=== PATIENT | male | born 1965 | race Caucasian/White ===

== ENCOUNTER → 2018-01-21 16:34 | Outpatient (CLI) | payer OTHER, BC, SELFPAY ==
[2018-01-21 17:39] LABS: Absolute Lymphocyte Count 2.26 X10^3/ul (0.83-4.51); Absolute Neutrophil Count 4.2 X10^3/uL (2.0-7.7); Basophil# 0.04 X10^3/uL; Basophil% 0.6 % (0-1); Eosinophil# 0.11 X10^3/uL; Eosinophils% 1.6 % (0-5); Hematocrit 40.7 % (40-54); Hemoglobin 13.6 g/dl (13.0-16.5); Lymphocyte # 2.26 X10^3/ul (4.0); Lymphocyte % 32.1 % (19-41); Mean Corp Hgb Conc 33.4 g/gl (32-36); Mean Corpuscular Hgb 30.5 pg (27.0-32.0); Mean Corpuscular Volume 91.3 fL (80-94); Mean Platelet Vol. 10.7 fl (6.2-12.0); Monocyte# 0.42 X10^3/uL; Neutrophil % 59.6 % (47-70); Platelet Count 241 K/mm3 (150-450); RBC Distribution Width CV 12.7 % (11.6-14.6); RBC Distribution Width SD 42.3 fl (35.1-43.9); Red Blood Count 4.46 M/mm3 (4.6-6.2)
[2018-01-21 17:40] LABS: POSITIVE COUNT NO; POSITIVE DIFFERENTIAL NO; POSITIVE MORPHOLOGY NO
[2018-01-21 18:00] LABS: BUN 9 mg/dL (7-18); BUN/Creat Ratio 9.9 RATIO (10-20); Creatinine, Serum 0.91 mg/dL (0.70-1.30); EST Glomerular Filtration Rate 92 mL/min (>60); Est Glom Filt Rate - Afr Amer 111 mL/min (>60); Glucose 115 mg/dL (74-106)
[2018-01-21 18:01] LABS: ALB/GLOB Ratio 1.1 RATIO (0.9-2.4); AST(SGOT) 14 U/L (15-37); Alanine Aminotransfer ALT/SGPT 23 U/L (16-61); Alkaline Phosphatase 61 U/L (45-117); Anion Gap 10 (5-15); Calcium,Total 9.4 mg/dL (8.5-10.1); Chloride 100 mmol/L (98-107); Globulin 3.5 g/dL (2.2-4.2); Magnesium 2.1 mg/dL (1.6-2.6); Potassium 3.7 mmol/L (3.5-5.1); Protein, Total 7.5 g/dL (6.4-8.2); Sodium Level 138 mmol/L (136-145); Thyroid Stim Hormone (TSH) 1.06 uIU/mL (0.358-3.74)
== END ==
PROVIDERS: Family Provider Family Medicine; PCP Family Medicine; Visit Provider Family Medicine
DX: K21.9 Gastro-esophageal reflux disease without esophagitis (principal)
CPT/HCPCS: 36415; 80053; 83735; 84443; 85025

== ENCOUNTER → 2018-02-14 07:49 | Outpatient (CLI) | payer OTHER, BC, SELFPAY ==
--- NOTE | 2018-02-14 07:52 | US_ITS ---
STUDY: ABDOMINAL ULTRASOUND - RIGHT UPPER QUADRANT REASON FOR VISIT: Male, 52 years old. Epigastric pain TECHNIQUE: Ultrasound evaluation of the right upper quadrant was performed with real-time and static mccann-scale imaging. TECHNICAL QUALITY: Adequate. COMPARISON: None. FINDINGS: Liver: The liver measures 12.8 cm. There is normal echogenicity of the liver. The bile ducts are within normal limits. There is hepatic color flow. The direction of portal flow is hepatopetal. There is no demonstrated mass lesion, there is a 4 mm hepatic calcification. Gallbladder: Normal distended gallbladder. The gallbladder wall measures 1.5 mm. There is a negative sonographic Scott's sign. There is no pericholecystic fluid. There are no gallstones. Common Bile Duct (C.B.D.): The common bile duct measures 2.1 mm. Pancreas: Normal size of the head, body and tail of the pancreas. There is normal echogenicity of the pancreas. There is no demonstrated pancreatic mass or cyst. Right Kidney: Normal size of the right kidney. The right kidney measures 11.5 x 6.3 x 5.0 cm. Normal renal cortex. The right cortex measures 1.6 cm. There is no demonstrated renal mass or cyst. There is no right hydronephrosis. US/Abdomen Limited IMPRESSION: No suspicious sonographic findings Electronically Signed: Dillon Arroyo MD at 9:39 EDT , Service support ,
== END ==
PROVIDERS: Family Provider Family Medicine; PCP Family Medicine; Visit Provider Internal Medicine Gastroenterology
DX: K21.9 Gastro-esophageal reflux disease without esophagitis (principal); R10.13 Epigastric pain
CPT/HCPCS: 76705

== ENCOUNTER 2020-11-16 14:24 | Outpatient (RCR) | payer OTHER, SELFPAY ==
[2017-07-18 17:19] VITALS: BMI 21.3
[2020-11-16] MEDS: COVID-19 VACC, MRNA(PFIZER)/PF 30 MCG/0.3 ML SYRINGE IM (07:25)
[2020-12-07] MEDS: COVID-19 VACC, MRNA(PFIZER)/PF 30 MCG/0.3 ML SYRINGE IM (07:08)
== END 2021-02-08 23:59 ==
LOC: IMMUN 14:24
PROVIDERS: PCP Family Medicine; Referring Provider Family Medicine; Visit Provider Family Medicine
DX: Z23 Encounter for immunization (principal)
CPT/HCPCS: 0001A; 0002A; 91300

== ENCOUNTER 2021-10-06 13:11 | Emergency (ER) | payer OTHER, SELFPAY ==
[2021-10-06 13:12] VITALS: BP 177/112; PULSE 104; RESP 16; TEMP 36.6; O2SAT 100; BMI 22.6
--- NOTE | 2021-10-06 13:40 | CT_ITS ---
STUDY: CT ABDOMEN AND PELVIS WITH CONTRAST REASON FOR EXAM: Male, 56 years old. 10 day history of right-sided abdominal pain with radiation into the right groin. History of ethanol abuse. RADIATION DOSAGE (If Supplied By Facility): CTDIvol = ( 10.51 ) mGy, DLP = ( 537.74 ) mGycm TECHNIQUE: Transaxial images were obtained from the dome of the diaphragm to the symphysis pubis without oral contrast. IV 100mL Isovue-370 was administered. Sagittal and coronal images were reconstructed. Individualized dose optimization techniques were used for this CT. COMPARISON: None. FINDINGS: The visualized lung bases are unremarkable. The visualized portions of the heart are within normal limits. Normal liver. Normal gallbladder and extrahepatic biliary system. There are multiple benign calcified granulomata of the spleen. Normal pancreas. Normal bilateral adrenal glands. Normal right kidney. Normal left kidney. Normal visualized stomach. Normal small intestine. Normal colon. The appendix is visualized and appears normal. There is diffuse atherosclerotic calcification of the abdominal aorta, without a demonstrated aneurysm. Normal inferior vena cava. Normal retroperitoneum. Moderately distended urinary bladder with diffuse bladder wall thickening. Normal abdominal wall. There are diffuse degenerative changes of the visualized lumbar spine. CT/Abdomen/Pelvis W IV Cont ONLY IMPRESSION: Mild degree of diffuse bladder wall thickening. Moderate degree of urinary bladder distention. Electronically Signed: Lázaro aBrber MD at 14:47 EST ,
[2021-10-06 13:46] LABS: Bacteria 0 SEEN /hpf (None Seen); Mucous, Urine 0 SEEN /hpf (<or=2+); Red Blood Cells-Urine 0 SEEN /hpf (0-5); Squamous Epithelial Cells - UA 0 SEEN /hpf (0-5); White Blood Cells 0 SEEN /hpf (0-5)
--- NOTE | 2021-10-06 13:46 | ED.VIS.GI ---
HPI HPI - GI History of Present Illness Chief Complaint: Abd Pain Informant: patient Narrative Narrative: Patient is a 56-year-old male with history of hypertension and alcohol abuse presenting with right-sided abdominal pain. He states has had symptoms for the past 10 days. It is in his right upper abdomen and radiates into his groin and to his back. He is also had increased belching. He is taking ibuprofen with some relief of his symptoms. He went to urgent care on Sunday, 3 days ago,where he was found to have red blood cells in his urine. He was diagnosed with possible bladder infection and started antibiotics. He notes he has not felt any better and was contacted today saying that his culture was negative. Patient has a history of kidney stones. He has had some mild dysuria. Does drink regular alcohol and chews tobacco. No other complaints at this time. [facility] Medical History Anxiety Hypertension Home Medications aspirin 81 mg PO DAILY@0800 #30 tab 03/21/17 [Rx Last Taken Unknown] lisinopril-hydrochlorothiazide [Zestoretic] 1 ea PO DAILY #30 tab 03/21/17 [Rx Last Taken Unknown] nitroglycerin 0.4 mg SUBLINGUAL Q5M PRN #14 tab 03/21/17 [Rx Last Taken Unknown] hydroxyzine HCl 25 mg PO PRN PRN 10/06/21 [History Last Taken Unknown] phenazopyridine [Pyridium] 200 mg PO TID #6 tab 10/06/21 [Rx Last Taken Unknown] tamsulosin [Flomax] 0.4 mg PO DAILY #14 cap 10/06/21 [Rx Last Taken Unknown] Allergy/AdvReac Type Severity Reaction Status Date / Time No Known Allergies Allergy Verified 10/06/21 13:14 Social History Smoking Status: Light Smoker (<10/day) ROS ROS ED Constitutional Constitutional ED: Denies chills or fever(s) ENT ENT ED: Denies sore throat Cardiovascular Cardiovascular: Denies chest pain Respiratory/Chest Respiratory/Chest: Denies cough or dyspnea Gastrointestinal Gastrointestinal: Reports abdominal pain and nausea; Denies constipation, diarrhea or vomiting Genitourinary Genitourinary ED: Reports dysuria and hematuria Musculoskeletal Musculoskeletal: Reports back pain; Denies arthralgias, myalgias or neck pain Integumentary Denies rash Neurologic Neurologic: Denies headache(s) or weakness Psychiatric Psychiatric: Reports anxiety; Denies depression EXAM Physical Exam Const Vital Signs: 10/06/21 13:12 Temperature 97.8 F Temperature Source Temporal Pulse Rate 104 H Respiratory Rate 16 Blood Pressure 177/112 H Blood Pressure Mean 133 Pulse Ox 100 Oxygen Delivery Method Room Air Positive well nourished and well developed General Appearance ED: well developed HEENT Reports moist mucous membranes normocephalic and atraumatic Eyes PERRL and EOMs intact bilaterally Neck supple and no JVD Resp normal respiratory effort and clear to auscultation bilaterally Cardio regular rate, regular rhythm and no murmurs GI non-tender and non-distended Auscultation: hyperactive bowel sounds Palpation: soft; Negative for guarding or rigid Back/Spine no CVA tenderness General Back: Negative for CVA tenderness Extremity full ROM Neuro Sensorium / Orientation: alert, oriented to person and oriented to time Motor Exam: strength 5/5 throughout; Negative for general weakness Psych mental status grossly normal Mood & Affect: anxious Skin no wounds Lesions: no lesions Rashes: no rashes MDM MDM MDM Narrative Medical decision making narrative: Patient is evaluated for 10 days of abdominal pain. He has had some associated dysuria. He was treated with a course of Macrobid with no improvement. He was contacted today and told his urine culture was negative. Differential includes nephrolithiasis as well as diverticulitis or other bowel involvement. CT of the abdomen pelvis obtained as well screening blood work. Work-up is largely unremarkable. Urinalysis is not consistent with hematuria or infection. CT did show mild degree of diffuse bladder wall thickening as well as moderate degree of urinary bladder distention. Patient attempted to urinate again and bladder scan still showed at least 150 cc of urine. At this time patient does not want a Lee catheter. We will start him on Pyridium and Flomax and have him follow-up outpatient with urology. Is counseled on signs and symptoms of acute urinary retention and reasons to return to the emergency room. Patient is agreeable this plan of care. There does not appear to be any acute infection requiring antibiotics. I suspect his urinary retention and possible cystitis is what is causing his symptoms. He does note that his symptoms are worse when he feels the need to urinate. Lab Data Attestation: I reviewed the patient's lab results. Labs: Laboratory Results - last 24 hr 10/06/21 10/06/21 10/06/21 13:20 13:49 13:49 WBC 7.8 RBC 5.00 Hgb 16.1 Hct 46.4 MCV 92.8 MCH 32.2 H MCHC 34.7 RDW Std Deviation 40.9 RDW Coeff of Nader 11.9 Plt Count 229 MPV 10.4 Immature Gran % (Auto) 0.300 Neut % (Auto) 66.5 Lymph % (Auto) 23.5 Haakon % (Auto) 7.2 Eos % (Auto) 1.7 Baso % (Auto) 0.8 Absolute Neuts (auto) 5.2 Absolute Lymphs (auto) 1.83 Nucleated RBC % 0 Sodium 138 Potassium 3.6 Chloride 103 Carbon Dioxide 28.0 Anion Gap 7 BUN 11 Creatinine 1.00 Estim Creat Clear Calc 81.62 Est GFR (MDRD) Af Amer 99 Est GFR (MDRD) Non-Af 81 BUN/Creatinine Ratio 11.0 Glucose 129 H Lactic Acid Calcium 9.2 Total Bilirubin 1.00 Direct Bilirubin 0.21 AST 12 L ALT 25 Alkaline Phosphatase 57 Total Protein 8.0 Albumin 4.3 Globulin 3.7 Lipase 74 Urine Color Yellow Urine Clarity Clear Urine pH 6.5 Ur Specific Evant 1.010 Urine Protein Negative Urine Glucose (UA) Normal Urine Ketones Negative Urine Occult Blood Negative Urine Nitrite Negative Urine Bilirubin Negative Urine Urobilinogen Normal Ur Leukocyte Esterase Negative Urine RBC 0 SEEN Urine WBC 0 SEEN Ur Squamous Epith Cells 0 SEEN Urine Bacteria 0 SEEN Urine Mucus 0 SEEN 10/06/21 13:49 WBC RBC Hgb Hct MCV MCH MCHC RDW Std Deviation RDW Coeff of Nader Plt Count MPV Immature Gran % (Auto) Neut % (Auto) Lymph % (Auto) Haakon % (Auto) Eos % (Auto) Baso % (Auto) Absolute Neuts (auto) Absolute Lymphs (auto) Nucleated RBC % Sodium Potassium Chloride Carbon Dioxide Anion Gap BUN Creatinine Estim Creat Clear Calc Est GFR (MDRD) Af Amer Est GFR (MDRD) Non-Af BUN/Creatinine Ratio Glucose Lactic Acid 1.4 Calcium Total Bilirubin Direct Bilirubin AST ALT Alkaline Phosphatase Total Protein Albumin Globulin Lipase Urine Color Urine Clarity Urine pH Ur Specific Evant Urine Protein Urine Glucose (UA) Urine Ketones Urine Occult Blood Urine Nitrite Urine Bilirubin Urine Urobilinogen Ur Leukocyte Esterase Urine RBC Urine WBC Ur Squamous Epith Cells Urine Bacteria Urine Mucus Radiography Diagnostic Testing: Clinical Impression(s) from Imaging Studies Abdomen/Pelvis CT 10/06/21 13:40 IMPRESSION: Mild degree of diffuse bladder wall thickening. Moderate degree of urinary bladder distention. Electronically Signed: Lázaro Barber MD at 14:47 EST , Discharge Plan Triage Chief Complaint: Abd Pain ED Provider: Karla Decker Dx/Rx/DC Orders Clinical Impression: Acute urinary retention, Cystitis Instructions: ED Urinary Retention, Male Prescriptions: New phenazopyridine [Pyridium] 200 MG tablet 200 mg PO TID Qty: 6 RF: 0 tamsulosin [Flomax] 0.4 mg capsule 0.4 mg PO DAILY Qty: 14 RF: 0 No Action aspirin 81 MG tablet 81 mg PO DAILY@0800 Qty: 30 RF: 0 nitroglycerin 0.4 MG tablet 0.4 mg sublingual Q5M PRN (Reason: Chest Pain) Qty: 14 RF: 0 lisinopril-hydrochlorothiazide [Zestoretic] 1 EACH tablet 1 ea PO DAILY Qty: 30 RF: 0 hydroxyzine HCl 25 mg tablet 25 mg PO PRN PRN (Reason: Anxiety) RF: 0 Primary Care Provider: Silvio Moon Referrals: Silvio Moon MD [Primary Care Provider] - Case Squires MD [STAFF PHYSICIAN] - 1-2 Weeks Activity Restrictions/Additional Instructions: I suspect your bladder is not emptying all the way which is causing her symptoms. If you have more discomfort in your lower abdomen or feel the need to urinate but can only pass a small amount of urine, please return the emergency room as you might require a Lee catheter at that time. Disposition Disposition: Home, Self Care
[2021-10-06 13:48] LABS: Color, Urine Yellow (Yellow); Glucose, Dipstick Normal (Normal); Ketone-Dipstick Negative (Negative); Leukocyte Esterase-Dipstick Negative /ul (Negative); Nitrite-Dipstick Negative (Negative); Occult Blood-Urine Negative /ul (Negative); Protein-Dipstick Negative (Negative); Urine Bilirubin Dipstick Negative (Negative); Urine Clarity Clear (Clear); Urine Urobilinogen Normal (Normal); Urine pH 6.5 (5.0 - 8.0)
[2021-10-06 13:57] LABS: Absolute Lymphocyte Count 1.83 X10^3/uL (0.83-4.51); Absolute Neutrophil Count 5.2 X10^3/uL (2.0-7.7); Basophil# 0.06 X10^3/uL; Basophil% 0.8 % (0-1); Eosinophil# 0.13 X10^3/uL; Eosinophils% 1.7 % (0-5); Hematocrit 46.4 % (40-54); Hemoglobin 16.1 g/dL (13.0-16.5); Lymphocyte # 1.83 X10^3/ul (0.83-4.51); Lymphocyte % 23.5 % (19-41); Mean Corp Hgb Conc 34.7 g/dL (32-36); Mean Corpuscular Hgb 32.2 pg (27.0-32.0); Mean Corpuscular Volume 92.8 fL (80-94); Mean Platelet Vol. 10.4 fl (6.2-12.0); Monocyte# 0.56 X10^3/uL; Monocyte% 7.2 % (0-10); NRBC Flagged by Analyzer 0 % (0-5); Neutrophil # 5.18 X10^3/uL (2.7-7.7); Neutrophil % 66.5 % (47-70); Platelet Count 229 K/mm3 (150-450); RBC Distribution Width CV 11.9 % (11.6-14.6); RBC Distribution Width SD 40.9 fl (35.1-43.9); White Blood Count 7.8 K/mm3 (4.4-11.0)
[2021-10-06] MEDS: Ondansetron 4 MG/2 ML Vial IV (13:57)
[2021-10-06] MEDS: Ketorolac 15 MG/ML Vial IV (13:57)
[2021-10-06] MEDS: Famotidine 200 MG/20 ML MDV 20 MG in 0.9% Normal Saline (Pres. free 8 ML 300 MG IV (13:57)
[2021-10-06] MEDS: 0.9% Normal Saline 1,000 ML 1000 ML IV (13:58)
[2021-10-06 14:11] LABS: AST(SGOT) 12 U/L (15-37); Alanine Aminotransfer ALT/SGPT 25 U/L (16-61); Albumin, Serum 4.3 g/dL (3.2-5.0); Alkaline Phosphatase 57 U/L (45-117); Anion Gap 7 (5-15); BUN 11 mg/dL (7-18); Bilirubin, Direct 0.21 mg/dL (0.00-0.30); Calcium,Total 9.2 mg/dL (8.5-10.1); Chloride 103 mmol/L (98-107); EST Glomerular Filtration Rate 81 mL/min (>60); Est Glom Filt Rate - Afr Amer 99 mL/min (>60); Estimated Creatinine Clearance 81.62 ml/min; Globulin 3.7 g/dL (2.2-4.2); Glucose 129 mg/dL (74-106); Lipase 74 U/L (73-393); Potassium 3.6 mmol/L (3.5-5.1); Sodium Level 138 mmol/L (136-145)
[2021-10-06 14:35] LABS: Lactic Acid 1.4 mmol/L (0.4-1.9)
== END 2021-10-06 15:55 | disposition home or self-care (01) ==
PROVIDERS: Emergency Provider Emergency Medicine; PCP Family Medicine; Visit Provider Emergency Medicine
DX: R33.9 Retention of urine, unspecified (principal); N30.90 Cystitis, unspecified without hematuria; F17.200 Nicotine dependence, unspecified, uncomplicated; I10 Essential (primary) hypertension; F41.9 Anxiety disorder, unspecified; Z79.899 Other long term (current) drug therapy; Z79.82 Long term (current) use of aspirin
CPT/HCPCS: 74177; 80048; 80076; 81001; 83605; 83690; 85025; 96361; 96365; 96375; 99283; J7030; Q9967; A4216; J2405; J3490

== ENCOUNTER 2021-10-07 22:02 | Emergency (ER) | payer OTHER, SELFPAY ==
[2021-10-07 22:02] VITALS: BP 164/112; PULSE 97; RESP 16; TEMP 36.3; O2SAT 100; BMI 22.9
--- NOTE | 2021-10-07 22:37 | EX.ED.DYSGE1 ---
HPI History of Present Illness Chief Complaint: Complaint Narrative Narrative: Patient is a 56-year-old male who was seen yesterday secondary to abdominal pain. At that time he had basic blood work urine sample and CT scan with IV contrast obtained. Blood work revealed no clinically significant findings urine showed no signs of infection and CAT scan showed a thickened distended bladder but otherwise normal. They discussed that his symptoms are most likely related to urinary retention and recommended Lee catheter placement. Patient refused at that time and he was therefore placed on Flomax and discharged with urology follow-up. Patient states that he did not pee for 6 to 8 hours today and has had increased abdominal pain once again and therefore comes in for evaluation. [facility] Medical History Anxiety Hypertension Home Medications aspirin 81 mg PO DAILY@0800 #30 tab 03/21/17 [Rx Last Taken Unknown] lisinopril-hydrochlorothiazide [Zestoretic] 1 ea PO DAILY #30 tab 03/21/17 [Rx Last Taken Unknown] nitroglycerin 0.4 mg SUBLINGUAL Q5M PRN #14 tab 03/21/17 [Rx Last Taken Unknown] hydroxyzine HCl 25 mg PO PRN PRN 10/06/21 [History Last Taken Unknown] phenazopyridine [Pyridium] 200 mg PO TID #6 tab 10/06/21 [Rx Last Taken Unknown] tamsulosin [Flomax] 0.4 mg PO DAILY #14 cap 10/06/21 [Rx Last Taken Unknown] Allergy/AdvReac Type Severity Reaction Status Date / Time No Known Allergies Allergy Verified 10/07/21 22:04 Social History Smoking Status: Light Smoker (<10/day) ROS [facility] ED Constitutional Constitutional ED: Denies chills or fever(s) ENT ENT ED: Denies sore throat Cardiovascular Cardiovascular: Denies chest pain Respiratory/Chest Respiratory/Chest: Denies cough or dyspnea Gastrointestinal Gastrointestinal: Reports abdominal pain; Denies diarrhea, nausea or vomiting Genitourinary Genitourinary ED: Reports other Details: Positive urinary retention ; Denies dysuria Musculoskeletal Musculoskeletal: Denies back pain or myalgias Integumentary Denies rash Neurologic Neurologic: Denies headache(s) Psychiatric Psychiatric: Reports anxiety Hematologic/Lymphatic Hematologic/Lymphatic: Denies easy bleeding or easy bruising EXAM Physical Exam Const Vital Signs: 10/07/21 22:02 Temperature 97.4 F L Temperature Source Temporal Pulse Rate 97 Respiratory Rate 16 Blood Pressure 164/112 H Blood Pressure Mean 129 Pulse Ox 100 Oxygen Delivery Method Room Air Positive well nourished and well developed General Appearance ED: well developed Eyes PERRL and EOMs intact bilaterally Neck supple Resp normal respiratory effort and clear to auscultation bilaterally Cardio regular rate and regular rhythm Rate: other Other Details: Radial pulses are plus 2 out of 4 bilaterally are equal and symmetric GI non-distended GI Narrative: Abdomen is soft and nondistended with normal active bowel sounds. There is mild pain with palpation in the suprapubic and slightly right lower quadrant section of the abdomen but no voluntary guarding or rigidity no obvious organomegaly. No pulsatile mass Auscultation: normoactive bowel sounds Palpation: soft Narrative: Normal circumcised male with no blood or discharge from the urethral meatus. No testicular masses or swelling. No obvious inguinal hernia noted. No abnormal lie to the testicle to suggest torsion. No soft tissue changes to suggest Lavern's gangrene Back/Spine no CVA tenderness Extremity normal to inspection Neuro oriented x3 and CN's II-XII intact bilaterally Sensorium / Orientation: alert Motor Exam: strength 5/5 throughout Psych Mood & Affect: anxious Skin no rashes or lesions noted MDM MDM MDM Narrative Medical decision making narrative: Patient presented to the ER hypertensive but was anxious and otherwise had stable vitals. He underwent a complete work-up with CT scan approximately 24 hours ago so I felt there was no need to repeat this. The patient did urinate upon arrival so a residual bladder scan was obtained. Patient still had 350 mL of fluid in his bladder indicating he has urinary retention and will need a Lee catheter. Therefore catheter was placed and patient reported feeling better and therefore will be discharged and advised to see urology for repeat evaluation. Discharge Plan Triage Chief Complaint: Complaint ED Provider: Chris Dyson Dx/Rx/DC Orders Clinical Impression: Acute urinary retention Instructions: ED Lee Catheter, Care, ED Urinary Retention, Male Prescriptions: No Action aspirin 81 MG tablet 81 mg PO DAILY@0800 Qty: 30 RF: 0 nitroglycerin 0.4 MG tablet 0.4 mg sublingual Q5M PRN (Reason: Chest Pain) Qty: 14 RF: 0 lisinopril-hydrochlorothiazide [Zestoretic] 1 EACH tablet 1 ea PO DAILY Qty: 30 RF: 0 hydroxyzine HCl 25 mg tablet 25 mg PO PRN PRN (Reason: Anxiety) RF: 0 phenazopyridine [Pyridium] 200 MG tablet 200 mg PO TID Qty: 6 RF: 0 tamsulosin [Flomax] 0.4 mg capsule 0.4 mg PO DAILY Qty: 14 RF: 0 Primary Care Provider: Silvio Moon Referrals: Silvio Moon MD [Primary Care Provider] - Case Squires MD [STAFF PHYSICIAN] - 3-5 Days Activity Restrictions/Additional Instructions: Please continue the Flomax and follow-up with urology for repeat evaluation Disposition Disposition: Home, Self Care
[2021-10-07] MEDS: Lidocaine Jelly 2% 20 ML Syringe (URO-JET) 1 APPLIC TOPICAL (22:53)
[2021-10-07 22:56] VITALS: BP 125/86; PULSE 76; RESP 16; TEMP 36.3; O2SAT 98
== END 2021-10-07 23:08 | disposition home or self-care (01) ==
PROVIDERS: Emergency Provider Emergency Medicine; PCP Family Medicine; Visit Provider Emergency Medicine
DX: R33.9 Retention of urine, unspecified (principal); F17.200 Nicotine dependence, unspecified, uncomplicated
CPT/HCPCS: 51702; 99283

== ENCOUNTER 2021-10-21 09:36 | Outpatient (CLI) | payer OTHER, SELFPAY ==
--- NOTE | 2021-10-21 09:39 | US_ITS ---
STUDY: ABDOMINAL ULTRASOUND - RIGHT UPPER QUADRANT REASON FOR VISIT: Male, 56 years old right upper quadrant pain. TECHNIQUE: Ultrasound evaluation of the right upper quadrant was performed with real-time and static mccann-scale imaging. TECHNICAL QUALITY: Adequate. COMPARISON: None. FINDINGS: Liver: The liver measures 15.3 cm. There is normal echogenicity of the liver. The bile ducts are within normal limits. There is hepatic color flow. The direction of portal flow is hepatopetal. There is no demonstrated mass lesion. Calcified granuloma in the right lobe of the liver. Gallbladder: Normal distended gallbladder. The gallbladder wall measures 2.6 mm. There is a negative sonographic Scott''s sign. There is no pericholecystic fluid. There are no gallstones. Common Bile Duct (C.B.D.): The common bile duct measures 3.2 mm. Pancreas: Normal size of the head, body and tail of the pancreas. There is normal echogenicity of the pancreas. There is no demonstrated pancreatic mass or cyst. Right Kidney: Normal size of the right kidney. The right kidney measures 12.8 cm x 5.2 cm x 4.6 cm. Normal renal cortex. The right cortex measures 1.4 cm. There is no demonstrated renal mass or cyst. There is no right hydronephrosis. US/Gallbladder IMPRESSION: Normal right upper quadrant ultrasound examination. Electronically Signed: Lázaro Barber MD at 13:33 EST ,
== END 2021-10-21 23:59 | disposition home or self-care (01) ==
PROVIDERS: PCP Family Medicine; Referring Provider Urology; Visit Provider Urology
DX: R10.9 Unspecified abdominal pain (principal)
CPT/HCPCS: 76705

== ENCOUNTER → 2022-05-16 | Outpatient (CLI) | payer OTHER, SELFPAY ==
--- NOTE | 2022-05-16 14:47 | MRI_ITS ---
STUDY: MRI CERVICAL SPINE WITHOUT CONTRAST REASON FOR EXAM: Male, 57 years old. Foraminal stenosis of C5-6 and C6-7 TECHNIQUE: Standardized fat and water weighted pulse sequences were obtained in the sagittal and axial planes. COMPARISON: None FINDINGS: Normal foramen magnum and brainstem-cervical cord junction. Normal craniovertebral junction. Normal anterior atlantoaxial articulation. Normal odontoid process. Normal cervical lordosis. Normal vertebral bodies and posterior osseous elements. C2-3: Normal endplates. Normal disc height, signal and minor bulging the disc with small left posterolateral disc protrusion.. Normal central canal and intervertebral neural foramina. C3-4: Normal endplates. Normal disc height, signal and minimal bulging of the disc.. Normal central canal and intervertebral neural foramina. C4-5: Mild anterior endplate spurring.. Normal disc height, signal and tiny central disc protrusion.. Normal central canal and intervertebral neural foramina. C5-6: Mild anterior endplate spurring.. Normal disc height, signal and tiny left paracentral disc protrusion.. Normal central canal and intervertebral neural foramina. C6-7: Normal endplates. Normal disc height, signal and minor bulging of the disc with tiny left foraminal disc protrusion... Normal central canal. Mild left neuroforaminal encroachment secondary to disc and bony hypertrophy.. C7-T1: Normal endplates. Normal disc height, signal and morphology. Normal central canal and intervertebral neural foramina. Normal cervical cord. Normal visualized soft tissue structures. MRI/Spine Cervical (Routine) IMPRESSION: No evidence for acute fracture or other bony pathology. Mild multilevel disc disease.. Mild left neuroforaminal stenosis at C6-7 secondary to disc and bony hypertrophy Other findings as above Electronically Signed: Silvio Proctor MD at 18:23 EDT ,
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
== END | disposition home or self-care (01) ==
PROVIDERS: PCP Family Medicine; Visit Provider Orthopaedic Surgery
DX: M48.02 Spinal stenosis, cervical region (principal)
CPT/HCPCS: 70030; 72141

== ENCOUNTER → 2022-06-05 | Outpatient (CLI) | payer OTHER, SELFPAY ==
--- NOTE | 2022-06-05 09:54 | ART_ITS ---
Reason For Study: Brachial plexus Procedure A bilateral upper extremity continuous wave Doppler with analog waveform analysis and segmental pressures. With thoracic outlet syndrome procedure. Left Segmental Pressures Left brachial= 133mmHg. Left ulnar= 155mmHg. Left radial= 156mmHg. The left radial waveforms are triphasic. The left ulnar waveforms are triphasic. Right Segmental Pressures Right brachial= 137mmHg. Right ulnar= 158mmHg. Right radial= 161mmHg. The right radial waveforms are triphasic. The right ulnar waveforms are triphasic. Indices The wrist-brachial index by ulnar artery is 1.15. The wrist brachial index by radial artery is 1.18. The wrist brachial index by the ulnar artery is 1.13. The wrist brachial index by the radial artery is 1.14. VL/Upper Extremity Arterial Study Interpretation Summary Right wrist-brachial index 1.18, normal. PVR and Doppler waveforms normal at re st. Right upper extremity waveforms unchanged with maneuvers. Left wrist-brachial index 1.14, normal. PVR and Doppler waveforms normal at res t Left upper extremity waveforms diminished with maneuvers consistent with thorac ic outlet syndrome Ordering Physician: Evert Smart Referring Physician: Silvio Jara Performed By: Paris Jamil RVT
== END | disposition home or self-care (01) ==
LOC: CVS 09:51
PROVIDERS: PCP Family Medicine; Visit Provider Orthopaedic Surgery
DX: G54.0 Brachial plexus disorders (principal)
CPT/HCPCS: 93923

== ENCOUNTER → 2022-10-27 | Outpatient (CLI) | payer OTHER, SELFPAY ==
[2022-10-27 12:41] LABS: Erythrocyte Sedimentation Rate 8 mm/hr (0-20)
== END | disposition home or self-care (01) ==
LOC: LABSPEC 12:21
PROVIDERS: PCP Family Medicine; Visit Provider Physician Assistant
DX: R10.31 Right lower quadrant pain (principal)
CPT/HCPCS: 85652

== ENCOUNTER 2025-03-20 07:22 | Observation (INO) | payer BC, SELFPAY ==
--- NOTE | 2025-03-05 16:23 | PAT.ANE_ITS ---
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 When Was Last Pacemaker Check QUESTION #4 FULL TEXT: You/Your Family Experience fever (hyperthermia) with Anesthesia Last Oral Intake Last Oral intake: Last Oral Intake NPO since Meds taken in AM with sips of water? Meds patient instructed to take am of surgery PONV PONV - supervisor word processing: PONV - supervisor word processing Female No 03/05/25 10:01 HX of Motion Sickness No 03/05/25 10:01 HX of N/V After Surgery No 03/05/25 10:01 Non-Smoker Yes 03/05/25 10:01 Duration of Surgery greater Yes 03/05/25 10:01 than 60 minutes Number of Risk Factors 2 03/05/25 10:01 PONV Score Moderate Risk 03/05/25 10:01 Height & Weight Height & Weight: Anesthesia: Height & Weight Height 5 ft 8 in 05/16/22 16:19 Respiratory Assessment Respiratory Assessment - supervisor word processing: Respiratory Tract Infection Hx - supervisor word processing Hx Respiratory Tract Infection No 03/05/25 10:01 STOP Sleep Apnea STOP Sleep Apnea - supervisor word processing: STOP Sleep Apnea - supervisor word processing Hx Hypertension Yes: ON MEDS 03/05/25 10:01 Hx Sleep Apnea No 03/05/25 10:01 CPAP BIPAP Do you snore loudly (louder No 03/05/25 10:01 than talking or can be heard Do you often feel tired/ No 03/05/25 10:01 fatigued/ sleepy during daytime? Has anyone observed you stop No 03/05/25 10:01 breathing during sleep? STOP Results Negative 03/05/25 10:01 QUESTION #5 FULL TEXT : Do you snore loudly (louder than talking or can be heard through closed doors)? 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 Specify any problems Hx of Preganancy in last 3 N/A 03/05/25 10:01 Months Nurse Filling Out Transfusion [email or web address] 03/05/25 10:01 & Questions: Date: 03/05/25 03/05/25 10:01 Time: 10:04 03/05/25 10:01 Patient unable to answer at this time (ie. confused, unrespo /Reproduction History /Reproductive History - supervisor word processing: /Reproductive Hx- supervisor word processing Hx Now No 03/05/25 10:01 Gestational Age (in weeks): EDC: Hx Hx Para Hx Section SAB No 03/05/25 10:01 [facility] Medical History (Updated 03/05/25 @ 10:01 by Breonna Goodwin) Wears glasses Wears partial dentures Prostate disease Gastric reflux Former smoker History of echocardiogram History of stress test Anxiety Hypertension Home Medications ?Medication ?Instructions ?Recorded ?Last Taken ?Type aspirin 81 mg tablet,delayed 81 mg PO DAILY@0800 #30 t abs 03/21/17 Unknown Rx release lisinopril 20 1 ea PO DAILY #30 tabs 03/21 Unknown Rx mg-hydrochlorothiazide 12.5 mg tablet (Zestoretic) hydroxyzine HCl 25 mg tablet 25 mg PO PRN PRN Anxiety 10/06/21 Unknown History tamsulosin 0.4 mg capsule (Flomax) 0.4 mg PO DAILY #14 caps 10/06/21 Unknown Rx amitriptyline 10 mg tablet 10 mg PO QHS 03/05/25 Unkno wn History atorvastatin 10 mg tablet 10 mg PO DAILY 03/05/25 Unkn own History sacrosidase 8,500 unit/mL oral 2 ml PO .QD 03/05/25 Un known History solution (Sucraid) Allergy/AdvReac Type Severity Reaction Status Date / Time No Known Allergies Allergy Verified 03/05/25 09:49 Family History (Updated 10/24/24 @ 11:02 by Karma Tenorio) Other Arthritis Cancer Hypertension Surgical History (Updated 03/05/25 @ 10:01 by Breonna Goodwin) Hx of colonoscopy Social History (Updated 10/24/24 @ 11:19 by Karma Tenorio) Smoking Status: Former smoker Tobacco: How many years used: 10 Audit: Pertinent Findings Pertinent Findings EKG Perinent findings: EKG done on 07/19/2017: Vent. Rate : 055 BPM Atrial Rate : 055 BPM P-R Int : 148 ms QRS Dur : 110 ms QT Int : 410 ms P-R-T Axes : 055 051 050 degrees QTc Int : 392 ms Sinus bradycardia Otherwise normal ECG When compared with ECG of 18-JUL-2017 14:40, MANUAL COMPARISON REQUIRED, DATA IS UNCONFIRMED Echo (EF%) pertinent findings: Echocardiogram 03/20/2017: Left ventricular systolic function is normal with an estimated LVEF of 65%. There is trivial mitral valve insufficiency and trivial tricuspid valve insufficiency. Heart catheterization pertinent findings: Cardiac cath done on 07/19/2017: Normal LV size with normal wall motion and normal systolic function. Nonobstructive coronary arteries. Recommendations were to DC anticoagulation start PPI and start Lopressor at 12.5 mg twice daily p.o. in addition to alcohol cessation. Recommendation Anesthesia Recommendation Anesthesia recommendation: OPTIMIZED for anesthesia
[2025-03-20] VITALS (12 sets, daily range): BP systolic 106–157; BP diastolic 66–94; PULSE 55–93; RESP 14–18; TEMP 36–37.1; O2SAT 95–99; BMI 23.2
--- OUTSIDE RECORDS SUMMARY | 2025-03-20 06:27 | XMS RPT_ITS | CCD ---
Author Organization [facility] [place] Care Team Providers Care 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 Name Role Phone Silvio Moyer MD Primary Care Provider [phone] Dr. Silvio Moyer Primary Care Provider Dr. Silvio Moyer Referring Provider Dr. Evert Smart Attending Provider [phone] Claude Rios Attending Provider Silvio Moyer MD Primary Care Provider Silvio Moyer MD Primary Care Provider Silvio Moyer MD Primary Care Provider Silvio Moyer MD Primary Care Provider Sara RECORDS OFFICER.Tracie ROY Unavailable Juliet Millan PA-C Unavailable Sara RECORDS OFFICER.Tracie ROY Unavailable Juliet Millan PA-C Unavailable Silvio Moyer Referring Unavailable Silvio Moyer Primary Care Unavailable Renetta Starr Attending Unavailable Silvio Moyer Primary Care Unavailable Case Squires Referring Unavailable TaviaCase guadarrama Attending Unavailable Silvio Moyer Primary Care Unavailable Starr, Renetta Referring Unavailable Starr, Renetta Attending Unavailable Silvio Moyer Primary Care Unavailable Starr, Renetta Referring Unavailable Starr, Renetta Attending Unavailable SILVIO MOYER A Primary Care Unavailable JEWEL VELEZ Attending Unavailable SILVIO MOYER A Primary Care Unavailable FABIÁN MARTINEZ Attending Unavailable SILVIO MOYER Referring Unavailable TRACIE NEWMAN Attending Unavailable SILVIO MOYER A Primary Care Unavailable KEIRY FONTANA Attending Unavailable SILVIO MOYER Primary Care Unavailable SILVIO MOYER Primary Care Unavailable JULIET MILLAN Attending Unavailable SILVIO MOYER Primary Care Unavailable SILVIO MOYER Primary Care Unavailable COMFORTSILVIO SHRESTHA Attending Unavailable SILVIO MOYER Referring Unavailable SILVIO MOYER Primary Care Unavailable SILVIO MOYER Referring Unavailable SILVIO MOYER Primary Care Unavailable SILVIO MOYER Primary Care Unavailable SILVIO MOYER Attending Unavailable SILVIO MOYER Primary Care Unavailable SILVIO MOYER Referring Unavailable SILVIO MOYER Primary Care Unavailable SILVIO MOYER Referring Unavailable SILVIO MOYER Attending Unavailable SILVIO MOYER Primary Care Unavailable SILVIO MOYER Primary Care Unavailable Medications Current Medications Medication Drug Class(es) Dates Sig (Normalized) Sig (Original) amitriptyline hydrochloride 10 mg oral tablet (20 sources) Tricyclic Antidepressant Start: 3 End: 5 take 1 tablet by mouth once daily at bedtime amitriptyline (ELAVIL) 10 mg tablet Indications: Irritable bowel syndrome with constipation TAKE 1 TABLET BY MOUTH DAILY AT BEDTIME 30 tablet 4 12/22/2024 Active Comment on above: Take 1 tablet by rafat th daily at bedtime. Take 10 mg by mouth daily at bedtime. amoxicillin 875 mg / clavulanate 125 mg oral tablet (1 source) Penicillin-class Antibacterial Start: 4 End: 4 take 1 tablet by mouth every twelve hours amoxicillin-clavul anate potassium (AUGMENTIN) 875-125 mg per tablet Indications: Small intestinal bacterial overgrowth Take 1 tablet by mouth every 12 hours for 10 days. 20 tablet 0 10/30/2023 11/09/2023 Active Comment on above: Take 1 tablet by rafat th every 12 hours for 10 days. aspirin 81 mg delayed release oral tablet (2 sources) Platelet Aggregation Inhibitor, Nonsteroidal Anti-inflammatory Drug Start: 7 take 81 mg by mouth once daily Aspirin Active 81 MG PO DAILY@0800 30 March 20, 2017 11:00pm atorvastatin 10 mg oral tablet (20 sources) HMG-CoA Reductase Inhibitor Start: 4 End: 5 take 1 tablet by mouth once daily atorvastatin (LIPITOR) 10 mg tablet Indications: Mixed hyperlipidemia Take 1 tablet by mouth once daily. 90 tablet 1 10/24/2024 Active Comment on above: Take 1 tablet by rafat th once daily. celecoxib 200 mg oral capsule (7 sources) Nonsteroidal Anti-inflammatory Drug Start: 5 take 1 capsule by mouth once daily celecoxib (CELEBREX) 200 mg capsule Take 1 capsule by mouth once daily. 30 capsule 1 11/29/2024 Active gabapentin 300 mg oral capsule (20 sources) Anti-epileptic Agent Start: 4 End: 5 take 1 capsule by mouth three times daily as needed gabapentin (NEURONTIN) 300 mg capsule Indications: Foraminal stenosis of cervical region Take 1 capsule by mouth three times a day as needed for up to 20 days. 60 capsule 2 11/29/2024 Active hydroCHLOROthiazide 12.5 mg / lisinopril 20 mg oral tablet (20 sources) Thiazide Diuretic, Angiotensin Converting Enzyme Inhibitor Start: 4 End: 5 take 1 tablet by mouth once daily lisinopril-hydroCH LOROthiazide (ZESTORETIC) 20-12.5 mg per tablet Take 1 tablet by mouth once daily. 90 tablet 1 11/04/2024 Active Start: 03-21-2017 End: 06-04-2023 take 1 tablet by mouth once daily lisinopril-hydroCHLOROthiazide (ZESTORET IC) 20-12.5 mg per tablet Indications: Essential hypertension Take 1 tablet by mouth once daily. 90 tablet 1 06/04/2023 Active Comment on above: Take 1 tablet by rafat once daily. hydrOXYzine hydrochloride 25 mg oral tablet (20 sources) Antihistamine Start: 10-13-2023 hydrOXYzine HCl (ATARAX) 25 mg tablet Take 0.5-1 tab every 8 hrs as needed for panic attacks. 30 tablet 1 10/13/2023 Active Start: 12-22-2020 End: 01-04-2022 hydrOXYzine HCl (ATARAX) 25 mg tablet Take 0.5-1 tab every 8 hrs as needed for panic attacks. 30 tablet 1 01/04/2022 Active Comment on above: Take 0.5-1 tab every 8 hrs as needed for panic attacks. Inhalational Spacing Device (1 source) Start: 07-04-20 End: 07-04-20 Inhalational Spacing Device 1 Device one time only for 1 dose. 1 Each 0 07/04/2023 07/04/2023 Active Comment on above: 1 Device one time on ly for 1 dose. Magnesium (7 sources) MAGNESIUM ORAL T mika by mouth as directed. Active nitroglycerin 0.4 mg sublingual tablet (2 sources) Nitrate Vasodilator Start: 03-21-20 Nitroglycerin Active 0.4 MG SL Q5M March 21, 2017 8:37am polyethylene glycol 3350 33733 mg powder for oral solution (20 sources) Osmotic Laxative polyethylene gl ycol 3350 (MIRALAX) 17 gram/dose powder Take by mouth once daily. Dissolve dose in 4 - 8 ounces of liquid and take as directed. Active pregabalin 200 mg oral capsule (20 sources) Start: 03-27-20 End: 10-09-19 take 1 capsule by mouth three times daily as needed Pregabalin (LYRICA) 200 mg capsule Take 1 capsule by mouth three times a day as needed for up to 20 days. 03/27/2024 10/09/2024 Discontinued Start: 08-03-2022 End: 09-02-2022 take 1 capsule by mouth three times daily pregabalin (LYRICA) 75 mg capsule Indications: Pectoralis minor syndrome (HCC) , Foraminal stenosis of cervical region Take 1 capsule by mouth three times daily for 30 days. 90 capsule 0 08/03/2022 08/23/2022 Discontinued Start: 07-04-2022 End: 08-03-2023 LYRICA 25 mg capsule Indicat ions: Pectoralis minor syndrome (HCC) 25 mg three times daily with increase up to 75 mg three times daily. Increase by 25 mg every 7 days as tolerated. 125 capsule 0 07/04/2022 04/21/2023 Discontinued Comment on above: 25 mg three times da pattie with increase up to 75 mg three times daily. Increase by 25 mg every 7 days as tolerated. Take 1 capsule by [facility] three times daily for 30 days. rifAXIMin 550 mg oral tablet (4 sources) Rifamycin Antibacterial Start: 3 End: 3 take 1 tablet by mouth three times daily rifAXIMin (XIFAXAN) 550 mg tablet Indications: Irritable bowel syndrome with both constipation and diarrhea , Right sided abdominal pain Take 1 tablet by mouth three times a day for 14 days. 42 tablet 0 08/10/2023 08/24/2023 Active Start: 07-17-2023 End: 07-31-2023 take 1 tablet by mouth three times daily rifAXIMin (XIFAXAN) 550 mg tablet Indications: Right sided abdominal pain , Irritable bowel syndrome with both constipation and diarrhea Take 1 tablet by mouth three times a day for 14 days. 42 tablet 0 07/17/2023 07/31/2023 Active Comment on above: Take 1 tablet by rafat three times a day for 14 days. sacrosidase 8500 unt/ml oral solution (20 sources) Sucrose-specific Enzyme Start: 4 End: 5 Sacrosidase (SUCRAID) 8,500 unit/mL soln Indications: Congenital sucrose isomaltose malabsorption Take 2 mL with food and snacks daily 1000 mL 5 09/11/2024 Active Comment on above: Take 2 mL with food and snacks daily tamsulosin hydrochloride 0.4 mg oral capsule (20 sources) alpha-Adrenergic [place] Start: 2 tamsulosin (FLOMAX) 0.4 mg Take 0.4 mg by mouth twice daily. Per Dr. Barbosa 10/11/2021 Active Comment on above: Take 0.4 mg by mouth twice daily. Per Dr. Barbosa traMADol hydrochloride 50 mg oral tablet (16 sources) Opioid Agonist Start: 5 End: 5 take 1 tablet by mouth every eight hours as needed for pain traMADol (ULTRAM) 50 mg tablet Indications: Chronic left shoulder pain Take 1 tablet by mouth every 8 hours as needed for pain for up to 5 days. 15 tablet 11/29/2024 12/04/2024 Active Start: 10-24-2024 End: 11-09-2024 take 1 tablet by mouth every eight hours as needed for pain traMADol (ULTRAM) 50 mg tablet Indications: Pectoralis minor syndrome (HCC) , Chronic left shoulder pain Take 1 tablet by mouth every 8 hours as needed for pain for up to 5 days. 15 tablet 11/04/2024 11/09/2024 Active Start: 10-09-2024 End: 10-14-2024 take 1 tablet by mouth every eight hours as needed for pain traMADol (ULTRAM) 50 mg tablet Indications: Pectoralis minor syndrome (HCC) , Chronic left shoulder pain Take 1 tablet by mouth every 8 hours as needed for pain for up to 5 days. 15 tablet 10/09/2024 10/14/2024 Active Start: 03-27-2024 End: 04-03-2024 take 1 tablet by mouth every eight hours as needed for pain traMADol (ULTRAM) 50 mg tablet Indications: Pectoralis minor syndrome (HCC) , Chronic left shoulder pain Take 1 tablet by mouth every 8 hours as needed for pain for up to 7 days. 21 tablet 0 03/27/2024 04/03/2024 Active Start: 06-07-2022 End: 08-17-2022 take 1 tablet by mouth every eight hours as needed for pain traMADol (ULTRAM) 50 mg tablet Indications: Chronic left shoulder pain Take 1 tablet by mouth every 8 hours as needed for pain for up to 7 days. 21 tablet 0 08/10/2022 08/17/2022 Active Start: 05-25-2022 End: 06-01-2022 take 1 tablet by mouth every eight hours as needed for pain traMADol (ULTRAM) 50 mg tablet Indications: Chronic left shoulder pain Take 1 tablet by mouth every 8 hours as needed for pain for up to 7 days. 21 tablet 0 05/25/2022 06/01/2022 Active Comment on above: Take 1 tablet by rafat every 8 hours as needed for pain for up to 7 days. valACYclovir 1000 mg oral tablet (1 source) Herpesvirus Nucleoside Analog DNA Polymerase Inhibitor, Herpes Simplex Virus Nucleoside Analog DNA Polymerase Inhibitor, Herpes Zoster Virus Nucleoside Analog DNA Polymerase Inhibitor Start: 07-16-20 End: 07-23-20 24 take 1 tablet by mouth three times daily valACYclovir (VALTREX) 1 gram tablet Indications: Herpes zoster without complication Take 1 tablet by mouth three times a day for 7 days. 21 tablet 07/16/2024 07/23/2024 Active vitamin b12 0.5 mg oral tablet (20 sources) Vitamin B12 Start: 10-13-19 take 1 tablet by mouth once daily cyanocobalamin (B-12 DOTS) 500 mcg tablet Take 1 tablet by mouth once daily. 10/13/2023 Active Comment on above: Take 1 tablet by rafat th once daily. Completed/Discontinued Medications Medication Drug Class(es) Dates Sig (Normalized) Sig (Original) [id number] 200 actuat albuterol 0.09 mg/actuat metered dose inhaler (2 sources) beta2-Adrenergic Agonist Start: 07-04-2023 End: 07-11-2023 take 2 puff(s) by inhalation every six hours as needed for wheezing albuterol HFA (PROVENTIL HFA, VENTOLIN HFA) 90 mcg/actuation inhaler Indications: Acute cough Inhale 2 Puffs as instructed every 6 hours as needed for wheezing/shortnes s of breath. 1 Each 0 07/04/2023 07/11/2023 Discontinued Comment on above: Inhale 2 Puffs as in structed every 6 hours as needed for wheezing/shortness of breath. dicyclomine hydrochloride 20 mg oral tablet (20 sources) Anticholinergic Start: 05-12-2023 take 1 tablet by mouth at bedtime dicyclomine (BENTYL) 20 mg tablet Take 1 tablet by mouth before meals and at bedtime. 120 tablet 0 05/12/2023 Active Start: 10-27-2022 End: 05-12-2023 take 1 capsule by mouth at bedtime dicyclomine (BENTYL) 10 mg capsule Take 1 capsule by mouth before meals and at bedtime. 30 capsule 0 12/04/2022 05/12/2023 Discontinued (Changing Therapy/Dosage Form) Comment on above: Take 1 capsule by mo [facility] before meals and at bedtime. Take 1 tablet by rafat th before meals and at bedtime. enteric contrast (will be provided with radiology test) (1 source) Start: 10-27-19 End: 10-28-19 enteric contrast (will be provided with radiology test) For CT ABD/PEL W IVCON Routine order Administer, As Directed One Time Only, via Oral, Rectal, both Oral and Rectal, Enteric Tube, Stoma or Indwelling Catheter, Enteric Contrast as designated per enteric contrast guidelines 1 Each 0 10/27/2022 10/28/2022 Comment on above: For CT ABD/PEL W IVC ON Routine order Administer, As Directed One Time Only, via Oral, Rectal, both Oral and Rectal, Enteric Tube, Stoma or Indwelling Catheter, Enteric Contrast as designated per enteric contrast guidelines flavoxATE hydrochloride 100 mg oral tablet (20 sources) Cholinergic Muscarinic Antagonist Start: 10-14-19 End: 10-27-19 take 1 tablet by mouth three times daily flavoxATE (URISPAS) 100 mg tablet Take 1 tablet by mouth three times daily. 9 tablet 0 10/14/2021 10/27/2022 Discontinued Comment on above: Take 1 tablet by rafat th three times daily. iv contrast (will be provided with radiology test) (4 sources) Start: 10-27-19 End: 10-28-19 iv contrast (will be provided with radiology test) CT ABD/PEL -Inject, intravenously, once for 1 dose.No IV access, insert saline lock prior to the beginning of sedation, infusion, injection of imaging exam. Discontinue saline lock post exam. If Pt. has a central line or IVAD, may access for administration according to line specific nursing protocol. Once exam is complete flush line and de-access according to line specific nursing protocol in the CT contrast administration guidelines link. 1 Each 0 10/27/2022 10/28/2022 Start: 06-15-2022 End: 06-16-2022 inject 1 dose intravenously once iv contrast (will be provided with radiology test) CTA CHEST - No IV access, insert saline lock prior to the sedation, infusion, injection for imaging exam. Discontinue saline lock post exam. If Pt. has a central line or IVAD, may access for administration according to line specific nursing protocol. Once exam is complete flush line and de-access according to line specific nursing protocol in the CT contrast administration guidelines link. 1 Each 0 06/15/2022 06/16/2022 Active Comment on above: CTA CHEST - No IV ac cess, insert saline lock prior to the sedation, infusion, injection for imaging exam. Discontinue saline lock post exam. If Pt. has a central line or IVAD, may access for administration according to line specific nursing protocol. Once exam is complete flush line and de-access according to line specific nursing protocol in the CT contrast administration guidelines link. CT ABD/PEL -Inject, intravenously, once for 1 dose.No IV access, insert saline lock prior to the beginning of sedation, infusion, injection of imaging exam. Discontinue saline lock post exam. If Pt. has a central line or IVAD, may access for administration according to line specific nursing protocol. Once exam is complete flush line and de-access according to line specific nursing protocol in the CT contrast administration guidelines link. lansoprazole 30 mg delayed release oral capsule (20 sources) Proton Pump Inhibitor Start: 06-05-20 End: 04-14-20 take 1 capsule by mouth twice daily before mealtime lansoprazole (PREVACID) 30 mg capsule Take 1 capsule by mouth two times a day. 1/2 hr before meal. 60 capsule 1 06/05/2023 04/14/2024 Discontinued Comment on above: Take 1 capsule by mo [facility] two times a day. 1/2 hr before meal. meloxicam 15 mg oral tablet (20 sources) Nonsteroidal Anti-inflammatory Drug Start: 04-25-20 End: 08-10-20 Meloxicam Discontinued 15 MG PO May 03, 2022 11:00pm June 07, 2022 9:12am Comment on above: Take 1 tablet by rafat once daily. pantoprazole 40 mg delayed release oral tablet (20 sources) Proton Pump Inhibitor Start: 04-21-20 End: 06-05-20 take 1 tablet by mouth twice daily pantoprazole DR (PROTONIX) 40 mg tablet Take 1 tablet by mouth twice daily. 60 tablet 5 04/21/2023 06/05/2023 Discontinued (Side Effects) Start: 11-07-2021 End: 04-21-2023 take 1 tablet by mouth once daily pantoprazole DR (PROTONIX) 40 mg tablet Take 1 tablet by mouth once daily. 90 tablet 1 08/04/2022 03/05/2023 Discontinued Comment on above: Take 1 tablet by rafat once daily. Take 1 tablet by rafat twice daily. phenazopyridine hydrochloride 200 mg oral tablet (2 sources) Start: 2 End: 2 take 1 tablet by mouth three times daily Phenazopyridine (Pyridium) 200 MG tablet Discontinued 200 MG PO THREE TIMES A DAY October 06, 2021 12:00am May 04, 2022 8:46am predniSONE 20 mg oral tablet (20 sources) Start: 5 End: 5 predniSONE (DELTASONE) 20 mg tablet Take 3 tabs by mouth for 3 days, then 2 tabs by mouth for 3 days, then 1 tab by mouth for 3 days and then 1/2 a tab by mouth for 4 days. 20 tablet 11/19/2024 11/29/2024 Discontinued (Course of therapy completed) Start: 10-09-2024 End: 10-18-2024 predniSONE (DELTASONE) 10 mg tablet Take 4 tabs daily for 3 days, then 2 tabs daily for 3 days, then 1 tab daily for 3 days with food. 21 tablet 10/09/2024 10/18/2024 Active Start: 03-27-2024 End: 06-06-2024 predniSONE (DELTASONE) 10 mg tablet Indications: Pectoralis minor syndrome (HCC) , Chronic left shoulder pain Take 6 tabs by mouth for 3 days then 4 tabs a day for 3 days then 2 tabs a day for 3 days and then 1 tab a day for 3 days. 39 tablet 03/27/2024 06/06/2024 Discontinued Start: 04-10-2022 End: 08-03-2022 predniSONE (DELTASONE) 10 mg tablet Take 6 tabs by mouth for 3 days then 4 tabs a day for 3 days then 2 tabs a day for 3 days and then 1 tab a day for 3 days. 39 tablet 0 04/10/2022 08/03/2022 Discontinued Start: 01-05-2022 predniSONE (DE LTASONE) 10 mg tablet Take 6 tabs by mouth for 3 days then 4 tabs a day for 3 days then 2 tabs a day for 3 days and then 1 tab a day for 3 days. 39 tablet 0 01/05/2022 Active Comment on above: Take 6 tabs by mouth for 3 days then 4 tabs a day for 3 days then 2 tabs a day for 3 days and then 1 tab a day for 3 days. sucralfate 1000 mg oral tablet (20 sources) Aluminum Complex Start: 2 End: 2 sucralfate (CARAFATE) 1 gram tablet Indications: RUQ pain , Early satiety , Bloating Take one tab at lunch and one before bed. 60 tablet 1 11/09/2021 08/15/2022 Discontinued Comment on above: Take one tab at [facility] and one before bed. tenapanor 50 mg oral tablet (16 sources) Start: 4 End: 4 take 1 tablet by mouth twice daily at mealtime IBSRELA 50 mg tablet Indications: Irritable bowel syndrome with constipation take one tablet by mouth twice daily with meals 30 tablet 5 01/29/2024 06/06/2024 Discontinued Comment on above: Take 1 tablet (50 mg ) by mouth two times a day. With meals tiZANidine 2 mg oral tablet (6 sources) Central alpha-2 Adrenergic Agonist Start: 2 End: 2 take 1 tablet by mouth every eight hours as needed tiZANidine (ZANAFLEX) 2 mg tablet Take 1 tablet by mouth every 8 hours as needed for up to 30 doses. 30 tablet 0 06/15/2022 08/03/2022 Discontinued Comment on above: Take 1 tablet by rafat th every 8 hours as needed for up to 30 doses. Problems Active Problems Problem Classification Problem Date Documented Da te Episodic/Chronic Abdominal pain (14 sources) Right lower quadrant pain; Translations: [Right lower quadrant pain] Episodic Alcohol-related disorders (20 sources) Alcohol dependence; Translations: [Alcohol dependence, uncomplicated] Onset: 8 05-02-2018 Chronic Anxiety disorders (20 sources) Generalized anxiety disorder; Translations: [Generalized anxiety disorder] Onset: 7 12-22-2020 Chronic Disorders of lipid metabolism (20 sources) Mixed hyperlipidemia; Translations: [Mixed hyperlipidemia] Onset: 8 05-01-2018 Chronic Esophageal disorders (20 sources) Gastroesophageal reflux disease without esophagitis; Translations: [Gastro-esophageal reflux disease without esophagitis] Onset: 8 05-02-2018 Chronic Essential hypertension (20 sources) Essential hypertension; Translations: [Essential (primary) hypertension] Onset: 8 05-01-2018 Chronic Genitourinary symptoms and ill-defined conditions (5 sources) Acute retention of urine ; Translations: [Other retention of urine] Episodic Hyperplasia of prostate (20 sources) Urinary frequency due to benign prostatic hypertrophy; Translations: [Benign prostatic hyperplasia with lower urinary tract symptoms] Onset: 4 10-13-2023 Chronic Immunizations and screening for infectious disease (1 source) Vaccination needed; Translations: [Encounter for immunization] Episodic Other and unspecified benign neoplasm (1 source) Tubular adenoma of colon; Translations: [Benign neoplasm of colon, unspecified] Episodic Other circulatory disease (20 sources) Peripheral neurogenic pain; Translations: [Other specified disorders of arteries and arterioles] Onset: 2 Resolved: 4 Chronic Other circulatory disease (1 source) Other specified disorders of arteries and arterioles; Translations: [Pectoralis minor syndrome (HCC)] Onset: 5 Chronic Other connective tissue disease (2 sources) Muscle pain; Translations: [Myalgia, other site] 05-18-2022 Episodic Other connective tissue disease (1 source) Myalgia, other site; Translations: [Myalgia and myositis, unspecified] Episodic Other connective tissue disease (6 sources) Pain in left arm; Translations: [Pain in left arm] 11-04-2024 Episodic Other ear and sense organ disorders (1 source) Excessive cerumen in ear canal ; Translations: [Impacted cerumen, left ear] 03-12-2025 Episodic Other ear and sense organ disorders (1 source) Impacted cerumen, left ear; Translations: [Excessive cerumen in ear canal, left] Onset: 5 Episodic Other gastrointestinal disorders (3 sources) Irritable bowel syndrome; Translations: [Mixed irritable bowel syndrome] 07-17-2023 Chronic Other gastrointestinal disorders (5 sources) Irritable bowel syndrome characterized by constipation; Translations: [Irritable bowel syndrome with constipation] 12-31-2023 Chronic Other gastrointestinal disorders (2 sources) Constipation alternates with diarrhea; Translations: [Other specified symptoms and signs involving the digestive system and abdomen] 07-11-2023 Episodic Other gastrointestinal disorders (2 sources) Small bowel bacterial overgrowth syndrome; Translations: [Small intestinal bacterial overgrowth] 10-30-2023 Episodic Other lower respiratory disease (2 sources) Cough; Translations: [Acute cough] 07-04-2023 Episodic Other nervous system disorders (5 sources) Left thoracic outlet syndrome; Translations: [Brachial plexus disorders] 05-18-2022 Chronic Other nervous system disorders (3 sources) Brachial plexus disorders; Translations: [Brachial plexus lesions] Onset: 4 Chronic Other nervous system disorders (3 sources) Thoracic outlet syndrome; Translations: [Brachial plexus disorders] Chronic Other nervous system disorders (1 source) Other chronic pain; Translations: [Chronic left shoulder pain] Onset: Chronic Other nutritional; endocrine; and metabolic disorders (4 sources) Sucrase-isomaltase deficiency; 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] 12-11-2023 Chronic Other upper respiratory infections (1 source) Acute upper respiratory infection; Translations: [Acute upper respiratory infection, unspecified] 07-04-2023 Episodic Otitis media and related conditions (2 sources) Dysfunction of left eustachian tube; Translations: [Unspecified Eustachian tube disorder, left ear] Onset: 03-12-2025 Episodic Peripheral and visceral atherosclerosis (1 source) Peripheral vascular disease, unspecified; Translations: [Peripheral vascular disease, unspecified] Chronic Residual codes; unclassified (1 source) Family history of renal stone; Translations: [Family history of disorders of kidney and ureter] Episodic Spondylosis; intervertebral disc disorders; other back problems (20 sources) Displacement of cervical intervertebral disc; Translations: [Other cervical disc displacement at C6-C7 level] Onset: 05-03-2018 Chronic Urinary tract infections (2 sources) Cystitis; Translations: [Cystitis, unspecified without hematuria] 10-14-2021 Episodic Viral infection (1 source) Herpes zoster without complication; Translations: [Zoster without complications] 07-16-2024 Episodic Past or Other Problems Problem Classification Problem Date Documented Date Episodic/Chronic Diabetes mellitus without complication (20 sources) High hemoglobin A1c level; Translations: [Other abnormal glucose] Onset: 07-11-2021 07-11-2021 Episodic Nonspecific chest pain (3 sources) Chest pain; Translations: [Chest pain, unspecified] Onset: 10-28-2024 07-18-2017 Episodic Other aftercare (1 source) Other mcfp (current) drug therapy; Translations: [Medication management] Onset: 01-04-2022 Episodic Other and unspecified benign neoplasm (20 sources) History of polyp of colon; Translations: [Personal history of colonic polyps] Onset: 08-10-2022 Episodic Other connective tissue disease (3 sources) Other symptoms and signs involving the musculoskeletal system; Translations: [Other musculoskeletal symptoms referable to limbs] Onset: 11-17-2024 11-04-2024 Episodic Other connective tissue disease (1 source) Pain in left arm; Translations: [Left arm pain] Onset: 11-04-2024 Episodic Other non-traumatic joint disorders (16 sources) Chronic pain of left upper limb; Translations: [Pain in left shoulder] Onset: 11-29-2024 Episodic Other non-traumatic joint disorders (5 sources) Pain in left shoulder; Translations: [Pain in joint, shoulder region] Onset: 03-27-2024 11-19-2024 Episodic Other screening for suspected conditions (not mental disorders or infectious disease) (20 sources) Patient encounter status; Translations: [Encounter for screening for malignant neoplasm of prostate] Onset: 11-04-2018 11-04-2018 Episodic Screening and history of mental health and substance abuse codes (20 sources) Ex-smoker; Translations: [Personal history of nicotine dependence] Onset: 05-01-2018 05-01-2018 Episodic Spondylosis; intervertebral disc disorders; other back problems (20 sources) Stenosis of intervertebral foramina; Translations: [Spinal stenosis, cervical region] Onset: 05-03-2018 10-27-2020 Episodic Unclassified (3 sources) Herniation of intervertebral disc at C6-C7 level 11-04-2024 Unclassified (2 sources) Weakness of left upper extremity 11-04-2024 Unclassified (2 sources) Acute pain of left shoulder 11-19-2024 Results Test Name Value Interpretation Reference Range Facility [facility] 03-12-2025 CNOV Office Visit (WOUCA) JHONATHAN BYRNES ([id number]) 1965 M Date Time Provider Department 03/12/25 8:15 AM JEWEL VELEZ WOJAMISON During your visit today, we recorded the following information about you: Temperature Pulse Respiration Blood pressure 96.9 degrees 87/minute 18/minute 123/79 Weight 78.8 kg Jewel Velez PA 03/12/2025 8:32 AM Signed [facility] Subjective Jhonathan Byrnes is a 59 year old male. Patient presents with: Ear Problem: L ear feels full, muffled hearing x6 days HPI Left Ear Discomfort: - Onset 6-8 days ago. - Describes sensation as clogged and irritating, but not painful. - Tried an OTC ear flushing kit with no relief. - Denies recent illness, cough, or congestion. - No known history of seasonal allergies. - Right ear is asymptomatic. PAST MEDICAL HISTORY Diagnosis Date Alcohol abuse 05/02/2018 Benign prostatic hyperplasia with urinary frequency 10/13/2023 Elevated hemoglobin A1c 07/11/2021 Essential hypertension 05/01/2018 Ex-smoker 05/01/2018 Started in his early 20's and quite around the age of 38. 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 Not aware or medication. GERD without esophagitis 05/02/2018 Herniation of intervertebral disc at C6-C7 level 05/03/2018 MRI 02/2018 History of anxiety 06/06/2007 History of colonic polyps 08/10/2022 Mixed hyperlipidemia 05/01/2018 Pectoralis minor syndrome Uncomplicated alcohol dependence (HCC) 05/02/2018 PAST SURGICAL HISTORY Procedure Laterality Date COLONOSCOPY FLX DX W/COLLJ SPEC WHEN PFRMD 08/19/2018 repeat 3 years COLONOSCOPY SCREENING 08/21/2022 two small adenomatous polyps-repeat in 5 years EGD W/O [facility] SPEC VARICIES INJ 11/09/2021 HEART CATHETERIZATION 2017 WNL PAST SURGICAL HISTORY OF Left 2022 pec inor surgery SHOULDER SURGERY HX 2021 [facility] release ALLERGIES Patient has no known allergies. MEDICATIONS amitriptyline (ELAVIL) 10 mg tablet TAKE 1 TABLET BY MOUTH DAILY AT BEDTIME MAGNESIUM ORAL Take by mouth as directed. gabapentin (NEURONTIN) 300 mg capsule Take 1 capsule by mouth three times a day as needed for up to 20 days. celecoxib (CELEBREX) 200 mg capsule Take 1 capsule by mouth once daily. lisinopril-hydroCHLOROthiaz rupesh (ZESTORETIC) 20-12.5 mg per tablet Take 1 tablet by mouth once daily. atorvastatin (LIPITOR) 10 mg tablet Take 1 tablet by mouth once daily. Sacrosidase (SUCRAID) 8,500 unit/mL soln Take 2 mL with food and snacks daily polyethylene glycol 3350 (MIRALAX) 17 gram/dose powder Take by mouth once daily. Dissolve dose in 4 - 8 ounces of liquid and take as directed. hydrOXYzine HCl (ATARAX) 25 mg tablet Take 0.5-1 tab every 8 hrs as needed for panic attacks. cyanocobalamin (B-12 DOTS) 500 mcg tablet Take 1 tablet by mouth once daily. tamsulosin (FLOMAX) 0.4 mg Take 0.4 mg by mouth twice daily. Per Dr. Barbosa FAMILY HISTORY Problem Relation Age of Onset Coronary Artery Disease Mother has stents Cancer Brother Lung: dx and initial surgery 2006. nonsmoker. other (dementia) Paternal Aunt Colon Cancer No Family History Social History Tobacco Use Smoking status: Former Current packs/day: 0.00 Average packs/day: 1 pack/day for 20.0 years (20.0 ttl pk-yrs) Types: Cigarettes Start date: 1987 Quit date: 2007 Years since quittin.9 Smokeless tobacco: Current Types: Chew Tobacco comments: Tobacco pouches Vaping Use Vaping status: Never Used Substance Use Topics Alcohol use: Yes Comment: 1-2 daily Drug use: Never Review of Systems Ears/Nose/Mouth/Throat: (+) left ear fullness, (-) ear pain, (-) nasal congestion Respiratory: (-) cough Objective BP 123/79 Pulse 87 Temp 36.1 ?C (96.9 ?F) Resp 18 Wt 78.8 kg (173 lb 11.6 oz) SpO2 98% BMI 25.01 kg/m? Physical Exam Vitals and nursing note reviewed. Constitutional: General: He is not in acute distress. Appearance: Normal appearance. He is not toxic-appearing. HENT: Right Ear: Tympanic membrane and ear canal normal. Left Ear: Ear canal normal. Tympanic membrane is not erythematous. Ears: Comments: Cerumen noted in left ear canal. TM partially visualized appears normal. Ear lavage completed by MICHELLE. Post procedure reveals no bleeding, no perforation, no drainage. Mouth/Throat: Mouth: Mucous membranes are moist. Cardiovascular: Rate and Rhythm: Normal rate and regular rhythm. Pulmonary: Effort: Pulmonary effort is normal. Breath sounds: Normal breath sounds. Skin: General: Skin is warm and dry. Neurological: Mental Status: He is alert. { 1. Excessive cerumen in ear canal, left (H61.22) 2. Dysfunction of left eustachian tube (H69.92) - Cerumen impaction noted in the left ear canal with flui (more content not included)... Normal [facility] MR/PAT.Mag 03-05-2025 [facility] [address] [place] [address] PAT - Anesthesia 03/05/25 1623 MR#: [id number] Acct: [id number] Name: SILVIO BYRNES Rep #: [id number] : 1965 59 From: Zack Colmenares MD PCP: Dr. 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 When Was Last Pacemaker Check QUESTION #4 FULL TEXT: You/Your Family Experience fever (hyperthermia) with Anesthesia Last Oral Intake Last Oral intake: Last Oral Intake NPO since Meds taken in AM with sips of water? 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 ball machine tender Female No 03/05/25 10:01 HX of Motion Sickness No 03/05/25 10:01 HX of N/V After Surgery No 03/05/25 10:01 Non-Smoker Yes 03/05/25 10:01 Duration of Surgery greater Yes 03/05/25 10:01 than 60 minutes Number of Risk Factors 2 03/05/25 10:01 PONV Score Moderate Risk 03/05/25 10:01 Height Weight Height Weight: Anesthesia: Height Weight Height 5 ft 8 in 05/16/22 16:19 Respiratory Assessment Respiratory Assessment - cotton ball machine tender: Respiratory Tract Infection Hx - cotton ball machine tender Hx Respiratory Tract Infection No 03/05/25 10:01 STOP Sleep Apnea STOP Sleep Apnea - cotton ball machine tender: STOP Sleep Apnea - cotton ball machine tender Hx Hypertension Yes: ON MEDS 03/05/25 10:01 Hx Sleep Apnea No 03/05/25 10:01 CPAP BIPAP Do you snore loudly (louder No 03/05/25 10:01 than talking or can be heard Do you often feel tired/ No 03/05/25 10:01 fatigued/ sleepy during daytime? Has anyone observed you stop No 03/05/25 10:01 breathing during sleep? STOP Results Negative 03/05/25 10:01 QUESTION #5 FULL TEXT : Do you snore loudly (louder than talking or can be heard through closed doors)? 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 Specify any problems Hx of Preganancy in last 3 N/A 03/05/25 10:01 Months Nurse Filling Out Transfusion JZOLLINGE 03/05/25 10:01 Questions: Date: 03/05/25 03/05/25 10:01 Time: 10:04 03/05/25 10:01 Patient unable to answer at this time (ie. confused, unrespo /Reproduction History /Reproductive History - cotton ball machine tender: /Reproductive Hx- cotton ball machine tender Hx Now No 03/05/25 10:01 Gestational Age (in weeks): EDC: Hx Hx Para Hx Section SAB No 03/05/25 10:01 [facility] Medical History (Updated 03/05/25 @ 10:01 by Breonna Goodwin) Wears glasses Wears partial dentures Prostate disease Gastric reflux Former smoker History of echocardiogram History of stress test Anxiety Hypertension Home Medications ???Medication ???Instructions ???Recorded ???Last Taken ???Type aspirin 81 mg tablet,delayed 81 mg PO DAILY@0800 #30 tabs 03/21 Unknown Rx release lisinopril 20 1 ea PO DAILY #30 tabs 03/21/17 Un known Rx mg-hydrochlorothiazide 12.5 mg tablet (Zestoretic) hydroxyzine HCl 25 mg tablet 25 mg PO PRN PRN Anxiety 10/06/21 Unknown History tamsulosin 0.4 mg capsule (Flomax) 0.4 mg PO DAILY #14 caps 2 Unknown Rx amitriptyline 10 mg tablet 10 mg PO QHS 03/05/25 Unknown Hist ory atorvastatin 10 mg tablet 10 mg PO DAILY 03/05/25 Unknown Hi story sacrosidase 8,500 unit/mL oral 2 ml PO .QD 03/05 (more content not included)... Normal [facility] 02-12-2025 [facility] Telephone (FAMPWS) JHONATHAN BYRNES ([id number]) 1965 M Date Time Provider Department 02/12/25 SILVIO MOYER During your visit today, we recorded the following information about you: Johnna Mobley LPN 02/12/2025 12:25 PM Signed Received fax from Dr Squires's office requesting copy of pt's most recent PAS. Result has been faxed back as requested. Johnna Mobley LPN Allergies As of Date: 02/12/2025 (No Known Allergies) Date Reviewed: 11/29/2024 Reviewed by: Silvio Moyer MD - Fully Assessed Reason for Visit: Requesting lab results [Other] Prescriptions as of 02/12/2025 - amitriptyline (ELAVIL) 10 mg tablet TAKE 1 TABLET BY MOUTH DAILY AT BEDTIME - MAGNESIUM ORAL Take by mouth as directed. - gabapentin (NEURONTIN) 300 mg capsule Take 1 capsule by mouth three times a day as needed for up to 20 days. - celecoxib (CELEBREX) 200 mg capsule Take 1 capsule by mouth once daily. - lisinopril-hydroCHLOROthiaz rupesh (ZESTORETIC) 20-12.5 mg per tablet Take 1 tablet by mouth once daily. - atorvastatin (LIPITOR) 10 mg tablet Take 1 tablet by mouth once daily. - Sacrosidase (SUCRAID) 8,500 unit/mL soln Take 2 mL with food and snacks daily - polyethylene glycol 3350 (MIRALAX) 17 gram/dose powder Take by mouth once daily. Dissolve dose in 4 - 8 ounces of liquid and take as directed. - hydrOXYzine HCl (ATARAX) 25 mg tablet Take 0.5-1 tab every 8 hrs as needed for panic attacks. - cyanocobalamin (B-12 DOTS) 500 mcg tablet Take 1 tablet by mouth once daily. - tamsulosin (FLOMAX) 0.4 mg Take 0.4 mg by mouth twice daily. Per Dr. Barbosa Problem List As Of Date 02/12/2025 Noted Resolved JC (generalized anxiety disorder) [F41.1] 06/06/2007 Essential hypertension [I10] 05/01/2018 Mixed hyperlipidemia [E78.2] 05/01/2018 Ex-smoker [Z87.891] 05/01/2018 GERD without esophagitis [K21.9] 05/02/2018 Alcohol abuse [F10.10] 05/02/2018 Herniation of intervertebral disc at C6-C7 leve*05/03/2018 Foraminal stenosis of cervical region [M48.02] 05/03/2018 Screening for prostate cancer [Z12.5] 11/04/2018 Encounter for screening for diabetes mellitus [*11/04/2018 Well adult exam [Z00.00] 11/10/2019 Elevated hemoglobin A1c [R73.09] 07/11/2021 Medication management [Z79.899] 01/04/2022 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] 08/04/2022 History of colonic polyps [Z86.0100] 08/10/2022 Screening for colon cancer [Z12.11] 08/10/2022 Benign prostatic hyperplasia with urinary frequ*10/13/2023 Chronic left shoulder pain [M25.512, G89.29] 11/29/2024 Encounter Status:Closed by JOHNNA MOBLEY on 02/12/25 [facility] 01-30-2025 CNP[facility] Telephone (GSTNOR) JHONATHAN BYRNES ([id number]) 1965 M Date Time Provider Department 01/30/25 KEIRY FONTANA GSTNOR During your visit today, we recorded the following information about you: Dianne Chaidez 01/30/2025 11:11 AM Signed Anne from [employer] called and said she received the chart notes from our office and she uploaded in the my meds. She said to please review and submit to plan to finish out the process Cortez Cazaers MA 01/30/2025 11:33 AM Signed PA sent to insurance through cover my meds for sucraid MICHELLE Mccullough Erin M, MA 02/04/2025 1:43 PM Signed Sucraid approved 02/04/2025-02/04/2026 Cortez Clark MA Allergies As of Date: 01/30/2025 (No Known Allergies) Date Reviewed: 11/29/2024 Reviewed by: Silvio Moyer MD - Fully Assessed Reason for Visit: med PA [Other] Prescriptions as of 02/04/2025 - amitriptyline (ELAVIL) 10 mg tablet TAKE 1 TABLET BY MOUTH DAILY AT BEDTIME - MAGNESIUM ORAL Take by mouth as directed. - gabapentin (NEURONTIN) 300 mg capsule Take 1 capsule by mouth three times a day as needed for up to 20 days. - celecoxib (CELEBREX) 200 mg capsule Take 1 capsule by mouth once daily. - lisinopril-hydroCHLOROthiaz rupesh (ZESTORETIC) 20-12.5 mg per tablet Take 1 tablet by mouth once daily. - atorvastatin (LIPITOR) 10 mg tablet Take 1 tablet by mouth once daily. - Sacrosidase (SUCRAID) 8,500 unit/mL soln Take 2 mL with food and snacks daily - polyethylene glycol 3350 (MIRALAX) 17 gram/dose powder Take by mouth once daily. Dissolve dose in 4 - 8 ounces of liquid and take as directed. - hydrOXYzine HCl (ATARAX) 25 mg tablet Take 0.5-1 tab every 8 hrs as needed for panic attacks. - cyanocobalamin (B-12 DOTS) 500 mcg tablet Take 1 tablet by mouth once daily. - tamsulosin (FLOMAX) 0.4 mg Take 0.4 mg by mouth twice daily. Per Dr. Babrosa Problem List As Of Date 01/30/2025 Noted Resolved JC (generalized anxiety disorder) [F41.1] 06/06/2007 Essential hypertension [I10] 05/01/2018 Mixed hyperlipidemia [E78.2] 05/01/2018 Ex-smoker [Z87.891] 05/01/2018 GERD without esophagitis [K21.9] 05/02/2018 Alcohol abuse [F10.10] 05/02/2018 Herniation of intervertebral disc at C6-C7 leve*05/03/2018 Foraminal stenosis of cervical region [M48.02] 05/03/2018 Screening for prostate cancer [Z12.5] 11/04/2018 Encounter for screening for diabetes mellitus [*11/04/2018 Well adult exam [Z00.00] 11/10/2019 Elevated hemoglobin A1c [R73.09] 07/11/2021 Medication management [Z79.899] 01/04/2022 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] 08/04/2022 History of colonic polyps [Z86.0100] 08/10/2022 Screening for colon cancer [Z12.11] 08/10/2022 Benign prostatic hyperplasia with urinary frequ*10/13/2023 Chronic left shoulder pain [M25.512, G89.29] 11/29/2024 Encounter Status:Closed by DIANNE CHAIDEZ on 01/30/25 [facility] 01-29-2025 [facility] Telephone (GSTNOR) JHONATHAN BYRNES ([id number]) 1965 M Date Time Provider Department 01/29/25 KEIRY FONTANA GSTNOR During your visit today, we recorded the following information about you: Cortez Clark MA 01/29/2025 2:48 PM Signed Pharmacy states pt is due for PA for his Sucraid. Faxed chart notes and test results to [facility]. Cortez Clark MA Allergies As of Date: 01/29/2025 (No Known Allergies) Date Reviewed: 11/29/2024 Reviewed by: Silvio Moyer MD - Fully Assessed Reason for Visit: Medication Authorization [7079] Prescriptions as of 01/29/2025 - amitriptyline (ELAVIL) 10 mg tablet TAKE 1 TABLET BY MOUTH DAILY AT BEDTIME - MAGNESIUM ORAL Take by mouth as directed. - gabapentin (NEURONTIN) 300 mg capsule Take 1 capsule by mouth three times a day as needed for up to 20 days. - celecoxib (CELEBREX) 200 mg capsule Take 1 capsule by mouth once daily. - lisinopril-hydroCHLOROthiaz rupesh (ZESTORETIC) 20-12.5 mg per tablet Take 1 tablet by mouth once daily. - atorvastatin (LIPITOR) 10 mg tablet Take 1 tablet by mouth once daily. - Sacrosidase (SUCRAID) 8,500 unit/mL soln Take 2 mL with food and snacks daily - polyethylene glycol 3350 (MIRALAX) 17 gram/dose powder Take by mouth once daily. Dissolve dose in 4 - 8 ounces of liquid and take as directed. - hydrOXYzine HCl (ATARAX) 25 mg tablet Take 0.5-1 tab every 8 hrs as needed for panic attacks. - cyanocobalamin (B-12 DOTS) 500 mcg tablet Take 1 tablet by mouth once daily. - tamsulosin (FLOMAX) 0.4 mg Take 0.4 mg by mouth twice daily. Per Dr. Barbosa Problem List As Of Date 01/29/2025 Noted Resolved JC (generalized anxiety disorder) [F41.1] 06/06/2007 Essential hypertension [I10] 05/01/2018 Mixed hyperlipidemia [E78.2] 05/01/2018 Ex-smoker [Z87.891] 05/01/2018 GERD without esophagitis [K21.9] 05/02/2018 Alcohol abuse [F10.10] 05/02/2018 Herniation of intervertebral disc at C6-C7 leve*05/03/2018 Foraminal stenosis of cervical region [M48.02] 05/03/2018 Screening for prostate cancer [Z12.5] 11/04/2018 Encounter for screening for diabetes mellitus [*11/04/2018 Well adult exam [Z00.00] 11/10/2019 Elevated hemoglobin A1c [R73.09] 07/11/2021 Medication management [Z79.899] 01/04/2022 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] 08/04/2022 History of colonic polyps [Z86.0100] 08/10/2022 Screening for colon cancer [Z12.11] 08/10/2022 Benign prostatic hyperplasia with urinary frequ*10/13/2023 Chronic left shoulder pain [M25.512, G89.29] 11/29/2024 Encounter Status:Closed by CORTEZ CLARK on 01/29/25 [facility] 11-29-2024 CNOV Office Visit (FAMPWS ) JHONATHAN BYRNES ([id number]) 1965 M Date Time Provider Department 11/29/24 10:00 AM SILVIO MOYER During your visit today, we recorded the following information about you: Temperature Pulse Respiration Blood pressure 97.9 degrees 112/minute 16/minute 112/68 Weight Height 71.2 kg 1.775 m Silvio Moyer MD 11/29/2024 11:10 AM Signed Chief Complaint Patient presents with: Yearly Exam HPI Jhonathan Byrnes is a 59 year old male who presents here today for chronic health issues and complete PE. . Patient will be starting PHYSICAL THERAPY soon for th neck and shoulder area and did see a chiropractor for a session and that did help. The steroid has helped twice now. Otherwise has been doing ok. Past medical history, appointments, medications, allergies reviewed. Previous Medical History PAST MEDICAL HISTORY Diagnosis Date Alcohol abuse 05/02/2018 Benign prostatic hyperplasia with urinary frequency 10/13/2023 Elevated hemoglobin A1c 07/11/2021 Essential hypertension 05/01/2018 Ex-smoker 05/01/2018 Started in his early 20's and quite around the age of 38. 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 Not aware or medication. GERD without esophagitis 05/02/2018 Herniation of intervertebral disc at C6-C7 level 05/03/2018 MRI 02/2018 History of anxiety 06/06/2007 History of colonic polyps 08/10/2022 Mixed hyperlipidemia 05/01/2018 Pectoralis minor syndrome Uncomplicated alcohol dependence (HCC) 05/02/2018 Previous Surgical History PAST SURGICAL HISTORY Procedure Laterality Date COLONOSCOPY FLX DX W/COLLJ SPEC WHEN PFRMD 08/19/2018 repeat 3 years COLONOSCOPY SCREENING 08/21/2022 two small adenomatous polyps-repeat in 5 years EGD W/O [facility] SPEC VARICIES INJ 11/09/2021 HEART CATHETERIZATION 2017 WNL SHOULDER SURGERY HX 2021 [facility] release Family History FAMILY HISTORY Problem Relation Age of Onset Coronary Artery Disease Mother has stents Cancer Brother Lung: dx and initial surgery 2006. nonsmoker. other (dementia) Paternal Aunt Colon Cancer No Family History Patient Allergies ALLERGIES No Known Allergies Current Medications Current Outpatient Medications on File Prior to Visit Medication Sig predniSONE (DELTASONE) 20 mg tablet Take 3 tabs by mouth for 3 days, then 2 tabs by mouth for 3 days, then 1 tab by mouth for 3 days and then 1/2 a tab by mouth for 4 days. lisinopril-hydroCHLOROthiaz rupesh (ZESTORETIC) 20-12.5 mg per tablet Take 1 tablet by mouth once daily. atorvastatin (LIPITOR) 10 mg tablet Take 1 tablet by mouth once daily. gabapentin (NEURONTIN) 300 mg capsule Take 1 capsule by mouth three times a day as needed for up to 20 days. Sacrosidase (SUCRAID) 8,500 unit/mL soln Take 2 mL with food and snacks daily polyethylene glycol 3350 (MIRALAX) 17 gram/dose powder Take by mouth once daily. Dissolve dose in 4 - 8 ounces of liquid and take as directed. amitriptyline (ELAVIL) 10 mg tablet Take 1 tablet by mouth daily at bedtime. hydrOXYzine HCl (ATARAX) 25 mg tablet Take 0.5-1 tab every 8 hrs as needed for panic attacks. cyanocobalamin (B-12 DOTS) 500 mcg tablet Take 1 tablet by mouth once daily. tamsulosin (FLOMAX) 0.4 mg Take 0.4 mg by mouth twice daily. Per Dr. Barbosa No current facility-administered medications on file prior to visit. Social History Social History Tobacco Use Smoking status: Former Current packs/day: 0.00 Average packs/day: 1 pack/day for 20.0 years (20.0 ttl pk-yrs) Types: Cigarettes Start date: 1987 Quit date: 2007 Years since quittin.6 Smokeless tobacco: Current Types: Chew Tobacco comments: Tobacco pouches Vaping Use Vaping status: Never Used Substance Use Topics Alcohol use: Yes Comment: 1-2 daily Drug use: Never Review of Symptoms REVIEW OF SYSTEMS GENERAL: No weight loss, malaise or fevers HEENT: Negative for frequent or significant headaches, No changes in hearing or vision, no nose bleeds or other nasal problems NECK: Negative for lumps, goiter, pain and significant neck swelling RESPIRATORY: Negative for cough, hemoptysis, wheezing, COPD, dyspnea or shortness of breath CARDIOVASCULAR: Negative for chest pain, leg swelling, hypertension, CHF or palpitations GI: No nausea, vomiting, or diarrhea, No heartburn or reflux symptoms, and no blood : No history of dysuria, frequency or blood MUSCULOSKELETAL: see HPI. SKIN: Negative for lesions, rash, and itching PSYCH: Negative for sleep disturbance, mood disorder and recent psychosocial stressors. Slight increase in anxiety and uses the atarax as needed with benefit. HEMATOLOGY/LYMPHOLOGY: Negative for prolonged bleeding, bruising easily or swollen no (more content not included)... Normal [facility] CBC W Auto Differential pane l (Bld)on 11-20-2024 Basophils (Bld) [#/Vol] 0.04 10*3/uL Normal <0.11 [facility] Comment on above: Order Comment: Speci men Type: BLOOD SPECIMENOrdering Facility: [facility] Address: [address] [place] [address] Performed By: #### 5 7021-8 ####[facility] LABCLIA [id number] [place] [address] [place] Basophils/100 WBC (Bld) 0.4 % Normal [facility] Comment on above: Order Comment: Speci men Type: BLOOD SPECIMENOrdering Facility: [facility] Address: [address] [place] [address] Performed By: #### 5 7021-8 ####[facility] LABCLIA [id number] [place] [address] [place] Differential cell count method Nom (Bld) Auto Normal [facility] Comment on above: Order Comment: Speci men Type: BLOOD SPECIMENOrdering Facility: [facility] Address: [address] [place] [address] Performed By: #### 5 7021-8 ####[facility] LABIA [id number] [place] [address] [place] Eosinophils (Bld) [#/Vol] 0.04 10*3/uL Normal <0.46 [facility] Comment on above: Order Comment: Speci men Type: BLOOD SPECIMENOrdering Facility: [facility] Address: [address] [place] [address] Performed By: #### 5 7021-8 ####[facility] LABCLIA [id number] [address] [place] [address] [place] Eosinophils/100 WBC (Bld) 0.4 % Normal [facility] Comment on above: Order Comment: Speci men Type: BLOOD SPECIMENOrdering Facility: [facility] Address: [address] [place] [address] Performed By: #### 5 7021-8 ####[facility] LABCLIA [id number] [facility] [address], [place] [address] [place] Erythrocyte distribution width (RBC) [Ratio] 13.0 % Normal 11.5-15.0 [facility] Comment on above: Order Comment: Speci men Type: BLOOD SPECIMENOrdering Facility: [facility] Address: [address] [place] [address] Performed By: #### 5 7021-8 ####[facility] LABCLIA [id number] [address], [place] [address] [place] Hematocrit (Bld) [Volume fraction] 42.8 % Normal 39.0-51.0 [facility] Comment on above: Order Comment: Speci men Type: BLOOD SPECIMENOrdering Facility: [facility] Address: [address] [place] [address] Performed By: #### 5 7021-8 ####[facility] LABCLIA [id number] [address], [place] [address] [place] Hemoglobin (Bld) [Mass/Vol] 14.4 g/dL Normal 13.0-17.0 [facility] Comment on above: Order Comment: Speci men Type: BLOOD SPECIMENOrdering Facility: [facility] Address: [address] [place] [address] Performed By: #### 5 7021-8 ####[facility] LABCLIA [id number] [address], [facility] [place] Immature granulocytes (Bld) [#/Vol] 0.03 10*3/uL Normal <0.10 [facility] Comment on above: Order Comment: Speci men Type: BLOOD SPECIMENOrdering Facility: [facility] Address: [address] [place] [address] Performed By: #### 5 7021-8 ####[facility] LABCLIA [id number] [address] [address] [place] Immature granulocytes/100 WBC (Bld) 0.3 % Normal [facility] Comment on above: Order Comment: Speci men Type: BLOOD SPECIMENOrdering Facility: [facility] Address: [address] [place] [address] Performed By: #### 5 7021-8 ####[facility] LABCLIA [id number] [address], [place] [address] [place] Lymphocytes (Bld) [#/Vol] 1.13 10*3/uL Normal 1.00-4.00 [facility] Comment on above: Order Comment: Speci men Type: BLOOD SPECIMENOrdering Facility: [facility] Address: [address] [place] [address] Performed By: #### 5 7021-8 ####[facility] LABCLIA [id number] [place] [address] [place] Lymphocytes/100 WBC (Bld) 11.9 % Normal [facility] Comment on above: Order Comment: Speci men Type: BLOOD SPECIMENOrdering Facility: [facility] Address: [address] [place] [address] Performed By: #### 5 7021-8 ####[facility] LABCLIA [id number] [place] [address] [place] MCH (RBC) [Entitic mass] 31.2 pg Normal 26.0-34.0 [facility] Comment on above: Order Comment: Speci men Type: BLOOD SPECIMENOrdering Facility: [facility] Address: [address] [place] [address] Performed By: #### 5 7021-8 ####[facility] LABIA [id number] [place] [address] [place] MCHC (RBC) [Mass/Vol] 33.6 g/dL Normal 30.5-36.0 [facility] Comment on above: Order Comment: Speci men Type: BLOOD SPECIMENOrdering Facility: [facility] Address: [address] [place] [address] Performed By: #### 5 7021-8 ####[facility] LABIA [id number] [place] [address] [place] MCV (RBC) [Entitic vol] 92.8 fL Normal 80.0-100.0 [facility] Comment on above: Order Comment: Speci men Type: BLOOD SPECIMENOrdering Facility: [facility] Address: [address] [place] [address] Performed By: #### 5 7021-8 ####[facility] LABIA [id number] [place] [address] [place] Monocytes (Bld) [#/Vol] 0.25 10*3/uL Normal <0.87 [facility] Comment on above: Order Comment: Speci men Type: BLOOD SPECIMENOrdering Facility: [facility] Address: [address] [place] [address] Performed By: #### 5 7021-8 ####[facility] LABIA [id number] [place] [address] [place] Monocytes/100 WBC (Bld) 2.6 % Normal [facility] Comment on above: Order Comment: Speci men Type: BLOOD SPECIMENOrdering Facility: [facility] Address: [address] [place] [address] Performed By: #### 5 7021-8 ####[facility] LABIA [id number] [place] [address] [place] Neutrophils (Bld) [#/Vol] 8.01 10*3/uL High 1.45-7.50 [facility] Comment on above: Order Comment: Speci men Type: BLOOD SPECIMENOrdering Facility: [facility] Address: [address] [place] [address] Performed By: #### 5 7021-8 ####[facility] LABCLIA [id number] [place] [address] [place] Neutrophils/100 WBC (Bld) 84.4 % Normal [facility] Comment on above: Order Comment: Speci men Type: BLOOD SPECIMENOrdering Facility: [facility] Address: [address] [place] [address] Performed By: #### 5 7021-8 ####[facility] LABCLIA [id number] [place] [address] [place] Nucleated RBC (Bld) [#/Vol] 10*3/uL Normal <0.01 [facility] Comment on above: Order Comment: Speci men Type: BLOOD SPECIMENOrdering Facility: [facility] Address: [address] [place] [address] Performed By: #### 5 7021-8 ####[facility] LABCLIA [id number] [place] [address] [place] Nucleated RBC/100 WBC (Bld) [Ratio] 0.0 /100 WBC Normal [facility] Comment on above: Order Comment: Speci men Type: BLOOD SPECIMENOrdering Facility: [facility] Address: [address] [place] [address] Performed By: #### 5 7021-8 ####[facility] LABIA [id number] [place] [address] [place] Platelet mean volume (Bld) [Entitic vol] 10.4 fL Normal 9.0-12.7 [facility] Comment on above: Order Comment: Speci men Type: BLOOD SPECIMENOrdering Facility: [facility] Address: [address] [place] [address] Performed By: #### 5 7021-8 ####[facility] LABCLIA [id number] [address] [address] [place] Platelets (Bld) [#/Vol] 223 10*3/uL Normal 150-400 [facility] Comment on above: Order Comment: Speci men Type: BLOOD SPECIMENOrdering Facility: [facility] Address: [address] [place] [address] Performed By: #### 5 7021-8 ####[facility] LABIA [id number] [address] [address] [place] RBC (Bld) [#/Vol] 4.61 10*6/uL Normal 4.20-6.00 [facility] Comment on above: Order Comment: Speci men Type: BLOOD SPECIMENOrdering Facility: [facility] Address: [address] [place] [address] Performed By: #### 5 7021-8 ####[facility] LABIA [id number] [address] [address] [place] WBC (Bld) [#/Vol] 9.50 10*3/uL Normal 3.70-11.00 [facility] Comment on above: Order Comment: Speci men Type: BLOOD SPECIMENOrdering Facility: [facility] Address: [address] [place] [address] Performed By: #### 5 7021-8 ####[facility] LABIA [id number] [address] [address] [place] Comprehensive metabolic 2000 panelon 11-20-2024 Albumin [Mass/Vol] 4.5 g/dL Normal 3.9-4.[address] [facility] Comment on above: Order Comment: Speci men Type: BLOOD SPECIMENOrdering Facility: [facility] Address: [address] [place] [address] Performed By: #### L IPNF, 3016-3, ####[facility] LABCLIA [id number] [address] [place] [address] [place] ALP [Catalytic activity/Vol] 64 U/L Normal 38-113 [facility] Comment on above: Order Comment: Speci men Type: BLOOD SPECIMENOrdering Facility: [facility] Address: [address] [place] [address] Performed By: #### L IPNF, 3, ####[facility] LABCLIA [id number] [address] [place] [address] [place] ALT [Catalytic activity/Vol] 19 U/L Normal 10-54 [facility] Comment on above: Order Comment: Speci men Type: BLOOD SPECIMENOrdering Facility: [facility] Address: [address] [place] [address] Performed By: #### L IPKIAN, 3, ####[facility] LABCLIA [id number] [place] [address] [place] Anion gap [Moles/Vol] 10 mmol/L Normal 8-15 [facility] Comment on above: Order Comment: Speci men Type: BLOOD SPECIMENOrdering Facility: [facility] Address: [address] [place] [address] Performed By: #### L IPNF, 3, ####[facility] LABCLIA [id number] [place] [address] [place] AST [Catalytic activity/Vol] 16 U/L Normal 14-40 [facility] Comment on above: Order Comment: Speci men Type: BLOOD SPECIMENOrdering Facility: [facility] Address: [address] [place] [address] Performed By: #### L IPNF, 3015-3, ####[facility] LABCLIA [id number] [address] [address] [place] Bilirubin [Mass/Vol] 0.4 mg/dL Normal 0.2-1.3 [facility] Comment on above: Order Comment: Speci men Type: BLOOD SPECIMENOrdering Facility: [facility] Address: [address] [place] [address] Performed By: #### L IPNF, 3, ####[facility] LABCLIA [id number] [address] [address] [place] Calcium [Mass/Vol] 9.6 mg/dL Normal 8.5-10.[address] [facility] Comment on above: Order Comment: Speci men Type: BLOOD SPECIMENOrdering Facility: [facility] Address: [address] [place] [address] Performed By: #### L HARDEEP, 3, ####[facility] LABCLIA [id number] [place] [address] [place] Chloride [Moles/Vol] 99 mmol/L Normal 98-107 [facility] Comment on above: Order Comment: Speci men Type: BLOOD SPECIMENOrdering Facility: [facility] Address: [address] [place] [address] Performed By: #### L HARDEEP, 3015-11, ####[facility] LABCLIA [id number] [address] [address] [place] CO2 [Moles/Vol] 27 mmol/L Normal 22-30 [facility] Comment on above: Order Comment: Speci men Type: BLOOD SPECIMENOrdering Facility: [facility] Address: [address] [place] [address] Performed By: #### L IPKIAN, 3015-11, ####[facility] LABCLIA [id number] [address] [place] [address] [place] Creatinine [Mass/Vol] 1.02 mg/dL Normal 0.73-1.22 [facility] Comment on above: Order Comment: Speci men Type: BLOOD SPECIMENOrdering Facility: [facility] Address: [address] [place] [address] Performed By: #### L IPNF, 3016-3, 30857-0 ####[facility] LABCLIA [id number] [place] [address] [place] Creatinine and Glomerular filtration rate.predicted panel (S/P/Bld) 84 mL/min/1.73m??? Normal >=60 [facility] Comment on above: Order Comment: Mary blackman Type: BLOOD SPECIMENOrdering Facility: [facility] Address: [address] [place] [address] Result Comment: Светлана mated Glomerular Filtration Rate (eGFR) is calculated using the 2020 CKD-EPI creatinine equation. This equation utilizes serum creatinine, sex, and age as parameters. The creatinine assay has traceable calibration to isotope dilution-mass spectrometry. Refer to KDIGO guidelines for clinical interpretation. In patients with unstable renal function, e.g. those with acute kidney injury, the eGFR may not accurately reflect actual GFR. Performed By: #### L IPNF, 3016-3, 66510-2 ####[facility] LABCLIA [id number] [place] [address] [place] Glucose [Mass/Vol] 116 mg/dL High 74-[address] [facility] Comment on above: Order Comment: Mary hiral Type: BLOOD SPECIMENOrdering Facility: [facility] Address: [address] [place] [address] Result Comment: The [place] Diabetes Association (ADA) provides guidance for cutoff values for fasting glucose and random glucose. The ADA defines fasting as no caloric intake for at least 8 hours. Fasting plasma glucose results between 100 to 125 mg/dL indicate increased risk for diabetes (prediabetes). Fasting plasma glucose results greater than or equal to 126 mg/dL meet the criteria for diagnosis of diabetes. In the absence of unequivocal hyperglycemia, results should be confirmed by repeat testing. In a patient with classic symptoms of hyperglycemia or hyperglycemic crisis, random plasma glucose results greater than or equal to 200 mg/dL meet the criteria for diagnosis of diabetes. Reference: Standards of Medical Care in Diabetes 2016, [place] Diabetes Association. Diabetes Care. 2016.39(Suppl 1). Performed By: #### L IPNF, 6-3, 28704-4 ####[facility] LABCLIA [id number] [address] [address] [place] Potassium [Moles/Vol] 4.7 mmol/L Normal 3.7-5.1 [facility] Comment on above: Order Comment: Speci men Type: BLOOD SPECIMENOrdering Facility: [facility] Address: [address] [place] [address] Performed By: #### L IPNF, 3015-3, 83520-6 ####[facility] LABCLIA [id number] [place] [address] [place] Protein [Mass/Vol] 7.2 g/dL Normal 6.3-8.[address] [facility] Comment on above: Order Comment: Speci men Type: BLOOD SPECIMENOrdering Facility: [facility] Address: [address] [place] [address] Performed By: #### L IPNF, 3, 61956-3 ####[facility] LABCLIA [id number] [place] [address] [place] Sodium [Moles/Vol] 136 mmol/L Normal 136-[address] [facility] Comment on above: Order Comment: Speci men Type: BLOOD SPECIMENOrdering Facility: [facility] Address: [address] [place] [address] Performed By: #### L IPNF, 3015-3, 16419-0 ####[facility] LABCLIA [id number] [address] [address] [place] Urea nitrogen [Mass/Vol] 20 mg/dL Normal 9-24 [facility] Comment on above: Order Comment: Speci men Type: BLOOD SPECIMENOrdering Facility: [facility] Address: [address] [place], [place] [address] Performed By: #### L IPNF, 3015-3, 73631-3 ####[facility] LABCLIA [id number] [address] OF [facility] HbA1c (Bld)on 11-20-2024 Average glucose Estimated from glycated hemoglobin (Bld) [Mass/Vol] 114 mg/dL Normal [facility] Comment on above: Order Comment: Mary blackman Type: BLOOD SPECIMEN [facility] Address: [address] [place] [address] Result Comment: eAG: (Estimated average glucose) is a calculated value from HgbA1c and is phlebotomy services representative of the average blood glucose level in the last 2-3 month period. Performed By: #### 5 5454-3 #### [facility] CLIA [id number] [address] [place] [address] HbA1c (Bld) [Mass fraction] 5.6 % Normal 4.3-5.6 [facility] Comment on above: Order Comment: Mary blackman Type: BLOOD SPECIMEN [facility] Address: [address] [place] [address] Result Comment: [place] Diabetes Association guidelines indicate that patients with HgbA1c in the range 5.7-6.4% are at increased risk for development of diabetes, and intervention by lifestyle modification may be beneficial. HgbA1c greater or equal to 6.5% is considered diagnostic of diabetes. Performed By: #### 5 5454-3 #### [facility] CLIA [id number] [address] [place] [address] [place] LIPID PANEL, NONFASTINGon Cholesterol [Mass/Vol] 228 mg/dL High <200 [facility] Comment on above: Order Comment: Mary blackman Type: BLOOD SPECIMENOrdering Facility: [facility] Address: [address] [place] [address] Result Comment: <200 mg/dL, Desirable 200-239 mg/dL, Borderline high >239 mg/dL, High Performed By: #### L HARDEEP, 3015-3, 50245-0 ####[facility] LABCLIA [id number] [place] [address] [facility] OF [place] HDL CHOLESTEROL, NF 116 mg/dL Normal >39 [facility] Comment on above: Order Comment: Mary hiral Type: BLOOD SPECIMENOrdering Facility: [facility] Address: [address] [place] [address] Result Comment: 40-5 9 mg/dL, Acceptable >59 mg/dL, High: Negative risk factor for coronary heart disease <40 mg/dL, Low: Positive risk factor for coronary heart disease Performed By: #### L IPNF, 3016-3, 97857-2 ####[facility] LABCLIA [id number] [address] LDL CHOLESTEROL, NF 97 mg/dL Normal <100 [facility] Comment on above: Order Comment: Mary hiral Type: BLOOD SPECIMENOrdering Facility: [facility] Address: [address] [place] [address] Result Comment: <100 mg/dL, Optimal 100-129 mg/dL, Near optimal/above optimal 130-159 mg/dL, Borderline high 160-189 mg/dL, High >189 mg/dL, Very high Secondary prevention optimal LDL Cholesterol levels are recommended to be < 70 mg/dL Performed By: #### L IPNF, 3016-3, ####[facility] LABCLIA [id number] [place] [address] [facility] LDL/HDL RATIO, NF 0.84 mg/dL Normal <2.54 [facility] Comment on above: Order Comment: [facility] Type: BLOOD SPECIMENOrdering Facility: [facility] Address: [address] [place] [address] Result Comment: Juan tee: 1. National Cholesterol Education Program ATP III Guideline At-A-Glance Quick Desk Reference: National Heart, Lung, and Blood [place]. National Institutes of Health. 2001: NIH Publication No. 01-3305. 2. An International Atherosclerosis Society position paper: global recommendations for the management of dyslipidemia: executive summary, Atherosclerosis. 2014: 232(2):410-413. Performed By: #### L IPNF, 6-3, 48239-2 ####[facility] LABCLIA [id number] [place] [id number] [place] [facility] NON HDL CHOL, NF 112 mg/dL Normal <130 [facility] Comment on above: Order Comment: Speci men Type: BLOOD SPECIMENOrdering Facility: [facility] Address: [address] [place] [address] Result Comment: <130 mg/dL, Optimal 130-159 mg/dL, Near optimal/above optimal 160-189 mg/dL, Borderline high 190-219 mg/dL, High >219 mg/dL, Very high Secondary prevention optimal non HDL Cholesterol levels are recommended to be <100 mg/dL Performed By: #### L IPNF, 6-3, 77116-2 ####[facility] LABCLIA [id number] [address] OF [facility] T CHOL/HDL RATIO NF 1.97 mg/dL Normal <5.10 [facility] Comment on above: Order Comment: Speci men Type: BLOOD SPECIMENOrdering Facility: [facility] Address: [address] [place] [address] Performed By: #### L IPNF, 3015-3, 96594-0 ####[facility] LABCLIA [id number] [address] [place] TRIGLYCERIDES, NF 77 mg/dL Normal <150 [facility] Comment on above: Order Comment: Speci men Type: BLOOD SPECIMENOrdering Facility: [facility] Address: [address] [place] [address] Result Comment: <150 mg/dL, Normal 150-199 mg/dL, Borderline high 200-499 mg/dL, High >499 mg/dL, Very high Performed By: #### L IPNF, 6-3, 96216-8 ####[facility] LABCLIA [id number] [place] [id number] [place] VLDL CHOLESTEROL, NF 15 mg/dL Normal <30 [facility] Comment on above: Order Comment: Speci men Type: BLOOD SPECIMENOrdering Facility: [facility] Address: [address] [place] [address] Performed By: #### L HARDEEP, 3016-3, 34824-6 ####[facility] LABIA [id number] [address] [place] PSA SerPl-mCncon 11-20-2024 Prostate specific Ag [Mass/Vol] 0.74 ng/mL Normal <2.60 [facility] Comment on above: Order Comment: Speci men Type: BLOOD SPECIMENOrdering Facility: [facility] Address: [address] [place] [address] Result Comment: Tota l PSA test methodology used is the Electrochemiluminescence Immunoassay by [employer]. Total PSA values by differing methodologies cannot be interchanged. Performed By: #### 2 857-1 ####[facility] LABIA [id number] [place] [address] [place] TSH SerPl-aCncon 11-20-2024 TSH Qn 0.435 m[IU]/L Normal 0.270-4.200 [facility] Comment on above: Order Comment: Speci men Type: BLOOD SPECIMENOrdering Facility: [facility] Address: [address] [place] [address] Performed By: #### L IPKIAN, 3016-3, 26031-0 ####[facility] LABIA [id number] [place] [id number] [place] CNOVon 11-19-2024 CNOV Office Visit (FAMPWS ) JHONATHAN BYRNES ([id number]) 1965 M Date Time Provider Department 11/19/24 3:40 PM SILVIO MOYER During your visit today, we recorded the following information about you: Pulse Respiration Blood pressure Weight 115/minute 18/minute 122/94 70.3 kg Silvio Myoer MD 11/19/2024 5:52 PM Signed Chief Complaint Patient presents with: Results HPI Jhonathan Byrnes is a 59 year old male who presents here today for results of MRI. Prednisone did help but once completed the pain came back. Does use tramadol for severe pain. Sleeps ok; notices more when he gets up. Burning in middle of chest into left side of chest and down left arm. Pain scale today is an 8 yesterday; patient indicated 15 had to leave work early. Also noticed losing strength in left hand. Neck sore. Patient has been noticing weakness in the left upper ext. Hurts to reach behind his back with decreased ROM with internal rotation. Past medical history, appointments, medications, allergies reviewed. Previous Medical History PAST MEDICAL HISTORY Diagnosis Date Alcohol abuse 05/02/2018 Benign prostatic hyperplasia with urinary frequency 10/13/2023 Elevated hemoglobin A1c 07/11/2021 Essential hypertension 05/01/2018 Ex-smoker 05/01/2018 Started in his early 20's and quite around the age of 38. 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 Not aware or medication. GERD without esophagitis 05/02/2018 Herniation of intervertebral disc at C6-C7 level 05/03/2018 MRI 02/2018 History of anxiety 06/06/2007 History of colonic polyps 08/10/2022 Mixed hyperlipidemia 05/01/2018 Pectoralis minor syndrome (HCC) Uncomplicated alcohol dependence (HCC) 05/02/2018 Previous Surgical History PAST SURGICAL HISTORY Procedure Laterality Date COLONOSCOPY FLX DX W/COLLJ SPEC WHEN PFRMD 08/19/2018 repeat 3 years COLONOSCOPY SCREENING 08/21/2022 two small adenomatous polyps-repeat in 5 years EGD W/O BRSH SPEC VARICIES INJ 11/09/2021 HEART CATHETERIZATION 2017 WNL SHOULDER SURGERY HX 2021 Tenden release Family History FAMILY HISTORY Problem Relation Age of Onset Coronary Artery Disease Mother has stents Cancer Brother Lung: dx and initial surgery 2006. nonsmoker. other (dementia) Paternal Aunt Colon Cancer No Family History Patient Allergies ALLERGIES No Known Allergies Current Medications Current Outpatient Medications on File Prior to Visit Medication Sig lisinopril-hydroCHLOROthiaz rupesh (ZESTORETIC) 20-12.5 mg per tablet Take 1 tablet by mouth once daily. predniSONE (DELTASONE) 20 mg tablet Take 3 tabs by mouth for 3 days, then 2 tabs by mouth for 3 days, then 1 tab by mouth for 3 days and then 1/2 a tab by mouth for 4 days. atorvastatin (LIPITOR) 10 mg tablet Take 1 tablet by mouth once daily. gabapentin (NEURONTIN) 300 mg capsule Take 1 capsule by mouth three times a day as needed for up to 20 days. Sacrosidase (SUCRAID) 8,500 unit/mL soln Take 2 mL with food and snacks daily polyethylene glycol 3350 (MIRALAX) 17 gram/dose powder Take by mouth once daily. Dissolve dose in 4 - 8 ounces of liquid and take as directed. amitriptyline (ELAVIL) 10 mg tablet Take 1 tablet by mouth daily at bedtime. hydrOXYzine HCl (ATARAX) 25 mg tablet Take 0.5-1 tab every 8 hrs as needed for panic attacks. cyanocobalamin (B-12 DOTS) 500 mcg tablet Take 1 tablet by mouth once daily. tamsulosin (FLOMAX) 0.4 mg Take 0.4 mg by mouth twice daily. Per Dr. Barbosa No current facility-administered medications on file prior to visit. Social History Social History Tobacco Use Smoking status: Former Current packs/day: 0.00 Average packs/day: 1 pack/day for 20.0 years (20.0 ttl pk-yrs) Types: Cigarettes Start date: 1987 Quit date: 2007 Years since quittin.6 Smokeless tobacco: Current Types: Chew Tobacco comments: Tobacco pouches Vaping Use Vaping status: Never Used Substance Use Topics Alcohol use: Yes Comment: 1-2 daily Drug use: Never Review of Symptoms REVIEW OF SYSTEMS See HPI EXAM: BP 122/94 Pulse 115 Resp 18 Wt 70.3 kg (155 lb) BMI 22.24 kg/m? Patient in pain today. General Appearance: Well appearing, alert, in no acute distress, well-hydrated, well nourished.. Musculoskeletal: left shoulder: nears test was mildly positive along with Hawken's. His empty can testing was positive for pain and weakness. External rotation shows weakness on the left and pain. Internal rotation on the left was decreased compared to the right and caused pain.. Health Maintenance List Shingrix Vaccine(1 of 2) Never done BP Controlled (<130/80) due on 01/04/2023 Covid-19 Vaccine( season) due on 05/04/2024 Pneumococcal Vaccine (more content not included)... [facility] XR SHLDR >/=3V AP/LG AP/OTH R LTon 11-19-2024 XR SHLDR >/=3V AP/LG AP/OTHR LT * * *Final Report* * * DATE OF EXAM: Nov 19 2024 5:15PM [id number] - XR SHLDR >/=3V AP/LG AP/OTHR LT / PROCEDURE REASON: Acute pain of left shoulder * * * * Physician Interpretation * * * * PROCEDURE: Left shoulder INDICATION: Acute pain of left shoulder .Acute left shoulder pain, no known injury. TECHNIQUE: XR SHLDR >/=3V AP/LG AP/OTHR LT COMPARISON: None FINDINGS: Remote, healed mid clavicle fracture with overlapping fracture fragments. No acute fracture or dislocation. Joint spaces and acromiohumeral interval are maintained. Upper ribs are intact. IMPRESSION: No acute abnormality National Sales Trainer: SHELLY Transcribe Date/Time: Nov 22 2024 11:12A Dictated by : BRI SILVESTRE MD This examination was interpreted and the report reviewed and electronically signed by: BRI SILVESTRE MD on Nov 22 2024 11:12AM EST [id number] [facility] MR Cervical spine WO contras ton 11-17-2024 IMPRESSION: Mild cervical spondylosis as described without high-grade canal or foraminal narrowing, cord compression, or abnormal cord signal. Anatomic Variant: None. Assume 7 cervical vertebrae with counting from the craniocervical junction. National Sales Trainer: SHELLY Transcribe Date/Time: Nov 17 2024 2:46P Dictated by : KARLENE MACIEL DO This examination was interpreted and the report reviewed and electronically signed by: DULCE GUILLORY MD on Nov 17 2024 3:14PM [facility] DIVISION OF RADIOLOGY * * *Final Report* * * DATE OF EXAM: Nov 17 2024 2:20PM [facility] 0297 - MRI CERVICAL SPINE WO IVCON / PROCEDURE REASON: multiple diagnoses * * * * Physician Interpretation * * * * EXAMINATION: MRI CERVICAL SPINE WO IVCON CLINICAL HISTORY: Left arm pain. Neck pain. Herniation of intervertebral disc at C6-C7 level TECHNIQUE: Routine cervical spine MR protocol without gadolinium. MQ: [id number] COMPARISON: None. RESULT: Counting reference: Craniocervical junction. Anatomic Variants: None. Localizer images: No additional findings. Alignment: Alignment is anatomic. Straightening of the cervical lordosis, possibly positional. No significant listhesis. Vertebral body heights are maintained. Craniocervical junction: Craniocervical junction is normal. Cord: The visualized cord is within normal limits of signal intensity and morphology. Bone marrow signal/fracture: No evidence of pathologic marrow infiltration. No evidence of prior fracture. Slightly heterogeneous marrow at C2 and C3, likely type II degenerative changes at this level. Moderate disc space height loss at C5-C6. Cervical soft tissues: The paraspinal soft tissues are within normal limits. C2-C3: Canal and foramina are patent C3-C4: Canal and foramina are patent. C4-C5: Small disc osteophyte complex and uncovertebral hypertrophy without significant canal or foraminal narrowing. C5-C6: Small disc osteophyte complex and uncovertebral hypertrophy without significant canal or foraminal narrowing. C6-C7: Small disc osteophyte complex. The canal and foramina are patent. C7-T1: Canal and foramina are patent. DIVISION OF RADIOLOGY Provider, [facility] - 11/17/2024 * * *Final Report* * * DATE OF EXAM: Nov 17 2024 2:20PM [facility] 0297 - MRI CERVICAL SPINE WO IVCON / PROCEDURE REASON: multiple diagnoses * * * * Physician Interpretation * * * * EXAMINATION: MRI CERVICAL SPINE WO IVCON CLINICAL HISTORY: Left arm pain. Neck pain. Herniation of intervertebral disc at C6-C7 level TECHNIQUE: Routine cervical spine MR protocol without gadolinium. MQ: [id number] COMPARISON: None. RESULT: Counting reference: Craniocervical junction. Anatomic Variants: None. Localizer images: No additional findings. Alignment: Alignment is anatomic. Straightening of the cervical lordosis, possibly positional. No significant listhesis. Vertebral body heights are maintained. Craniocervical junction: Craniocervical junction is normal. Cord: The visualized cord is within normal limits of signal intensity and morphology. Bone marrow signal/fracture: No evidence of pathologic marrow infiltration. No evidence of prior fracture. Slightly heterogeneous marrow at C2 and C3, likely type II degenerative changes at this level. Moderate disc space height loss at C5-C6. Cervical soft tissues: The paraspinal soft tissues are within normal limits. C2-C3: Canal and foramina are patent C3-C4: Canal and foramina are patent. C4-C5: Small disc osteophyte complex and uncovertebral hypertrophy without significant canal or foraminal narrowing. C5-C6: Small disc osteophyte complex and uncovertebral hypertrophy without significant canal or foraminal narrowing. C6-C7: Small disc osteophyte complex. The canal and foramina are patent. C7-T1: Canal and foramina are patent. IMPRESSION IMPRESSION: Mild cervical spondylosis as described without high-grade canal or foraminal narrowing, cord compression, or abnormal cord signal. Anatomic Variant: None. Assume 7 cervical vertebrae with counting from the craniocervical junction. National Sales Trainer: SHELLY Transcribe Date/Time: Nov 17 2024 2:46P Dictated by : KARLENE MACIEL DO This examination was interpreted and the report reviewed and electronically signed by: DULCE GUILLORY MD on Nov 17 2024 3:14PM EST [facility] Radiology Study observation (narrative) [facility] MR Cervical spine WO contras tOrdered By: [facility] Provider on 11-17-2024 [facility] MRI CERVICAL SPINE WO IVCONo n 11-17-2024 MRI CERVICAL SPINE WO IVCON * * *Final Report* * * DATE OF EXAM: Nov 17 2024 2:20PM [facility] 0297 - MRI CERVICAL SPINE WO IVCON / PROCEDURE REASON: multiple diagnoses * * * * Physician Interpretation * * * * EXAMINATION: MRI CERVICAL SPINE WO IVCON CLINICAL HISTORY: Left arm pain. Neck pain. Herniation of intervertebral disc at C6-C7 level TECHNIQUE: Routine cervical spine MR protocol without gadolinium. MQ: [id number]_[id number] COMPARISON: None. RESULT: Counting reference: Craniocervical junction. Anatomic Variants: None. Localizer images: No additional findings. Alignment: Alignment is anatomic. Straightening of the cervical lordosis, possibly positional. No significant listhesis. Vertebral body heights are maintained. Craniocervical junction: Craniocervical junction is normal. Cord: The visualized cord is within normal limits of signal intensity and morphology. Bone marrow signal/fracture: No evidence of pathologic marrow infiltration. No evidence of prior fracture. Slightly heterogeneous marrow at C2 and C3, likely type II degenerative changes at this level. Moderate disc space height loss at C5-C6. Cervical soft tissues: The paraspinal soft tissues are within normal limits. C2-C3: Canal and foramina are patent C3-C4: Canal and foramina are patent. C4-C5: Small disc osteophyte complex and uncovertebral hypertrophy without significant canal or foraminal narrowing. C5-C6: Small disc osteophyte complex and uncovertebral hypertrophy without significant canal or foraminal narrowing. C6-C7: Small disc osteophyte complex. The canal and foramina are patent. C7-T1: Canal and foramina are patent. IMPRESSION: Mild cervical spondylosis as described without high-grade canal or foraminal narrowing, cord compression, or abnormal cord signal. Anatomic Variant: None. Assume 7 cervical vertebrae with counting from the craniocervical junction. National Sales Trainer: SHELLY Transcribe Date/Time: Nov 17 2024 2:46P Dictated by : KARLENE MACIEL, DO This examination was interpreted and the report reviewed and electronically signed by: DULCE GUILLORY MD on Nov 17 2024 3:14PM EST [id number] [facility] CNOVon 11-04-2024 CNOV Office Visit (FAMPWS ) JHONATHAN BYRNES ([id number]) 1965 M Date Time Provider Department 11/04/24 1:00 PM SILVIO MOYER During your visit today, we recorded the following information about you: Pulse Respiration Blood pressure Weight 90/minute 20/minute 124/86 71.2 kg Height 1.778 m Silvio Moyer MD 11/04/2024 7:49 PM Signed Chief Complaint Pain HPI Jhonathan Byrnes is a 59 year old male who presents here today for pain on left shoulder Patient with Hx of hyperlipidemia, GERD, JC, HTN, elevated A1c, alcohol abuse, Pectoralis minor syndrome as well as those reviewed and addressed below and in ROS. Patient indicated that he is having issues still week 7 on left shoulder. Patient saw Juliet and was sent to Vascular whom he saw and has a Stress test and BP vascular test scheduled of the left upper extremity with his Hx os outlet syndrome on the left.. He was given a muscle relax which helps. There was an order for pain management in the vascular note but no appt has set up at this time. About 9 months ago had to go back to the floor and spray pait which involves a lot or leaning over and rasing his left arm above hs head. Patient indicated that is dealing with mom and dad with health issues and his has parkinson's as well. Doesn't have issues with sleep with the pain only if he turns over on left side. Patient sees Vascular last visit 10/28/2024 Th pain is in the left side of the neck, left shoulder and left upper arm in the distrubution of C4, C5,C6 and C7 dermatomes. Left hand is weaker. Has not dropped anything but needs to use the right to help support the left at times. The steroid taper that he was placed on by our SILVIA back on 10/09/2024 did help improve his symptoms until he weaned off it. Patient has a home cervical traction unit that he can blow up and this does provide some relief. Finds that if he brings the left arm close to his body with elbow flexed he is more comfortable. Past medical history, appointments, medications, allergies reviewed. Previous Medical History PAST MEDICAL HISTORY Diagnosis Date Alcohol abuse 05/02/2018 Benign prostatic hyperplasia with urinary frequency 10/13/2023 Elevated hemoglobin A1c 07/11/2021 Essential hypertension 05/01/2018 Ex-smoker 05/01/2018 Started in his early 20's and quite around the age of 38. 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 Not aware or medication. GERD without esophagitis 05/02/2018 Herniation of intervertebral disc at C6-C7 level 05/03/2018 MRI 02/2018 History of anxiety 06/06/2007 History of colonic polyps 08/10/2022 Mixed hyperlipidemia 05/01/2018 Pectoralis minor syndrome (HCC) Uncomplicated alcohol dependence (HCC) 05/02/2018 Previous Surgical History PAST SURGICAL HISTORY Procedure Laterality Date COLONOSCOPY FLX DX W/COLLJ SPEC WHEN PFRMD 08/19/2018 repeat 3 years COLONOSCOPY SCREENING 08/21/2022 two small adenomatous polyps-repeat in 5 years EGD W/O BRSH SPEC VARICIES INJ 11/09/2021 HEART CATHETERIZATION 2016 WNL SHOULDER SURGERY HX 2021 [place]enden release Family History FAMILY HISTORY Problem Relation Age of Onset Coronary Artery Disease Mother has stents Cancer Brother Lung: dx and initial surgery 2006. nonsmoker. other (dementia) Paternal Aunt Colon Cancer No Family History Patient Allergies ALLERGIES No Known Allergies Current Medications Current Outpatient Medications on File Prior to Visit Medication Sig atorvastatin (LIPITOR) 10 mg tablet Take 1 tablet by mouth once daily. gabapentin (NEURONTIN) 300 mg capsule Take 1 capsule by mouth three times a day as needed for up to 20 days. Sacrosidase (SUCRAID) 8,500 unit/mL soln Take 2 mL with food and snacks daily polyethylene glycol 3350 (MIRALAX) 17 gram/dose powder Take by mouth once daily. Dissolve dose in 4 - 8 ounces of liquid and take as directed. amitriptyline (ELAVIL) 10 mg tablet Take 1 tablet by mouth daily at bedtime. lisinopril-hydroCHLOROthiaz rupesh (ZESTORETIC) 20-12.5 mg per tablet Take 1 tablet by mouth once daily. hydrOXYzine HCl (ATARAX) 25 mg tablet Take 0.5-1 tab every 8 hrs as needed for panic attacks. cyanocobalamin (B-12 DOTS) 500 mcg tablet Take 1 tablet by mouth once daily. tamsulosin (FLOMAX) 0.4 mg Take 0.4 mg by mouth twice daily. Per Dr. Pranoa No current facility-administered medications on file prior to visit. Social History Social History Tobacco Use Smoking status: Former Current packs/day: 0.00 Average packs/day: 1 pack/day for 20.0 years (20.0 ttl pk-yrs) Types: Cigarettes Start date: 1987 Quit date: 2007 Years since quittin.6 Smokeless tobacco: Current Types: Chew Tobacco comments: Tobacco pouches (more content not included)... [facility] XR CERVICAL 4V AP/LAT/OBLon 11-04-2024 XR CERVICAL 4V AP/LAT/OBL * * *Final Report* * * DATE OF EXAM: Nov 04 2024 2:11PM [id number] - XR CERVICAL 4V AP/LAT/OBL / PROCEDURE REASON: multiple diagnoses * * * * Physician Interpretation * * * * EXAM(s): XR CERVICAL 4V AP/LAT/OBL..... HISTORY: 59 years old Clinical information: Left arm pain Neck pain Herniation of intervertebral disc at C6-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 chronic neck pain, tngling and pain in left arm. TECHNIQUE: Images: XR CERVICAL 4V AP/LAT/OBL Comparison: 05/04/2022. RESULT: Findings: Anterior osteophyte formation at the C4, C5, and C6 levels. Disc space narrowing, see 5-6. No compression fracture. Cervical vertebrae are anatomically aligned. No spinal stenosis. Oblique views show no significant uncovertebral spurring. Paraspinous soft tissues are unremarkable.. IMPRESSION: Degenerative changes as noted above. Somewhat progressive since 05/04/2022 National Sales Trainer: [facility] Transcribe Date/Time: Nov 07 2024 11:52A Dictated by : HENRY VAZQUEZ MD This examination was interpreted and the report reviewed and electronically signed by: HENRY VAZQUEZ MD on Nov 07 2024 11:56AM EST [id number] [facility] MR/BMS.Ramon 10-24-2024 MR/BMS.BVS [facility] [address] [place] [address] OFFICE VISIT Date of Service: 10/24/24 MR#: [id number] Acct: [id number] Name: SILVIO BYRNES Rep #: [id number] : 1965 Provider: PHIL Nash Age/Sex: 59/M Location: [facility] [place] Status: Signed Intake Vital Signs 05/16/22 16:19 10/24/24 11:20 Height 5 ft 8 in Weight: 161 lb BP 138/86 H Blood Pressure Location Rt brachial Position Sitting Respiration 16 Pulse 110 H Pulse Source Monitor Temp 98.2 F Temp Source Temporal Pulse Oximetry (%) 100 Oxygen Delivery Method room air Intake Visit Reasons: NEW PATIENT:Thoracic Outlet Syndrome Chief Complaint: establish care Is patient in pain?: Yes Allergies No Known Allergies Allergy (Verified 10/24/24 11:24) Medications ???Medication ???Instructions ???Recorded ???Confirmed ???Type aspirin 81 mg tablet,delayed 81 mg PO DAILY@0800 #30 tabs 03/2110/24/24 Rx release lisinopril 20 1 ea PO DAILY #30 tabs 03/21/17 Rx mg-hydrochlorothiazide 12.5 mg tablet (Zestoretic) hydroxyzine HCl 25 mg tablet 25 mg PO PRN PRN Anxiety 10/06/21 10/24/24 History tamsulosin 0.4 mg capsule (Flomax) 0.4 mg PO DAILY #14 caps 2 10/24/24 Rx tramadol 50 mg tablet ea PO 06/07/22 10/24/24 History methocarbamol 500 mg tablet 500 mg PO Q6H 14 days #120 tabs 10/24/24 Rx Have you fallen in the past year?: No PFSH Medical History Anxiety Hypertension Family History (Updated 10/24/24 @ 11:02 by Karma Tenorio) Other Arthritis Cancer Hypertension Social History (Updated 10/24/24 @ 11:19 by Karma Tenorio) Smoking Status: Former smoker Tobacco: How many years used: 10 HPI HPI HPI: SILVIO BYRNES, is a 59 M who presents to the office today for evaluation of suspected thoracic outlet syndrome as referred by his PCP. He admits to significant stress and anxiety at home, visibly anxious in the office today. He reports that several years ago he had this persistent pain in his left chest, left arm, and left neck, he did have cardiac workup given the burning chest pain component in 2017 which was negative. As this progressed, he eventually had workup suggestive of thoracic outlet syndrome. He was referred out to [facility] and he reports there they actually diagnosed him with pectoralis minor syndrome and he underwent what sounds like pec minor release surgery. For the first year or 2 after this procedure he had significant relief of his symptoms. Over the last couple of months though he has had return of symptoms and they are quite severe for him. He has significant pain, burning and somewhat aching as well down his left arm somewhat onto his shoulder, proximal chest, and into his neck as well. He denies any associated SOB, diaphoresis, nausea, vomiting, decreased endurance/ability to perform usual activities. He can have several days in a row where this is continuous and then may have a few days where he does not experience it at all. It does seem to be aggravated by activity, he works in [employer] so does a lot of upper extremity lifting and bending over. He does have known cervical spine disease as well. The other night he did remember that he had some nitro leftover from when he was receiving cardiac workup in 2017 and took it and felt like it did help a little bit. Otherwise he has been taking tramadol as prescribed by his PCP which helps take the edge off. He had an flareup similar to this a few months ago and was prescribed a steroid Dosepak and that helped significantly for a while. He was prescribed that again this time and again it helped a lot but unfortunately for a shorter period of time. ROS General General: Yes fatigue and weakness; No weight change, appetite, colon cancer or breast cancer HEENT HEENT: No difficulty swallowing, eye injury, eye surgery, swollen glands or hoarseness Endo Endocrine: No thyroid disease, diabetes mellitus, thyroid cancer, Hair loss, heat intolerance or cold intolerance Skin Skin: No rash or changing moles Musc Musculoskeletal: Yes back problems; No arthritis, rheumatoid arthritis, gout or joint pain Cardio Cardiovascular: Yes high blood pressure; No murmur, pacemaker, heart disease, atrial fibrillation, heart attack, heart stent, palpitations, shortness of breat with exertion or chest pain Psych Psychiatric: No depression, anxiety or hearing voices Resp Respiratory: No shortness of breath, No sleep apnea, No cough, No COPD, No asthma, No emphysema and No wheezing Gastro Gastrointestinal: No abdominal pain, No nausea or vomiting, No diarrhea, Yes constipation, No blood in stool, No acid reflux, No hemorrhoids, No (more content not included)... [facility] CNOVon 10-09-2024 CNOV Office Visit (FAMPWS ) JHONATHAN BYRNES ([id number]) 1965 M Date Time Provider Department 10/09/24 9[facility]00 [facility] During your visit today, we recorded the following information about you: Temperature Pulse Respiration Blood pressure 97.8 degrees 86/minute 18/minute 120/80 Weight 72.1 kg Juliet Millan PA-C 10/09/2024 9:49 AM Signed Chief Complaint Patient presents with: Pain (Shoulder Pain) HPI Jhonathan Byrnes is a 59 year old male who presents here today for Above Complaints.. Patient states that he has hx of left shoulder/pec minor syndrome. Patient has hx of broken collar bone that didn't heal correctly. In 2021 he had surgery with vascular and worked with pain management. 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 Since the surgery he has had 2 recurrences. Previously steroid helps within a few days. Gabapentin and tramadol help with pain control. He usually only takes 1/2 tramadol due to SE. Patient has not been back to specialist. Would like to see if local vascular specialist will manage vs going back [place]. Past medical history, appointments, medications, allergies reviewed. Previous Medical History PAST MEDICAL HISTORY Diagnosis Date Alcohol abuse 05/02/2018 Benign prostatic hyperplasia with urinary frequency 10/13/2023 Elevated hemoglobin A1c 07/11/2021 Essential hypertension 05/01/2018 Ex-smoker 05/01/2018 Started in his early 20's and quite around the age of 38. 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 Not aware or medication. GERD without esophagitis 05/02/2018 Herniation of intervertebral disc at C6-C7 level 05/03/2018 MRI 02/2018 History of anxiety 06/06/2007 History of colonic polyps 08/10/2022 Mixed hyperlipidemia 05/01/2018 Pectoralis minor syndrome (HCC) Uncomplicated alcohol dependence (HCC) 05/02/2018 Previous Surgical History PAST SURGICAL HISTORY Procedure Laterality Date COLONOSCOPY FLX DX W/COLLJ SPEC WHEN PFRMD 08/19/2018 repeat 3 years COLONOSCOPY SCREENING 08/21/2022 two small adenomatous polyps-repeat in 5 years EGD W/O BRSH SPEC VARICIES INJ 11/09/2021 HEART CATHETERIZATION 2016 WNL SHOULDER SURGERY HX 2021 [place] release Family History FAMILY HISTORY Problem Relation Age of Onset Coronary Artery Disease Mother has stents Cancer Brother Lung: dx and initial surgery 2006. nonsmoker. other (dementia) Paternal Aunt Colon Cancer No Family History Patient Allergies ALLERGIES No Known Allergies Current Medications Current Outpatient Medications on File Prior to Visit Medication Sig Sacrosidase (SUCRAID) 8,500 unit/mL soln Take 2 mL with food and snacks daily Pregabalin (LYRICA) 200 mg capsule Take 1 capsule by mouth three times a day as needed for up to 20 days. polyethylene glycol 3350 (MIRALAX) 17 gram/dose powder Take by mouth once daily. Dissolve dose in 4 - 8 ounces of liquid and take as directed. amitriptyline (ELAVIL) 10 mg tablet Take 1 tablet by mouth daily at bedtime. atorvastatin (LIPITOR) 10 mg tablet Take 1 tablet by mouth once daily. lisinopril-hydroCHLOROthiaz rupesh (ZESTORETIC) 20-12.5 mg per tablet Take 1 tablet by mouth once daily. gabapentin (NEURONTIN) 300 mg capsule Take 1 capsule by mouth three times a day as needed for up to 20 days. hydrOXYzine HCl (ATARAX) 25 mg tablet Take 0.5-1 tab every 8 hrs as needed for panic attacks. cyanocobalamin (B-12 DOTS) 500 mcg tablet Take 1 tablet by mouth once daily. tamsulosin (FLOMAX) 0.4 mg Take 0.4 mg by mouth twice daily. Per Dr. Barbosa No current facility-administered medications on file prior to visit. Social History Social History Tobacco Use Smoking status: Former Current packs/day: 0.00 Average packs/day: 1 pack/day for 20.0 years (20.0 ttl pk-yrs) Types: Cigarettes Start date: 1987 Quit date: 2007 Years since quittin.5 Smokeless tobacco: Current Types: Chew Tobacco comments: Tobacco pouches Vaping Use Vaping status: Never Used Substance Use Topics Alcohol use: Yes Comment: 1-2 daily Drug use: Never Review of Symptoms REVIEW OF SYSTEMS See hpi EXAM: BP 120/80 (BP Site: Right Arm, BP Position: Sitting, BP Cuff Size: Regular Adult) Pulse 86 Temp 36.6 ?C (97.8 ?F) Resp 18 Wt 72.1 kg (159 lb) SpO2 100% BMI 22.81 kg/m? General Appearance: Well appearing, alert, in no acute distress, well-hydrated, well nourished.. MSK: shoulder exam wnl. NVI. Health Maintenance List BP Controlled (<130/80) due on 01/04/2023 Covid-19 Vaccine(2023- season) due on 05/04/2024 Shingrix Vaccine(1 of 2) due on 10/13/2024 Pneumococcal Vaccine: 50+(1 of 2 - PCV) due on 12/02/2029 Annual PCP Team Chronic Disease Vis (more content not included)... Normal [facility] 10-03-2024 [facility] Telephone (FAMDallinWS) JHONATHAN BYRNES ([id number]) 1965 M Date Time Provider Department 10/03[facility]24 [facility] your visit today, we recorded the following information about you: Keiry Montilla, WHITNEY 10/03/2024 11:20 AM Signed Patient calls and states that he is having pain in his incision area (pectoralis pain). Patient asking if provider can send in prescription for steroid? Please review and advise, WHITNEY Breaux Jeffrey A, MD 10/03/2024 4:39 PM Signed Patient would need to be seen to determine best course of action. Phyllis Omalley MA 10/07/2024 9:40 AM Signed Spoke with patient and he indicated that Dr. Moyer has prescribed steriod, gabapentin and tramadol in the past. Patient indicated that after his surgery he simply has flares and once he takes the medication for a few days he is good again for a 6 months. Patient indicated that he is on 10 days out on still having the pain. I explained that the provider was wanting patient seen. 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 His plate if full. MICHELLE Nagy Jeffrey A, MD 10/07/2024 2:08 PM Signed Info noted. Allergies As of Date: 10/03/2024 (No Known Allergies) Date Reviewed: 07/16/2024 Reviewed by: Yamilet Mendenhall LPN - Fully Assessed Reason for Visit: Patient Question [9547] Prescriptions as of 10/07/2024 - Sacrosidase (SUCRAID) 8,500 unit/mL soln Take 2 mL with food and snacks daily - Pregabalin (LYRICA) 200 mg capsule Take 1 capsule by mouth three times a day as needed for up to 20 days. - polyethylene glycol 3350 (MIRALAX) 17 gram/dose powder Take by mouth once daily. Dissolve dose in 4 - 8 ounces of liquid and take as directed. - amitriptyline (ELAVIL) 10 mg tablet Take 1 tablet by mouth daily at bedtime. - atorvastatin (LIPITOR) 10 mg tablet Take 1 tablet by mouth once daily. - lisinopril-hydroCHLOROthiaz rupesh (ZESTORETIC) 20-12.5 mg per tablet Take 1 tablet by mouth once daily. - gabapentin (NEURONTIN) 300 mg capsule Take 1 capsule by mouth three times a day as needed for up to 20 days. - hydrOXYzine HCl (ATARAX) 25 mg tablet Take 0.5-1 tab every 8 hrs as needed for panic attacks. - cyanocobalamin (B-12 DOTS) 500 mcg tablet Take 1 tablet by mouth once daily. - tamsulosin (FLOMAX) 0.4 mg Take 0.4 mg by mouth twice daily. Per Dr. 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] 05/03/2018 Screening for prostate cancer [Z12.5] 11/04/2018 Encounter for screening for diabetes mellitus [*11/04/2018 Well adult exam [Z00.00] 11/10/2019 Elevated hemoglobin A1c [R73.09] 07/11/2021 Medication management [Z79.899] 01/04/2022 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] 08/04/2022 10/13/2023 History of colonic polyps [Z86.0100] 08/10/2022 Screening for colon cancer [Z12.11] 08/10/2022 Benign prostatic hyperplasia with urinary frequ*10/13/2023 Encounter Status:[facility] ([id number]) 1965 M Date Time Provider Department 10/03/24 CHARITY ESCAMILLA During your visit today, we recorded the following information about you: John Wilkins 10/03/2024 11:58 AM Signed Provider will not be in office 12/05 and this appointment needs to be rescheduled. LVM and [employer] message sent. Allergies As of Date: 10/03/2024 (No Known Allergies) Date Reviewed: 07/16/2024 Reviewed by: Yamilet Mendenhall LPN - Fully Assessed Reason for Visit: Appointment [186] Cmt: 12/05 Hritz Appointment Reschedule Prescriptions as of 10/03/2024 - Sacrosidase (SUCRAID) 8,500 unit/mL soln Take 2 mL with food and snacks daily - Pregabalin (LYRICA) 200 mg capsule Take 1 capsule by mouth three times a day as needed for up to 20 days. - polyethylene glycol 3350 (MIRALAX) 17 gram/dose powder Take by mouth once daily. Dissolve dose in 4 - 8 ounces of liquid and take as directed. - amitriptyline (ELAVIL) 10 mg tablet Take 1 tablet by mouth daily at bedtime. - atorvastatin (LIPITOR) 10 mg tablet Take 1 tablet by mouth once daily. - lisinopril-hydroCHLOROthiaz rupesh (ZESTORETIC) 20-12.5 mg per tablet Take 1 tablet by mouth once daily. - gabapentin (NEURONTIN) 300 mg capsule Take 1 capsule by mouth three times a day as needed for up to 20 days. - hydrOXYzine HCl (ATARAX) 25 mg tablet Take 0.5-1 tab every 8 hrs as needed for panic attacks. - cyanocobalamin (B-12 DOTS) 500 mcg tablet Take 1 tablet by mouth once daily. - tamsulosin (FLOMAX) 0.4 mg Take 0.4 mg by mouth twice daily. Per Dr. 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] 05/03/2018 Screening for prostate cancer [Z12.5] 11/04/2018 Encounter for screening for diabetes mellitus [*11/04/2018 Well adult exam [Z00.00] 11/10/2019 Elevated hemoglobin A1c [R73.09] 07/11/2021 Medication management [Z79.899] 01/04/2022 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] 08/04/2022 10/13/2023 History of colonic polyps [Z86.0100] 08/10/2022 Screening for colon cancer [Z12.11] 08/10/2022 Benign prostatic hyperplasia with urinary frequ*10/13/2023 Encounter Status:Closed by JOHN WILKINS on 10/03/24 [facility] Bubba 07-16-2024 CNOV Office Visit (UCWSTR ) JHONATHAN BYRNES ([id number]) 1965 M Date Time Provider Department 07/16/24 12:30 PM DULCE SALGADO [facility] During your visit today, we recorded the following information about you: Temperature Pulse Respiration Blood pressure 97.5 degrees 118/minute 16/minute 140/82 Weight 71.6 kg Dulce Salgado APRN.CNP 07/16/2024 12:34 PM Signed [facility] PATIENT INFO SHINGLES Shingles (Herpes Zoster) What is shingles? Shingles is an infection caused by the same virus that causes chickenpox. This virus is called varicella zoster. You cannot develop shingles unless you have had a previous infection of chickenpox (usually as a child). Shingles is also called herpes zoster. This infection is most common in people over 60 years of age, but young people can have it as well. How does it occur? After you recover from chickenpox, the chickenpox virus is not destroyed. It moves back to the roots of your nerve cells (near the spinal cord) and becomes inactive (dormant). Later, if the virus is reactivated, the symptoms are called shingles. What exactly causes the reactivation of the virus is not known. A weakened immune system seems to allow reactivation of the virus. Advancing age and chronic use of cortisone-type drugs may trigger shingles. The virus may also become active again after the skin is injured or sunburned. Emotional stress seems to be a common trigger as well. What are the symptoms? The first sign of shingles is often burning, sharp pain, tingling, or numbness in or under your skin on one side of your body or face. The most common site is the back or upper abdomen. You may have severe itching or aching. You also may feel tired and ill with fever, chills, headache, and upset stomach. After several days, you will notice a rash of small, clear, fluid-filled blisters on reddened skin. Within 3 days after they appear, the blisters will turn yellow, then dry and crust over. Over the next 2 weeks the crusts will drop off, sometimes leaving small, pitted scars. Because they tend to follow nerve paths, the blisters are usually found in a line, often extending from the back or flank around to the abdomen, just on one side. Shingles usually doesn't cross the midline of the body. (The word shingles comes from the Latin word for belt or girdle.) The rash also may appear on one side of your face. Some people have painful eye inflammations and infections. Is shingles contagious? You can't get shingles from someone else, but you may get chickenpox from contact with shingles blisters if you have not had chickenpox before. The shingles virus is in the blister fluid. The virus can spread by direct contact with a blister. It can also be spread by indirect contact, for example, if you use a washcloth that has blister fluid on it. If you have shingles, avoid contact with infants, children, women, and adults who have never had chickenpox or the chickenpox shot until your blisters are completely dry. How is shingles diagnosed? Your health care provider will ask about your symptoms and examine you. Your provider may order lab tests to look for the virus in fluid from a blister. How is it treated? It is best to start treatment within 24 to 48 hours after symptoms start. Your health care provider may prescribe: -an antiviral drug, such as acyclovir, to speed recovery and lessen the chance of prolonged symptoms from nerve inflammation -painkillers for more serious discomfort if nonprescription painkillers are not helping enough -antibacterial salves or lotions to help prevent bacterial infection of the blisters -capsaicin cream for pain How long will the effects last? The rash from shingles will heal in 1 to 2 weeks and the pain or irritation will usually disappear within 3 to 5 weeks. If the virus damages a nerve, you may have pain, numbness, or tingling for months or even years after the rash is healed. This is a condition called postherpetic neuralgia. It is most likely to occur after a shingles outbreaks in people over 50 years old. Antiviral medicine prescribed at the time the shingles is diagnosed and taken for 7 days can help prevent this problem. How can I take care of myself? -Take a pain relief medicine such as acetaminophen. Take other medicine as prescribed by your health care provider. -Put a cool compress on the rash (such as a cool, moist washcloth). -Rest in bed during the early stages if you have fever and other symptoms. -Try to avoid having clothing or bed linens rubbing against the rash, which might irritate it. Call your health care provider if: -You develop worsening pain or fever. -The blisters show signs of bacterial infection, such as increasing pain or redness, or milky yellow drainage from the blister sites. -The blisters are close to the eye (more content not included)... [facility] BYRNES ([id number]) 1965 Date Time Provider Department 07/14/24 [facility] During your visit today, we recorded the following information about you: Maru Whelan RN 07/14/2024 8:21 AM Signed Pt reports he thinks he has shingles on right side back, middle to lower back. Reports he has blisters, itching in that area. Has pain around to front right side near waistline. Reports this has been coming on for 7 days with fatigue, and generally not feeling well. Scheduled same day appt with pcp, per pt request. Allergies As of Date: 07/14/2024 (No Known Allergies) Date Reviewed: 06/06/2024 Reviewed by: Keiry Fontana PA-C - Fully Assessed Reason for Visit: Possible shingles. [Other] Prescriptions as of 07/14/2024 - Pregabalin (LYRICA) 200 mg capsule Take 1 capsule by mouth three times a day as needed for up to 20 days. - polyethylene glycol 3350 (MIRALAX) 17 gram/dose powder Take by mouth once daily. Dissolve dose in 4 - 8 ounces of liquid and take as directed. - amitriptyline (ELAVIL) 10 mg tablet Take 1 tablet by mouth daily at bedtime. - atorvastatin (LIPITOR) 10 mg tablet Take 1 tablet by mouth once daily. - lisinopril-hydroCHLOROthiaz rupesh (ZESTORETIC) 20-12.5 mg per tablet Take 1 tablet by mouth once daily. - gabapentin (NEURONTIN) 300 mg capsule Take 1 capsule by mouth three times a day as needed for up to 20 days. - Sacrosidase (SUCRAID) 8,500 unit/mL soln Take 2 mL with food and snacks daily - hydrOXYzine HCl (ATARAX) 25 mg tablet Take 0.5-1 tab every 8 hrs as needed for panic attacks. - cyanocobalamin (B-12 DOTS) 500 mcg tablet Take 1 tablet by mouth once daily. - tamsulosin (FLOMAX) 0.4 mg Take 0.4 mg by mouth twice daily. Per Dr. 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] 05/03/2018 Screening for prostate cancer [Z12.5] 11/04/2018 Encounter for screening for diabetes mellitus [*11/04/2018 Well adult exam [Z00.00] 11/10/2019 Elevated hemoglobin A1c [R73.09] 07/11/2021 Medication management [Z79.899] 01/04/2022 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] 08/04/2022 10/13/2023 History of colonic polyps [Z86.0100] 08/10/2022 Screening for colon cancer [Z12.11] 08/10/2022 Benign prostatic hyperplasia with urinary frequ*10/13/2023 Encounter Status:Closed by Maru WHELAN on 07/14/24 [facility] 06-06-2024 CNOV Office Visit (GSTNOR ) JHONATHAN BYRNES ([id number]) 1965 M Date Time Provider Department 06/06/24 3:30 PM KEIRY FONTANA [facility]AR During your visit today, we recorded the following information about you: Pulse Blood pressure Weight Height 90/minute 106/72 72.6 kg 1.778 m Keiry Fontana PA-C 06/06/2024 3:42 PM Signed CHIEF COMPLAINT: Patient presents with: Recheck: IBS with constipation and SIBO HPI Jhonathan Byrnes is a 59 year old male here today for Recheck (IBS with constipation and SIBO) PMHx of JC, GERD, colon polyps, alcohol abuse, HTN Patient tells me that he is doing well today. Notes some minor R sided abdominal pain that has been significantly improved. Notes some minor constipation but does not always remember to take Miralax. No rectal bleeding. Denies heartburn, nausea, vomiting. Appetite is good. Weight is stable. 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 Irritable bowel syndrome with constipation -- Patient with suspected IBS-C. Notes IBSRELA is giving too much diarrhea. -- Recommend trying to get Miralax daily to see if this helps bowel movements. -- Patient agreeable to see Labor Gang Supervisor, referral placed. -- Keep Functional medicine appt - CONSULT TO NUTRITION THERAPY; Future 2. Congenital sucrose isomaltose malabsorption -- Patient taking CSID appropriately, getting his next prescription tomorrow -- Patient agreeable to see Labor Gang Supervisor, referral placed. -- Keep Functional medicine appt - CONSULT TO NUTRITION THERAPY; Future 3. Small intestinal bacterial overgrowth -- Patient agreeable to see Labor Gang Supervisor, referral placed. -- Keep Functional medicine appt - CONSULT TO NUTRITION THERAPY; Future Follow up in office PRN. Current Outpatient Medications Medication Sig Pregabalin (LYRICA) 200 mg capsule Take 1 capsule by mouth three times a day as needed for up to 20 days. polyethylene glycol 3350 (MIRALAX) 17 gram/dose powder Take by mouth once daily. Dissolve dose in 4 - 8 ounces of liquid and take as directed. atorvastatin (LIPITOR) 10 mg tablet Take 1 tablet by mouth once daily. lisinopril-hydroCHLOROthiaz rupesh (ZESTORETIC) 20-12.5 mg per tablet Take 1 tablet by mouth once daily. amitriptyline (ELAVIL) 10 mg tablet Take 1 tablet by mouth daily at bedtime. gabapentin (NEURONTIN) 300 mg capsule Take 1 capsule by mouth three times a day as needed for up to 20 days. Sacrosidase (SUCRAID) 8,500 unit/mL soln Take 2 mL with food and snacks daily cyanocobalamin (B-12 DOTS) 500 mcg tablet Take 1 tablet by mouth once daily. tamsulosin (FLOMAX) 0.4 mg Take 0.4 mg by mouth twice daily. Per Dr. Barbosa hydrOXYzine HCl (ATARAX) 25 mg tablet Take 0.5-1 tab every 8 hrs as needed for panic attacks. (Patient not taking: Reported on 06/06/2024) No current facility-administered medications for this visit. ALLERGIES No Known Allergies Social History Tobacco Use Smoking status: Former Current packs/day: 0.00 Average packs/day: 1 pack/day for 20.0 years (20.0 ttl pk-yrs) Types: Cigarettes Start date: 1987 Quit date: 2007 Years since quittin.1 Smokeless tobacco: Current Types: Chew Tobacco comments: Tobacco pouches Vaping Use Vaping status: Never Used Substance Use Topics Alcohol use: Yes Comment: 1-2 daily Drug use: Never PAST MEDICAL HISTORY Diagnosis Date Alcohol abuse 05/02/2018 Benign prostatic hyperplasia with urinary frequency 10/13/2023 Elevated hemoglobin A1c 07/11/2021 Essential hypertension 05/01/2018 Ex-smoker 05/01/2018 Started in his early 20's and quite around the age of 38. 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 Not aware or medication. GERD without esophagitis 05/02/2018 Herniation of intervertebral disc at C6-C7 level 05/03/2018 MRI 02/2018 History of anxiety 06/06/2007 History of colonic polyps 08/10/2022 Mixed hyperlipidemia 05/01/2018 Pectoralis minor syndrome (HCC) Uncomplicated alcohol dependence (HCC) 05/02/2018 PAST SURGICAL HISTORY Procedure Laterality Date COLONOSCOPY FLX DX W/COLLJ SPEC WHEN PFRMD 08/19/2018 repeat 3 years COLONOSCOPY SCREENING 08/21/2022 two small adenomatous polyps-repeat in 5 years EGD W/O [facility] SPEC VARICIES INJ 11/09/2021 HEART CATHETERIZATION 2016 WNL SHOULDER SURGERY HX 2021 [place] release FAMILY HISTORY Problem Relation Age of Onset Coronary Artery Disease Mother has stents Cancer Brother Lung: dx and initial surgery 2006. nonsmoker. other (dementia) Paternal Aunt Colon Cancer No Family History REVIEW OF SYSTEMS Review of Sy (more content not included)... Normal [facility] CNOVon 04-14-2024 CNOV Office Visit (FAMPWS ) JHONATHAN BYRNES ([id number]) 1965 M Date Time Provider Department 04/14/24 3:20 PM TRACIE NEWMAN During your visit today, we recorded the following information about you: Pulse Respiration Blood pressure Weight 99/minute 14/minute 119/73 72.1 kg Tracie Newman, RECORDS OFFICER.AUTO POLISHER 04/14/2024 3:34 PM Signed Chief Complaint Patient presents with: 6 Month Exam HPI Jhonathan Byrnes is a 59 year old male who presents here today for Above Complaints.. Patient presents for routine follow up. Patient reports he had a issue with pain at his incision for pec major surgery and reports improvement with prednisone, gabapentin, and tramadol. Not taking tramadol often due to feeling loopy. Requesting consult to vascular surgery. Past medical history, appointments, medications, allergies reviewed. Previous Medical History PAST MEDICAL HISTORY 05/02/2018: Alcohol abuse 10/13/2023: Benign prostatic hyperplasia with urinary frequency 07/11/2021: Elevated hemoglobin A1c 05/01/2018: Essential hypertension 05/01/2018: Ex-smoker Comment: Started in his early 20's and quite around the age of 38. 1 PPD 05/03/2018: Foraminal stenosis of cervical region Comment: C6-C7 region 06/06/2007: JC (generalized anxiety disorder) Comment: Was on anxiety medication at one time and did not tolerate. Not aware or medication. 05/02/2018: GERD without esophagitis 05/03/2018: Herniation of intervertebral disc at C6-C7 level Comment: MRI 02/201806/06/2007: History of anxiety 08/10/2022: History of colonic polyps 05/01/2018: Mixed hyperlipidemia No date: Pectoralis minor syndrome (HCC) 05/02/2018: Uncomplicated alcohol dependence (HCC) Previous Surgical History PAST SURGICAL HISTORY 08/19/2018: COLONOSCOPY FLX DX W/COLLJ SPEC WHEN PFRMD Comment: repeat 3 years 08/21/2022: COLONOSCOPY SCREENING Comment: two small adenomatous polyps-repeat in 5 years 11/09/2021: EGD W/O [facility] SPEC VARICIES INJ 2017: HEART CATHETERIZATION Comment: WNL 2021: SHOULDER SURGERY HX Comment: [place] release Family History FAMILY HISTORY Problem Relation Age of Onset Coronary Artery Disease Mother has stents Cancer Brother Lung: dx and initial surgery 2006. nonsmoker. other (dementia) Paternal Aunt Colon Cancer No Family History Patient Allergies ALLERGIES No Known Allergies Current Medications Current Outpatient Medications on File Prior to Visit Medication Sig amitriptyline (ELAVIL) 10 mg tablet Take 1 tablet by mouth daily at bedtime. predniSONE (DELTASONE) 10 mg tablet Take 6 tabs by mouth for 3 days then 4 tabs a day for 3 days then 2 tabs a day for 3 days and then 1 tab a day for 3 days. gabapentin (NEURONTIN) 300 mg capsule Take 1 capsule by mouth three times a day as needed for up to 20 days. IBSRELA 50 mg tablet take one tablet by mouth twice daily with meals Sacrosidase (SUCRAID) 8,500 unit/mL soln Take 2 mL with food and snacks daily atorvastatin (LIPITOR) 10 mg tablet Take 1 tablet by mouth once daily. lisinopril-hydroCHLOROthiaz rupesh (ZESTORETIC) 20-12.5 mg per tablet Take 1 tablet by mouth once daily. hydrOXYzine HCl (ATARAX) 25 mg tablet Take 0.5-1 tab every 8 hrs as needed for panic attacks. cyanocobalamin (B-12 DOTS) 500 mcg tablet Take 1 tablet by mouth once daily. lansoprazole (PREVACID) 30 mg capsule Take 1 capsule by mouth two times a day. 1/2 hr before meal. (Patient not taking: Reported on 01/09/2024) tamsulosin (FLOMAX) 0.4 mg Take 0.4 mg by mouth twice daily. Per Dr. Barbosa No current facility-administered medications on file prior to visit. Social History Social History Tobacco Use Smoking status: Former Packs/day: 1.00 Years: 20.00 Additional pack years: 0.00 Total pack years: 20.00 Types: Cigarettes Quit date: 2007 Years since quittin.0 Smokeless tobacco: Current Types: Chew Tobacco comments: Tobacco pouches Vaping Use Vaping Use: Never used Substance Use Topics Alcohol use: Yes Comment: 1-2 daily Drug use: Never Review of Symptoms REVIEW OF SYSTEMS SEE HPI EXAM: BP 119/73 Pulse 99 Resp 14 Wt 72.1 kg (159 lb) BMI 22.81 kg/m? General Appearance: Well appearing, alert, in no acute distress, well-hydrated, well nourished. Lungs: Lungs clear to auscultation. No wheezing, rhonchi, rales.. Heart: RRR without murmur, gallop, or rubs. No ectopy. Peripheral Pulses: Normal. Health Maintenance List Depression Screening Never done BP Controlled (<130/80) due on 01/04/2023 RSV Vaccine(1 - 1-dose 60+ series) due on 10/13/2024 Shingrix Vaccine(1 of 2) due on 10/13/2024 Covid-19 Vaccine(2022- season) due on 10/13/2024 Pneumococcal Vaccine(1 of 2 - PCV) due on 12/02/2029 Annual PCP Team Chronic Disease Visit due on 03/27/2025 Diabetes Screening due on 10/13/2026 Colorectal Cancer Screening due on 08/21 (more content not included)... [facility] 04-02-2024 [place]ILL[place] Telephone (GSTNOR) JHONATHAN BYRNES ([id number]) 1965 Date Time Provider Department 04/02/24 KEIRY FONTANA GSTNOR During your visit today, we recorded the following information about you: Cortez Clark MA 04/02/2024 11:05 AM Addendum [facility] has been trying to contact the patient for delivery of his Sucraid. Unable to reach pt. Pt needs to contact pharmacy at [phone]. [facility] Cortez Clark MA Allergies As of Date: 04/02/2024 (No Known Allergies) Date Reviewed: 03/27/2024 Reviewed by: Fabián Martinez APRN.AUTO POLISHER - Fully Assessed Reason for Visit: Medication Problem [65] Prescriptions as of 04/02/2024 - predniSONE (DELTASONE) 10 mg tablet Take 6 tabs by mouth for 3 days then 4 tabs a day for 3 days then 2 tabs a day for 3 days and then 1 tab a day for 3 days. - traMADol (ULTRAM) 50 mg tablet Take 1 tablet by mouth every 8 hours as needed for pain for up to 7 days. - gabapentin (NEURONTIN) 300 mg capsule Take 1 capsule by mouth three times a day as needed for up to 20 days. - IBSRELA 50 mg tablet take one tablet by mouth twice daily with meals - Sacrosidase (SUCRAID) 8,500 unit/mL soln Take 2 mL with food and snacks daily - atorvastatin (LIPITOR) 10 mg tablet Take 1 tablet by mouth once daily. - amitriptyline (ELAVIL) 10 mg tablet Take 10 mg by mouth daily at bedtime. - lisinopril-hydroCHLOROthiaz rupesh (ZESTORETIC) 20-12.5 mg per tablet Take 1 tablet by mouth once daily. - hydrOXYzine HCl (ATARAX) 25 mg tablet Take 0.5-1 tab every 8 hrs as needed for panic attacks. - cyanocobalamin (B-12 DOTS) 500 mcg tablet Take 1 tablet by mouth once daily. - lansoprazole (PREVACID) 30 mg capsule Take 1 capsule by mouth two times a day. 1/2 hr before meal. - tamsulosin (FLOMAX) 0.4 mg Take 0.4 mg by mouth twice daily. Per Dr. 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] 05/03/2018 Screening for prostate cancer [Z12.5] 11/04/2018 Encounter for screening for diabetes mellitus [*11/04/2018 Well adult exam [Z00.00] 11/10/2019 Elevated hemoglobin A1c [R73.09] 07/11/2021 Medication management [Z79.899] 01/04/2022 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] 08/04/2022 10/13/2023 History of colonic polyps [Z86.010] 08/10/2022 Screening for colon cancer [Z12.11] 08/10/2022 Benign prostatic hyperplasia with urinary frequ*10/13/2023 Encounter Status:Closed by CORTEZ CLARK on 04/02/24 [facility] CNOVon 03-27-2024 CNOV Office Visit (FAMDallinWS ) BYRNESJHONATHAN Deepthi ([id number]) 1965 [place] Date Time Provider Department 03/27/24 12:20 PM FABIÁN MARTINEZ During your visit today, we recorded the following information about you: Pulse Respiration Blood pressure Weight 92/minute 18/minute 122/84 70.8 kg Fabián Martinez APRN.AUTO POLISHER 03/27/2024 1:05 PM Signed Chief Complaint Patient presents with: Pectoralis pain : Left shoulder X 7/8 days, burning pain today HPI Jhonathan Lacey Soniya is a 58 year old male who presents here today for Above Complaints.. Pain to left shoulder for 9 days. Exact same pain, sx that he had prior to his pectoralis surgery 1.5 years ago. Neck stiffness, feels very tight and hurts into chest, down his left side. Is currently burning sensation today, slight stabbing, gnawing. OTC medications haven's touched it. 06/12. Vascular surgeon-Dr. Delarosa, who is no longer with [facility]. Past medical history, appointments, medications, allergies reviewed. Previous Medical History PAST MEDICAL HISTORY Diagnosis Date Alcohol abuse 05/02/2018 Benign prostatic hyperplasia with urinary frequency 10/13/2023 Elevated hemoglobin A1c 07/11/2021 Essential hypertension 05/01/2018 Ex-smoker 05/01/2018 Started in his early 20's and quite around the age of 38. 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 Not aware or medication. GERD without esophagitis 05/02/2018 Herniation of intervertebral disc at C6-C7 level 05/03/2018 MRI 02/2018 History of anxiety 06/06/2007 History of colonic polyps 08/10/2022 Mixed hyperlipidemia 05/01/2018 Pectoralis minor syndrome (HCC) Uncomplicated alcohol dependence (HCC) 05/02/2018 Previous Surgical History PAST SURGICAL HISTORY Procedure Laterality Date COLONOSCOPY FLX DX W/COLLJ SPEC WHEN PFRMD 08/19/2018 repeat 3 years COLONOSCOPY SCREENING 08/21/2022 two small adenomatous polyps-repeat in 5 years EGD W/O BRSH SPEC VARICIES INJ 11/09/2021 HEART CATHETERIZATION 2017 WNL SHOULDER SURGERY HX 2021 [place] release Family History FAMILY HISTORY Problem Relation Age of Onset Coronary Artery Disease Mother has stents Cancer Brother Lung: dx and initial surgery 2006. nonsmoker. other (dementia) Paternal Aunt Colon Cancer No Family History Patient Allergies ALLERGIES No Known Allergies Current Medications Current Outpatient Medications on File Prior to Visit Medication Sig IBSRELA 50 mg tablet take one tablet by mouth twice daily with meals Sacrosidase (SUCRAID) 8,500 unit/mL soln Take 2 mL with food and snacks daily atorvastatin (LIPITOR) 10 mg tablet Take 1 tablet by mouth once daily. lisinopril-hydroCHLOROthiaz rupesh (ZESTORETIC) 20-12.5 mg per tablet Take 1 tablet by mouth once daily. hydrOXYzine HCl (ATARAX) 25 mg tablet Take 0.5-1 tab every 8 hrs as needed for panic attacks. cyanocobalamin (B-12 DOTS) 500 mcg tablet Take 1 tablet by mouth once daily. tamsulosin (FLOMAX) 0.4 mg Take 0.4 mg by mouth twice daily. Per Dr. Barbosa amitriptyline (ELAVIL) 10 mg tablet Take 10 mg by mouth daily at bedtime. (Patient not taking: Reported on 01/09/2024) lansoprazole (PREVACID) 30 mg capsule Take 1 capsule by mouth two times a day. 1/2 hr before meal. (Patient not taking: Reported on 01/09/2024) No current facility-administered medications on file prior to visit. Social History Social History Tobacco Use Smoking status: Former Packs/day: 1.00 Years: 20.00 Additional pack years: 0.00 Total pack years: 20.00 Types: Cigarettes Quit date: 2007 Years since quittin.9 Smokeless tobacco: Current Types: Chew Tobacco comments: Tobacco pouches Vaping Use Vaping Use: Never used Substance Use Topics Alcohol use: Yes Comment: 1-2 daily Drug use: Never Review of Symptoms REVIEW OF SYSTEMS See HPI, otherwise negative EXAM: BP 122/84 (BP Site: Left Arm, BP Position: Sitting, BP Cuff Size: Regular Adult) Pulse 92 Resp 18 Wt 70.8 kg (156 lb) SpO2 99% BMI 22.38 kg/m? General Appearance: moderate distress, well-hydrated, well nourished. Musculoskeletal: difficult to assess d/t extreme pain. Peripheral Pulses: Normal. Psychiatric: pleasant, cooperative. Health Maintenance List Depression Screening Never done RSV Vaccine(1 - 1-dose 60+ series) due on 10/13/2024 Shingrix Vaccine(1 of 2) due on 10/13/2024 Covid-19 Vaccine( - 2022- season) due on 10/13/2024 Pneumococcal Vaccine(1 of 2 - PCV) due on 12/02/2029 Annual PCP Team Chronic Disease Visit due on 10/13/2024 BP Controlled (<130/80) due on 01/08/2025 Diabetes Screening due on 10/13/2026 Colorectal Cancer Screening due on 08/21/2027 Prostate Cancer Screening Discussion due on 10/13/2028 Lipid Screening due on 01/25/2029 DTaP,Tdap,Td V (more content not included)... [facility] 03-27-2024 [place]ILL[place] Telephone (FAMPWS) JHONATHAN BYRNES ([id number]) 1965 M Date Time Provider Department 03/27/24 FABIÁN MARTINEZ During your visit today, we recorded the following information about you: Carly Gabriel RN 03/27/2024 10:51 AM Signed Pt called in and reports about a year and a half ago he had surgery on his pectoral minor. He states 7-8 days ago he started having the same pain he had before he had the surgery in the same exact area. It pain is where the incision is ans will sometimes wrap around to the bottom of his left shoulder blade and sometimes to the outside of his left ribcage. Pt states the pain is a 10/10 intermittent burning, throbbing, stabbing. Pt reports when he rests the pain isn't there, but when he is up doing things it is back. He states it feels like a pinched nerve. Pt has tried Ibuprofen, Icy Hot, and heating pad and none of these things have helped. Pt scheduled to see Fabián Martinez INSECTICIDE SUPERVISOR today. Allergies As of Date: 03/27/2024 (No Known Allergies) Date Reviewed: 01/09/2024 Reviewed by: Keiry Fontana PA-C - Fully Assessed Reason for Visit: Patient Update [6534] Appointment [186] Prescriptions as of 03/27/2024 - IBSRELA 50 mg tablet take one tablet by mouth twice daily with meals - Sacrosidase (SUCRAID) 8,500 unit/mL soln Take 2 mL with food and snacks daily - atorvastatin (LIPITOR) 10 mg tablet Take 1 tablet by mouth once daily. - amitriptyline (ELAVIL) 10 mg tablet Take 10 mg by mouth daily at bedtime. - lisinopril-hydroCHLOROthiaz rupesh (ZESTORETIC) 20-12.5 mg per tablet Take 1 tablet by mouth once daily. - hydrOXYzine HCl (ATARAX) 25 mg tablet Take 0.5-1 tab every 8 hrs as needed for panic attacks. - cyanocobalamin (B-12 DOTS) 500 mcg tablet Take 1 tablet by mouth once daily. - lansoprazole (PREVACID) 30 mg capsule Take 1 capsule by mouth two times a day. 1/2 hr before meal. - tamsulosin (FLOMAX) 0.4 mg Take 0.4 mg by mouth twice daily. Per Dr. Barbosa Problem List As Of Date 03/27/2024 Noted Resolved JC (generalized anxiety disorder) [F41.1] 06/06/2007 Essential hypertension [I10] 05/01/2018 Mixed hyperlipidemia [E78.2] 05/01/2018 Ex-smoker [Z87.891] 05/01/2018 GERD without esophagitis [K21.9] 05/02/2018 Alcohol abuse [F10.10] 05/02/2018 Herniation of intervertebral disc at C6-C7 leve*05/03/2018 Foraminal stenosis of cervical region [M48.02] 05/03/2018 Screening for prostate cancer [Z12.5] 11/04/2018 Encounter for screening for diabetes mellitus [*11/04/2018 Well adult exam [Z00.00] 11/10/2019 Elevated hemoglobin A1c [R73.09] 07/11/2021 Medication management [Z79.899] 01/04/2022 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] 08/04/2022 10/13/2023 History of colonic polyps [Z86.010] 08/10/2022 Screening for colon cancer [Z12.11] 08/10/2022 Benign prostatic hyperplasia with urinary frequ*10/13/2023 Encounter Status:Closed by CARLY GABRIEL on 03/27/24 [facility] Telephone (INTMWS) JHONATHAN BYRNES ([id number]) 1965 M Date Time Provider Department 03/27/24 SILVIO MOYER INTMWS During your visit today, we recorded the following information about you: Lalita Andujar LPN 03/27/2024 2:13 PM Signed Electronic PA rec'd and completed for pregabalin. This was denied. We reviewed the information you provided in support of your patient?s request to obtain Pregabalin 200 mg CAPSULE under his or her plan. We are unable to approve this request for the following reason(s): ? Coverage is provided in situations where the patient has tried and failed one of the preferred agents: generic gabapentin capsules, tablets, or oral solution. Coverage cannot be authorized at this time. We based this decision on the prior authorization criteria for: [address]: [employer], pregabalin, pregabalin extended release, gabapentin extended release -*MMO* [Documentation] We are providing you with a copy of the Notice of Adverse Benefit Determination that we sent to your patient. The appeal rights and procedures are explained in the notice. Fabián Martinez APRN.CNP 03/27/2024 2:21 PM Signed We can try gabapentin in it's place. The following approved medication requests have been transmitted electronically. Requested Prescriptions Signed Prescriptions Disp Refills gabapentin (NEURONTIN) 300 mg capsule 60 capsule 0 Sig: Take 1 capsule by mouth three times a day as needed for up to 20 days. Authorizing Provider: SILVIO MOYER Ordering User: FABIÁN MARTINEZ APRN.CNP Curren, Janice, LPN 03/27/2024 3:33 PM Signed Patient notified of results and provider's instructions. Patient verbalizes understanding. Lalita Andujar LPN Allergies As of Date: 03/27/2024 (No Known Allergies) Date Reviewed: 03/27/2024 Reviewed by: Fabián Martinez APRN.CNP - Fully Assessed Reason for Visit: Insurance Authorization [[id number]] Primary Visit Diagnosis:Foraminal stenosis of cervical region [M48.02] Order(s):gabapentin (NEURONTIN) 300 mg capsuleTake 1 capsule by mouth three times a day as needed for up to 20 days.Disp: 60 capsuleRfl: 0 Prescriptions as of 03/27/2024 - predniSONE (DELTASONE) 10 mg tablet Take 6 tabs by mouth for 3 days then 4 tabs a day for 3 days then 2 tabs a day for 3 days and then 1 tab a day for 3 days. - traMADol (ULTRAM) 50 mg tablet Take 1 tablet by mouth every 8 hours as needed for pain for up to 7 days. - gabapentin (NEURONTIN) 300 mg capsule Take 1 capsule by mouth three times a day as needed for up to 20 days. - IBSRELA 50 mg tablet take one tablet by mouth twice daily with meals - Sacrosidase (SUCRAID) 8,500 unit/mL soln Take 2 mL with food and snacks daily - atorvastatin (LIPITOR) 10 mg tablet Take 1 tablet by mouth once daily. - amitriptyline (ELAVIL) 10 mg tablet Take 10 mg by mouth daily at bedtime. - lisinopril-hydroCHLOROthiaz rupesh (ZESTORETIC) 20-12.5 mg per tablet Take 1 tablet by mouth once daily. - hydrOXYzine HCl (ATARAX) 25 mg tablet Take 0.5-1 tab every 8 hrs as needed for panic attacks. - cyanocobalamin (B-12 DOTS) 500 mcg tablet Take 1 tablet by mouth once daily. - lansoprazole (PREVACID) 30 mg capsule Take 1 capsule by mouth two times a day. 1/2 hr before meal. - tamsulosin (FLOMAX) 0.4 mg Take 0.4 mg by mouth twice daily. Per Dr. Barbosa Problem List As Of Date 03/27/2024 Noted Resolved JC (generalized anxiety disorder) [F41.1] 06/06/2007 Essential hypertension [I10] 05/01/2018 Mixed hyperlipidemia [E78.2] 05/01/2018 Ex-smoker [Z87.891] 05/01/2018 GERD without esophagitis [K21.9] 05/02/2018 Alcohol abuse [F10.10] 05/02/2018 Herniation of intervertebral disc at C6-C7 leve*05/03/2018 Foraminal stenosis of cervical region [M48.02] 05/03/2018 Screening for prostate cancer [Z12.5] 11/04/2018 Encounter for screening for diabetes mellitus [*11/04/2018 Well adult exam [Z00.00] 11/10/2019 Elevated hemoglobin A1c [R73.09] 07/11/2021 Medication management [Z79.899] 01/04/2022 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] 08/04/2022 10/13/2023 History of colonic polyps [Z86.010] 08/10/2022 Screening for colon cancer [Z12.11] 08/10/2022 Benign prostatic hyperplasia with urinary frequ*10/13/2023 Prescriptions ordered this encounter Disp Refills Start End GABAPENTIN 300 MG CAPSULE 60 c* 0 03/27/2024 04/16/2024 Route: ORAL Sig: Take 1 capsule by mouth three times a day as needed for up to 20 days. Medications Discontinued During This Encounter Prescriptions - Pregabalin (LYRICA) 200 mg capsule (Discontinued) Take 1 capsule by mouth three times a day as needed for up to 20 days. Encounter Status:Closed by LALITA ANDUJAR on 03/27/24 [facility] ROUTINE FLU A/B + RSVon 11-0 FLUAV RNA ALIYA+probe Ql (Unsp spec) Not detected Not Detected [facility] FLUBV RNA ALIYA+probe Ql (Unsp spec) Not detected Not Detected [facility] RSV A RNA ALIYA+probe Ql (Unsp spec) Not detected Not Detected [facility] XR CHEST 2V FRONTAL/LATon [facility] XR Chest PA and Lateralon IMPRESSION: 1. No radiographic evidence of acute cardiopulmonary process. 2. Overlapping age indeterminate mid left clavicular fracture. National Sales Trainer: PSCB Transcribe Date/Time: Jul 04 2023 11:04A Dictated by : EMY GOEL MD This examination was interpreted and the report reviewed and electronically signed by: EMY GOEL MD on Jul 04 2023 11:19AM [facility] DIVISION OF RADIOLOGY * * *Final Report* * * DATE OF EXAM: Jul 04 2023 11:04AM WOX [id number] - XR CHEST 2V FRONTAL/LAT / PROCEDURE REASON: Acute cough * * * * Physician Interpretation * * * * EXAMINATION: CHEST RADIOGRAPH (2 VIEW FRONTAL & LATERAL) CLINICAL HISTORY: Acute cough MQ: XC2_6 EXAM DATE/TIME: 07/04/2023 11:04 AM COMPARISON: Correlation made to CT chest dated June 15, 2022 RESULT: Lines, tubes, and devices: None. Lungs and pleura: No consolidation. No lung mass. No pleural effusion. No pneumothorax. Cardiomediastinal silhouette: Normal cardiomediastinal silhouette. Bones and soft tissues: Degenerative changes are present within the thoracic spine. Age indeterminant overlapping mid left clavicular fracture. DIVISION OF RADIOLOGY Provider, Manjinder Bearden - 07/04/2023 * * *Final Report* * * DATE OF EXAM: Jul 04 2023 11:04AM WOX [id number] - XR CHEST 2V FRONTAL/LAT / PROCEDURE REASON: Acute cough * * * * Physician Interpretation * * * * EXAMINATION: CHEST RADIOGRAPH (2 VIEW FRONTAL & LATERAL) CLINICAL HISTORY: Acute cough MQ: XC2_6 EXAM DATE/TIME: 07/04/2023 11:04 AM COMPARISON: Correlation made to CT chest dated June 15, 2022 RESULT: Lines, tubes, and devices: None. Lungs and pleura: No consolidation. No lung mass. No pleural effusion. No pneumothorax. Cardiomediastinal silhouette: Normal cardiomediastinal silhouette. Bones and soft tissues: Degenerative changes are present within the thoracic spine. Age indeterminant overlapping mid left clavicular fracture. IMPRESSION IMPRESSION: 1. No radiographic evidence of acute cardiopulmonary process. 2. Overlapping age indeterminate mid left clavicular fracture. National Sales Trainer: SHELLY Transcribe Date/Time: Jul 04 2023 11:04A Dictated by : EMY GOEL MD This examination was interpreted and the report reviewed and electronically signed by: EMY GOEL MD on Jul 04 2023 11:19AM EST [facility] Radiology Study observation (narrative) [facility] XR Chest PA and LateralOrder ed By: [facility] Provider on 07-04-2023 [facility] NM HEPATOBILIARY W EF AND/OR RXon 05-03-2023 [facility] US ABD RIGHT UPPER QUADRANTo n 04-27-2023 [facility] Erythrocyte sedimentation ra teOrdered By: Juliet Millan on 10-27-2022 ESR (Bld) [Velocity] 8 mm/h 0-20 [facility] XR ABDOMEN 2V ROUTINE SUPINE W UPRIGHT/DECUB/CTLon 10-27-2022 [facility] XR Abdomen Supine and Uprigh ton 10-27-2022 IMPRESSION: NO ACUTE ABDOMINAL PATHOLOGY VISUALIZED National Sales Trainer: PSCB Transcribe Date/Time: Oct 27 2022 11:45A Dictated by : DA JAMES MD This examination was interpreted and the report reviewed and electronically signed by: DA JAMES MD on Oct 27 2022 11:47AM [facility] DIVISION OF RADIOLOGY * * *Final Report* * * DATE OF EXAM: Oct 27 2022 11:28AM WOX [id number] - XR ABD 2V SUPINE W UPR/DECUB/CTL / PROCEDURE REASON: RLQ abdominal pain * * * * Physician Interpretation * * * * Indication: Right lower quadrant pain Comparison: None 4 x-rays of the abdomen are obtained. There is a non-obstructed bowel gas pattern. There is no hepatomegaly or splenomegaly. No abnormal calcifications are visualized. There are no acute osseous abnormalities. DIVISION OF RADIOLOGY Provider, [facility] - 10/27/2022 * * *Final Report* * * DATE OF EXAM: Oct 27 2022 11:28AM WOX [id number] - XR ABD 2V SUPINE W UPR/DECUB/CTL / PROCEDURE REASON: RLQ abdominal pain * * * * Physician Interpretation * * * * Indication: Right lower quadrant pain Comparison: None 4 x-rays of the abdomen are obtained. There is a non-obstructed bowel gas pattern. There is no hepatomegaly or splenomegaly. No abnormal calcifications are visualized. There are no acute osseous abnormalities. IMPRESSION IMPRESSION: NO ACUTE ABDOMINAL PATHOLOGY VISUALIZED National Sales Trainer: [facility] Transcribe Date/Time: Oct 27 2022 11:45A Dictated by : DA JAMES MD This examination was interpreted and the report reviewed and electronically signed by: DA JAMES MD on Oct 27 2022 11:47AM [facility] Radiology Study observation (narrative) [facility] XR Abdomen Supine and Uprigh tOrdered By: [facility] Provider on 10-27-2022 [facility] CBC W Auto Differential pane l (Bld)on 10-25-2022 Basophils (Bld) [#/Vol] 0.06 10*3/uL <0.11 k/uL [facility] Basophils/100 WBC (Bld) 0.8 % [facility] Differential cell count method Nom (Bld) Auto [facility] Eosinophils (Bld) [#/Vol] 0.24 10*3/uL <0.46 k/uL [facility] Eosinophils/100 WBC (Bld) 3.2 % [facility] Erythrocyte distribution width (RBC) [Ratio] 12.7 % 11.5 - 15.0 % [facility] Hematocrit (Bld) [Volume fraction] 44.4 % 39.0 - 51.0 % [facility] Hemoglobin (Bld) [Mass/Vol] 14.5 g/dL 13.0 - 17.0 g/dL [facility] Immature granulocytes (Bld) [#/Vol] 0.03 10*3/uL <0.10 k/uL [facility] Immature granulocytes/100 WBC (Bld) 0.4 % [facility] Lymphocytes (Bld) [#/Vol] 2.19 10*3/uL 1.00 - 4.00 k/uL [facility] Lymphocytes/100 WBC (Bld) 29.5 % [facility] MCH (RBC) [Entitic mass] 31.1 pg 26.0 - 34.0 pg [facility] MCHC (RBC) [Mass/Vol] 32.7 g/dL 30.5 - 36.0 g/dL [facility] MCV (RBC) [Entitic vol] 95.3 fL 80.0 - 100.0 fL [facility] Monocytes (Bld) [#/Vol] 0.63 10*3/uL <0.87 k/uL [facility] Monocytes/100 WBC (Bld) 8.5 % [facility] Neutrophils (Bld) [#/Vol] 4.28 10*3/uL 1.45 - 7.50 k/uL [facility] Neutrophils/100 WBC (Bld) 57.6 % [facility] Nucleated RBC (Bld) [#/Vol] <0.01 k/uL [facility] Nucleated RBC/100 WBC (Bld) [Ratio] 0.0 /100 WBC [facility] Platelet mean volume (Bld) [Entitic vol] 10.6 fL 9.0 - 12.7 fL [facility] Platelets (Bld) [#/Vol] 210 10*3/uL 150 - 400 k/uL [facility] RBC (Bld) [#/Vol] 4.66 10*6/uL 4.20 - 6.0 0 m/uL [facility] WBC (Bld) [#/Vol] 7.43 10*3/uL 3.70 - 11. 00 k/uL [facility] UA DIP, URINE (POC)on 2022 BILIRUBIN UA (POCT) Negative Negative [facility] CLARITY UA (POCT) Clear [facility] COLOR UA (POCT) Yellow [facility] GLUCOSE UA (POCT) Negative Negative mg/dL [facility] HEMOGLOBIN/BLOOD UA (POCT) Negative Negative [facility] KETONE UA (POCT) Negative Negative mg/dL [facility] LEUKOCYTES UA (POCT) Negative Negative [facility] NITRITE UA (POCT) Negative Negative [facility] PH UA (POCT) 7.0 4.5 - 8.0 [facility] Protein Ql (U) Negative Negative mg/dL [facility] SPECIFIC GRAVITY UA (POCT) 1.010 1.005 - 1.030 [facility] UROBILINOGEN UA (POCT) 0.2 E.U./dL Normal E.U./dL [facility] SURGICAL PATHOLOGYon 022 Case Report Surgical Pathology R eport Case: [id number] Authorizing Provider: Zac Dennis MD Collected: 08/21/2022 12:04 PM Ordering Location: Ambulatory Surgery Received: 08/21/2022 04:11 PM Pathologist: Mesha Crespo MD Specimens: A) - TRANSVERSE COLON POLYP B) - SIGMOID COLON POLYP [facility] FINAL DIAGNOSIS A. Colon, transverse polyp, biopsy: - Tubular adenoma. B. Colon, sigmoid polyp, biopsy: - Tubular adenoma. [facility] Gross Description A. TRANSVERSE COLON POLYP Received in formalin is one piece of reese, soft tissue measuring 0.2 x 0.2 x 0.2 cm. Totally submitted in one cassette. B. SIGMOID COLON POLYP Received in formalin is one piece of reese, soft tissue measuring 0.8 x 0.2 x 0.2 cm. Totally submitted in one cassette. Gross examination performed at [facility], [address] [place] [id number] TTN 08/21/2022 11:34 PM [facility] Performing Lab Diagnostic interpret ation performed at [facility], [address] [place] [id number] CLIA# [id number] Broker: Henry Taylor M.D. [facility] COLONOSCOPY DIAGNOSTICon [facility] US OTHER-INJECTION (POC) FOR PAIN USE ONLYon 08-03-2022 [facility] No Panel Informationon 06-15 [facility] Vital Signs Date Time Vital Sign Value Performing Clinician Facility 03-12-2025 08:090400 Body mass index (BMI) [Ratio] 25.01 kg/m2 Krislyn Aberegg PA Work Phone: [facility] 03-12-2025 08:09-0400 Body temperature 96.91 [degF] Krislyn Aberegg PA Work Phone: [facility] 03-12-2025 08:09-0400 Body weight 78.8 kg Krislyn Aberegg PA Work Phone: [facility] 03-12-2025 08:09-0400 Diastolic blood pressure 79 mm[Hg] Krislyn Aberegg PA Work Phone: [facility] 03-12-2025 08:09-0400 Heart rate 87 /min Krislyn Aberegg PA Work Phone: [facility] 03-12-2025 08:09-0400 Respiratory rate 18 /min Krislyn Aberegg PA Work Phone: [facility] 03-12-2025 08:09-0400 SaO2% (BldA) [Mass fraction] 98 % Krislyn Aberegg PA Work Phone: [facility] 03-12-2025 08:09-0400 Systolic blood pressure 123 mm[Hg] Krislyn Aberegg PA Work Phone: [facility] 11-29-2024 10:16-0400 Body height 177.5 cm Silvio Moyer MD Work Phone: [facility] 11-29-2024 10:16-0400 Body mass index (BMI) [Ratio] 22.6 kg/m2 Silvio Moyer MD Work Phone: [facility] 11-29-2024 10:16-0400 Body temperature 97.9 [degF] Silvio Moyer MD Work Phone: [facility] 03-29-2025 10:16-0400 Body weight 71.22 kg Silvio Moyer MD Work Phone: [facility] 11-29-2024 10:16-0400 Diastolic blood pressure 68 mm[Hg] Silvio Moyer MD Work Phone: [facility] 11-29-2024 10:16-0400 Heart rate 112 /min Silvio Moyer MD Work Phone: [facility] 11-29-2024 10:16-0400 Respiratory rate 16 /min Silvio Moyer MD Work Phone: [facility] 11-29-2024 10:16-0400 SaO2% (BldA) [Mass fraction] 99 % Silvio Moyer MD Work Phone: [facility] 11-29-2024 10:16-0400 Systolic blood pressure 112 mm[Hg] Silvio Moyer MD Work Phone: [facility] 11-19-2024 16:11-0400 Body mass index (BMI) [Ratio] 22.24 kg/m2 Silvio Moyer MD Work Phone: [facility] 11-19-2024 16:11-0400 Body weight 70.31 kg Silvio Moyer MD Work Phone: [facility] 11-19-2024 16:11-0400 Diastolic blood pressure 94 mm[Hg] Silvio Moyer MD Work Phone: [facility] 11-19-2024 16:11-0400 Heart rate 115 /min Silvio Moyer MD Work Phone: [facility] 11-19-2024 16:11-0400 Respiratory rate 18 /min Silvio Moyer MD Work Phone: [facility] 11-19-2024 16:11-0400 Systolic blood pressure 122 mm[Hg] Silvio Moyer MD Work Phone: [facility] 11-04-2024 12:57-0500 Body height 177.8 cm Silvio Moyer MD Work Phone: [facility] 11-04-2024 12:57-0500 Body mass index (BMI) [Ratio] 22.53 kg/m2 Silvio Moyer MD Work Phone: [facility] 11-04-2024 12:57-0500 Body weight 71.22 kg Silvio Moyer MD Work Phone: [facility] 11-04-2024 12:57-0500 Diastolic blood pressure 86 mm[Hg] Silvio Moyer MD Work Phone: [facility] 11-04-2024 12:57-0500 Heart rate 90 /min Silvio Moyer MD Work Phone: [facility] 11-04-2024 12:57-0500 Respiratory rate 20 /min Silvio Moyer MD Work Phone: [facility] 11-04-2024 12:57-0500 Systolic blood pressure 124 mm[Hg] Silvio Moyer MD Work Phone: [facility] 10-09-2024 08:56-0500 Body mass index (BMI) [Ratio] 22.81 kg/m2 Juliet Millan PA-C Work Phone: [facility] 10-09-2024 08:56-0500 Body temperature 97.81 [degF] Juliet Millan PA-C Work Phone: [facility] 10-09-2024 08:56-0500 Body weight 72.12 kg Juliet Millan PA-C Work Phone: [facility] 10-09-2024 08:56-0500 Diastolic blood pressure 80 mm[Hg] Juliet Millan PA-C Work Phone: [facility] 10-09-2024 08:56-0500 Heart rate 86 /min Juliet Millan PA-C Work Phone: [facility] 10-09-2024 08:56-0500 Respiratory rate 18 /min Juliet Millan PA-C Work Phone: [facility] 10-09-2024 08:56-0500 SaO2% (BldA) [Mass fraction] 100 % Juliet Millan PA-C Work Phone: [facility] 10-09-2024 08:56-0500 Systolic blood pressure 120 mm[Hg] Juliet Millan PA-C Work Phone: [facility] 07-16-2024 12:21-0500 Body mass index (BMI) [Ratio] 22.65 kg/m2 Dulce Salgado RECORDS OFFICER.[employer]ER Work Phone: [facility] 07-16-2024 12:21-0500 Body temperature 97.5 [degF] Dulce Salgado RECORDS OFFICER.[employer]ISHER Work Phone: [facility] 07-16-2024 12:21-0500 Body weight 71.6 kg Dulce Salgado RECORDS OFFICER.[employer]ER Work Phone: [facility] 07-16-2024 12:21-0500 Diastolic blood pressure 82 mm[Hg] Dulce Salgado RECORDS OFFICER.[employer]ISHER Work Phone: [facility] 07-16-2024 12:21-0500 Heart rate 118 /min Dulce Salgado RECORDS OFFICER.[employer]ER Work Phone: [facility] 07-16-2024 12:21-0500 Respiratory rate 16 /min Dulce Salgado RECORDS OFFICER.[employer]ISHER Work Phone: [facility] 07-16-2024 12:21-0500 SaO2% (BldA) [Mass fraction] 99 % Dulce Salgado RECORDS OFFICER.[employer] POLISHER Work Phone: [facility] 07-16-2024 12:21-0500 Systolic blood pressure 140 mm[Hg] Dulce Salgado RECORDS OFFICER.[employer] POLISHER Work Phone: [facility] 06-06-2024 15:19-0400 Body height 177.8 cm Keiry Fontana PA-C Work Phone: [facility] 06-06-2024 15:19-0400 Body mass index (BMI) [Ratio] 22.96 kg/m2 Keiry Fontana PA-C Work Phone: [facility] 06-06-2024 15:19-0400 Body weight 72.58 kg Keiry Smithon PA-C Work Phone: [facility] 06-06-2024 15:19-0400 Diastolic blood pressure 72 mm[Hg] Keiry Smithon PA-C Work Phone: [facility] 06-06-2024 15:19-0400 Heart rate 90 /min Keiry Smithon PA-C Work Phone: [facility] 06-06-2024 15:19-0400 Systolic blood pressure 106 mm[Hg] Keiry Smithon PA-C Work Phone: [facility] 04-14-2024 15:07-0400 Body mass index (BMI) [Ratio] 22.81 kg/m2 Tracie Newman RECORDS OFFICER.[employer]ISHER Work Phone: [facility] 04-14-2024 15:07-0400 Body weight 72.12 kg Tracie Newman RECORDS OFFICER.[employer] POLISHER Work Phone: [facility] 04-14-2024 15:07-0400 Diastolic blood pressure 73 mm[Hg] Tracie Newman RECORDS OFFICER.[employer] POLISHER Work Phone: [facility] 04-14-2024 15:07-0400 Heart rate 99 /min Tracie Newman RECORDS OFFICER.[employer]ISHER Work Phone: [facility] 04-14-2024 15:07-0400 Respiratory rate 14 /min Tracie Newman RECORDS OFFICER.[employer]O POLISHER Work Phone: [facility] 04-14-2024 15:07-0400 Systolic blood pressure 119 mm[Hg] Tracie Newman RECORDS OFFICER.AUTO POLISHER Work Phone: [facility] 03-27-2024 12:23-0400 Body mass index (BMI) [Ratio] 22.38 kg/m2 Fabián Martinez RECORDS OFFICER.[employer] POLISHER Work Phone: [facility] 03-27-2024 12:23-0400 Body weight 70.76 kg Fabián Martinez RECORDS OFFICER.[employer] POLISHER Work Phone: [facility] 03-27-2024 12:23-0400 Diastolic blood pressure 84 mm[Hg] Fabián Lori RECORDS OFFICER.[employer] POLISHER Work Phone: [facility] 03-27-2024 12:23-0400 Heart rate 92 /min Fabián Lori RECORDS OFFICER.[employer] POLISHER Work Phone: [facility] 03-27-2024 12:23-0400 Respiratory rate 18 /min Fabián Lori RECORDS OFFICER.AUT[employer] POLISHER Work Phone: [facility] 03-27-2024 12:23-0400 SaO2% (BldA) [Mass fraction] 99 % Fabián Lori RECORDS OFFICER.AUT[employer] POLISHER Work Phone: [facility] 03-27-2024 12:23-0400 Systolic blood pressure 122 mm[Hg] Fabián Lori RECORDS OFFICER.AUTO POLISHER Work Phone: [facility] 01-09-2024 14:30-0400 Body height 177.8 cm Keiry Fontana PA-C Work Phone: [facility] 01-09-2024 14:30-0400 Body mass index (BMI) [Ratio] 21.44 kg/m2 Keiry Fontana PA-C Work Phone: [facility] 01-09-2024 14:30-0400 Body weight 67.77 kg Keiry Fontana PA-C Work Phone: [facility] 01-09-2024 14:30-0400 Diastolic blood pressure 74 mm[Hg] Keiry Fontana PA-C Work Phone: [facility] 01-09-2024 14:30-0400 Heart rate 92 /min Keiry Fonatna PA-C Work Phone: [facility] 01-09-2024 14:30-0400 Systolic blood pressure 102 mm[Hg] Keiry Fontana PA-C Work Phone: [facility] 07-11-2023 11:00-0500 Body height 177.8 cm Keiry Fontana PA-C Work Phone: [facility] 07-11-2023 11:00-0500 Body weight 72.3 kg Keiry Fontana PA-C Work Phone: [facility] 07-11-2023 11:00-0500 Diastolic blood pressure 80 mm[Hg] Keiry Fontana PA-C Work Phone: [facility] 07-11-2023 11:00-0500 Heart rate 84 /min Keiry Fontana PA-C Work Phone: [facility] 07-11-2023 11:00-0500 Systolic blood pressure 132 mm[Hg] Keiry Fontana PA-C Work Phone: [facility] 07-04-2023 10:40-0400 Body temperature 97.3 [degF] Ledy Omalley APRN.AUTO POLISHER Work Phone: [facility] 07-04-2023 10:40-0400 Body weight 74.12 kg Ledy Omalley APRN.AUT[employer] POLISHER Work Phone: [facility] 07-04-2023 10:40-0400 Diastolic blood pressure 86 mm[Hg] Ledy Omalley APRN.AUTO POLISHER Work Phone: [facility] 07-04-2023 10:40-0400 Heart rate 96 /min Ledy Omalley APRN.AUTO POLISHER Work Phone: [facility] 07-04-2023 10:40-0400 Respiratory rate 18 /min Ledy Omalley APRN.AUTO POLISHER Work Phone: [facility] 07-04-2023 10:40-0400 SaO2% (BldA) [Mass fraction] 99 % Ledy Omalley APRN.AUT[employer] POLISHER Work Phone: [facility] 07-04-2023 10:40-0400 Systolic blood pressure 138 mm[Hg] Ledy Omalley APRN.AUTO POLISHER Work Phone: [facility] 04-21-2023 10:48-0400 Body temperature 97 [degF] Silvio Moyer MD Work Phone: [facility] 04-21-2023 10:48-0400 Body weight 73.03 kg iSlvio Moyer MD Work Phone: [facility] 04-21-2023 10:48-0400 Diastolic blood pressure 92 mm[Hg] Silvio Moyer MD Work Phone: [facility] 04-21-2023 10:48-0400 Heart rate 76 /min Silvio Moyer MD Work Phone: [facility] 04-21-2023 10:48-0400 Respiratory rate 16 /min Silvio Moyer MD Work Phone: [facility] 04-21-2023 10:48-0400 Systolic blood pressure 130 mm[Hg] Silvio Moyer MD Work Phone: [facility] 10-27-2022 10:39-0500 Body weight 74.39 kg Juliet Millan PA-C Work Phone: [facility] 10-27-2022 10:39-0500 Diastolic blood pressure 76 mm[Hg] Juliet Millan PA-C Work Phone: [facility] 10-27-2022 10:39-0500 Heart rate 93 /min Juliet Millan PA-C Work Phone: [facility] 10-27-2022 10:39-0500 Respiratory rate 16 /min Juliet Millan PA-C Work Phone: [facility] 10-27-2022 10:39-0500 SaO2% (BldA) [Mass fraction] 95 % Juliet Millan PA-C Work Phone: [facility] 10-27-2022 10:39-0500 Systolic blood pressure 122 mm[Hg] Juliet Millan PA-C Work Phone: [facility] 10-25-2022 13:42-0500 Body temperature 97.11 [degF] Rober Diaz MD Work Phone: [facility] 10-25-2022 13:42-0500 Body weight 76.66 kg Rober Diaz MD Work Phone: [facility] 10-25-2022 13:42-0500 Diastolic blood pressure 74 mm[Hg] Rober Diaz MD Work Phone: [facility] 10-25-2022 13:42-0500 Heart rate 88 /min Rober Diaz MD Work Phone: [facility] 10-25-2022 13:42-0500 Respiratory rate 16 /min Rober Diaz MD Work Phone: [facility] 10-25-2022 13:42-0500 SaO2% (BldA) [Mass fraction] 99 % Rober Diaz MD Work Phone: [facility] 10-25-2022 13:42-0500 Systolic blood pressure 128 mm[Hg] Rober Diaz MD Work Phone: [facility] 08-21-2022 12:47-0500 Diastolic blood pressure 73 mm[Hg] Zac Dennis MD Work Phone: [facility] 08-21-2022 12:47-0500 Heart rate 78 /min Zac Dennis MD Work Phone: [facility] 08-21-2022 12:47-0500 Respiratory rate 16 /min Zac Dennis MD Work Phone: [facility] 08-21-2022 12:47-0500 SaO2% (BldA) [Mass fraction] 97 % Zac Dennis MD Work Phone: [facility] 08-21-2022 12:47-0500 Systolic blood pressure 111 mm[Hg] Zac Dennis MD Work Phone: [facility] 08-21-2022 10:56-0500 Body temperature 97.81 [degF] Zac Dennis MD Work Phone: [facility] 08-15-2022 10:44-0500 Body height 179.7 cm Nga Cohen APRN.CNP Work Phone: [facility] 08-15-2022 10:44-0500 Body temperature 97.81 [degF] Nga Cohen RECORDS OFFICER.[employer] POLISHER Work Phone: [facility] 08-15-2022 10:44-0500 Body weight 70.58 kg Nga Cohen RECORDS OFFICER.[employer] POLISHER Work Phone: [facility] 08-15-2022 10:44-0500 Diastolic blood pressure 89 mm[Hg] Nga Cohen RECORDS OFFICER.AUTO POLISHER Work Phone: [facility] 08-15-2022 10:44-0500 Heart rate 97 /min Nga Cohen RECORDS OFFICER.[employer] POLISHER Work Phone: [facility] 08-15-2022 10:44-0500 Respiratory rate 14 /min Nga Cohen RECORDS OFFICER.AUTO POLISHER Work Phone: [facility] 08-15-2022 10:44-0500 SaO2% (BldA) [Mass fraction] 98 % Nga Cohen RECORDS OFFICER.AUTO POLISHER Work Phone: [facility] 08-15-2022 10:44-0500 Systolic blood pressure 133 mm[Hg] Nga Cohen RECORDS OFFICER.AUTO POLISHER Work Phone: [facility] 08-10-2022 09:36-0500 Body height 177 cm Silvio Moyer MD Work Phone: [facility] 08-10-2022 09:36-0500 Body weight 72.58 kg Silvio Moyer MD Work Phone: [facility] 08-10-2022 09:36-0500 Diastolic blood pressure 80 mm[Hg] Silvio Moyer MD Work Phone: [facility] 08-10-2022 09:36-0500 Heart rate 78 /min Silvio Moyer MD Work Phone: [facility] 08-10-2022 09:36-0500 Respiratory rate 14 /min Silvio Moyer MD Work Phone: [facility] 08-10-2022 09:36-0500 Systolic blood pressure 122 mm[Hg] Silvio Moyer MD Work Phone: [facility] 08-04-2022 09:05-0500 Body height 178.4 cm Silvio Moyer MD Work Phone: [facility] 08-04-2022 09:05-0500 Body weight 73.94 kg Silvio Moyer MD Work Phone: [facility] 08-04-2022 09:05-0500 Diastolic blood pressure 94 mm[Hg] Silvio Moyer MD Work Phone: [facility] 08-04-2022 09:05-0500 Heart rate 80 /min Silvio Moyer MD Work Phone: [facility] 08-04-2022 09:05-0500 Respiratory rate 18 /min Silvio Moyer MD Work Phone: [facility] 08-04-2022 09:05-0500 Systolic blood pressure 158 mm[Hg] Silvio Moyer MD Work Phone: [facility] 08-03-2022 15:20-0500 Diastolic blood pressure 81 mm[Hg] Grupo Lombardo MD Work Phone: [facility] 08-03-2022 15:20-0500 Systolic blood pressure 123 mm[Hg] Grupo Lombardo MD Work Phone: [facility] 08-03-2022 15:13-0500 Heart rate 91 /min Grupo Lombardo MD Work Phone: [facility] 08-03-2022 15:13-0500 SaO2% (BldA) [Mass fraction] 98 % Grupo Lombardo MD Work Phone: [facility] 08-03-2022 14:50-0500 Respiratory rate 14 /min Grupo Lombardo MD Work Phone: [facility] 08-03-2022 14:06-0500 Body temperature 97.7 [degF] Grupo Lombardo MD Work Phone: [facility] 08-03-2022 14:06-0500 Body weight 66.22 kg Grupo Lombardo MD Work Phone: [facility] 07-04-2022 09:37-0400 Body height 172.7 cm Grupo Lombardo MD Work Phone: [facility] 07-04-2022 09:37-0400 Body temperature 97.11 [degF] Grupo Lombardo MD Work Phone: [facility] 07-04-2022 09:37-0400 Body weight 70.31 kg Grupo Lombardo MD Work Phone: [facility] 07-04-2022 09:37-0400 Diastolic blood pressure 78 mm[Hg] Grupo Lombardo MD Work Phone: [facility] 07-04-2022 09:37-0400 Heart rate 92 /min Grupo Lombardo MD Work Phone: [facility] 07-04-2022 09:37-0400 SaO2% (BldA) [Mass fraction] 99 % Grupo Lombardo MD Work Phone: [facility] 07-04-2022 09:37-0400 Systolic blood pressure 125 mm[Hg] Grupo Lombardo MD Work Phone: [facility] 06-15-2022 09:45-0400 Body height 177.8 cm Ricardo Delarosa MD Work Phone: [facility] 06-15-2022 09:45-0400 Body temperature 97.59 [degF] Ricardo Delarosa MD Work Phone: [facility] 06-15-2022 09:45-0400 Body weight 70.67 kg Ricardo Delarosa MD Work Phone: [facility] 06-15-2022 09:45-0400 Diastolic blood pressure 81 mm[Hg] Ricardo Delarosa MD Work Phone: [facility] 06-15-2022 09:45-0400 Heart rate 100 /min Ricardo Delarosa MD Work Phone: [facility] 06-15-2022 09:45-0400 Respiratory rate 12 /min Ricardo Delarosa MD Work Phone: [facility] 06-15-2022 09:45-0400 SaO2% (BldA) [Mass fraction] 98 % Ricardo Delarosa MD Work Phone: [facility] 06-15-2022 09:45-0400 Systolic blood pressure 140 mm[Hg] Ricardo Delarosa MD Work Phone: [facility] 05-25-2022 11:02-0400 Body weight 73.48 kg Tali Tannhof RECORDS OFFICER.[employer] POLISHER Work Phone: [facility] 05-25-2022 11:02-0400 Diastolic blood pressure 82 mm[Hg] Tali Tannhof RECORDS OFFICER.AUTO POLISHER Work Phone: [facility] 05-25-2022 11:02-0400 Heart rate 110 /min Tali Tannhof RECORDS OFFICER.[employer]O POLISHER Work Phone: [facility] 05-25-2022 11:02-0400 Respiratory rate 20 /min Tali Tannhof RECORDS OFFICER.AUTO POLISHER Work Phone: [facility] 05-25-2022 11:02-0400 SaO2% (BldA) [Mass fraction] 98 % Tali Tannhof RECORDS OFFICER.AUTO POLISHER Work Phone: [facility] 05-25-2022 11:02-0400 Systolic blood pressure 118 mm[Hg] Tali Tannhof RECORDS OFFICER.AUTO POLISHER Work Phone: [facility] 05-16-2022 16:19-0400 Body height 172.[address] Silvio Moyer Work Phone: [facility] Work Phone: 05-04-2022 09:44-0400 Body mass index (BMI) [Ratio] 23.6 kg/m2 Dr. Silvio Moyer Work Phone: [facility] Work Phone: 05-04-2022 09:44-0400 Body weight 70.[address] Silvio Moyer Work Phone: [facility] Work Phone: 01-04-2022 13:33-0400 Body weight 72.58 kg Silvio Moyer MD Work Phone: [facility] 01-04-2022 13:33-0400 Diastolic blood pressure 76 mm[Hg] Silvio Moyer MD Work Phone: [facility] 01-04-2022 13:33-0400 Heart rate 106 /min Silvio Moyer MD Work Phone: [facility] 01-04-2022 13:33-0400 Respiratory rate 16 /min Silvio Moyer MD Work Phone: [facility] 01-04-2022 13:33-0400 Systolic blood pressure 138 mm[Hg] Silvio Moyer MD Work Phone: [facility] Encounters Encounter Date Encounter Type Care Provider Facility Start: 03-20-2025 ambulatory Silvio Moyer Facility :[facility] Start: 03-12-2025 End: 03-12-2025 Patient encounter procedure Jewel Velez PA Work Phone: [facility] [place] Comment on above: Excessive cerumen in ear canal, left (Primary Dx); Dysfunction of left eustachian tube Start: 03-12-2025 End: 03-12-2025 ambulatory SILVIO MOYER Facility:[facility] Start: 02-12-2025 End: 02-12-2025 Chart abstracting Silvio Moyer MD Work Phone: [facility] [place] Comment on above: Abstract (Urology) Start: 02-12-2025 End: 02-12-2025 Telephone encounter Silvio Moyer MD Work Phone: [facility] [place] Comment on above: Requesting lab resul ts Start: 01-30-2025 End: 01-30-2025 Telephone encounter Keiry Fontana PA-C Work Phone: [facility] [place] Comment on above: med PA Start: 01-29-2025 End: 01-29-2025 Telephone [facility] on above: Medication Authoriza tion Start: 01-07-2025 End: 01-07-2025 ambulatory SILVIO MOYER Facility:[facility] Start: 12-21-2024 End: 12-22-2024 Refill [facility] Comment on above: Refill Request Start: 11-29-2024 End: 11-29-2024 ambulatory SILVOI MOYER Facility:[facility] Start: 11-29-2024 End: 11-29-2024 Patient encounter procedure Silvio Moyer MD Work Phone: [facility] [place] Comment on above: Well adult exam (Ashley paddy Dx); Essential hypertension; Mixed hyperlipidemia; Elevated hemoglobin A1c; GERD without esophagitis; JC (generalized anxiety disorder); Alcohol abuse; Benign prostatic hyperplasia with urinary frequency; Chronic left shoulder pain; Screening for depression; Foraminal stenosis of cervical region; Acute pain of left shoulder Start: 11-29-2024 End: 11-29-2024 Patient encounter status Silvio Moyer MD Work Phone: [facility] Work Phone: Start: 11-27-2024 ambulatory Silvio Moyer Facility :[facility] Start: 11-24-2024 End: 11-25-2024 Follow-up encounter Silvio Moyer MD Work Phone: [facility] [place] Comment on above: Results Start: 11-20-2024 End: 11-20-2024 ambulatory SILVIO MOYER Facility:[facility] Start: 11-19-2024 End: 11-19-2024 Subsequent hospital visit by physician Kait [facility] Work Phone: Radiology Comment on above: Acute pain of left s houlder [M25.512] Start: 11-19-2024 End: 11-19-2024 ambulatory SILVIO MOYER Facility:[facility] Start: 11-19-2024 End: 11-19-2024 Office outpatient visit 15 minutes Silvio Moyer MD Work Phone: [facility] Comment on above: Acute pain of left s kathy (Primary Dx) Start: 11-17-2024 End: 11-17-2024 ambulatory SILVIO MOYER Facility:[facility] Start: 11-17-2024 End: 11-18-2024 Follow-up encounter Silvio Moyer MD Work Phone: [facility] Start: 11-17-2024 End: 11-17-2024 Subsequent hospital visit by physician [employer] [facility] (I-Stat/1.5t) Work Phone: Radiology Comment on above: Left arm pain [M79.6 02] Start: 11-10-2024 ambulatory Silvio Moyer Facility :[facility] Start: 11-07-2024 End: 11-07-2024 Follow-up encounter [facility] Start: 11-04-2024 End: 11-04-2024 Subsequent hospital visit by physician [facility] [place] [facility] Work Phone: Radiology Comment on above: Left arm pain [M79.6 02] Start: 11-04-2024 End: 11-04-2024 ambulatory SILVIO MOYER Facility:[facility] Start: 11-04-2024 End: 11-04-2024 Patient encounter procedure Silvio Moyer MD Work Phone: [facility] Comment on above: Left arm pain (Prima ry Dx); Neck pain; Herniation of intervertebral disc at C6-C7 level; Foraminal stenosis of cervical region; Elevated hemoglobin A1c; Essential hypertension; JC (generalized anxiety disorder); Mixed hyperlipidemia; Screening for prostate cancer; Medication management; Spinal stenosis of cervical region; Weakness of left upper extremity; Pectoralis minor syndrome (HCC); Chronic left shoulder pain Start: 10-24-2024 End: 10-24-2024 Refill Silvio Moyer MD Work Phone: [facility] Comment on above: Refill Request Start: 10-09-2024 End: 10-09-2024 Office outpatient visit 25 minutes Juliet Millan PA-C Work Phone: [facility] [place] Comment on above: Pectoralis minor syn drome (HCC) (Primary Dx); Foraminal stenosis of cervical region; Chronic left shoulder pain; Thoracic outlet syndrome of left thoracic outlet Start: 10-09-2024 End: 10-09-2024 ambulatory JULIET MILLAN Facility:[facility] Start: 10-07-2024 End: 10-08-2024 ambulatory Phyllis Omalley MA [facility] Comment on above: medication request Start: 10-07-2024 End: 10-08-2024 E-mail encounter from caregiver Phyllis Omalley MICHELLE [facility] [place] Start: 10-03-2024 End: 10-07-2024 Telephone encounter Charity Escamilla APRN.CNP Work Phone: [facility] [place] Comment on above: Appointment (12/05 H jessica Appointment Reschedule ) Patient Question Start: 09-11-2024 End: 09-11-2024 Refill [facility]iry Fontana [facility]-C [facility] Comment on above: Refill Request Start: 07-16-2024 End: 07-16-2024 ambulatory SILVIO MOYER Facility:[facility] Start: 07-16-2024 End: 07-16-2024 Patient encounter procedure Dulce Salgado APRN.CNP Work Phone: [facility] Comment on above: Herpes zoster withou t complication (Primary Dx) Start: 07-14-2024 End: 07-14-2024 Telephone encounter Silvio Moyer MD Work Phone: [facility] [place] Comment on above: Possible shingles. Start: 06-06-2024 End: 06-06-2024 ambulatory KEIRY FONTANA Facility:[facility] Start: 06-06-2024 End: 06-06-2024 Patient encounter procedure Keiry Fontana PA-C Work Phone: [facility] [place] Comment on above: Irritable bowel synd jono with constipation (Primary Dx); Congenital sucrose isomaltose malabsorption Start: 04-14-2024 End: 04-14-2024 Patient encounter procedure Tracie Sara RECORDS OFFICER.AUTO POLISHER Work Phone: [facility] Comment on above: Pectoralis minor syn drome (HCC) (Primary Dx); Screening for depression; Mixed hyperlipidemia; GERD without esophagitis; Essential hypertension; Thoracic outlet syndrome of left thoracic outlet Start: 04-14-2024 End: 04-14-2024 ambulatory SILVIO MOYER Facility:[facility] Start: 04-02-2024 Telephone encounter Keiry Fontana PA-C Work Phone: [facility] [place] Comment on above: Medication Problem Refill Request Start: 03-27-2024 Telephone encounter Fabián Toney APRN.AUTO POLISHER Work Phone: [facility] Comment on above: Patient Update; Appo intment Insurance Authorizat ion Start: 03-27-2024 End: 03-27-2024 Patient encounter procedure Fabián Martinez APRN.AUTO POLISHER Work Phone: [facility] Comment on above: Pectoralis minor syn drome (HCC) (Primary Dx); Chronic left shoulder pain Start: 03-27-2024 End: 03-27-2024 ambulatory SILVIO MOYER Facility:[facility] Start: 01-28-2024 Telephone encounter Silvio Moyer MD Work Phone: [facility] Comment on above: Results Start: 01-26-2024 Refill Keiry Smith on PA-C Work Phone: [facility] [place] Comment on above: Refill Request Start: 01-24-2024 Telephone encounter Keiry VILLARREAL-C Work Phone: [facility] [place] Comment on above: Patient Update Start: 01-09-2024 End: 01-09-2024 Patient encounter procedure Keiry VILLARREAL-C Work Phone: [facility] Comment on above: Irritable bowel synd jono with constipation (Primary Dx); Congenital sucrose isomaltose malabsorption; Small intestinal bacterial overgrowth Start: 12-30-2023 Refill Keiry cunha PA-C Work Phone: [facility] Comment on above: Refill Request Start: 12-24-2023 Telephone encounter Keiry Fontana PA-C Work Phone: [facility] Comment on above: Patient Update Start: 12-11-2023 Telephone encounter Keiry Fontana PA-C Work Phone: [facility] Comment on above: Results Start: 12-03-2023 Refill Silvio shrestha MD Work Phone: [facility] Comment on above: Refill Request Start: 10-30-2023 Telephone encounter Keiry Fontana PA-C Work Phone: [facility] Comment on above: Results Start: 10-22-2023 End: 10-22-2023 Nursing evaluation of patient and report Nurse [facility] Work Phone: [facility] Comment on above: Irritable bowel synd jono with both constipation and diarrhea; Right sided abdominal pain Start: 10-15-2023 Telephone encounter Silvio Moyer MD Work Phone: [facility] Comment on above: Results Start: 10-13-2023 Patient encounter status Silvio Moyer MD Work Phone: [facility] Work Phone: Start: 08-23-2023 Telephone encounter Keiry Fontana PA-C Work Phone: [facility] Comment on above: Patient Update Start: 08-10-2023 Telephone encounter Keiry Fontana PA-C Work Phone: [facility] Comment on above: Patient Question Medication Authoriza tion Start: 07-16-2023 Telephone encounter Keiry Fontana PA-C Work Phone: [facility] Comment on above: Patient Question Start: 07-11-2023 End: 07-11-2023 Subsequent hospital visit by physician Kait [facility] [place] Work Phone: Radiology Comment on above: Right sided abdomina l pain [R10.9] Start: 07-11-2023 End: 07-11-2023 Patient encounter procedure Keiry Fontana PA-C Work Phone: [facility] [place] Comment on above: Right sided abdomina l pain (Primary Dx); Alternating constipation and diarrhea Start: 07-04-2023 End: 07-04-2023 Subsequent hospital visit by physician [facility] [place] Work Phone: Radiology Comment on above: Acute cough [R05.1] Start: 07-04-2023 End: 07-04-2023 Patient encounter procedure Ledy Omalley APRN.AUTO POLISHER Work Phone: [facility] Comment on above: Acute cough (Primary Dx); URI, acute Start: 06-04-2023 Refill Tracie el APRN.AUTO POLISHER Work Phone: [facility] [place] Comment on above: Refill Request Start: 05-12-2023 Telephone encounter Silvio Moyer MD Work Phone: [facility] [place] Start: 05-03-2023 Telephone encounter Silvio Moyer MD Work Phone: [facility] [place] Comment on above: Results Start: 05-03-2023 End: 05-03-2023 Subsequent hospital visit by physician [facility] Work Phone: Nuclear Medicine Comment on above: RUQ pain [R10.11] Start: 04-30-2023 Telephone encounter Silvio Moyer MD Work Phone: [facility] [place] Comment on above: Results Start: 04-27-2023 End: 04-27-2023 Subsequent hospital visit by physician [facility] Work Phone: Radiology Comment on above: RUQ pain [R10.11] Start: 04-22-2023 Telephone encounter Silvio Moyer MD Work Phone: [facility] [place] Comment on above: Results Start: 04-21-2023 End: 04-21-2023 Patient encounter procedure Silvio Moyer MD Work Phone: [facility] [place] Comment on above: RUQ pain (Primary Dx ) Start: 03-05-2023 Refill Silvio shrestha MD Work Phone: [facility] Comment on above: Refill Request Start: 12-04-2022 Refill Juliet Isidro on PA-C Work Phone: [facility] Comment on above: Refill Request Start: 12-02-2022 Refill Tali Azevedo APRN.CNP Work Phone: [facility] Comment on above: Refill Request Start: 11-10-2022 Telephone encounter Juliet wills PA-C Work Phone: [facility] Comment on above: Results Start: 11-10-2022 End: 11-10-2022 Subsequent hospital visit by physician Ct Prep [facility] Cat Scan Start: 11-02-2022 Telephone encounter Juliet wills PA-C Work Phone: [facility] Comment on above: Patient Update Start: 10-27-2022 Telephone encounter Julietyun wills PA-C Work Phone: [facility] Comment on above: Results Start: 10-27-2022 End: 10-27-2022 ambulatory [facility] Work Phone: Start: 10-27-2022 End: 10-27-2022 Patient encounter procedure [facility]-Laboratory, Specimen Start: 10-27-2022 End: 10-27-2022 Subsequent hospital visit by physician [facility] Work Phone: Radiology Comment on above: RLQ abdominal pain [ R10.31] Start: 10-27-2022 End: 10-27-2022 Patient encounter procedure Juliet Millan PA-C Work Phone: [facility] Comment on above: RLQ abdominal pain ( Primary Dx) Start: 10-25-2022 End: 10-25-2022 Patient encounter procedure Rober Diaz MD Work Phone: [facility] Comment on above: Abdominal pain, righ t lower quadrant (Primary Dx); Urinary frequency; Family history of kidney stone Start: 10-16-2022 Telephone encounter Silvio Moyer MD Work Phone: [facility] [place] Comment on above: Results Start: 09-08-2022 Telephone encounter Carly martel BERNARD Work Phone: General Surgery Comment on above: Appointment Start: 08-31-2022 End: 08-31-2022 ambulatory Carly Casianotahmina WAGNER Work Phone: General Surgery Comment on above: Tubular adenoma of tosha barcenas (Primary Dx) Start: 08-31-2022 End: 08-31-2022 Telemedicine consultation with patient Carly Grande BERNARD Work Phone: [facility] Start: 08-23-2022 Orders Only Frances Loren duncan APRN.AUTO POLISHER Work Phone: Vascular Surg Dept Comment on above: Pectoralis minor syn drome (HCC) (Primary Dx) Start: 08-22-2022 Telephone encounter Ricardo Dasilva se, MD Work Phone: Vascular Surg Dept Comment on above: Appointment Start: 08-21-2022 End: 08-21-2022 Subsequent hospital visit by physician Zac Dennis MD Work Phone: Ambulatory Surgery Comment on above: History of colonic p olyps [Z86.010] Start: 08-15-2022 End: 08-15-2022 Admission to same day surgery center Anesthesia Clearance Work Phone: Cardiothoracic Start: 08-15-2022 End: 08-15-2022 Patient encounter procedure Nga Cohen APRN.AUTO POLISHER Work Phone: Vascular Surg Dept Comment on above: Pectoralis minor syn drome (HCC) (Primary Dx); Preop testing; Preop examination Pectoralis minor syn drome (HCC) (Primary Dx); Chronic left shoulder pain Encounter for preope rative anesthesiology assessment for vascular surgery (Primary Dx) Start: 08-15-2022 End: 08-15-2022 Patient encounter status Nga Cohen APRN.AUTO POLISHER Work Phone: Vascular Surg Dept Start: 08-15-2022 End: 08-15-2022 Preprocedural examination done Nga Cohen APRN.CNP Work Phone: Vascular Surg Dept Start: 08-10-2022 End: 08-10-2022 Patient encounter procedure Silvio Moyer MD Work Phone: [facility] Comment on above: Well adult exam (Ashley paddy Dx); Essential hypertension; Elevated hemoglobin A1c; JC (generalized anxiety disorder); GERD without esophagitis; Mixed hyperlipidemia; Uncomplicated alcohol dependence (HCC); Alcohol abuse; Pectoralis minor syndrome (HCC); History of colonic polyps; Screening for colon cancer; Chronic left shoulder pain Start: 08-10-2022 End: 08-10-2022 Patient encounter status Silvio Moyer MD Work Phone: [facility] Start: 08-07-2022 Telephone encounter Ricardo Dasilva se, MD Work Phone: Vascular Surg Dept Comment on above: Patient Update Start: 08-04-2022 Patient encounter status Silvio Moyer MD Work Phone: [facility] Work Phone: Start: 08-04-2022 End: 08-04-2022 Patient encounter procedure Silvio Moyer MD Work Phone: [facility] Comment on above: Pectoralis minor syn drome (HCC) (Primary Dx); Encounter for immunization Start: 08-03-2022 End: 08-03-2022 Orders Only Vern Ocampo MD Work Phone: Pain Management Comment on above: Pectoralis minor syn drome (HCC) (Primary Dx); Foraminal stenosis of cervical region Pectoralis minor syn drome (HCC) [I77.89] Start: 07-17-2022 Telephone encounter Ricardo Dasilva se, MD Work Phone: Vascular Surg Dept Comment on above: Patient Question Start: 07-04-2022 Telephone encounter Grupo hines MD Work Phone: Pain Management Comment on above: Insurance Authorizat ion ([employer]) Start: 07-04-2022 End: 07-04-2022 Patient encounter procedure Grupo Lombardo MD Work Phone: Pain Management Comment on above: Pectoralis minor syn drome (HCC) Start: 06-15-2022 End: 06-15-2022 Orders Only Ricardo Delarosa MD Work Phone: Vascular Surg Dept Comment on above: Pectoralis minor syn drome (HCC) (Primary Dx) TOS (thoracic outlet syndrome) [G54.0] Pectoralis minor syn drome (HCC) (Primary Dx); Chronic left shoulder pain Start: 06-14-2022 Orders Only Ricardo Hyde Work Phone: Vascular Surg Dept Comment on above: Thoracic outlet synd jono (Primary Dx) Start: 06-13-2022 Orders Only Ricardo Hyde Work Phone: Vascular Surg Dept Comment on above: Peripheral arterial disease (HCC) (Primary Dx) Thoracic outlet synd jono (Primary Dx) Patient Request Start: 06-12-2022 Telephone encounter Silvio oMyer MD Work Phone: [facility] Comment on above: Consult (Dx: Thoraci c outlet syndrome of left thoracic outlet [G54.0 (ICD-10-CM)]) Start: 06-09-2022 Telephone encounter Silvio Moyer MD Work Phone: [facility] Comment on above: Referral request Start: 05-25-2022 End: 05-25-2022 Patient encounter procedure Tali Azevedo APRN.CNP Work Phone: [facility] Comment on above: Chronic left shoulde r pain (Primary Dx); Essential hypertension; GERD without esophagitis Start: 05-24-2022 Telephone encounter Silvio Moyer MD Work Phone: [facility] [place] Comment on above: Patient Update Start: 05-18-2022 End: 05-18-[address] Silvio Moyer Work Phone: [facility] Start: 05-16-2022 End: 05-16-[address] Silvio Moyer Work Phone: [facility] Work Phone: Start: 05-16-2022 End: 05-16-[address] [facility] Start: 05-04-2022 End: 05-04-[address] Silvio Moyer Work Phone: [facility] Start: 04-25-2022 Telephone encounter Juliet wills PA-C Work Phone: [facility] Comment on above: Medication Request Start: 01-05-2022 Telephone encounter Silvio Moyer MD Work Phone: [facility] Comment on above: Patient Update Start: 01-04-2022 End: 01-04-2022 Patient encounter procedure Silvio Moyer MD Work Phone: [facility] Comment on above: Essential hypertensi on (Primary Dx); Mixed hyperlipidemia; GERD without esophagitis; JC (generalized anxiety disorder); Elevated hemoglobin A1c; Uncomplicated alcohol dependence (HCC); Alcohol abuse; Neck pain; Herniation of intervertebral disc at C6-C7 level; Foraminal stenosis of cervical region; Screening for prostate cancer; Medication management; Need for vaccination Start: 12-05-2021 Refill Silvio shrestha MD Work Phone: [facility] Comment on above: Patient Update; Refi ll Request Start: 07-11-2021 Patient encounter status Silvio Moyer MD Work Phone: [facility] Work Phone: Procedures Date Procedure Procedure Detail Performing Clinician Start: 11-29-2024 Adult depression scr eening assessment Silvio Moyer MD Work Phone: Start: 11-20-2024 Lipid 1996 panel - S deviak or Plasma Silvio Moyer MD Work Phone: Start: 11-17-2024 Mri spinal canal cer vical w/o contrast matrl Silvio Moyer MD Work Phone: Start: 04-14-2024 Adult depression scr eening assessment Trcaie Newman RECORDS OFFICER.AUTO POLISHER Work Phone: Start: 01-26-2024 Lipid 1995 panel - S devika or Plasma Keiry Fontana PA-C Work Phone: Start: 10-22-2023 Breath hydrogen/meth ane test Keiry Fontana PA-C Work Phone: Start: 10-13-2023 Lipid 1995 panel - S devika or Plasma Silvio Moyer MD Work Phone: Start: 07-04-2023 Iadna respiratry pro be & rev trnscr 3-5 targets Ledy Omalley APRN.AUTO POLISHER Work Phone: Start: 07-04-2023 Radiologic exam ches t 2 views Ledy Omalley APRN.AUTO POLISHER Work Phone: Start: 05-03-2023 Hepatobil syst imag inc gb w/pharma intervenj Silvio Moyer MD Work Phone: Start: 04-27-2023 Us abdominal real ti me w/image limited Silvio Moyer MD Work Phone: Start: 10-27-2022 Radiologic exam abdo men 2 views Juliet Millan PA-C Work Phone: Start: 10-25-2022 Urnls dip stick/tabl et rgnt auto w/o microscopy Chelseaselina Navarro PA-C Work Phone: Start: 08-21-2022 Level iv surg pathol ogy gross&microscopic exam Zac Dennis MD Work Phone: Start: 08-21-2022 Colonoscopy flx dx w /collj spec when pfrmd Zac Dennis MD Work Phone: Start: 08-21-2022 Colonoscopy Ricardo Dasilva se, MD Work Phone: Start: 08-04-2022 [employer] COVI D-19 BIVALENT BOOSTER VACCINE, AGE 12+ YR Silvio Moyer MD Work Phone: Start: 08-03-2022 US OTHER-INJECTION ( POC) FOR PAIN USE ONLY Vern Ocampo MD Work Phone: Start: 07-29-2022 Lipid 1996 panel - S devika or Plasma Tracie Newman APRN.AUTO POLISHER Work Phone: Start: 06-15-2022 Ct angiography chest w/contrast/noncontrast Ricardo Delarosa MD Work Phone: Start: 05-16-2022 X-ray of eye for for eign body Dr. Silvio Moyer Work Phone: Start: 05-16-2022 MRI of cervical spine Mary Ellen Moyer Work Phone: Start: 05-04-2022 X-ray of cervical spine Dr. Silvio Moyer Work Phone: Start: 08-19-2018 Colonoscopy Silvio hobbs MD Work Phone: Plan of Treatment Date Care Activity Detail Author Start: 2038 RSV Vaccine (1 - 1-dose 75+ series) RSV Vaccine (1 - 1-dose 75+ series) [facility] Start: 01-05-2032 Urine microalbumin profile [facility] Start: 12-02-2029 ONE PNEUMOVAX PRIOR TO AGE 65 ONE PNEUMOVAX PRIOR TO AGE 65 [facility] Comment on above: Postponed from 1982 (Postponed To Appropriate Date) Start: 12-02-2029 PNEUMOCOCCAL (1 - PCV) PNEUMOCOCCAL (1 - PCV) [facility] Comment on above: Postponed from 1969 (Postponed To Appropriate Date) Start: 12-02-2029 Pneumococcal vaccination [facility] Comment on above: Postponed from 1969 (Postponed To Appropriate Date) Start: 12-02-2029 Pneumococcal Vaccine: 50+ (1 of 2 - PCV) Pneumococcal Vaccine: 50+ (1 of 2 - PCV) [facility] Comment on above: Postponed from 1982 (Postponed To Appropriate Date) Start: 11-29-2029 Prostate specific antigen measurement Prostate Cancer Screening Discussion [facility] Start: 11-20-2029 Lipid panel Lipid Screening [facility] Start: 11-20-2029 Prostate specific antigen measurement Prostate Cancer Screening Discussion [facility] Start: 01-25-2029 Lipid panel Lipid Screening [facility] Start: 10-13-2028 Lipid panel Lipid Screening [facility] Start: 10-13-2028 Prostate specific antigen measurement Prostate Cancer Screening Discussion [facility] Start: 11-21-2027 Diabetes Screening Diabetes Screening [facility] Start: 08-21-2027 Colonoscopy COLONOSCOPY [facility] Start: 08-21-2027 COLORECTAL CANCER SCREENING COLORECTAL CANCER SCREENING [facility] Start: 08-21-2027 Screening for malignant neoplasm of colon [facility] Start: 07-29-2027 Lipid 1996 panel - Serum or Plasma Lipid Screening [facility] Start: 07-29-2027 Lipid panel Lipid Screening [facility] Start: 07-29-2027 LIPID SCREEN LIPID SCREEN [facility] Start: 07-29-2027 PROSTATE CANCER SCREENING DISCUSSION PROSTATE CANCER SCREENING DISCUSSION [facility] Start: 07-29-2027 Prostate specific antigen measurement Prostate Cancer Screening Discussion [facility] Start: 01-27-2027 PROSTATE CANCER SCREENING DISCUSSION PROSTATE CANCER SCREENING DISCUSSION [facility] Start: 12-30-2026 LIPID SCREEN LIPID SCREEN [facility] Start: 10-13-2026 Diabetes Screening Diabetes Screening [facility] Start: 12-17-2025 LIPID SCREEN LIPID SCREEN [facility] Start: 12-17-2025 PROSTATE CANCER SCREENING DISCUSSION PROSTATE CANCER SCREENING DISCUSSION [facility] Start: 11-29-2025 Annual PCP Team Chronic Disease Visit Annual PCP Team Chronic Disease Visit [facility] Start: 11-29-2025 BP Controlled (<130/80) BP Controlled (<130/80) [facility] in Start: 11-29-2025 Covid-19 Vaccine ( season) Covid-19 Vaccine () [facility] Comment on above: Postponed from 05/04/2024 (Declined at t his time) Start: 11-29-2025 Depression Screening Depression Screening [facility] Start: 11-29-2025 Shingrix Vaccine (1 of 2) Shingrix Vaccine (1 of 2) [facility] Comment on above: Postponed from 2013 (Declined at t his time) Start: 11-19-2025 Annual PCP Team Chronic Disease Visit Annual PCP Team Chronic Disease Visit [facility] Start: 11-04-2025 Annual PCP Team Chronic Disease Visit Annual PCP Team Chronic Disease Visit [facility] Start: 10-25-2025 DIABETES SCREEN DIABETES SCREEN [facility] Start: 10-25-2025 Diabetes Screening Diabetes Screening [facility] Start: 10-09-2025 Annual PCP Team Chronic Disease Visit Annual PCP Team Chronic Disease Visit [facility] Start: 08-21-2025 Colonoscopy COLONOSCOPY [facility] Start: 08-21-2025 COLORECTAL CANCER SCREENING COLORECTAL CANCER SCREENING [facility] Start: 08-15-2025 DIABETES SCREEN DIABETES SCREEN [facility] Start: 07-29-2025 DIABETES SCREEN DIABETES SCREEN [facility] Start: 06-06-2025 BP Controlled (<130/80) BP Controlled (<130/80) [facility] in Start: 06-01-2025 End: 06-01-2025 Patient encounter procedure 06/01/2025 2:40 PM EDT Office Visit [facility] [place] [address] [place] [address] Tracie Newman APRN.[facility] [address] [place] [address] 6 month f/u [facility] [place] Comment on above: 6 month f/u Start: 05-15-2025 End: 08-14-2025 Hemoglobin A1c in Blood HEMOGLOBIN A1C Lab Routine Elevated hemoglobin A1c Expected: 05/15/2025, Expires: 08/14/2025 [facility] Work Phone: Comment on above: Expected: 05/15/2025, Expires: Start: 05-15-2025 End: 08-14-2025 LIPID PANEL, NONFASTING LIPID PANEL, NONFASTING Lab Routine Essential hypertension Mixed hyperlipidemia Expected: 05/15/2025, Expires: 08/14/2025 [facility] Comment on above: Expected: 05/15/2025, Expires: Start: 04-14-2025 Annual PCP Team Chronic Disease Visit Annual PCP Team Chronic Disease Visit [facility] Start: 04-14-2025 BP Controlled (<130/80) BP Controlled (<130/80) [facility] Start: 04-14-2025 Depression Screening Depression Screening [facility] Start: 03-27-2025 Annual PCP Team Chronic Disease Visit Annual PCP Team Chronic Disease Visit [facility] Start: 01-08-2025 End: 01-08-2025 Patient encounter procedure 01/08/2025 3:30 PM EDT Office Visit [facility] [place] [address] [place] [id number] Charity Escamilla, RECORDS OFFICER.AUTO POLISHER [address] [place], [place] [id number] 6 month follow up, IBS with constipation, congential sucrose isomaltose malabsorption [facility] [place] Comment on above: 6 month follow up, IBS with constipation , congential sucrose isomaltose malabsorption Start: 01-08-2025 BP Controlled (<130/80) BP Controlled (<130/80) [facility] in Start: 12-30-2024 DIABETES SCREEN DIABETES SCREEN [facility] Start: 12-05-2024 End: 12-05-2024 Patient encounter procedure 12/05/2024 3:30 PM EDT Office Visit [facility] [place] [address] [place] [phone] Charity Escamilla, RECORDS OFFICER.[employer] [address] [place] [address] 6 month follow up, IBS with constipation, congential sucrose isomaltose malabsorption [facility] [place] Comment on above: 6 month follow up, IBS with constipation , congential sucrose isomaltose malabsorption Start: 12-03-2024 End: 12-03-2024 ambulatory 12/03/2024 7:30 AM EDT OT/PT/Speech Visit [facility] Physical Therapy [address] [place] [address] Jori Cardona PT Acute pain of left shoulder [M25.512] [facility] Physical Therapy Comment on above: Acute pain of left shoulder [M25.512] Start: 11-29-2024 End: 11-29-2024 Patient encounter procedure 11/29/2024 10:00 AM EDT Office Visit Family Medicine [place] [address] [facility] [place] [address] Silvio Moyer MD [address] [place], [place] [address] Physical [facility] [place] Comment on above: Physical Start: 11-19-2024 End: 11-19-2024 Patient encounter procedure 11/19/2024 3:40 PM EDT Office Visit [facility] [place] [address] [facility] [place] [address] Silvio Moyer MD [address] [place] [address] MRI results review [facility] Comment on above: MRI results review Start: 11-17-2024 End: 11-17-2024 Patient encounter procedure 11/17/2024 2:00 PM EDT Appointment Radiology [address] [place] [address] Dx: Left arm pain [M79.602]; Neck pain [M54.2]; Herniation of intervertebral disc at C6-C7 level [M50.223]; Foraminal stenosis of cervical region [M48.02]; Spinal stenosis of cervical region [M48.02]; Weakness of left upper extremity [R29.898] Radiology Comment on above: Dx: Left arm pain [M79.602]; Neck pain [ M54.2]; Herniation of intervertebral disc at C6-C7 level [M50.223]; Foraminal stenosis of cervical region [M48.02]; Spinal stenosis of cervical region [M48.02]; Weakness of left upper extremity [R29.898] Start: 11-04-2024 End: 02-03-2025 CBC W Auto Differential panel - Blood COMPLETE BLOOD COUNT AND DIFFERENTIAL Lab Routine JC (generalized anxiety disorder) Medication management Expected: 11/04/2024, Expires: 02/03/2025 [facility] Comment on above: Expected: 11/04/2024, Expires: Start: 11-04-2024 End: 02-03-2025 Comprehensive metabolic 2000 panel - Serum or Plasma COMPREHENSIVE METABOLIC PANEL Lab Routine Essential hypertension Mixed hyperlipidemia Expected: 11/04/2024, Expires: 02/03/2025 [facility] Comment on above: Expected: 11/04/2024, Expires: Start: 11-04-2024 End: 02-03-2025 Hemoglobin A1c in Blood HEMOGLOBIN A1C Lab Routine Elevated hemoglobin A1c Expected: 11/04/2024, Expires: 02/03/2025 [facility] Work Phone: Comment on above: Expected: 11/04/2024, Expires: Start: 11-04-2024 End: 02-03-2025 LIPID PANEL, NONFASTING LIPID PANEL, NONFASTING Lab Routine Essential hypertension Mixed hyperlipidemia Expected: 11/04/2024, Expires: 02/03/2025 [facility] Comment on above: Expected: 11/04/2024, Expires: Start: 11-04-2024 End: 02-03-2025 Prostate specific Ag [Mass/volume] in Serum or Plasma PROSTATE-SPECIFIC ANTIGEN DIAGNOSTIC Lab Routine Screening for prostate cancer Expected: 11/04/2024, Expires: 02/03/2025 [facility] Comment on above: Expected: 11/04/2024, Expires: Start: 11-04-2024 End: 02-03-2025 Thyrotropin [Units/volume] in Serum or Plasma THYROID STIMULATING HORMONE Lab Routine JC (generalized anxiety disorder) Medication management Expected: 11/04/2024, Expires: 02/03/2025 [facility] Comment on above: Expected: 11/04/2024, Expires: Start: 11-04-2024 End: 02-03-2025 Urinalysis complete panel - Urine URINALYSIS, WITH MICROSCOPIC Lab Routine Essential hypertension Mixed hyperlipidemia Expected: 11/04/2024, Expires: 02/03/2025 [facility] Comment on above: Expected: 11/04/2024, Expires: Start: 11-04-2024 End: 11-04-2024 Patient encounter procedure 11/04/2024 1:00 PM EST Office Visit Family Medicine [place] [address] [place] [address] Silvio Moyer MD [address] [place] [address] physical Family Medicine [place] Comment on above: physical Start: 10-13-2024 Annual PCP Team Chronic Disease Visit Annual PCP Team Chronic Disease Visit [facility] Start: 10-13-2024 BP Controlled (<130/80) BP Controlled (<130/80) [facility] inic Start: 10-13-2024 Covid-19 Vaccine () Covid-19 Vaccine () [facility] Comment on above: Postponed from 05/04/2023 (Declined at t his time) Start: 10-13-2024 RSV Vaccine (1 - 1-dose 60+ series) RSV Vaccine (1 - 1-dose 60+ series) [facility] Comment on above: Postponed from 2023 (Insurance Cov erage) Start: 10-13-2024 Shingrix Vaccine (1 of 2) Shingrix Vaccine (1 of 2) [facility] Comment on above: Postponed from 2013 (Insurance Cov erage) Start: 10-09-2024 End: 10-09-2024 Patient encounter procedure 10/09/2024 9:00 AM EST Office Visit Family [facility] [place] [address] [place] [address] Juliet Millan PA-C [address] [place] [address] Shoulder Pain around Pec Minor Muscle; see Telephone encounter from 10/03/2024 Family [facility] Comment on above: Shoulder Pain around Pec Minor Muscle; s ee Telephone encounter from 10/03/2024 Start: 09-02-2024 Behavioral Health Screening Behavioral Health Screening [facility] Comment on above: Postponed from 09/03/2023 (Declined at t his time) Start: 09-02-2024 Depression Assessment Depression Assessment [facility] Comment on above: Postponed from 09/03/2023 (Declined at t his time) Start: 07-14-2024 End: 07-14-2024 Patient encounter procedure 07/14/2024 2:40 PM EST Office Visit Family [facility] [address] [place] [address] Silvio Moyer MD [address] [place], [place] [phone] Possible shingles right side back. See phone note. Family [facility] [place] Comment on above: Possible shingles right side back. See p vika note. Start: 06-06-2024 End: 06-06-2024 Patient encounter procedure 06/06/2024 3:30 PM EDT Office Visit [facility] [place] [address] [place] [phone] Keiry Fontana PA-C [address] [place] [address] follow up office visit , irritable bowel syndrome with constipation,small intestinal bacterial overgrowth [facility] [place] Comment on above: follow up office visit , irritable bowel syndrome with constipation,small intestinal bacterial overgrowth Start: 05-04-2024 Covid-19 Vaccine ( season) Covid-19 Vaccine () [facility] Start: 05-04-2024 Covid-19 Vaccine ( season) Covid-19 Vaccine () [facility] Start: 04-21-2024 ANNUAL PCP TEAM CHRONIC DISEASE VISIT ANNUAL PCP TEAM CHRONIC DISEASE VISIT [facility] Start: 04-14-2024 End: 04-14-2024 Patient encounter procedure 04/14/2024 3:20 PM EDT Office Visit [facility] [address] [place] [address] Tracie Newman APRN.[facility] [address] [place], [place] [id number] 6 month f/u Family [facility] [place] Comment on above: 6 month f/u Start: 04-01-2024 End: 04-01-2024 ambulatory 04/01/2024 11:00 AM EDT [facility] [address] [address] Aditi Ewing, ED [address] [place] [address] Small intestinal bacterial overgrowth [K63.8219] Functional Medicine Comment on above: Small intestinal bacterial overgrowth [K 63.8219] Start: 03-26-2024 End: 03-26-2024 ambulatory 03/26/2024 7:15 AM EDT [facility] Functional Medicine [address] [place] [address] Pema Manrique MD [address] [place] [address] Small intestinal bacterial overgrowth [K63.8219] [facility] Comment on above: Small intestinal bacterial overgrowth [K 63.8219] Start: 01-13-2024 End: 04-13-2024 Hepatic function 2000 panel - Serum or Plasma HEPATIC FUNCTION PNL Lab Routine Mixed hyperlipidemia Expected: 01/13/2024, Expires: 04/13/2024 [facility] Work Phone: Comment on above: Expected: 01/13/2024, Expires: 4 Start: 01-13-2024 End: 04-13-2024 LIPID PANEL, NONFASTING LIPID PANEL, NONFASTING Lab Routine Mixed hyperlipidemia Expected: 01/13/2024, Expires: 04/13/2024 [facility] Work Phone: Comment on above: Expected: 01/13/2024, Expires: 4 Start: 01-09-2024 End: 01-09-2024 Patient encounter procedure 01/09/2024 2:40 PM EDT Office Visit [facility] [place] [address] [facility] [place] [address] Keiry Fontana PA-C [address] [facility] [place], [place] [phone] 3 month follow up, Right side abdominal pain, alertnating constipation and diarrhea [facility] Comment on above: 3 month follow up, Right side abdominal pain, alertnating constipation and diarrhea Start: 12-18-2023 DIABETES SCREEN DIABETES SCREEN [facility] Start: 10-27-2023 ANNUAL PCP TEAM CHRONIC DISEASE VISIT ANNUAL PCP TEAM CHRONIC DISEASE VISIT [facility] Start: 10-27-2023 BP CONTROLLED (<130/80) BP CONTROLLED (<130/80) [facility] Start: 10-25-2023 BP CONTROLLED (<130/80) BP CONTROLLED (<130/80) [facility] Start: 08-17-2023 BP CONTROLLED (<130/80) BP CONTROLLED (<130/80) [facility] Start: 08-10-2023 ANNUAL PCP TEAM CHRONIC DISEASE VISIT ANNUAL PCP TEAM CHRONIC DISEASE VISIT [facility] Start: 08-10-2023 SHINGRIX VACCINE (1 of 2) SHINGRIX VACCINE (1 of 2) [facility] Comment on above: Postponed from 2013 (Insurance Cov erage) Start: 08-04-2023 ANNUAL PCP TEAM CHRONIC DISEASE VISIT ANNUAL PCP TEAM CHRONIC DISEASE VISIT [facility] Start: 07-04-2023 BP CONTROLLED (<130/80) BP CONTROLLED (<130/80) [facility] Start: 07-04-2023 End: 07-18-2023 COVID & INFLUENZA A/B & RSV NAAT, ROUTINE [facility] Work Phone: Comment on above: Expected: 07/04/2023, Expires: 3 Start: 05-25-2023 ANNUAL PCP TEAM CHRONIC DISEASE VISIT ANNUAL PCP TEAM CHRONIC DISEASE VISIT [facility] Start: 05-04-2023 Covid-19 Vaccine ( season) Covid-19 Vaccine ( season) [facility] Start: 04-30-2023 End: 06-30-2023 Urinalysis complete panel - Urine [facility] Work Phone: Comment on above: Expected: 04/30/2023, Expires: 3 Start: 04-21-2023 End: 06-21-2023 Amylase [Enzymatic activity/volume] in Serum or Plasma [facility] Work Phone: Comment on above: Expected: 04/21/2023, Expires: 3 Start: 04-21-2023 End: 06-21-2023 Hepatic function 2000 panel - Serum or Plasma [facility] Work Phone: Comment on above: Expected: 04/21/2023, Expires: 3 Start: 04-21-2023 End: 06-21-2023 Lipase [Enzymatic activity/volume] in Serum or Plasma [facility] Work Phone: Comment on above: Expected: 04/21/2023, Expires: 3 Start: 2023 RSV Vaccine (1 - 1-dose 60+ series) RSV Vaccine (1 - 1-dose 60+ series) [facility] Start: 01-26-2023 End: 03-28-2023 Hemoglobin A1c in Blood HGB A1C Lab Routine Elevated hemoglobin A1c Expected: 01/26/2023, Expires: 03/28/2023 [facility] Work Phone: Comment on above: Expected: 01/26/2023, Expires: 3 Start: 01-26-2023 End: 03-28-2023 LIPID PANEL, NONFASTING LIPID PANEL, NONFASTING Lab Routine Essential hypertension Mixed hyperlipidemia Expected: 01/26/2023, Expires: 03/28/2023 [facility] Work Phone: Comment on above: Expected: 01/26/2023, Expires: 3 Start: 01-04-2023 ANNUAL PCP TEAM CHRONIC DISEASE VISIT ANNUAL PCP TEAM CHRONIC DISEASE VISIT [facility] Start: 01-04-2023 BP CONTROLLED (<130/80) BP CONTROLLED (<130/80) [facility] Start: 10-27-2022 End: 12-27-2022 Erythrocyte sedimentation rate [facility] Work Phone: Comment on above: Expected: 10/27/2022, Expires: 3 Start: 10-25-2022 End: 12-25-2022 Comprehensive metabolic 2000 panel - Serum or Plasma [facility] Work Phone: Comment on above: Expected: 10/25/2022, Expires: 3 Start: 10-24-2022 ANNUAL PCP TEAM CHRONIC DISEASE VISIT ANNUAL PCP TEAM CHRONIC DISEASE VISIT [facility] Start: 09-03-2022 DEPRESSION ASSESSMENT DEPRESSION ASSESSMENT [facility] Start: 06-23-2022 End: 08-23-2022 CBC W Auto Differential panel - Blood CBC + DIFF Lab Routine JC (generalized anxiety disorder) Medication management Expected: 06/23/2022, Expires: 08/23/2022 [facility] Work Phone: Comment on above: Expected: 06/23/2022, Expires: 2 Start: 06-23-2022 End: 08-23-2022 Comprehensive metabolic 2000 panel - Serum or Plasma COMP METABOLIC PANEL Lab Routine Essential hypertension Mixed hyperlipidemia Expected: 06/23/2022, Expires: 08/23/2022 [facility] Work Phone: Comment on above: Expected: 06/23/2022, Expires: 2 Start: 06-23-2022 End: 08-23-2022 Hemoglobin A1c/Hemoglobin.total in Blood HGB A1C Lab Routine Elevated hemoglobin A1c Expected: 06/23/2022, Expires: 08/23/2022 [facility] Work Phone: Comment on above: Expected: 06/23/2022, Expires: 2 Start: 06-23-2022 End: 08-23-2022 LIPID PANEL, NONFASTING LIPID PANEL, NONFASTING Lab Routine Essential hypertension Mixed hyperlipidemia GERD without esophagitis Medication management Expected: 06/23/2022, Expires: 08/23/2022 [facility] Work Phone: Comment on above: Expected: 06/23/2022, Expires: 2 Start: 06-23-2022 End: 08-23-2022 Magnesium [Mass/volume] in Serum or Plasma MAGNESIUM BLD Lab Routine JC (generalized anxiety disorder) Medication management Expected: 06/23/2022, Expires: 08/23/2022 [facility] Work Phone: Comment on above: Expected: 06/23/2022, Expires: 2 Start: 06-23-2022 End: 08-23-2022 Prostate specific Ag [Mass/volume] in Serum or Plasma PSA/PROSTSPECAG DIAG Lab Routine Screening for prostate cancer Expected: 06/23/2022, Expires: 08/23/2022 [facility] Work Phone: Comment on above: Expected: 06/23/2022, Expires: 2 Start: 06-23-2022 End: 08-23-2022 Urinalysis complete panel - Urine URINALYSIS, WITH MICROSCOPIC Lab Routine Essential hypertension Mixed hyperlipidemia Expected: 06/23/2022, Expires: 08/23/2022 [facility] Work Phone: Comment on above: Expected: 06/23/2022, Expires: 2 Start: 06-23-2022 End: 08-23-2022 VITAMIN B12 BLOOD VITAMIN B12 BLOOD Lab Routine GERD without esophagitis Medication management Expected: 06/23/2022, Expires: 08/23/2022 [facility] Work Phone: Comment on above: Expected: 06/23/2022, Expires: 2 Start: 05-18-2022 Patient referral [facility] Work Phone: Start: 12-22-2021 BP CONTROLLED (<130/80) BP CONTROLLED (<130/80) [facility] in Start: 12-22-2021 SHINGRIX VACCINE (1 of 2) SHINGRIX VACCINE (1 of 2) [facility] Comment on above: Postponed from 2013 (Insurance Cov erage) Start: 12-22-2021 Urine microalbumin profile DTAP,TDAP,TD (1 - Tdap) [facility] Comment on above: Postponed from 1982 (Declined at t his time) Start: 09-03-2021 DEPRESSION ASSESSMENT DEPRESSION ASSESSMENT [facility] Start: 08-19-2021 Colonoscopy COLONOSCOPY [facility] Start: 08-19-2021 COLORECTAL CANCER SCREENING COLORECTAL CANCER SCREENING [facility] Start: 05-10-2021 COVID-19 VACCINE (3 - Booster for Pfizer series) COVID-19 VACCINE (3 - Booster for Pfizer series) [facility] Start: 02-02-2021 COVID-19 VACCINE (3 - Booster for Pfizer series) COVID-19 VACCINE (3 - Booster for Pfizer series) [facility] Start: 2013 SHINGRIX VACCINE (1 of 2) SHINGRIX VACCINE (1 of 2) [facility] Start: 2008 COLOGUARD (FIT-DNA) COLOGUARD (FIT-DNA) [facility] Start: [address] COLONOGRAPHY [facility] Start: 2008 FECAL OCCULT BLOOD FECAL OCCULT BLOOD [facility] Start: 2008 Screening for malignant neoplasm of colon [facility] Start: 2008 SIGMOIDOSCOPY SIGMOIDOSCOPY [facility] Start: 1981 Depression Screening Depression Screening [facility] Start: 1963 HEPATITIS B (1 of 3 - 3-dose series) HEPATITIS B (1 of 3 - 3-dose series) [facility] Breath hydrogen/meth ane test BREATH TEST - LACTULOSE Procedures Routine Irritable bowel syndrome with both constipation and diarrhea Right sided abdominal pain 10/22/2023 4:13 PM EST [facility] Work Phone: End: 11-26-2023 Ct abdomen & pelvis w/contrast material CT ABD/PEL W IVCON Radiology [place] Right lower quadrant abdominal pain 1 Occurrences starting 10/27/2022 until 11/26/2023 [facility] Work Phone: Comment on above: 1 Occurrences starting 10/27/2022 until 11/26/2023 End: 05-29-2024 Hepatobil syst imag inc gb w/pharma intervenj NM HEPATOBILIARY W EF AND/OR RX Radiology Routine RUQ pain 1 Occurrences starting 04/30/2023 until 05/29/2024 [facility] Work Phone: Comment on above: 1 Occurrences starting 04/30/2023 until 05/29/2024 Measurement of segmental blood pressure of artery of limb using doppler ultrasonography [facility] Work Phone: End: 12-04-2025 MR Cervical spine WO contrast MRI CERVICAL SPINE WO IVCON Radiology Routine Left arm pain Neck pain Herniation of intervertebral disc at C6-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 Spinal stenosis of cervical region Weakness of left upper extremity 1 Occurrences starting 11/04/2024 until 12/04/2025 [facility] Comment on above: 1 Occurrences starting 11/04/2024 until 12/04/2025 Patient referral [facility] Work Phone: End: 06-13-2023 PVR ARM [facility] Vascular Lab Routine Thoracic outlet syndrome 1 Occurrences starting 06/13/2022 until 06/13/2023 [facility] Work Phone: Comment on above: 1 Occurrences starting 06/13/2022 until 06/13/2023 End: 06-14-2023 PVR THORACIC OUTLET [facility] PVR THORACIC OUTLET [facility] Vascular Lab Routine Thoracic outlet syndrome 1 Occurrences starting 06/14/2022 until 06/14/2023 [facility] Work Phone: Comment on above: 1 Occurrences starting 06/14/2022 until 06/14/2023 Removal impacted cerumen irrigation/lvg unilat AMBULATORY EAR LAVAGE/IRRIGATION Procedures Routine Excessive cerumen in ear canal, left Ordered: 03/12/2025 [facility] Work Phone: Comment on above: Ordered: 03/12/2025 SARS-CoV-2 (COVID-19 ) RNA [Presence] in Respiratory specimen by ALIYA with probe detection COVID NAAT, UPPER RESPIRATORY, ROUTINE Microbiology Routine URI, acute 07/04/2023 11:33 AM EDT [facility] Work Phone: [facility] R Lab Routine Preop testing 08/15/2022 10:44 AM EST [facility] Work Phone: End: 05-20-2024 US ABD RIGHT UPPER QUADRANT US ABD RIGHT UPPER QUADRANT Radiology Routine RUQ pain 1 Occurrences starting 04/21/2023 until 05/20/2024 [facility] Work Phone: Comment on above: 1 Occurrences starting 04/21/2023 until 05/20/2024 End: 08-09-2024 XR ABDOMEN 2V ROUTINE SUPINE W UPRIGHT/DECUB/CTL XR ABDOMEN 2V ROUTINE SUPINE W UPRIGHT/DECUB/CTL Radiology Routine Right sided abdominal pain Alternating constipation and diarrhea 1 Occurrences starting 07/11/2023 until 08/09/2024 [facility] Work Phone: Comment on above: 1 Occurrences starting 07/11/2023 until 08/09/2024 XR ABDOMEN 2V ROUTIN E SUPINE W UPRIGHT/DECUB/CTL XR ABDOMEN 2V ROUTINE SUPINE W UPRIGHT/DECUB/CTL Radiology Routine Right sided abdominal pain Alternating constipation and diarrhea 07/11/2023 1:38 PM EST [facility] Work Phone: End: 12-04-2025 XR Cervical spine AP and Lateral and oblique XR CERV OTHER 4V AP/LAT/OBL Radiology Routine Left arm pain Neck pain Herniation of intervertebral disc at C6-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 1 Occurrences starting 11/04/2024 until 12/04/2025 [facility] Comment on above: 1 Occurrences starting 11/04/2024 until 12/04/2025 XR Cervical spine AP and Lateral and oblique XR CERV OTHER 4V AP/LAT/OBL Radiology Routine Left arm pain Neck pain Herniation of intervertebral disc at C6-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 11/04/2024 2:11 PM EST [facility] End: 12-19-2025 XR Shoulder - left 3 Views XR SHOULDER GENERAL 3V OR MORE AP/TRUE AP/OTHER LEFT Radiology Routine Acute pain of left shoulder 1 Occurrences starting 11/19/2024 until 12/19/2025 [facility] Work Phone: Comment on above: 1 Occurrences starting 11/19/2024 until 12/19/2025 XR Shoulder - left 3 Views XR SHOULDER GENERAL 3V OR MORE AP/TRUE AP/OTHER LEFT Radiology Routine Acute pain of left shoulder 11/19/2024 5:15 PM EDT [facility] Immunizations Immunization Date Immunization Notes Care Provider Fa duarte 08-04-2022 COVID-19 booster vaccine, age 12+ yr, bivalent (PFIZER-BIONTECH) Silvio Moyer MD Work Phone: [facility] 01-04-2022 tetanus toxoid, redu dagmar diphtheria toxoid, and acellular pertussis vaccine, adsorbed Silvio Moyer MD Work Phone: [facility] 12-08-2020 COVID-19 vaccine, ag e 12+ yr (PFIZER-BIONTECH - PURPLE TOP) Silvio Moyer MD Work Phone: [facility] 12-07-2020 Covid (Pfizer) Dr. Silvio schmidt Work Phone: [facility] 11-17-2020 COVID-19 vaccine, ag e 12+ yr (PFIZER-BIONTECH - PURPLE TOP) Silvio Moyer MD Work Phone: [facility] 11-16-2020 Covid (Pfizer) Dr. Silvio schmidt Work Phone: [facility] Payers Date Payer Category Payer [employer] P[employer] [id number] 2025 Unknown [id number] 2024 Self-pay [id number] 2020 Private Health Insurance [employer] PPO [id number] 2020 Unknown MMO MMO [employer] [id number] 2020-Present [phone] [address] [place] [address] PPO [id number] 2020 Unknown [id number] 2020 Unknown [id number] Unknown JOAN [id number] Unknown [id number] Unknown [id number] Unknown [id number] Unknown [id number] Social History Date Type Detail Facility Start: 07-28-2011 End: 06-06-2024 Tobacco smoking status NHIS Ex-smoker [facility] Start: 1987 End: 2007 History of tobacco use Current smoker [facility] Start: 1987 End: 2007 History of tobacco use Cigarette Smoker [facility] History of tobacco use Snuff User [facility] Start: 11-09-2021 End: 03-12-2025 Alcohol intake Current drinker of alcohol (finding) [facility] Start: 11-09-2021 End: 07-11-2023 History SDOH Alcohol Comment 1-2 daily [facility] Start: 07-28-2011 End: 05-25-2022 Tobacco Comment some [facility] Start: 1965 Sex Assigned At Not on file [facility] Start: 11-01-2021 End: 08-04-2022 Exposure to SARS-CoV-2 (event) Not sure [facility] Start: 01-03-2022 History SDOH Alcohol Frequency 4 [facility] Start: 01-03-2022 End: 07-28-2022 History SDOH Alcohol Std Drinks 2 [facility] Start: 01-03-2022 End: 07-28-2022 History SDOH Social Connections Phone 5 [facility] Start: 01-03-2022 End: 07-28-2022 History SDOH Social Connections Bahai 3 [facility] Start: 01-03-2022 End: 07-28-2022 History SDOH Social Connections Membership 1 [facility] Start: 07-28-2011 End: 09-18-2022 Cigarettes smoked current (pack per day) - Reported 1 [facility] Start: 07-28-2011 End: 06-06-2024 Tobacco use and exposure [facility]okeless tobacco [facility] Center Work Phone: Start: 05-18-2022 End: 06-07-2022 Tobacco smoking status NHIS Unknown if ever smoked [facility] Start: 07-19-2017 Heavy [facility] Start: 07-19-2017 None [facility] Start: 03-20-2017 Spouse/ Significant Other [facility] Start: 1965 Sex Assigned At Male [facility] Start: 07-28-2022 History SDOH Physical Activity DPW 0 [facility] Start: 08-15-2022 Alcohol Comment 3-4 daily [facility] Start: 07-28-2022 End: 09-18-2022 Social connection and isolation panel [facility] Do you belong to any clubs or organizations such as faith groups, unions, fraternal or athletic groups, or school groups? Yes [facility] Are you now , , , , never or living with a partner? [facility] How often to you hav e a drink containing alcohol? 4 or more times a week [facility] How many standard dr inks containing alcohol do you have on a typical day? 5 or 6 [facility] How often do you hav e 6 or more drinks on 1 occasion? Daily or almost daily [facility] How hard is it for y ou to pay for the very basics like food, housing, medical care, and heating Not hard at all [facility] Do you feel stress - tense, restless, nervous, or anxious, or unable to sleep at night because your mind is troubled all the time - these days [OSQ] Only a little [facility] (I/We) worried acosta er (my/our) food would run out before (I/we) got money to buy more. Never true [facility] In the past 12 month s, was there a time when you were not able to pay the mortgage or rent on time? No [facility] History of tobacco use Chews Tobacco [facility] Start: 07-11-2023 Tobacco Comment Tobacco pouches [facility] Functional Status Date Assessment Result Facility 11-30-2013 Are you deaf, or do you have serious difficulty hearing No 11/30/2013 12:45 PM EDT Pema Pearl MA No [facility] 11-30-2013 Are you blind, or do you have serious difficulty seeing, even when wearing glasses No 11/30/2013 12:45 PM EDT Pema Pearl MA No [facility] 11-30-2013 Do you have serious difficulty walking or climbing stairs No 11/30/2013 12:45 PM EDT Pema Pearl MA No [facility] 11-30-2013 Do you have difficul ty dressing or bathing No 11/30/2013 12:45 PM EDT Pema Pearl MA No [facility] 11-30-2013 Because of a physica l, mental, or emotional condition, do you have difficulty doing errands alone such as visiting a physician's office or shopping No 11/30/2013 12:45 PM EDT Pema Pearl MA No [facility] Mental Status Date Assessment Result Facility 11-30-2013 Because of a physica l, mental, or emotional condition, do you have serious difficulty concentrating, remembering, or making decisions No 11/30/2013 12:45 PM EDT Pema Pearl MA No [facility] Clinical Notes 12-05-2021 to 03-12-2025 Beena Esparza MA - 03/12/2025 8:36 AM Jewel Hooks PA - 03/12/2025 8:17 AM Silvio Siegel MD - 02/12/2025 7:47 PM EDTLynn Malloy MA - 02/12/2025 4:48 PM EDT Note Date & Type Note Facility 03-12-2025 Note HNO ID: [id number] Author: BEENA ESPARZA MA Service: ? Author Type: Millinery Worker Type: Progress Notes Filed: 03/12/2025 08:37 Note Text: Ambulatory Ear Lavage Pre-treatment: Warm water Hydrogen Peroxide 3% Treatment: Left ear Equipment and Irrigation solution and Volume used: Single use syringe with single use irrigation tip Water Return flow appearance: Cloudy Patient tolerated procedure: yes Tympanic membrane assessment: Tympanic membrane assessed by LIP pre and post procedure Jewel Velez PA-C [facility] 03-12-2025 History of Presen t illness Narrative Ambulatory Ear Lavage Pre-treatment: Warm water Hydrogen Peroxide 3% Treatment: Left ear Equipment and Irrigation solution and Volume used: Single use syringe with single use irrigation tip Water Return flow appearance: Cloudy Patient tolerated procedure: yes Tympanic membrane assessment: Tympanic membrane assessed by LIP pre and post procedure Jewel Velez PA-C [facility] Subjective Jhonathan Byrnes is a 59 year old male. Patient presents with: Ear Problem: L ear feels full, muffled hearing x6 days HPI Left Ear Discomfort: - Onset 6-8 days ago. - Describes sensation as clogged and irritating, but not painful. - Tried an OTC ear flushing kit with no relief. - Denies recent illness, cough, or congestion. - No known history of seasonal allergies. - Right ear is asymptomatic. PAST MEDICAL HISTORY Diagnosis Date Alcohol abuse 05/02/2018 Benign prostatic hyperplasia with urinary frequency 10/13/2023 Elevated hemoglobin A1c 07/11/2021 Essential hypertension 05/01/2018 Ex-smoker 05/01/2018 Started in his early 20's and quite around the age of 38. 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 Not aware or medication. GERD without esophagitis 05/02/2018 Herniation of intervertebral disc at C6-C7 level 05/03/2018 MRI 02/2018 History of anxiety 06/06/2007 History of colonic polyps 08/10/2022 Mixed hyperlipidemia 05/01/2018 Pectoralis minor syndrome Uncomplicated alcohol dependence (HCC) 05/02/2018 PAST SURGICAL HISTORY Procedure Laterality Date COLONOSCOPY FLX DX W/COLLJ SPEC WHEN PFRMD 08/19/2018 repeat 3 years COLONOSCOPY SCREENING 08/21/2022 two small adenomatous polyps-repeat in 5 years EGD W/O BRSH SPEC VARICIES INJ 11/09/2021 HEART CATHETERIZATION 2017 WNL PAST SURGICAL HISTORY OF Left 2022 pec inor surgery SHOULDER SURGERY HX 2021 [facility] release ALLERGIES Patient has no known allergies. MEDICATIONS amitriptyline (ELAVIL) 10 mg tablet TAKE 1 TABLET BY MOUTH DAILY AT BEDTIME MAGNESIUM ORAL Take by mouth as directed. gabapentin (NEURONTIN) 300 mg capsule Take 1 capsule by mouth three times a day as needed for up to 20 days. celecoxib (CELEBREX) 200 mg capsule Take 1 capsule by mouth once daily. lisinopril-hydroCHLOROthiazide (ZESTORETIC) 20-12.5 mg per tablet Take 1 tablet by mouth once daily. atorvastatin (LIPITOR) 10 mg tablet Take 1 tablet by mouth once daily. Sacrosidase (SUCRAID) 8,500 unit/mL soln Take 2 mL with food and snacks daily polyethylene glycol 3350 (MIRALAX) 17 gram/dose powder Take by mouth once daily. Dissolve dose in 4 - 8 ounces of liquid and take as directed. hydrOXYzine HCl (ATARAX) 25 mg tablet Take 0.5-1 tab every 8 hrs as needed for panic attacks. cyanocobalamin (B-12 DOTS) 500 mcg tablet Take 1 tablet by mouth once daily. tamsulosin (FLOMAX) 0.4 mg Take 0.4 mg by mouth twice daily. Per Dr. Barbosa FAMILY HISTORY Problem Relation Age of Onset Coronary Artery Disease Mother has stents Cancer Brother Lung: dx and initial surgery 2006. nonsmoker. other (dementia) Paternal Aunt Colon Cancer No Family History Social History Tobacco Use Smoking status: Former Current packs/day: 0.00 Average packs/day: 1 pack/day for 20.0 years (20.0 ttl pk-yrs) Types: Cigarettes Start date: 1987 Quit date: 2007 Years since quittin.9 Smokeless tobacco: Current Types: Chew Tobacco comments: Tobacco pouches Vaping Use Vaping status: Never Used Substance Use Topics Alcohol use: Yes Comment: 1-2 daily Drug use: Never Review of Systems Ears/Nose/Mouth/Throat: (+) left ear fullness, (-) ear pain, (-) nasal congestion Respiratory: (-) cough Objective BP 123/79 Pulse 87 Temp 36.1 C (96.9 F) Resp 18 Wt 78.8 kg (173 lb 11.6 oz) SpO2 98% BMI 25.01 kg/m Physical Exam Vitals and nursing note reviewed. Constitutional: General: He is not in acute distress. Appearance: Normal appearance. He is not toxic-appearing. HENT: Right Ear: Tympanic membrane and ear canal normal. Left Ear: Ear canal normal. Tympanic membrane is not erythematous. Ears: Comments: Cerumen noted in left ear canal. TM partially visualized appears normal. Ear lavage completed by MICHELLE. Post procedure reveals no bleeding, no perforation, no drainage. Mouth/Throat: Mouth: Mucous membranes are moist. Cardiovascular: Rate and Rhythm: Normal rate and regular rhythm. Pulmonary: Effort: Pulmonary effort is normal. Breath sounds: Normal breath sounds. Skin: General: Skin is warm and dry. Neurological: Mental Status: He is alert. { 1. Excessive cerumen in ear canal, left (H61.22) 2. Dysfunction of left eustachian tube (H69.92) - Cerumen impaction noted in the left ear canal with fluid observed behind the tympanic membrane, contributing to a sensation of fullness. - Performed cerumenolysis via ear irrigation to remove the wax. - Prescribed Flonase nasal spray, 1 spray in each nostril daily for 2 weeks to facilitate eustachian tube drainage and alleviate fluid accumulation. - Advised against inserting objects into the ear canal; minor residual moisture expected post-irrigation. - Patient understands and agrees with the treatment plan. Recording using [employer] software for draft documentation of the visit was discussed with the patient/authorized phlebotomy services representative; all questions welcomed and answered. Patient/authorized phlebotomy services representative agreed to proceed History and Record Review External record(s) reviewed: prior outpatient record. Differential Diagnoses - Cerumen is more likely for the following reason(s): suggested by H&P - Otitis media is less likely for the following reason(s): H&P not suggestive - Otitis externa is less likely for the following reason(s): H&P not suggestive Procedures documented in this encounter [facility] 03-12-2025 Note HNO ID: [id number] Author: JEWEL VELEZ PA Service: ? Author Type: Physician Sales Department Clerk Type: Progress Notes Filed: 03/12/2025 08:32 Note Text: [facility] Subjective Jhonathan Byrnes is a 59 year old male. Patient presents with: Ear Problem: L ear feels full, muffled hearing x6 days HPI Left Ear Discomfort: - Onset 6-8 days ago. - Describes sensation as clogged and irritating, but not painful. - Tried an OTC ear flushing kit with no relief. - Denies recent illness, cough, or congestion. - No known history of seasonal allergies. - Right ear is asymptomatic. PAST MEDICAL HISTORY Diagnosis Date Alcohol abuse 05/02/2018 Benign prostatic hyperplasia with urinary frequency 10/13/2023 Elevated hemoglobin A1c 07/11/2021 Essential hypertension 05/01/2018 Ex-smoker 05/01/2018 Started in his early 20's and quite around the age of 38. 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 Not aware or medication. GERD without esophagitis 05/02/2018 Herniation of intervertebral disc at C6-C7 level 05/03/2018 MRI 02/2018 History of anxiety 06/06/2007 History of colonic polyps 08/10/2022 Mixed hyperlipidemia 05/01/2018 Pectoralis minor syndrome Uncomplicated alcohol dependence (HCC) 05/02/2018 PAST SURGICAL HISTORY Procedure Laterality Date COLONOSCOPY FLX DX W/COLLJ SPEC WHEN PFRMD 08/19/2018 repeat 3 years COLONOSCOPY SCREENING 08/21/2022 two small adenomatous polyps-repeat in 5 years EGD W/O [facility] SPEC VARICIES INJ 11/09/2021 HEART CATHETERIZATION 2017 WNL PAST SURGICAL HISTORY OF Left 2022 pec inor surgery SHOULDER SURGERY HX 2021 [facility] release ALLERGIES Patient has no known allergies. MEDICATIONS amitriptyline (ELAVIL) 10 mg tablet TAKE 1 TABLET BY MOUTH DAILY AT BEDTIME MAGNESIUM ORAL Take by mouth as directed. gabapentin (NEURONTIN) 300 mg capsule Take 1 capsule by mouth three times a day as needed for up to 20 days. celecoxib (CELEBREX) 200 mg capsule Take 1 capsule by mouth once daily. lisinopril-hydroCHLOROthiazide (ZESTORETIC) 20-12.5 mg per tablet Take 1 tablet by mouth once daily. atorvastatin (LIPITOR) 10 mg tablet Take 1 tablet by mouth once daily. Sacrosidase (SUCRAID) 8,500 unit/mL soln Take 2 mL with food and snacks daily polyethylene glycol 3350 (MIRALAX) 17 gram/dose powder Take by mouth once daily. Dissolve dose in 4 - 8 ounces of liquid and take as directed. hydrOXYzine HCl (ATARAX) 25 mg tablet Take 0.5-1 tab every 8 hrs as needed for panic attacks. cyanocobalamin (B-12 DOTS) 500 mcg tablet Take 1 tablet by mouth once daily. tamsulosin (FLOMAX) 0.4 mg Take 0.4 mg by mouth twice daily. Per Dr. Barbosa FAMILY HISTORY Problem Relation Age of Onset Coronary Artery Disease Mother has stents Cancer Brother Lung: dx and initial surgery 2006. nonsmoker. other (dementia) Paternal Aunt Colon Cancer No Family History Social History Tobacco Use Smoking status: Former Current packs/day: 0.00 Average packs/day: 1 pack/day for 20.0 years (20.0 ttl pk-yrs) Types: Cigarettes Start date: 1987 Quit date: 2007 Years since quittin.9 Smokeless tobacco: Current Types: Chew Tobacco comments: Tobacco pouches Vaping Use Vaping status: Never Used Substance Use Topics Alcohol use: Yes Comment: 1-2 daily Drug use: Never Review of Systems Ears/Nose/Mouth/Throat: (+) left ear fullness, (-) ear pain, (-) nasal congestion Respiratory: (-) cough Objective BP 123/79 Pulse 87 Temp 36.1 ?C (96.9 ?F) Resp 18 Wt 78.8 kg (173 lb 11.6 oz) SpO2 98% BMI 25.01 kg/m? Physical Exam Vitals and nursing note reviewed. Constitutional: General: He is not in acute distress. Appearance: Normal appearance. He is not toxic-appearing. HENT: Right Ear: Tympanic membrane and ear canal normal. Left Ear: Ear canal normal. Tympanic membrane is not erythematous. Ears: Comments: Cerumen noted in left ear canal. TM partially visualized appears normal. Ear lavage completed by MICHELLE. Post procedure reveals no bleeding, no perforation, no drainage. Mouth/Throat: Mouth: Mucous membranes are moist. Cardiovascular: Rate and Rhythm: Normal rate and regular rhythm. Pulmonary: Effort: Pulmonary effort is normal. Breath sounds: Normal breath sounds. Skin: General: Skin is warm and dry. Neurological: Mental Status: He is alert. { 1. Excessive cerumen in ear canal, left (H61.22) 2. Dysfunction of left eustachian tube (H69.92) - Cerumen impaction noted in the left ear canal with fluid observed behind the tympanic membrane, contributing to a sensation of fullness. - Performed cerumenolysis via ear irrigation to remove the wax. - Prescribed Flonase nasal spray, 1 spray in each nostril daily for 2 weeks to facilitate eustachian tube drainage and alleviate fluid acc (more content not included)... [facility] 02-13-2025 Note HNO ID: [id number] Author: LYNN MALLOY MA Service: ? Author Type: Millinery Worker Type: Progress Notes Filed: 02/13/2025 07:36 Note Text: Most recent PSA results faxed to Dr. Squires's office at [phone]. Lynn Malloy MA [facility] 02-12-2025 Note HNO ID: [id number] Author: SILVIO MOYER MD Service: ? Author Type: Physician Type: Progress Notes Filed: 02/12/2025 19:48 Note Text: Please fax a copy of patient's PSA from 11/20/[address] Merchant. [facility] 02-12-2025 History of Presen t illness Narrative Please fax a copy of patient's PSA from 11/20/[address] Merchant. Urology OV notes. Scan on 02/12/2025 2:13 PM by ProviderGisselle PA-C: Consultation - documented in this encounter [facility] 02-12-2025 Note HNO ID: [id number] Author: LYNN MALLOY MA Service: ? Author Type: Millinery Worker Type: Progress Notes Filed: 02/12/2025 16:50 Note Text: Urology OV notes. Scan on 02/12/2025 2:13 PM by Provider, ZECHARIAH PittsC: Consultation - [facility] 02-12-2025 Telephone encounter Note Received fax from Dr Squires's office requesting copy of pt's most recent PAS. Result has been faxed back as requested. Johnna Mobley LPN [facility] 02-12-2025 Miscellaneous Notes Received fax from Dr Squires's office requesting copy of pt's most recent PAS. Result has been faxed back as requested. Johnna Mobley LPN documented in this encounter [facility] 01-30-2025 Telephone encounter Note PA sent to insurance through cover my meds for sucraid Cortez Clark MA [facility] 01-30-2025 Miscellaneous Notes PA sent to insurance through cover my meds for sucraid Cortez Clark MA Anne from [employer] called and said she received the chart notes from our office and she uploaded in the my meds. She said to please review and submit to plan to finish out the process Kimberly Diaz documented in this encounter [facility] 01-30-2025 Telephone encounter Note Anne from [employer] called and said she received the chart notes from our office and she uploaded in the my meds. She said to please review and submit to plan to finish out the process Kimberly Diaz [facility] 01-29-2025 Telephone encounter Note Pharmacy states pt is due for PA for his Sucraid. Faxed chart notes and test results to [facility]. Cortez Clark MA [facility] 01-29-2025 Miscellaneous Notes Pharmacy states pt is due for PA for his Sucraid. Faxed chart notes and test results to [facility] [employer]. Cortez Clark MA documented in this encounter [facility] 12-22-2024 Telephone encounter Note Patient phones requesting refills as follows: Requested Prescriptions Pending Prescriptions Disp Refills amitriptyline (ELAVIL) 10 mg tablet [Pharmacy Med Name: amitriptyline 10 mg tablet] 30 tablet 4 Sig: TAKE 1 TABLET BY MOUTH DAILY AT BEDTIME Please review and advise. Cortez lCark MA [facility] 12-22-2024 Miscellaneous Notes Patient phones requesting refills as follows: Requested Prescriptions Pending Prescriptions Disp Refills amitriptyline (ELAVIL) 10 mg tablet [Pharmacy Med Name: amitriptyline 10 mg tablet] 30 tablet 4 Sig: TAKE 1 TABLET BY MOUTH DAILY AT BEDTIME Please review and advise. Cortez Clark MA documented in this encounter [facility] 11-29-2024 Instructions Silvio Moyer MD - 11/29/2024 10:54 AM EDT Please get labs and urine test done on or after 05/15/2025 prior to your next visit. documented in this encounter [facility] 11-29-2024 History of Presen t illness Narrative Chief Complaint Patient presents with: Yearly Exam HPI Jhonathan Byrnes is a 59 year old male who presents here today for chronic health issues and complete PE. . Patient will be starting PHYSICAL THERAPY soon for th neck and shoulder area and did see a chiropractor for a session and that did help. The steroid has helped twice now. Otherwise has been doing ok. Past medical history, appointments, medications, allergies reviewed. Previous Medical History PAST MEDICAL HISTORY Diagnosis Date Alcohol abuse 05/02/2018 Benign prostatic hyperplasia with urinary frequency 10/13/2023 Elevated hemoglobin A1c 07/11/2021 Essential hypertension 05/01/2018 Ex-smoker 05/01/2018 Started in his early 20's and quite around the age of 38. 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 Not aware or medication. GERD without esophagitis 05/02/2018 Herniation of intervertebral disc at C6-C7 level 05/03/2018 MRI 02/2018 History of anxiety 06/06/2007 History of colonic polyps 08/10/2022 Mixed hyperlipidemia 05/01/2018 Pectoralis minor syndrome Uncomplicated alcohol dependence (HCC) 05/02/2018 Previous Surgical History PAST SURGICAL HISTORY Procedure Laterality Date COLONOSCOPY FLX DX W/COLLJ SPEC WHEN PFRMD 08/19/2018 repeat 3 years COLONOSCOPY SCREENING 08/21/2022 two small adenomatous polyps-repeat in 5 years EGD W/O [facility] SPEC VARICIES INJ 11/09/2021 HEART CATHETERIZATION 2016 WNL SHOULDER SURGERY HX 2021 [facility] release Family History FAMILY HISTORY Problem Relation Age of Onset Coronary Artery Disease Mother has stents Cancer Brother Lung: dx and initial surgery 2006. nonsmoker. other (dementia) Paternal Aunt Colon Cancer No Family History Patient Allergies ALLERGIES No Known Allergies Current Medications Current Outpatient Medications on File Prior to Visit Medication Sig predniSONE (DELTASONE) 20 mg tablet Take 3 tabs by mouth for 3 days, then 2 tabs by mouth for 3 days, then 1 tab by mouth for 3 days and then 1/2 a tab by mouth for 4 days. lisinopril-hydroCHLOROthiazide (ZESTORETIC) 20-12.5 mg per tablet Take 1 tablet by mouth once daily. atorvastatin (LIPITOR) 10 mg tablet Take 1 tablet by mouth once daily. gabapentin (NEURONTIN) 300 mg capsule Take 1 capsule by mouth three times a day as needed for up to 20 days. Sacrosidase (SUCRAID) 8,500 unit/mL soln Take 2 mL with food and snacks daily polyethylene glycol 3350 (MIRALAX) 17 gram/dose powder Take by mouth once daily. Dissolve dose in 4 - 8 ounces of liquid and take as directed. amitriptyline (ELAVIL) 10 mg tablet Take 1 tablet by mouth daily at bedtime. hydrOXYzine HCl (ATARAX) 25 mg tablet Take 0.5-1 tab every 8 hrs as needed for panic attacks. cyanocobalamin (B-12 DOTS) 500 mcg tablet Take 1 tablet by mouth once daily. tamsulosin (FLOMAX) 0.4 mg Take 0.4 mg by mouth twice daily. Per Dr. Barbosa No current facility-administered medications on file prior to visit. Social History Social History Tobacco Use Smoking status: Former Current packs/day: 0.00 Average packs/day: 1 pack/day for 20.0 years (20.0 ttl pk-yrs) Types: Cigarettes Start date: 1987 Quit date: 2007 Years since quittin.6 Smokeless tobacco: Current Types: Chew Tobacco comments: Tobacco pouches Vaping Use Vaping status: Never Used Substance Use Topics Alcohol use: Yes Comment: 1-2 daily Drug use: Never Review of Symptoms REVIEW OF SYSTEMS GENERAL: No weight loss, malaise or fevers HEENT: Negative for frequent or significant headaches, No changes in hearing or vision, no nose bleeds or other nasal problems NECK: Negative for lumps, goiter, pain and significant neck swelling RESPIRATORY: Negative for cough, hemoptysis, wheezing, COPD, dyspnea or shortness of breath CARDIOVASCULAR: Negative for chest pain, leg swelling, hypertension, CHF or palpitations GI: No nausea, vomiting, or diarrhea, No heartburn or reflux symptoms, and no blood : No history of dysuria, frequency or blood MUSCULOSKELETAL: see HPI. SKIN: Negative for lesions, rash, and itching PSYCH: Negative for sleep disturbance, mood disorder and recent psychosocial stressors. Slight increase in anxiety and uses the atarax as needed with benefit. HEMATOLOGY/LYMPHOLOGY: Negative for prolonged bleeding, bruising easily or swollen nodes ENDOCRINE: Negative for cold or heat intolerance, polyuria, polydipsia and goiter NEURO: No history of headaches, syncope, paralysis, seizures or tremors EXAM: BP 112/68 (BP Site: Right Arm, BP Position: Sitting, BP Cuff Size: Regular Adult) Pulse 112 Temp 36.6 C (97.9 F) Resp 16 Ht 177.5 cm (5' 9.88) Wt 71.2 kg (157 lb) SpO2 99% BMI 22.60 kg/m Last 6 Encounter Wt Readings: Date: Wt: 11/29/2024 71.2 kg (157 lb) 11/19/2024 70.3 kg (155 lb) 11/04/2024 71.2 kg (157 lb) 10/09/2024 72.1 kg (159 lb) 07/16/2024 71.6 kg (157 lb 13.6 oz) 06/06/2024 72.6 kg (160 lb) General Appearance: Well appearing, alert, in no acute distress, well-hydrated, well nourished.. Skin: Skin color, texture, turgor normal, no suspicious rashes or lesions. Head: Normocephalic, no masses, lesions, tenderness or abnormalities. Eyes: Anicteric sclera. Pupils are equally round and reactive to light. Extraocular movements are intact. . Ears: External ears, TM's normal, canals clear. Nose/Sinuses: Nares normal, septum midline, mucosa normal, no drainage or sinus tenderness. Oropharynx: Lips, mucosa, and tongue normal, teeth and gums normal, oropharynx normal. Neck: Supple, no adenopathy; thyroid symmetric, normal size, no bruits. Lungs: Lungs clear to auscultation. No wheezing, rhonchi, rales.. Heart: RRR without murmur, gallop, or rubs. No ectopy. Abdomen: Normal abdominal exam, Abdomen soft, non-tender. Bowel sounds normal. No masses, organomegaly. Extremities: No deformities, edema, skin discoloration. Good capillary refill. . Musculoskeletal: Muscular strength intact, No joint swelling, deformity, or tenderness. Peripheral Pulses: Normal. Neurologic: Gait normal. Reflexes normal and symmetric. Sensation to light touch intact.. Genitalia: Normal, Penis normal. No urethral discharge. Scrotum normal to palpation. No hernia.. . Health Maintenance List Shingrix Vaccine(1 of 2) Never done BP Controlled (<130/80) due on 01/04/2023 Covid-19 Vaccine( season) due on 05/04/2024 Pneumococcal Vaccine: 50+(1 of 2 - PCV) due on 12/02/2029 Depression Screening due on 04/14/2025 Annual PCP Team Chronic Disease Visit due on 11/19/2025 Colorectal Cancer Screening due on 08/21/2027 Diabetes Screening due on 11/21/2027 Lipid Screening due on 11/20/2029 Prostate Cancer Screening Discussion due on 11/20/2029 DTaP,Tdap,Td Vaccine(2 - Td or Tdap) due on 01/05/2032 RSV Vaccine(1 - 1-dose 75+ series) due on 2038 Influenza Vaccine Discontinued Hepatitis C Screening Discontinued HIV Screening Discontinued Data reviewed Latest Ref Rng 10/13/2023 01/26/2024 11/20/2024 WBC 3.70 - 11.00 k/uL 9.50 RBC 4.20 - 6.00 m/uL 4.61 Hemoglobin 13.0 - 17.0 g/dL 14.4 Hematocrit 39.0 - 51.0 % 42.8 MCV 80.0 - 100.0 fL 92.8 MCH 26.0 - 34.0 pg 31.2 MCHC 30.5 - 36.0 g/dL 33.6 RDW-CV 11.5 - 15.0 % 13.0 Platelet Count 150 - 400 k/uL 223 MPV 9.0 - 12.7 fL 10.4 Neut% % 84.4 Abs Neut (ANC) 1.45 - 7.50 k/uL 8.01 (H) Lymph% % 11.9 Abs Lymph 1.00 - 4.00 k/uL 1.13 Tun[place]% % 2.6 Abs [place] <0.87 k/uL 0.25 Eosin% % 0.4 Abs Eosin <0.46 k/uL 0.04 Baso% % 0.4 Abs Baso <0.11 k/uL 0.04 Immature Gran % % 0.3 IMMATURE GRANS (ABS) <0.10 k/uL 0.03 NRBC /100 WBC 0.0 Absolute nRBC <0.01 k/uL <0.01 DTYPE Auto Protein, Total 6.3 - 8.0 g/dL 7.6 6.7 7.2 Albumin 3.9 - 4.9 g/dL 4.6 4.3 4.5 Calcium 8.5 - 10.2 mg/dL 10.0 9.6 Bilirubin, Total 0.2 - 1.3 mg/dL 0.4 0.6 0.4 Alkaline Phosphatase 38 - 113 U/L 71 71 64 AST 14 - 40 U/L 23 24 16 ALT 10 - 54 U/L 24 23 19 Glucose 74 - 99 mg/dL 104 (H) 116 (H) BUN 9 - 24 mg/dL 15 20 Creatinine 0.73 - 1.22 mg/dL 0.91 1.02 Sodium 136 - 144 mmol/L 140 136 Potassium 3.7 - 5.1 mmol/L 4.3 4.7 Chloride 98 - 107 mmol/L 101 99 CO2 22 - 30 mmol/L 29 27 Anion Gap 8 - 15 mmol/L 10 10 eGFR >=60 mL/min/1.73m 96 84 Total Cholesterol, Nonfasting <200 mg/dL 215 (H) 167 228 (H) Triglycerides, Nonfasting <150 mg/dL 45 48 77 HDL Cholesterol, Nonfasting >39 mg/dL 53 54 116 LDL Cholesterol, Nonfasting <100 mg/dL 153 (H) 103 (H) 97 Non HDL Cholesterol, Nonfasting <130 mg/dL 162 (H) 113 112 VLDL Cholesterol, Nonfasting <30 mg/dL 9 10 15 Total Chol/HDL Ratio, Nonfasting <5.10 mg/dL 4.06 3.09 1.97 LDL/HDL Ratio, Nonfasting <2.54 mg/dL 2.89 (H) 1.91 0.84 Bilirubin, Direct <0.2 mg/dL <0.2 Hemoglobin A1C 4.3 - 5.6 % 5.8 (H) 5.6 Estimated Average Glucose mg/dL 120 114 Vitamin B12 232 - 1,245 pg/mL 633 PSA <2.60 ng/mL 0.80 0.74 Magnesium 1.7 - 2.3 mg/dL 2.1 TSH 0.270 - 4.200 mIU/L 1.400 0.435 A/P ASSESSMENT/PLAN: 1. Well adult exam - ICD9: V70.0, ICD10: Z00.00 (primary diagnosis) - Counseled on healthy diet and regular exercise - Counseled on alcohol intake and health risks 2. Essential hypertension - ICD9: 401.9, ICD10: I10 - Controlled - Continue current medications - Recommend home blood pressure monitoring, to bring results to next visit - Encouraged sodium restriction, DASH or Mediterranean diet - Recommend regular aerobic exercise 3. Mixed hyperlipidemia - ICD9: 272.2, ICD10: E78.2 - Controlled - Improving control - Continue current medications - Counseled on healthy diet and regular exercise 4. Elevated hemoglobin A1c - ICD9: 790.29, ICD10: R73.09 - improved with life style changes. 5. GERD without esophagitis - ICD9: 530.81, ICD10: K21.9 - controlled with diet. 6. JC (generalized anxiety disorder) - ICD9: 300.02, ICD10: F41.1 - stable with prn Atarax. 7. Alcohol abuse - ICD9: 305.00, ICD10: F10.10 - discussed keeping his intake down like he has been. 8. Benign prostatic hyperplasia with urinary frequency - ICD9: 600.01, 788.41, ICD10: N40.1, R35.0 - follows with Urology. 9. Chronic left shoulder pain - ICD9: 719.41, 338.29, ICD10: M25.512, G89.29 - cont prn. - TRAMADOL 50 MG TABLET 10. Screening for depression - ICD9: V79.0, ICD10: Z13.31 - DEPRESSION SCREENING 11. Foraminal stenosis of cervical region - ICD9: 723.0, ICD10: M48.02 - will place on Celebrex 200 mg a day. Advised to start Prilosec OTC if getting stomach irritation. - cont with chiropractor. cont - GABAPENTIN 300 MG CAPSULE 12. Acute pain of left shoulder - ICD9: 719.41, ICD10: M25.512 - as per #12 - cont PHYSICAL THERAPY. Requested Prescriptions Signed Prescriptions Disp Refills gabapentin (NEURONTIN) 300 mg capsule 60 capsule 2 Sig: Take 1 capsule by mouth three times a day as needed for up to 20 days. traMADol (ULTRAM) 50 mg tablet 15 tablet 0 Sig: Take 1 tablet by mouth every 8 hours as needed for pain for up to 5 days. celecoxib (CELEBREX) 200 mg capsule 30 capsule 1 Sig: Take 1 capsule by mouth once daily. F/u 6 months routine check lipid and A1c prior. Silvio Moyer MD SENSITIVE EXAMINATION CONSENT: The sensitive examination was discussed with the Patient or Patient's Authorized Rn New Grad. As applicable, any other physician, advance practice provider, medical student, or other health professional student that will be observing or involved in the sensitive examination for educational or training purposes was discussed with the Patient or Authorized Rn New Grad. The Patient or Authorized Rn New Grad has agreed to proceed with the sensitive examination. documented in this encounter [facility] 11-29-2024 Note HNO ID: [id number] Author: SILVIO MOYER MD Service: ? Author Type: Physician Type: Progress Notes Filed: 11/29/2024 11:10 Note Text: Chief Complaint Patient presents with: Yearly Exam HPI Jhonathan Byrnes is a 59 year old male who presents here today for chronic health issues and complete PE. . Patient will be starting PHYSICAL THERAPY soon for th neck and shoulder area and did see a chiropractor for a session and that did help. The steroid has helped twice now. Otherwise has been doing ok. Past medical history, appointments, medications, allergies reviewed. Previous Medical History PAST MEDICAL HISTORY Diagnosis Date Alcohol abuse 05/02/2018 Benign prostatic hyperplasia with urinary frequency 10/13/2023 Elevated hemoglobin A1c 07/11/2021 Essential hypertension 05/01/2018 Ex-smoker 05/01/2018 Started in his early 20's and quite around the age of 38. 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 Not aware or medication. GERD without esophagitis 05/02/2018 Herniation of intervertebral disc at C6-C7 level 05/03/2018 MRI 02/2018 History of anxiety 06/06/2007 History of colonic polyps 08/10/2022 Mixed hyperlipidemia 05/01/2018 Pectoralis minor syndrome Uncomplicated alcohol dependence (HCC) 05/02/2018 Previous Surgical History PAST SURGICAL HISTORY Procedure Laterality Date COLONOSCOPY FLX DX W/COLLJ SPEC WHEN PFRMD 08/19/2018 repeat 3 years COLONOSCOPY SCREENING 08/21/2022 two small adenomatous polyps-repeat in 5 years EGD W/O [facility] SPEC VARICIES INJ 11/09/2021 HEART CATHETERIZATION 2017 WNL SHOULDER SURGERY HX 2021 [place] release Family History FAMILY HISTORY Problem Relation Age of Onset Coronary Artery Disease Mother has stents Cancer Brother Lung: dx and initial surgery 2006. nonsmoker. other (dementia) Paternal Aunt Colon Cancer No Family History Patient Allergies ALLERGIES No Known Allergies Current Medications Current Outpatient Medications on File Prior to Visit Medication Sig predniSONE (DELTASONE) 20 mg tablet Take 3 tabs by mouth for 3 days, then 2 tabs by mouth for 3 days, then 1 tab by mouth for 3 days and then 1/2 a tab by mouth for 4 days. lisinopril-hydroCHLOROthiazide (ZESTORETIC) 20-12.5 mg per tablet Take 1 tablet by mouth once daily. atorvastatin (LIPITOR) 10 mg tablet Take 1 tablet by mouth once daily. gabapentin (NEURONTIN) 300 mg capsule Take 1 capsule by mouth three times a day as needed for up to 20 days. Sacrosidase (SUCRAID) 8,500 unit/mL soln Take 2 mL with food and snacks daily polyethylene glycol 3350 (MIRALAX) 17 gram/dose powder Take by mouth once daily. Dissolve dose in 4 - 8 ounces of liquid and take as directed. amitriptyline (ELAVIL) 10 mg tablet Take 1 tablet by mouth daily at bedtime. hydrOXYzine HCl (ATARAX) 25 mg tablet Take 0.5-1 tab every 8 hrs as needed for panic attacks. cyanocobalamin (B-12 DOTS) 500 mcg tablet Take 1 tablet by mouth once daily. tamsulosin (FLOMAX) 0.4 mg Take 0.4 mg by mouth twice daily. Per Dr. Barbosa No current facility-administered medications on file prior to visit. Social History Social History Tobacco Use Smoking status: Former Current packs/day: 0.00 Average packs/day: 1 pack/day for 20.0 years (20.0 ttl pk-yrs) Types: Cigarettes Start date: 1987 Quit date: 2007 Years since quittin.6 Smokeless tobacco: Current Types: Chew Tobacco comments: Tobacco pouches Vaping Use Vaping status: Never Used Substance Use Topics Alcohol use: Yes Comment: 1-2 daily Drug use: Never Review of Symptoms REVIEW OF SYSTEMS GENERAL: No weight loss, malaise or fevers HEENT: Negative for frequent or significant headaches, No changes in hearing or vision, no nose bleeds or other nasal problems NECK: Negative for lumps, goiter, pain and significant neck swelling RESPIRATORY: Negative for cough, hemoptysis, wheezing, COPD, dyspnea or shortness of breath CARDIOVASCULAR: Negative for chest pain, leg swelling, hypertension, CHF or palpitations GI: No nausea, vomiting, or diarrhea, No heartburn or reflux symptoms, and no blood : No history of dysuria, frequency or blood MUSCULOSKELETAL: see HPI. SKIN: Negative for lesions, rash, and itching PSYCH: Negative for sleep disturbance, mood disorder and recent psychosocial stressors. Slight increase in anxiety and uses the atarax as needed with benefit. HEMATOLOGY/LYMPHOLOGY: Negative for prolonged bleeding, bruising easily or swollen nodes ENDOCRINE: Negative for cold or heat intolerance, polyuria, polydipsia and goiter NEURO: No history of headaches, syncope, paralysis, seizures or tremors EXAM: BP 112/68 (BP Site: Right Arm, BP Position: Sitting, BP Cuff Size: Regular Adult) Pulse 112 Temp 36.6 ?C (97.9 ?F) Resp 16 Ht 177.5 cm (5 (more content not included)... [facility] 11-25-2024 Telephone encounter Note Sent my chart message. Phyllis Omalley MA [facility] 11-25-2024 Miscellaneous Notes Sent my chart message. Phyllis Omalley MA Let patient know nothing to out of shorts with his labs and will go over all of them at his appt on 11/29/2024. Patient notified and voiced understanding. Patient indicated still having the stiff/sore neck and shoulder. Patient has been trying some stretches and that helps at little. Patient is scheduled in December for PT. Patient also scheduled with Chiropractor this Sunday to see if this would help some. Patient was inquiring about recent labs results. Phyllis Omalley MA Let patient know shoulder x-ray was ok. No acute bone issues. documented in this encounter [facility] 11-24-2024 Telephone encounter Note Let patient know nothing to out of shorts with his labs and will go over all of them at his appt on 11/29/2024. [facility] 11-24-2024 Telephone encounter Note Patient notified and voiced understanding. Patient indicated still having the stiff/sore neck and shoulder. Patient has been trying some stretches and that helps at little. Patient is scheduled in December for PT. Patient also scheduled with Chiropractor this Sunday to see if this would help some. Patient was inquiring about recent labs results. Phyllis Omalley MA [facility] 11-24-2024 Telephone encounter Note Let patient know shoulder x-ray was ok. No acute bone issues. [facility] 11-19-2024 History of Presen t illness Narrative Radiology Service Progress Note PATIENT NAME: Jhonathan Byrnes DATE OF SERVICE: November 19, 2024 TIME: 5:05 PM PATIENT IDENTITY VERIFICATION COMPLETED USING TWO (2) IDENTIFIERS: Name and Date of confirmed by patient verbally. FALL SCREENING: Has the patient had 2 falls in the last year or 1 fall with injury or currently using an Ambulatory Assistive Device (Walker, Cane, Wheelchair, Crutches, etc.)? No PATIENT GENDER DATA: Assigned male at PATIENT RELEVANT IMPLANT DATA REVIEWED: Yes PATIENT PRESENTS WITH AN IMPLANTABLE OR ATTACHED TRADE MARK EXAMINER: No RADIOLOGY DEPARTMENT: General X-ray: Exam(s) Completed: Upper Extremity X-Ray(s): Shoulder, AP / TRUE AP left Scapular Y view PERIPHERAL IV DATA: Not applicable SIGNED BY: RT Toby(R) November 19, 2024 5:05 PM documented in this encounter [facility] 11-19-2024 Note HNO ID: [id number] Author: ROMERO AMAYA RT(R) Service: ? Author Type: Clergy Member Type: Progress Notes Filed: 11/19/2024 17:14 Note Text: Radiology Service Progress Note PATIENT NAME: Jhonathan Byrnes DATE OF SERVICE: November 19, 2024 TIME: 5:05 PM PATIENT IDENTITY VERIFICATION COMPLETED USING TWO (2) IDENTIFIERS: Name and Date of confirmed by patient verbally. FALL SCREENING: Has the patient had 2 falls in the last year or 1 fall with injury or currently using an Ambulatory Assistive Device (Walker, Cane, Wheelchair, Crutches, etc.)? No PATIENT GENDER DATA: Assigned male at PATIENT RELEVANT IMPLANT DATA REVIEWED: Yes PATIENT PRESENTS WITH AN IMPLANTABLE OR ATTACHED TRADE MARK EXAMINER: No RADIOLOGY DEPARTMENT: General X-ray: Exam(s) Completed: Upper Extremity X-Ray(s): Shoulder, AP / TRUE AP left Scapular Y view PERIPHERAL IV DATA: Not applicable SIGNED BY: RT Toby(R) November 19, 2024 5:05 PM [facility] 11-19-2024 Note HNO ID: [id number] Author: SILVIO MOYER MD Service: ? Author Type: Physician Type: Progress Notes Filed: 11/19/2024 17:52 Note Text: Chief Complaint Patient presents with: Results HPI Jhonathan Byrnes is a 59 year old male who presents here today for results of MRI. Prednisone did help but once completed the pain came back. Does use tramadol for severe pain. Sleeps ok; notices more when he gets up. Burning in middle of chest into left side of chest and down left arm. Pain scale today is an 8 yesterday; patient indicated 15 had to leave work early. Also noticed losing strength in left hand. Neck sore. Patient has been noticing weakness in the left upper ext. Hurts to reach behind his back with decreased ROM with internal rotation. Past medical history, appointments, medications, allergies reviewed. Previous Medical History PAST MEDICAL HISTORY Diagnosis Date Alcohol abuse 05/02/2018 Benign prostatic hyperplasia with urinary frequency 10/13/2023 Elevated hemoglobin A1c 07/11/2021 Essential hypertension 05/01/2018 Ex-smoker 05/01/2018 Started in his early 20's and quite around the age of 38. 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 Not aware or medication. GERD without esophagitis 05/02/2018 Herniation of intervertebral disc at C6-C7 level 05/03/2018 MRI 02/2018 History of anxiety 06/06/2007 History of colonic polyps 08/10/2022 Mixed hyperlipidemia 05/01/2018 Pectoralis minor syndrome (HCC) Uncomplicated alcohol dependence (HCC) 05/02/2018 Previous Surgical History PAST SURGICAL HISTORY Procedure Laterality Date COLONOSCOPY FLX DX W/COLLJ SPEC WHEN PFRMD 08/19/2018 repeat 3 years COLONOSCOPY SCREENING 08/21/2022 two small adenomatous polyps-repeat in 5 years EGD W/O [facility] SPEC VARICIES INJ 11/09/2021 HEART CATHETERIZATION 2017 WNL SHOULDER SURGERY HX 2021 [place] release Family History FAMILY HISTORY Problem Relation Age of Onset Coronary Artery Disease Mother has stents Cancer Brother Lung: dx and initial surgery 2006. nonsmoker. other (dementia) Paternal Aunt Colon Cancer No Family History Patient Allergies ALLERGIES No Known Allergies Current Medications Current Outpatient Medications on File Prior to Visit Medication Sig lisinopril-hydroCHLOROthiazide (ZESTORETIC) 20-12.5 mg per tablet Take 1 tablet by mouth once daily. predniSONE (DELTASONE) 20 mg tablet Take 3 tabs by mouth for 3 days, then 2 tabs by mouth for 3 days, then 1 tab by mouth for 3 days and then 1/2 a tab by mouth for 4 days. atorvastatin (LIPITOR) 10 mg tablet Take 1 tablet by mouth once daily. gabapentin (NEURONTIN) 300 mg capsule Take 1 capsule by mouth three times a day as needed for up to 20 days. Sacrosidase (SUCRAID) 8,500 unit/mL soln Take 2 mL with food and snacks daily polyethylene glycol 3350 (MIRALAX) 17 gram/dose powder Take by mouth once daily. Dissolve dose in 4 - 8 ounces of liquid and take as directed. amitriptyline (ELAVIL) 10 mg tablet Take 1 tablet by mouth daily at bedtime. hydrOXYzine HCl (ATARAX) 25 mg tablet Take 0.5-1 tab every 8 hrs as needed for panic attacks. cyanocobalamin (B-12 DOTS) 500 mcg tablet Take 1 tablet by mouth once daily. tamsulosin (FLOMAX) 0.4 mg Take 0.4 mg by mouth twice daily. Per Dr. Barbosa No current facility-administered medications on file prior to visit. Social History Social History Tobacco Use Smoking status: Former Current packs/day: 0.00 Average packs/day: 1 pack/day for 20.0 years (20.0 ttl pk-yrs) Types: Cigarettes Start date: 1987 Quit date: 2007 Years since quittin.6 Smokeless tobacco: Current Types: Chew Tobacco comments: Tobacco pouches Vaping Use Vaping status: Never Used Substance Use Topics Alcohol use: Yes Comment: 1-2 daily Drug use: Never Review of Symptoms REVIEW OF SYSTEMS See HPI EXAM: BP 122/94 Pulse 115 Resp 18 Wt 70.3 kg (155 lb) BMI 22.24 kg/m? Patient in pain today. General Appearance: Well appearing, alert, in no acute distress, well-hydrated, well nourished.. Musculoskeletal: left shoulder: nears test was mildly positive along with Hawken's. His empty can testing was positive for pain and weakness. External rotation shows weakness on the left and pain. Internal rotation on the left was decreased compared to the right and caused pain.. Health Maintenance List Shingrix Vaccine(1 of 2) Never done BP Controlled (<130/80) due on 01/04/2023 Covid-19 Vaccine(2023- season) due on 05/04/2024 Pneumococcal Vaccine: 50+(1 of 2 - PCV) due on 12/02/2029 Depression Screening due on 04/14/2025 Annual PCP Team Chronic Disease Visit due on 11/04/2025 Diabetes Screening due on 10/13/2026 Colorectal Cancer Screening due on 08/21/2027 Prostate Cancer Screening Discussion due on 10/13 (more content not included)... [facility] 11-19-2024 History of Presen t illness Narrative Chief Complaint Patient presents with: Results HPI Jhonathan Byrnes is a 59 year old male who presents here today for results of MRI. Prednisone did help but once completed the pain came back. Does use tramadol for severe pain. Sleeps ok; notices more when he gets up. Burning in middle of chest into left side of chest and down left arm. Pain scale today is an 8 yesterday; patient indicated 15 had to leave work early. Also noticed losing strength in left hand. Neck sore. Patient has been noticing weakness in the left upper ext. Hurts to reach behind his back with decreased ROM with internal rotation. Past medical history, appointments, medications, allergies reviewed. Previous Medical History PAST MEDICAL HISTORY Diagnosis Date Alcohol abuse 05/02/2018 Benign prostatic hyperplasia with urinary frequency 10/13/2023 Elevated hemoglobin A1c 07/11/2021 Essential hypertension 05/01/2018 Ex-smoker 05/01/2018 Started in his early 20's and quite around the age of 38. 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 Not aware or medication. GERD without esophagitis 05/02/2018 Herniation of intervertebral disc at C6-C7 level 05/03/2018 MRI 02/2018 History of anxiety 06/06/2007 History of colonic polyps 08/10/2022 Mixed hyperlipidemia 05/01/2018 Pectoralis minor syndrome (HCC) Uncomplicated alcohol dependence (HCC) 05/02/2018 Previous Surgical History PAST SURGICAL HISTORY Procedure Laterality Date COLONOSCOPY FLX DX W/COLLJ SPEC WHEN PFRMD 08/19/2018 repeat 3 years COLONOSCOPY SCREENING 08/21/2022 two small adenomatous polyps-repeat in 5 years EGD W/O [facility] SPEC VARICIES INJ 11/09/2021 HEART CATHETERIZATION 2017 WNL SHOULDER SURGERY HX 2021 [place] release Family History FAMILY HISTORY Problem Relation Age of Onset Coronary Artery Disease Mother has stents Cancer Brother Lung: dx and initial surgery 2006. nonsmoker. other (dementia) Paternal Aunt Colon Cancer No Family History Patient Allergies ALLERGIES No Known Allergies Current Medications Current Outpatient Medications on File Prior to Visit Medication Sig lisinopril-hydroCHLOROthiazide (ZESTORETIC) 20-12.5 mg per tablet Take 1 tablet by mouth once daily. predniSONE (DELTASONE) 20 mg tablet Take 3 tabs by mouth for 3 days, then 2 tabs by mouth for 3 days, then 1 tab by mouth for 3 days and then 1/2 a tab by mouth for 4 days. atorvastatin (LIPITOR) 10 mg tablet Take 1 tablet by mouth once daily. gabapentin (NEURONTIN) 300 mg capsule Take 1 capsule by mouth three times a day as needed for up to 20 days. Sacrosidase (SUCRAID) 8,500 unit/mL soln Take 2 mL with food and snacks daily polyethylene glycol 3350 (MIRALAX) 17 gram/dose powder Take by mouth once daily. Dissolve dose in 4 - 8 ounces of liquid and take as directed. amitriptyline (ELAVIL) 10 mg tablet Take 1 tablet by mouth daily at bedtime. hydrOXYzine HCl (ATARAX) 25 mg tablet Take 0.5-1 tab every 8 hrs as needed for panic attacks. cyanocobalamin (B-12 DOTS) 500 mcg tablet Take 1 tablet by mouth once daily. tamsulosin (FLOMAX) 0.4 mg Take 0.4 mg by mouth twice daily. Per Dr. Barbosa No current facility-administered medications on file prior to visit. Social History Social History Tobacco Use Smoking status: Former Current packs/day: 0.00 Average packs/day: 1 pack/day for 20.0 years (20.0 ttl pk-yrs) Types: Cigarettes Start date: 1987 Quit date: 2007 Years since quittin.6 Smokeless tobacco: Current Types: Chew Tobacco comments: Tobacco pouches Vaping Use Vaping status: Never Used Substance Use Topics Alcohol use: Yes Comment: 1-2 daily Drug use: Never Review of Symptoms REVIEW OF SYSTEMS See HPI EXAM: BP 122/94 Pulse 115 Resp 18 Wt 70.3 kg (155 lb) BMI 22.24 kg/m Patient in pain today. General Appearance: Well appearing, alert, in no acute distress, well-hydrated, well nourished.. Musculoskeletal: left shoulder: nears test was mildly positive along with Hawken's. His empty can testing was positive for pain and weakness. External rotation shows weakness on the left and pain. Internal rotation on the left was decreased compared to the right and caused pain.. Health Maintenance List Shingrix Vaccine(1 of 2) Never done BP Controlled (<130/80) due on 01/04/2023 Covid-19 Vaccine( season) due on 05/04/2024 Pneumococcal Vaccine: 50+(1 of 2 - PCV) due on 12/02/2029 Depression Screening due on 04/14/2025 Annual PCP Team Chronic Disease Visit due on 11/04/2025 Diabetes Screening due on 10/13/2026 Colorectal Cancer Screening due on 08/21/2027 Prostate Cancer Screening Discussion due on 10/13/2028 Lipid Screening due on 01/25/2029 DTaP,Tdap,Td Vaccine(2 - Td or Tdap) due on 01/05/2032 RSV Vaccine(1 - 1-dose 75+ series) due on 2038 Influenza Vaccine Discontinued Hepatitis C Screening Discontinued HIV Screening Discontinued Data reviewed Results MRI CERVICAL SPINE WO DARRIN (Acc#[id number] [facility]) (Order [id number]) Patient Info Patient Name Sex Jhonathan Topete ([id number]) Male 1965 11/17/2024 3:16 PM - Radiology, [place] Impression IMPRESSION: Mild cervical spondylosis as described without high-grade canal or foraminal narrowing, cord compression, or abnormal cord signal. Anatomic Variant: None. Assume 7 cervical vertebrae with counting from the craniocervical junction. 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 Neck pain. Herniation of intervertebral disc at C6-C7 level TECHNIQUE: Routine cervical spine MR protocol without gadolinium. MQ: [id number] COMPARISON: None. RESULT: Counting reference: Craniocervical junction. Anatomic Variants: None. Localizer images: No additional findings. Alignment: Alignment is anatomic. Straightening of the cervical lordosis, possibly positional. No significant listhesis. Vertebral body heights are maintained. Craniocervical junction: Craniocervical junction is normal. Cord: The visualized cord is within normal limits of signal intensity and morphology. Bone marrow signal/fracture: No evidence of pathologic marrow infiltration. No evidence of prior fracture. Slightly heterogeneous marrow at C2 and C3, likely type II degenerative changes at this level. Moderate disc space height loss at C5-C6. Cervical soft tissues: The paraspinal soft tissues are within normal limits. C2-C3: Canal and foramina are patent C3-C4: Canal and foramina are patent. C4-C5: Small disc osteophyte complex and uncovertebral hypertrophy without significant canal or foraminal narrowing. C5-C6: Small disc osteophyte complex and uncovertebral hypertrophy without significant canal or foraminal narrowing. C6-C7: Small disc osteophyte complex. The canal and foramina are patent. C7-T1: Canal and foramina are patent. A/P ASSESSMENT/PLAN: 1. Acute pain of left shoulder - ICD9: 719.41, ICD10: M25.512 - will treat with steroid taper again. - with the fact his cervical MRI was unremarkable and based on exam today I suspect either a sever bursitis or rotator cuff tear. Check - XR SHOULDER GENERAL 3V OR MORE AP/TRUE AP/OTHER LEFT - CONSULT TO PHYSICAL THERAPY Requested Prescriptions Signed Prescriptions Disp Refills predniSONE (DELTASONE) 20 mg tablet 20 tablet 0 Sig: Take 3 tabs by mouth for 3 days, then 2 tabs by mouth for 3 days, then 1 tab by mouth for 3 days and then 1/2 a tab by mouth for 4 days. Has PE with me in a week. Silvio Moyer MD documented in this encounter [facility] 11-18-2024 Telephone encounter Note Noted. [facility] 11-18-2024 Miscellaneous Notes Noted. Pt returned call and given provider's message below. It was not clear to this nurse or patient what provider was trying to relay. Scheduled appt for Wed this week with pcp. Pt states he will let pcp explain this to him in person. Left message for patient to contact office. Phyllis Omalley MA Let patient know the MRI of his neck shows now disc herniation and no significant narrowing of the central canal when the spinal cord is or foraminal narrowing which is where the nerves come out of the spine. I question if this is coming from the shoulder itself? See If able to see me this week to further eval? documented in this encounter [facility] 11-17-2024 Telephone encounter Note Pt returned call and given provider's message below. It was not clear to this nurse or patient what provider was trying to relay. Scheduled appt for Wed this week with pcp. Pt states he will let pcp explain this to him in person. [facility] 11-17-2024 Telephone encounter Note Left message for patient to contact office. Phyllis Omalley MA [facility] 11-17-2024 Telephone encounter Note Let patient know the MRI of his neck shows now disc herniation and no significant narrowing of the central canal when the spinal cord is or foraminal narrowing which is where the nerves come out of the spine. I question if this is coming from the shoulder itself? See If able to see me this week to further eval? [facility] 11-17-2024 History of Presen t illness Narrative Radiology Service Progress Note PATIENT NAME: Jhonathan Byrnes DATE OF SERVICE: November 17, 2024 TIME: 2:42 PM PATIENT IDENTITY VERIFICATION COMPLETED USING TWO (2) IDENTIFIERS: Name and Date of confirmed by patient verbally. FALL SCREENING: Has the patient had 2 falls in the last year or 1 fall with injury or currently using an Ambulatory Assistive Device (Walker, Cane, Wheelchair, Crutches, etc.)? No PATIENT GENDER DATA: Assigned male at PATIENT RELEVANT IMPLANT DATA REVIEWED: Yes PATIENT PRESENTS WITH AN IMPLANTABLE OR ATTACHED TRADE MARK EXAMINER: No RADIOLOGY DEPARTMENT: MR; Exam(s) Completed: Spine: Cervical spine PERIPHERAL IV DATA: Not applicable SIGNED BY: RT Ina(R) November 17, 2024 2:42 PM documented in this encounter [facility] 11-17-2024 Note HNO ID: [id number] Author: PADDY CARTY RT(Hortensia) Service: ? Author Type: Technologist Type: Progress Notes Filed: 11/17/2024 14:42 Note Text: Radiology Service Progress Note PATIENT NAME: Jhonathan Byrnes DATE OF SERVICE: November 17, 2024 TIME: 2:42 PM PATIENT IDENTITY VERIFICATION COMPLETED USING TWO (2) IDENTIFIERS: Name and Date of confirmed by patient verbally. FALL SCREENING: Has the patient had 2 falls in the last year or 1 fall with injury or currently using an Ambulatory Assistive Device (Walker, Cane, Wheelchair, Crutches, etc.)? No PATIENT GENDER DATA: Assigned male at PATIENT RELEVANT IMPLANT DATA REVIEWED: Yes PATIENT PRESENTS WITH AN IMPLANTABLE OR ATTACHED TRADE MARK EXAMINER: No RADIOLOGY DEPARTMENT: MR; Exam(s) Completed: Spine: Cervical spine PERIPHERAL IV DATA: Not applicable SIGNED BY: RT Ina(R) November 17, 2024 2:42 PM [facility] 11-07-2024 Telephone encounter Note Patient returned call and received the provider's message. He voiced understanding and will proceed with MRI scheduled for 11/17/24. Patient reports improvement while taking prescribed steroid medication. [facility] 11-07-2024 Miscellaneous Notes Patient returned call and received the provider's message. He voiced understanding and will proceed with MRI scheduled for 11/17/24. Patient reports improvement while taking prescribed steroid medication. Left message for pt to contact office. Johnna Mobley LPN Let patient know neck x-ray shows arthritic changes that are slightly worsened. documented in this encounter [facility] 11-07-2024 Telephone encounter Note Left message for pt to contact office. Johnna Mobley LPN [facility] 11-07-2024 Telephone encounter Note Let patient know neck x-ray shows arthritic changes that are slightly worsened. [facility] 11-04-2024 History of Presen t illness Narrative Radiology Service Progress Note PATIENT NAME: Jhonathan Byrnes DATE OF SERVICE: November 04, 2024 TIME: 2:01 PM PATIENT IDENTITY VERIFICATION COMPLETED USING TWO (2) IDENTIFIERS: Name and Date of confirmed by patient verbally. FALL SCREENING: Has the patient had 2 falls in the last year or 1 fall with injury or currently using an Ambulatory Assistive Device (Walker, Cane, Wheelchair, Crutches, etc.)? No PATIENT GENDER DATA: Assigned male at PATIENT RELEVANT IMPLANT DATA REVIEWED: Not Applicable PATIENT PRESENTS WITH AN IMPLANTABLE OR ATTACHED TRADE MARK EXAMINER: No RADIOLOGY DEPARTMENT: General X-ray: Exam(s) Completed: Spine X-Ray(s): Cervical AP / LAT / OBL PERIPHERAL IV DATA: Not applicable SIGNED BY: Bowen Rodrigues November 04, 2024 2:01 PM documented in this encounter [facility] 11-04-2024 Note HNO ID: [id number] Author: IZA GARRETT Tech Service: ? Author Type: Technologist Type: Progress Notes Filed: 11/04/2024 14:12 Note Text: Radiology Service Progress Note PATIENT NAME: Jhonathan Byrnes DATE OF SERVICE: November 04, 2024 TIME: 2:01 PM PATIENT IDENTITY VERIFICATION COMPLETED USING TWO (2) IDENTIFIERS: Name and Date of confirmed by patient verbally. FALL SCREENING: Has the patient had 2 falls in the last year or 1 fall with injury or currently using an Ambulatory Assistive Device (Walker, Cane, Wheelchair, Crutches, etc.)? No PATIENT GENDER DATA: Assigned male at PATIENT RELEVANT IMPLANT DATA REVIEWED: Not Applicable PATIENT PRESENTS WITH AN IMPLANTABLE OR ATTACHED TRADE MARK EXAMINER: No RADIOLOGY DEPARTMENT: General X-ray: Exam(s) Completed: Spine X-Ray(s): Cervical AP / LAT / OBL PERIPHERAL IV DATA: Not applicable SIGNED BY: Bowen Rodrigues November 04, 2024 2:01 PM [facility] 11-04-2024 Note HNO ID: [id number] Author: SILVIO MOYER MD Service: ? Author Type: Physician Type: Progress Notes Filed: 11/04/2024 19:49 Note Text: Chief Complaint Pain HPI Jhonathan Byrnes is a 59 year old male who presents here today for pain on left shoulder Patient with Hx of hyperlipidemia, GERD, JC, HTN, elevated A1c, alcohol abuse, Pectoralis minor syndrome as well as those reviewed and addressed below and in ROS. Patient indicated that he is having issues still week 7 on left shoulder. Patient saw Juliet and was sent to Vascular whom he saw and has a Stress test and BP vascular test scheduled of the left upper extremity with his Hx os outlet syndrome on the left.. He was given a muscle relax which helps. There was an order for pain management in the vascular note but no appt has set up at this time. About 9 months ago had to go back to the floor and spray pait which involves a lot or leaning over and rasing his left arm above hs head. Patient indicated that is dealing with mom and dad with health issues and his has parkinson's as well. Doesn't have issues with sleep with the pain only if he turns over on left side. Patient sees Vascular last visit 10/28/2024 Th pain is in the left side of the neck, left shoulder and left upper arm in the distrubution of C4, C5,C6 and C7 dermatomes. Left hand is weaker. Has not dropped anything but needs to use the right to help support the left at times. The steroid taper that he was placed on by our [facility] back on 10/09/2024 did help improve his symptoms until he weaned off it. Patient has a home cervical traction unit that he can blow up and this does provide some relief. Finds that if he brings the left arm close to his body with elbow flexed he is more comfortable. Past medical history, appointments, medications, allergies reviewed. Previous Medical History PAST MEDICAL HISTORY Diagnosis Date Alcohol abuse 05/02/2018 Benign prostatic hyperplasia with urinary frequency 10/13/2023 Elevated hemoglobin A1c 07/11/2021 Essential hypertension 05/01/2018 Ex-smoker 05/01/2018 Started in his early 20's and quite around the age of 38. 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 Not aware or medication. GERD without esophagitis 05/02/2018 Herniation of intervertebral disc at C6-C7 level 05/03/2018 MRI 02/2018 History of anxiety 06/06/2007 History of colonic polyps 08/10/2022 Mixed hyperlipidemia 05/01/2018 Pectoralis minor syndrome (HCC) Uncomplicated alcohol dependence (HCC) 05/02/2018 Previous Surgical History PAST SURGICAL HISTORY Procedure Laterality Date COLONOSCOPY FLX DX W/COLLJ SPEC WHEN PFRMD 08/19/2018 repeat 3 years COLONOSCOPY SCREENING 08/21/2022 two small adenomatous polyps-repeat in 5 years EGD W/O [facility] SPEC VARICIES INJ 11/09/2021 HEART CATHETERIZATION 2017 WNL SHOULDER SURGERY HX 2021 [place] release Family History FAMILY HISTORY Problem Relation Age of Onset Coronary Artery Disease Mother has stents Cancer Brother Lung: dx and initial surgery 2006. nonsmoker. other (dementia) Paternal Aunt Colon Cancer No Family History Patient Allergies ALLERGIES No Known Allergies Current Medications Current Outpatient Medications on File Prior to Visit Medication Sig atorvastatin (LIPITOR) 10 mg tablet Take 1 tablet by mouth once daily. gabapentin (NEURONTIN) 300 mg capsule Take 1 capsule by mouth three times a day as needed for up to 20 days. Sacrosidase (SUCRAID) 8,500 unit/mL soln Take 2 mL with food and snacks daily polyethylene glycol 3350 (MIRALAX) 17 gram/dose powder Take by mouth once daily. Dissolve dose in 4 - 8 ounces of liquid and take as directed. amitriptyline (ELAVIL) 10 mg tablet Take 1 tablet by mouth daily at bedtime. lisinopril-hydroCHLOROthiazide (ZESTORETIC) 20-12.5 mg per tablet Take 1 tablet by mouth once daily. hydrOXYzine HCl (ATARAX) 25 mg tablet Take 0.5-1 tab every 8 hrs as needed for panic attacks. cyanocobalamin (B-12 DOTS) 500 mcg tablet Take 1 tablet by mouth once daily. tamsulosin (FLOMAX) 0.4 mg Take 0.4 mg by mouth twice daily. Per Dr. Barbosa No current facility-administered medications on file prior to visit. Social History Social History Tobacco Use Smoking status: Former Current packs/day: 0.00 Average packs/day: 1 pack/day for 20.0 years (20.0 ttl pk-yrs) Types: Cigarettes Start date: 1987 Quit date: 2007 Years since quittin.6 Smokeless tobacco: Current Types: Chew Tobacco comments: Tobacco pouches Vaping Use Vaping status: Never Used Substance Use Topics Alcohol use: Yes Comment: 1-2 daily Drug use: Never Review of Symptoms REVIEW OF SYSTEMS See HPI EXAM: BP 124/86 Pulse 90 Resp 20 Ht 177.8 cm (5' 10) Wt 71.2 kg (157 lb) BMI 22.53 kg/m? General Silvia (more content not included)... [facility] 11-04-2024 History of Presen t illness Narrative Images from the original note were not included. Chief Complaint Pain HPI Jhonathan Byrnes is a 59 year old male who presents here today for pain on left shoulder Patient with Hx of hyperlipidemia, GERD, JC, HTN, elevated A1c, alcohol abuse, Pectoralis minor syndrome as well as those reviewed and addressed below and in ROS. Patient indicated that he is having issues still week 7 on left shoulder. Patient saw Juliet and was sent to Vascular whom he saw and has a Stress test and BP vascular test scheduled of the left upper extremity with his Hx os outlet syndrome on the left.. He was given a muscle relax which helps. There was an order for pain management in the vascular note but no appt has set up at this time. About 9 months ago had to go back to the floor and spray pait which involves a lot or leaning over and rasing his left arm above hs head. Patient indicated that is dealing with mom and dad with health issues and his has parkinson's as well. Doesn't have issues with sleep with the pain only if he turns over on left side. Patient sees Vascular last visit 10/28/2024 Th pain is in the left side of the neck, left shoulder and left upper arm in the distrubution of C4, C5,C6 and C7 dermatomes. Left hand is weaker. Has not dropped anything but needs to use the right to help support the left at times. The steroid taper that he was placed on by our [facility] back on 10/09/2024 did help improve his symptoms until he weaned off it. Patient has a home cervical traction unit that he can blow up and this does provide some relief. Finds that if he brings the left arm close to his body with elbow flexed he is more comfortable. Past medical history, appointments, medications, allergies reviewed. Previous Medical History PAST MEDICAL HISTORY Diagnosis Date Alcohol abuse 05/02/2018 Benign prostatic hyperplasia with urinary frequency 10/13/2023 Elevated hemoglobin A1c 07/11/2021 Essential hypertension 05/01/2018 Ex-smoker 05/01/2018 Started in his early 20's and quite around the age of 38. 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 Not aware or medication. GERD without esophagitis 05/02/2018 Herniation of intervertebral disc at C6-C7 level 05/03/2018 MRI 02/2018 History of anxiety 06/06/2007 History of colonic polyps 08/10/2022 Mixed hyperlipidemia 05/01/2018 Pectoralis minor syndrome (HCC) Uncomplicated alcohol dependence (HCC) 05/02/2018 Previous Surgical History PAST SURGICAL HISTORY Procedure Laterality Date COLONOSCOPY FLX DX W/COLLJ SPEC WHEN PFRMD 08/19/2018 repeat 3 years COLONOSCOPY SCREENING 08/21/2022 two small adenomatous polyps-repeat in 5 years EGD W/O [facility] SPEC VARICIES INJ 11/09/2021 HEART CATHETERIZATION 2017 WNL SHOULDER SURGERY HX 2021 [place] release Family History FAMILY HISTORY Problem Relation Age of Onset Coronary Artery Disease Mother has stents Cancer Brother Lung: dx and initial surgery 2006. nonsmoker. other (dementia) Paternal Aunt Colon Cancer No Family History Patient Allergies ALLERGIES No Known Allergies Current Medications Current Outpatient Medications on File Prior to Visit Medication Sig atorvastatin (LIPITOR) 10 mg tablet Take 1 tablet by mouth once daily. gabapentin (NEURONTIN) 300 mg capsule Take 1 capsule by mouth three times a day as needed for up to 20 days. Sacrosidase (SUCRAID) 8,500 unit/mL soln Take 2 mL with food and snacks daily polyethylene glycol 3350 (MIRALAX) 17 gram/dose powder Take by mouth once daily. Dissolve dose in 4 - 8 ounces of liquid and take as directed. amitriptyline (ELAVIL) 10 mg tablet Take 1 tablet by mouth daily at bedtime. lisinopril-hydroCHLOROthiazide (ZESTORETIC) 20-12.5 mg per tablet Take 1 tablet by mouth once daily. hydrOXYzine HCl (ATARAX) 25 mg tablet Take 0.5-1 tab every 8 hrs as needed for panic attacks. cyanocobalamin (B-12 DOTS) 500 mcg tablet Take 1 tablet by mouth once daily. tamsulosin (FLOMAX) 0.4 mg Take 0.4 mg by mouth twice daily. Per Dr. Barbosa No current facility-administered medications on file prior to visit. Social History Social History Tobacco Use Smoking status: Former Current packs/day: 0.00 Average packs/day: 1 pack/day for 20.0 years (20.0 ttl pk-yrs) Types: Cigarettes Start date: 1987 Quit date: 2007 Years since quittin.6 Smokeless tobacco: Current Types: Chew Tobacco comments: Tobacco pouches Vaping Use Vaping status: Never Used Substance Use Topics Alcohol use: Yes Comment: 1-2 daily Drug use: Never Review of Symptoms REVIEW OF SYSTEMS See HPI EXAM: BP 124/86 Pulse 90 Resp 20 Ht 177.8 cm (5' 10) Wt 71.2 kg (157 lb) BMI 22.53 kg/m General Appearance: Well appearing, alert, in no acute distress, well-hydrated, well nourished. Patient does pear uncomfortable. . Neck: Supple, no adenopathy; thyroid symmetric, normal size, no bruits. Extremities: No deformities, edema, skin discoloration, Good capillary refill. . Musculoskeletal: neck: exam: normal ROM and axial compression testing was normal. Left upper extremity strength seemed just minimally diminished on the left compared to the right. Peripheral Pulses: Normal radial pulses bilaterally. Neurologic: Reflexes normal and symmetric at the elbow and wrists.. Sensation to light touch was intact and symmetrical. Health Maintenance List Shingrix Vaccine(1 of 2) Never done BP Controlled (<130/80) due on 01/04/2023 Covid-19 Vaccine( season) due on 05/04/2024 Pneumococcal Vaccine: 50+(1 of 2 - PCV) due on 12/02/2029 Depression Screening due on 04/14/2025 Annual PCP Team Chronic Disease Visit due on 10/09/2025 Diabetes Screening due on 10/13/2026 Colorectal Cancer Screening due on 08/21/2027 Prostate Cancer Screening Discussion due on 10/13/2028 Lipid Screening due on 01/25/2029 DTaP,Tdap,Td Vaccine(2 - Td or Tdap) due on 01/05/2032 RSV Vaccine(1 - 1-dose 75+ series) due on 2038 Influenza Vaccine Discontinued Hepatitis C Screening Discontinued HIV Screening Discontinued Data reviewed A/P ASSESSMENT/PLAN: 1. Left arm pain - ICD9: 729.5, ICD10: M79.602 (primary diagnosis) - see below 2. Neck pain - ICD9: 723.1, ICD10: M54.2 - see below 3. Herniation of intervertebral disc at C6-C7 level - ICD9: 722.0, ICD10: M50.223 - see below 4. Foraminal stenosis of cervical region - ICD9: 723.0, ICD10: M48.02 - see below 12. Weakness of left upper extremity - ICD9: 729.89, ICD10: R29.898 - as below Based on the fact that patient has a known history of disc herniation at C4, C5, C6, C7 on the left and known foraminal stenosis at C6-C7 and he has pain in the distribution area of the C4, C5, C6, C7 dermatome that he has had progression of the disc disease and this was further re-enforced with the fact that the steroid taper provided some relief as well as using his home traction unit. However the symptoms are not resolving and the pain is getting worse. He is also developing weakness at times in the left upper extremity and needs to support it with his right upper extremity. A regular neck x-ry will be checked to eval bony alignment. However feel patient needs a MRI to re-eval the known disc herniation to determine if surgical intervention is now needed to address the progression of his symptoms. Check - XR CERVICAL PINE - MRI CERVICAL SPINE WO IVCON Requested Prescriptions Signed Prescriptions Disp Refills lisinopril-hydroCHLOROthiazide (ZESTORETIC) 20-12.5 mg per tablet 90 tablet 1 Sig: Take 1 tablet by mouth once daily. predniSONE (DELTASONE) 20 mg tablet 20 tablet 0 Sig: Take 3 tabs by mouth for 3 days, then 2 tabs by mouth for 3 days, then 1 tab by mouth for 3 days and then 1/2 a tab by mouth for 4 days. traMADol (ULTRAM) 50 mg tablet 15 tablet 0 Sig: Take 1 tablet by mouth every 8 hours as needed for pain for up to 5 days. PDMP website checked and validated. All prescriptions have been APPROPRIATELY filled. No suspicious activity was identified. 11/04/2024 by Silvio Moyer MD F/u in 2-3 weeks for MARTINEZ I spent a total of 50 minutes on the date of the service which included preparing to see the patient, [id number] patient care, completing clinical documentation, performing a medically appropriate examination, counseling and educating the patient/family/caregiver and ordering medications, tests, or procedures. Silvio Moyer MD documented in this encounter [facility] 10-24-2024 Telephone encounter Note The following approved medication requests have been transmitted electronically. Requested Prescriptions Signed Prescriptions Disp Refills atorvastatin (LIPITOR) 10 mg tablet 90 tablet 1 Sig: Take 1 tablet by mouth once daily. Authorizing Provider: JULIET MILLAN gabapentin (NEURONTIN) 300 mg capsule 60 capsule 2 Sig: Take 1 capsule by mouth three times a day as needed for up to 20 days. Authorizing Provider: JULIET MILLAN traMADol (ULTRAM) 50 mg tablet 30 tablet 0 Sig: Take 1 tablet by mouth every 8 hours as needed for pain for up to 10 days. Authorizing Provider: JULIET MILLAN PA-C [facility] 10-24-2024 Miscellaneous Notes The following approved medication requests have been transmitted electronically. Requested Prescriptions Signed Prescriptions Disp Refills atorvastatin (LIPITOR) 10 mg tablet 90 tablet 1 Sig: Take 1 tablet by mouth once daily. Authorizing Provider: JULIET MILLAN gabapentin (NEURONTIN) 300 mg capsule 60 capsule 2 Sig: Take 1 capsule by mouth three times a day as needed for up to 20 days. Authorizing Provider: JULIET MILLAN traMADol (ULTRAM) 50 mg tablet 30 tablet 0 Sig: Take 1 tablet by mouth every 8 hours as needed for pain for up to 10 days. Authorizing Provider: JULIET MILLAN PA-C The patient has been identified by name and date of : Yes Caregiver verified no other encounters exist for this prescription request: Yes Caregiver confirmed with patient/requestor that no other refills are due, in the near future, with this provider at this time: Yes The last office visit in the department: 10/09/2024 Does the patient have a future office visit with this provider/department: 11/04/2024 Requested Prescriptions Pending Prescriptions Disp Refills atorvastatin (LIPITOR) 10 mg tablet 90 tablet 1 Sig: Take 1 tablet by mouth once daily. gabapentin (NEURONTIN) 300 mg capsule 60 capsule 0 Sig: Take 1 capsule by mouth three times a day as needed for up to 20 days. traMADol (ULTRAM) 50 mg tablet 15 tablet 0 Sig: Take 1 tablet by mouth every 8 hours as needed for pain for up to 5 days. Patient reports that Renetta Starr is also to be sending a request for PCP to continue gabapentin and tramadol while she runs tests and looks at vascular concerns. Gisella Dill RN October 24, 2024 12:25 PM documented in this encounter [facility] 10-24-2024 Telephone encounter Note The patient has been identified by name and date of : Yes Caregiver verified no other encounters exist for this prescription request: Yes Caregiver confirmed with patient/requestor that no other refills are due, in the near future, with this provider at this time: Yes The last office visit in the department: 10/09/2024 Does the patient have a future office visit with this provider/department: 11/04/2024 Requested Prescriptions Pending Prescriptions Disp Refills atorvastatin (LIPITOR) 10 mg tablet 90 tablet 1 Sig: Take 1 tablet by mouth once daily. gabapentin (NEURONTIN) 300 mg capsule 60 capsule 0 Sig: Take 1 capsule by mouth three times a day as needed for up to 20 days. traMADol (ULTRAM) 50 mg tablet 15 tablet 0 Sig: Take 1 tablet by mouth every 8 hours as needed for pain for up to 5 days. Patient reports that Renetta Starr is also to be sending a request for PCP to continue gabapentin and tramadol while she runs tests and looks at vascular concerns. Gisella Dill RN October 24, 2024 12:25 PM [facility] 10-09-2024 Note HNO ID: [id number] Author: JULIET MILLAN PA-C Service: ? Author Type: Physician Sales Department Clerk Type: Progress Notes Filed: 10/09/2024 09:49 Note Text: Chief Complaint Patient presents with: Pain (Shoulder Pain) HPI Jhonathan Byrnes is a 59 year old male who presents here today for Above Complaints.. Patient states that he has hx of left shoulder/pec minor syndrome. Patient has hx of broken collar bone that didn't heal correctly. In 2021 he had surgery with vascular and worked with pain management. 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 Since the surgery he has had 2 recurrences. Previously steroid helps within a few days. Gabapentin and tramadol help with pain control. He usually only takes 1/2 tramadol due to SE. Patient has not been back to specialist. Would like to see if local vascular specialist [place] Past medical history, appointments, medications, allergies reviewed. Previous Medical History PAST MEDICAL HISTORY Diagnosis Date Alcohol abuse 05/02/2018 Benign prostatic hyperplasia with urinary frequency 10/13/2023 Elevated hemoglobin A1c 07/11/2021 Essential hypertension 05/01/2018 Ex-smoker 05/01/2018 Started in his early 20's and quite around the age of 38. 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 Not aware or medication. GERD without esophagitis 05/02/2018 Herniation of intervertebral disc at C6-C7 level 05/03/2018 MRI 02/2018 History of anxiety 06/06/2007 History of colonic polyps 08/10/2022 Mixed hyperlipidemia 05/01/2018 Pectoralis minor syndrome (HCC) Uncomplicated alcohol dependence (HCC) 05/02/2018 Previous Surgical History PAST SURGICAL HISTORY Procedure Laterality Date COLONOSCOPY FLX DX W/COLLJ SPEC WHEN PFRMD 08/19/2018 repeat 3 years COLONOSCOPY SCREENING 08/21/2022 two small adenomatous polyps-repeat in 5 years EGD W/O BRSH SPEC VARICIES INJ 11/09/2021 HEART CATHETERIZATION 2017 WNL SHOULDER SURGERY HX 2021 Tenden release Family History FAMILY HISTORY Problem Relation Age of Onset Coronary Artery Disease Mother has stents Cancer Brother Lung: dx and initial surgery 2006. nonsmoker. other (dementia) Paternal Aunt Colon Cancer No Family History Patient Allergies ALLERGIES No Known Allergies Current Medications Current Outpatient Medications on File Prior to Visit Medication Sig Sacrosidase (SUCRAID) 8,500 unit/mL soln Take 2 mL with food and snacks daily Pregabalin (LYRICA) 200 mg capsule Take 1 capsule by mouth three times a day as needed for up to 20 days. polyethylene glycol 3350 (MIRALAX) 17 gram/dose powder Take by mouth once daily. Dissolve dose in 4 - 8 ounces of liquid and take as directed. amitriptyline (ELAVIL) 10 mg tablet Take 1 tablet by mouth daily at bedtime. atorvastatin (LIPITOR) 10 mg tablet Take 1 tablet by mouth once daily. lisinopril-hydroCHLOROthiazide (ZESTORETIC) 20-12.5 mg per tablet Take 1 tablet by mouth once daily. gabapentin (NEURONTIN) 300 mg capsule Take 1 capsule by mouth three times a day as needed for up to 20 days. hydrOXYzine HCl (ATARAX) 25 mg tablet Take 0.5-1 tab every 8 hrs as needed for panic attacks. cyanocobalamin (B-12 DOTS) 500 mcg tablet Take 1 tablet by mouth once daily. tamsulosin (FLOMAX) 0.4 mg Take 0.4 mg by mouth twice daily. Per Dr. Barbosa No current facility-administered medications on file prior to visit. Social History Social History Tobacco Use Smoking status: Former Current packs/day: 0.00 Average packs/day: 1 pack/day for 20.0 years (20.0 ttl pk-yrs) Types: Cigarettes Start date: 1987 Quit date: 2007 Years since quittin.5 Smokeless tobacco: Current Types: Chew Tobacco comments: Tobacco pouches Vaping Use Vaping status: Never Used Substance Use Topics Alcohol use: Yes Comment: 1-2 daily Drug use: Never Review of Symptoms REVIEW OF SYSTEMS See hpi EXAM: BP 120/80 (BP Site: Right Arm, BP Position: Sitting, BP Cuff Size: Regular Adult) Pulse 86 Temp 36.6 ?C (97.8 ?F) Resp 18 Wt 72.1 kg (159 lb) SpO2 100% BMI 22.81 kg/m? General Appearance: Well appearing, alert, in no acute distress, well-hydrated, well nourished.. MSK: shoulder exam wnl. NVI. Health Maintenance List BP Controlled (<130/80) due on 01/04/2023 Covid-19 Vaccine( season) due on 05/04/2024 Shingrix Vaccine(1 of 2) due on 10/13/2024 Pneumococcal Vaccine: 50+(1 of 2 - PCV) due on 12/02/2029 Annual PCP Team Chronic Disease Visit due on 04/14/2025 Depression Screening due on 04/14/2025 Diabetes Screening due on 10/13/2026 Colorectal Cancer Screening due on 08/21/2027 Prostate Cancer Screening Discussion due on 10/13/2028 Lipid Screening due on 01/25/2029 DTaP,Tdap,Td Vaccine(2 - Td or Tdap) due on 0 (more content not included)... [facility] 10-09-2024 History of Presen t illness Narrative Chief Complaint Patient presents with: Pain (Shoulder Pain) HPI Jhonathan Byrnes is a 59 year old male who presents here today for Above Complaints.. Patient states that he has hx of left shoulder/pec minor syndrome. Patient has hx of broken collar bone that didn't heal correctly. In 2021 he had surgery with vascular and worked with pain management. 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 Since the surgery he has had 2 recurrences. Previously steroid helps within a few days. Gabapentin and tramadol help with pain control. He usually only takes 1/2 tramadol due to SE. Patient has not been back to specialist. Would like to see if local vascular specialist will manage [place] Past medical history, appointments, medications, allergies reviewed. Previous Medical History PAST MEDICAL HISTORY Diagnosis Date Alcohol abuse 05/02/2018 Benign prostatic hyperplasia with urinary frequency 10/13/2023 Elevated hemoglobin A1c 07/11/2021 Essential hypertension 05/01/2018 Ex-smoker 05/01/2018 Started in his early 20's and quite around the age of 38. 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 Not aware or medication. GERD without esophagitis 05/02/2018 Herniation of intervertebral disc at C6-C7 level 05/03/2018 MRI 02/2018 History of anxiety 06/06/2007 History of colonic polyps 08/10/2022 Mixed hyperlipidemia 05/01/2018 Pectoralis minor syndrome (HCC) Uncomplicated alcohol dependence (HCC) 05/02/2018 Previous Surgical History PAST SURGICAL HISTORY Procedure Laterality Date COLONOSCOPY FLX DX W/COLLJ SPEC WHEN PFRMD 08/19/2018 repeat 3 years COLONOSCOPY SCREENING 08/21/2022 two small adenomatous polyps-repeat in 5 years EGD W/O BRSH SPEC VARICIES INJ 11/09/2021 HEART CATHETERIZATION 2017 WNL SHOULDER SURGERY HX 2021 Tenden release Family History FAMILY HISTORY Problem Relation Age of Onset Coronary Artery Disease Mother has stents Cancer Brother Lung: dx and initial surgery 2006. nonsmoker. other (dementia) Paternal Aunt Colon Cancer No Family History Patient Allergies ALLERGIES No Known Allergies Current Medications Current Outpatient Medications on File Prior to Visit Medication Sig Sacrosidase (SUCRAID) 8,500 unit/mL soln Take 2 mL with food and snacks daily Pregabalin (LYRICA) 200 mg capsule Take 1 capsule by mouth three times a day as needed for up to 20 days. polyethylene glycol 3350 (MIRALAX) 17 gram/dose powder Take by mouth once daily. Dissolve dose in 4 - 8 ounces of liquid and take as directed. amitriptyline (ELAVIL) 10 mg tablet Take 1 tablet by mouth daily at bedtime. atorvastatin (LIPITOR) 10 mg tablet Take 1 tablet by mouth once daily. lisinopril-hydroCHLOROthiazide (ZESTORETIC) 20-12.5 mg per tablet Take 1 tablet by mouth once daily. gabapentin (NEURONTIN) 300 mg capsule Take 1 capsule by mouth three times a day as needed for up to 20 days. hydrOXYzine HCl (ATARAX) 25 mg tablet Take 0.5-1 tab every 8 hrs as needed for panic attacks. cyanocobalamin (B-12 DOTS) 500 mcg tablet Take 1 tablet by mouth once daily. tamsulosin (FLOMAX) 0.4 mg Take 0.4 mg by mouth twice daily. Per Dr. Barbosa No current facility-administered medications on file prior to visit. Social History Social History Tobacco Use Smoking status: Former Current packs/day: 0.00 Average packs/day: 1 pack/day for 20.0 years (20.0 ttl pk-yrs) Types: Cigarettes Start date: 1987 Quit date: 2007 Years since quittin.5 Smokeless tobacco: Current Types: Chew Tobacco comments: Tobacco pouches Vaping Use Vaping status: Never Used Substance Use Topics Alcohol use: Yes Comment: 1-2 daily Drug use: Never Review of Symptoms REVIEW OF SYSTEMS See hpi EXAM: BP 120/80 (BP Site: Right Arm, BP Position: Sitting, BP Cuff Size: Regular Adult) Pulse 86 Temp 36.6 C (97.8 F) Resp 18 Wt 72.1 kg (159 lb) SpO2 100% BMI 22.81 kg/m General Appearance: Well appearing, alert, in no acute distress, well-hydrated, well nourished.. MSK: shoulder exam wnl. NVI. Health Maintenance List BP Controlled (<130/80) due on 01/04/2023 Covid-19 Vaccine( season) due on 05/04/2024 Shingrix Vaccine(1 of 2) due on 10/13/2024 Pneumococcal Vaccine: 50+(1 of 2 - PCV) due on 12/02/2029 Annual PCP Team Chronic Disease Visit due on 04/14/2025 Depression Screening due on 04/14/2025 Diabetes Screening due on 10/13/2026 Colorectal Cancer Screening due on 08/21/2027 Prostate Cancer Screening Discussion due on 10/13/2028 Lipid Screening due on 01/25/2029 DTaP,Tdap,Td Vaccine(2 - Td or Tdap) due on 01/05/2032 RSV Vaccine(1 - 1-dose 75+ series) due on 2038 Influenza Vaccine Discontinued Hepatitis C Screening Discontinued HIV Screening Discontinued Data reviewed ASSESSMENT/PLAN: 1. Pectoralis minor syndrome (HCC) - ICD9: 447.8, ICD10: I77.89 (primary diagnosis) Will treat with pred taper, gabapentin and tramadol Patient advised to see if [facility] vascular treats this, otherwise will need more specialized thoracic vascular specialist within the clinic. Patient understand of this. - CONSULT TO VASCULAR MEDICINE - TRAMADOL 50 MG TABLET 2. Foraminal stenosis of cervical region - ICD9: 723.0, ICD10: M48.02 - GABAPENTIN 300 MG CAPSULE 3. Chronic left shoulder pain - ICD9: 719.41, 338.29, ICD10: M25.512, G89.29 - TRAMADOL 50 MG TABLET 4. Thoracic outlet syndrome of left thoracic outlet - ICD9: 353.0, ICD10: G54.0 As #1 - CONSULT TO VASCULAR MEDICINE Juliet Millan PA-C documented in this encounter [facility] 10-08-2024 Telephone encounter Note Patient scheduled to see Juliet tomorrow morning 10/09/2024. Keiry Montilla RN [facility] 10-08-2024 Miscellaneous Notes Patient scheduled to see Juliet tomorrow morning 10/09/2024. Keiry Montilla RN documented in this encounter [facility] 10-07-2024 Telephone encounter Note Info noted. [facility] 10-07-2024 Miscellaneous Notes Info noted. Spoke with patient and he indicated that Dr. Moyer has prescribed steriod, gabapentin and tramadol in the past. Patient indicated that after his surgery he simply has flares and once he takes the medication for a few days he is good again for a 6 months. Patient indicated that he is on 10 days out on still having the pain. I explained that the provider was wanting patient seen. 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 His plate if full. Phyllis Omalley MA Patient would need to be seen to determine best course of action. Patient calls and states that he is having pain in his incision area (pectoralis pain). Patient asking if provider can send in prescription for steroid? Please review and advise, Keiry Montilla RN documented in this encounter [facility] 10-07-2024 Telephone encounter Note Spoke with patient and he indicated that Dr. Moyer has prescribed steriod, gabapentin and tramadol in the past. Patient indicated that after his surgery he simply has flares and once he takes the medication for a few days he is good again for a 6 months. Patient indicated that he is on 10 days out on still having the pain. I explained that the provider was wanting patient seen. 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 His plate if full. Phyllis Omalley MA [facility] 10-03-2024 Telephone encounter Note Patient would need to be seen to determine best course of action. [facility] 10-03-2024 Telephone encounter Note Provider will not be in office 12/05 and this appointment needs to be rescheduled. LVM and Hepa Washhart message sent. [facility] 10-03-2024 Miscellaneous Notes Provider will not be in office 12/05 and this appointment needs to be rescheduled. LVM and MyChart message sent. documented in this encounter [facility] 10-03-2024 Telephone encounter Note Patient calls and states that he is having pain in his incision area (pectoralis pain). Patient asking if provider can send in prescription for steroid? Please review and advise, Keiry Montilla RN [facility] 09-11-2024 Telephone encounter Note Patient phones requesting refills as follows: Requested Prescriptions Pending Prescriptions Disp Refills Sacrosidase (SUCRAID) 8,500 unit/mL soln 1000 mL 5 Sig: Take 2 mL with food and snacks daily Please review and advise. Cortez Clark MA [facility] 09-11-2024 Miscellaneous Notes Patient phones requesting refills as follows: Requested Prescriptions Pending Prescriptions Disp Refills Sacrosidase (SUCRAID) 8,500 unit/mL soln 1000 mL 5 Sig: Take 2 mL with food and snacks daily Please review and advise. Cortez Clark MA documented in this encounter [facility] 07-16-2024 Note HNO ID: [id number] Author: DULCE SALGADO APRN.[employer] POLISHER Service: ? Author Type: Nurse Practitioner Type: Progress Notes Filed: 07/16/2024 12:58 Note Text: Subjective HPI HPI Jhonathan Byrnes is a 59 year old male who presents today for CC of painful rash. This started 3 days ago. Has tried nothing for relief. Symptoms are worsened by nothing. Had chicken pox as child. .Patient presents with: Rash: Rash on right back x 3 days PAST MEDICAL HISTORY Diagnosis Date Alcohol abuse 05/02/2018 Benign prostatic hyperplasia with urinary frequency 10/13/2023 Elevated hemoglobin A1c 07/11/2021 Essential hypertension 05/01/2018 Ex-smoker 05/01/2018 Started in his early 20's and quite around the age of 38. 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 Not aware or medication. GERD without esophagitis 05/02/2018 Herniation of intervertebral disc at C6-C7 level 05/03/2018 MRI 02/2018 History of anxiety 06/06/2007 History of colonic polyps 08/10/2022 Mixed hyperlipidemia 05/01/2018 Pectoralis minor syndrome (HCC) Uncomplicated alcohol dependence (HCC) 05/02/2018 PAST SURGICAL HISTORY Procedure Laterality Date COLONOSCOPY FLX DX W/COLLJ SPEC WHEN PFRMD 08/19/2018 repeat 3 years COLONOSCOPY SCREENING 08/21/2022 two small adenomatous polyps-repeat in 5 years EGD W/O BRSH SPEC VARICIES INJ 11/09/2021 HEART CATHETERIZATION 2017 WNL SHOULDER SURGERY HX 2021 Tenden release ALLERGIES Patient has no known allergies. MEDICATIONS Pregabalin (LYRICA) 200 mg capsule Take 1 capsule by mouth three times a day as needed for up to 20 days. polyethylene glycol 3350 (MIRALAX) 17 gram/dose powder Take by mouth once daily. Dissolve dose in 4 - 8 ounces of liquid and take as directed. amitriptyline (ELAVIL) 10 mg tablet Take 1 tablet by mouth daily at bedtime. atorvastatin (LIPITOR) 10 mg tablet Take 1 tablet by mouth once daily. lisinopril-hydroCHLOROthiazide (ZESTORETIC) 20-12.5 mg per tablet Take 1 tablet by mouth once daily. gabapentin (NEURONTIN) 300 mg capsule Take 1 capsule by mouth three times a day as needed for up to 20 days. Sacrosidase (SUCRAID) 8,500 unit/mL soln Take 2 mL with food and snacks daily hydrOXYzine HCl (ATARAX) 25 mg tablet Take 0.5-1 tab every 8 hrs as needed for panic attacks. cyanocobalamin (B-12 DOTS) 500 mcg tablet Take 1 tablet by mouth once daily. tamsulosin (FLOMAX) 0.4 mg Take 0.4 mg by mouth twice daily. Per Dr. Barbosa valACYclovir (VALTREX) 1 gram tablet Take 1 tablet by mouth three times a day for 7 days. FAMILY HISTORY Problem Relation Age of Onset Coronary Artery Disease Mother has stents Cancer Brother Lung: dx and initial surgery 2006. nonsmoker. other (dementia) Paternal Aunt Colon Cancer No Family History Social History Tobacco Use Smoking status: Former Current packs/day: 0.00 Average packs/day: 1 pack/day for 20.0 years (20.0 ttl pk-yrs) Types: Cigarettes Start date: 1987 Quit date: 2007 Years since quittin.2 Smokeless tobacco: Current Types: Chew Tobacco comments: Tobacco pouches Vaping Use Vaping status: Never Used Substance Use Topics Alcohol use: Yes Comment: 1-2 daily Drug use: Never Review of Systems Constitutional: Negative for fever. Skin: Positive for itching and rash. Objective Blood pressure 140/82, pulse 118, temperature 36.4 ?C (97.5 ?F), temperature source Tympanic, resp. rate 16, weight 71.6 kg (157 lb 13.6 oz), SpO2 99%. Latest Ref Rng 10/13/2023 Protein, Total 6.3 - 8.0 g/dL 7.6 Albumin 3.9 - 4.9 g/dL 4.6 Calcium 8.5 - 10.2 mg/dL 10.0 Bilirubin, Total 0.2 - 1.3 mg/dL 0.4 Alkaline Phosphatase 38 - 113 U/L 71 AST 14 - 40 U/L 23 ALT 10 - 54 U/L 24 Glucose 74 - 99 mg/dL 104 (H) BUN 9 - 24 mg/dL 15 Creatinine 0.73 - 1.22 mg/dL 0.91 Sodium 136 - 144 mmol/L 140 Potassium 3.7 - 5.1 mmol/L 4.3 Chloride 97 - 105 mmol/L 101 CO2 22 - 30 mmol/L 29 Anion Gap 9 - 18 mmol/L 10 eGFR >=60 mL/min/1.73m? 96 Physical Exam Constitutional: General: He is not in acute distress. Appearance: He is not toxic-appearing or diaphoretic. HENT: Head: Normocephalic and atraumatic. Pulmonary: Effort: Pulmonary effort is normal. No accessory muscle usage or respiratory distress. Skin: Neurological: Mental Status: He is alert and oriented to person, place, and time. ASSESSMENT/PLAN: 1. Herpes zoster without complication - ICD9: 053.9, ICD10: B02.9 -use medication as prescribed -follow up if symptoms persist, worsen, change - VALACYCLOVIR 1 GRAM TABLET Dulce Salgado APRN.[facility] 07-16-2024 History of Presen t illness Narrative Subjective HPI HPI Jhonathan Byrnes is a 59 year old male who presents today for CC of painful rash. This started 3 days ago. Has tried nothing for relief. Symptoms are worsened by nothing. Had chicken pox as child. .Patient presents with: Rash: Rash on right back x 3 days PAST MEDICAL HISTORY Diagnosis Date Alcohol abuse 05/02/2018 Benign prostatic hyperplasia with urinary frequency 10/13/2023 Elevated hemoglobin A1c 07/11/2021 Essential hypertension 05/01/2018 Ex-smoker 05/01/2018 Started in his early 20's and quite around the age of 38. 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 Not aware or medication. GERD without esophagitis 05/02/2018 Herniation of intervertebral disc at C6-C7 level 05/03/2018 MRI 02/2018 History of anxiety 06/06/2007 History of colonic polyps 08/10/2022 Mixed hyperlipidemia 05/01/2018 Pectoralis minor syndrome (HCC) Uncomplicated alcohol dependence (HCC) 05/02/2018 PAST SURGICAL HISTORY Procedure Laterality Date COLONOSCOPY FLX DX W/COLLJ SPEC WHEN PFRMD 08/19/2018 repeat 3 years COLONOSCOPY SCREENING 08/21/2022 two small adenomatous polyps-repeat in 5 years EGD W/O BRSH SPEC VARICIES INJ 11/09/2021 HEART CATHETERIZATION 2017 WNL SHOULDER SURGERY HX 2021 [place]enden release ALLERGIES Patient has no known allergies. MEDICATIONS Pregabalin (LYRICA) 200 mg capsule Take 1 capsule by mouth three times a day as needed for up to 20 days. polyethylene glycol 3350 (MIRALAX) 17 gram/dose powder Take by mouth once daily. Dissolve dose in 4 - 8 ounces of liquid and take as directed. amitriptyline (ELAVIL) 10 mg tablet Take 1 tablet by mouth daily at bedtime. atorvastatin (LIPITOR) 10 mg tablet Take 1 tablet by mouth once daily. lisinopril-hydroCHLOROthiazide (ZESTORETIC) 20-12.5 mg per tablet Take 1 tablet by mouth once daily. gabapentin (NEURONTIN) 300 mg capsule Take 1 capsule by mouth three times a day as needed for up to 20 days. Sacrosidase (SUCRAID) 8,500 unit/mL soln Take 2 mL with food and snacks daily hydrOXYzine HCl (ATARAX) 25 mg tablet Take 0.5-1 tab every 8 hrs as needed for panic attacks. cyanocobalamin (B-12 DOTS) 500 mcg tablet Take 1 tablet by mouth once daily. tamsulosin (FLOMAX) 0.4 mg Take 0.4 mg by mouth twice daily. Per Dr. Barbosa valACYclovir (VALTREX) 1 gram tablet Take 1 tablet by mouth three times a day for 7 days. FAMILY HISTORY Problem Relation Age of Onset Coronary Artery Disease Mother has stents Cancer Brother Lung: dx and initial surgery 2006. nonsmoker. other (dementia) Paternal Aunt Colon Cancer No Family History Social History Tobacco Use Smoking status: Former Current packs/day: 0.00 Average packs/day: 1 pack/day for 20.0 years (20.0 ttl pk-yrs) Types: Cigarettes Start date: 1987 Quit date: 2007 Years since quittin.2 Smokeless tobacco: Current Types: Chew Tobacco comments: Tobacco pouches Vaping Use Vaping status: Never Used Substance Use Topics Alcohol use: Yes Comment: 1-2 daily Drug use: Never Review of Systems Constitutional: Negative for fever. Skin: Positive for itching and rash. Objective Blood pressure 140/82, pulse 118, temperature 36.4 C (97.5 F), temperature source Tympanic, resp. rate 16, weight 71.6 kg (157 lb 13.6 oz), SpO2 99%. Latest Ref Rng 10/13/2023 Protein, Total 6.3 - 8.0 g/dL 7.6 Albumin 3.9 - 4.9 g/dL 4.6 Calcium 8.5 - 10.2 mg/dL 10.0 Bilirubin, Total 0.2 - 1.3 mg/dL 0.4 Alkaline Phosphatase 38 - 113 U/L 71 AST 14 - 40 U/L 23 ALT 10 - 54 U/L 24 Glucose 74 - 99 mg/dL 104 (H) BUN 9 - 24 mg/dL 15 Creatinine 0.73 - 1.22 mg/dL 0.91 Sodium 136 - 144 mmol/L 140 Potassium 3.7 - 5.1 mmol/L 4.3 Chloride 97 - 105 mmol/L 101 CO2 22 - 30 mmol/L 29 Anion Gap 9 - 18 mmol/L 10 eGFR >=60 mL/min/1.73m 96 Physical Exam Constitutional: General: He is not in acute distress. Appearance: He is not toxic-appearing or diaphoretic. HENT: Head: Normocephalic and atraumatic. Pulmonary: Effort: Pulmonary effort is normal. No accessory muscle usage or respiratory distress. Skin: Neurological: Mental Status: He is alert and oriented to person, place, and time. ASSESSMENT/PLAN: 1. Herpes zoster without complication - ICD9: 053.9, ICD10: B02.9 -use medication as prescribed -follow up if symptoms persist, worsen, change - VALACYCLOVIR 1 GRAM TABLET Dulce Salgado APRN.[employer] documented in this encounter [facility] 07-16-2024 Instructions Dulce Salgado APRN.[facility] - 07/16/2024 12:34 PM EST [facility] PATIENT INFO SHINGLES Shingles (Herpes Zoster) What is shingles? Shingles is an infection caused by the same virus that causes chickenpox. This virus is called varicella zoster. You cannot develop shingles unless you have had a previous infection of chickenpox (usually as a child). Shingles is also called herpes zoster. This infection is most common in people over 60 years of age, but young people can have it as well. How does it occur? After you recover from chickenpox, the chickenpox virus is not destroyed. It moves back to the roots of your nerve cells (near the spinal cord) and becomes inactive (dormant). Later, if the virus is reactivated, the symptoms are called shingles. What exactly causes the reactivation of the virus is not known. A weakened immune system seems to allow reactivation of the virus. Advancing age and chronic use of cortisone-type drugs may trigger shingles. The virus may also become active again after the skin is injured or sunburned. Emotional stress seems to be a common trigger as well. What are the symptoms? The first sign of shingles is often burning, sharp pain, tingling, or numbness in or under your skin on one side of your body or face. The most common site is the back or upper abdomen. You may have severe itching or aching. You also may feel tired and ill with fever, chills, headache, and upset stomach. After several days, you will notice a rash of small, clear, fluid-filled blisters on reddened skin. Within 3 days after they appear, the blisters will turn yellow, then dry and crust over. Over the next 2 weeks the crusts will drop off, sometimes leaving small, pitted scars. Because they tend to follow nerve paths, the blisters are usually found in a line, often extending from the back or flank around to the abdomen, just on one side. Shingles usually doesn't cross the midline of the body. (The word shingles comes from the Latin word for belt or girdle.) The rash also may appear on one side of your face. Some people have painful eye inflammations and infections. Is shingles contagious? You can't get shingles from someone else, but you may get chickenpox from contact with shingles blisters if you have not had chickenpox before. The shingles virus is in the blister fluid. The virus can spread by direct contact with a blister. It can also be spread by indirect contact, for example, if you use a washcloth that has blister fluid on it. If you have shingles, avoid contact with infants, children, women, and adults who have never had chickenpox or the chickenpox shot until your blisters are completely dry. How is shingles diagnosed? Your health care provider will ask about your symptoms and examine you. Your provider may order lab tests to look for the virus in fluid from a blister. How is it treated? It is best to start treatment within 24 to 48 hours after symptoms start. Your health care provider may prescribe: -an antiviral drug, such as acyclovir, to speed recovery and lessen the chance of prolonged symptoms from nerve inflammation -painkillers for more serious discomfort if nonprescription painkillers are not helping enough -antibacterial salves or lotions to help prevent bacterial infection of the blisters -capsaicin cream for pain How long will the effects last? The rash from shingles will heal in 1 to 2 weeks and the pain or irritation will usually disappear within 3 to 5 weeks. If the virus damages a nerve, you may have pain, numbness, or tingling for months or even years after the rash is healed. This is a condition called postherpetic neuralgia. It is most likely to occur after a shingles outbreaks in people over 50 years old. Antiviral medicine prescribed at the time the shingles is diagnosed and taken for 7 days can help prevent this problem. How can I take care of myself? -Take a pain relief medicine such as acetaminophen. Take other medicine as prescribed by your health care provider. -Put a cool compress on the rash (such as a cool, moist washcloth). -Rest in bed during the early stages if you have fever and other symptoms. -Try to avoid having clothing or bed linens rubbing against the rash, which might irritate it. Call your health care provider if: -You develop worsening pain or fever. -The blisters show signs of bacterial infection, such as increasing pain or redness, or milky yellow drainage from the blister sites. -The blisters are close to the eyes. How can I help prevent shingles? -If you have never had chickenpox, you can get a shot to help prevent infection with the chickenpox virus. -You can protect your immune system and lessen your chances of getting shingles by trying to keep your stress under control documented in this encounter [facility] 07-14-2024 Telephone encounter Note Pt reports he thinks he has shingles on right side back, middle to lower back. Reports he has blisters, itching in that area. Has pain around to front right side near waistline. Reports this has been coming on for 7 days with fatigue, and generally not feeling well. Scheduled same day appt with pcp, per pt request. [facility] 07-14-2024 Miscellaneous Notes Pt reports he thinks he has shingles on right side back, middle to lower back. Reports he has blisters, itching in that area. Has pain around to front right side near waistline. Reports this has been coming on for 7 days with fatigue, and generally not feeling well. Scheduled same day appt with pcp, per pt request. documented in this encounter [facility] 06-06-2024 Note HNO ID: [id number] Author: KEIRY FONTANA PA-C Service: ? Author Type: Physician Sales Department Clerk Type: Progress Notes Filed: 06/06/2024 15:42 Note Text: CHIEF COMPLAINT: Patient presents with: Recheck: IBS with constipation and SIBO HPI Jhonathan Byrnes is a 59 year old male here today for Recheck (IBS with constipation and SIBO) PMHx of JC, GERD, colon polyps, alcohol abuse, HTN Patient tells me that he is doing well today. Notes some minor R sided abdominal pain that has been significantly improved. Notes some minor constipation but does not always remember to take Miralax. No rectal bleeding. Denies heartburn, nausea, vomiting. Appetite is good. Weight is stable. 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 Irritable bowel syndrome with constipation -- Patient with suspected IBS-C. Notes IBSRELA is giving too much diarrhea. -- Recommend trying to get Miralax daily to see if this helps bowel movements. -- Patient agreeable to see Labor Gang Supervisor, referral placed. -- Keep Functional medicine appt - CONSULT TO NUTRITION THERAPY; Future 2. Congenital sucrose isomaltose malabsorption -- Patient taking CSID appropriately, getting his next prescription tomorrow -- Patient agreeable to see Labor Gang Supervisor, referral placed. -- Keep Functional medicine appt - CONSULT TO NUTRITION THERAPY; Future 3. Small intestinal bacterial overgrowth -- Patient agreeable to see Labor Gang Supervisor, referral placed. -- Keep Functional medicine appt - CONSULT TO NUTRITION THERAPY; Future Follow up in office PRN. Current Outpatient Medications Medication Sig Pregabalin (LYRICA) 200 mg capsule Take 1 capsule by mouth three times a day as needed for up to 20 days. polyethylene glycol 3350 (MIRALAX) 17 gram/dose powder Take by mouth once daily. Dissolve dose in 4 - 8 ounces of liquid and take as directed. atorvastatin (LIPITOR) 10 mg tablet Take 1 tablet by mouth once daily. lisinopril-hydroCHLOROthiazide (ZESTORETIC) 20-12.5 mg per tablet Take 1 tablet by mouth once daily. amitriptyline (ELAVIL) 10 mg tablet Take 1 tablet by mouth daily at bedtime. gabapentin (NEURONTIN) 300 mg capsule Take 1 capsule by mouth three times a day as needed for up to 20 days. Sacrosidase (SUCRAID) 8,500 unit/mL soln Take 2 mL with food and snacks daily cyanocobalamin (B-12 DOTS) 500 mcg tablet Take 1 tablet by mouth once daily. tamsulosin (FLOMAX) 0.4 mg Take 0.4 mg by mouth twice daily. Per Dr. Barbosa hydrOXYzine HCl (ATARAX) 25 mg tablet Take 0.5-1 tab every 8 hrs as needed for panic attacks. (Patient not taking: Reported on 06/06/2024) No current facility-administered medications for this visit. ALLERGIES No Known Allergies Social History Tobacco Use Smoking status: Former Current packs/day: 0.00 Average packs/day: 1 pack/day for 20.0 years (20.0 ttl pk-yrs) Types: Cigarettes Start date: 1987 Quit date: 2007 Years since quittin.1 Smokeless tobacco: Current Types: Chew Tobacco comments: Tobacco pouches Vaping Use Vaping status: Never Used Substance Use Topics Alcohol use: Yes Comment: 1-2 daily Drug use: Never PAST MEDICAL HISTORY Diagnosis Date Alcohol abuse 05/02/2018 Benign prostatic hyperplasia with urinary frequency 10/13/2023 Elevated hemoglobin A1c 07/11/2021 Essential hypertension 05/01/2018 Ex-smoker 05/01/2018 Started in his early 20's and quite around the age of 38. 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 Not aware or medication. GERD without esophagitis 05/02/2018 Herniation of intervertebral disc at C6-C7 level 05/03/2018 MRI 02/2018 History of anxiety 06/06/2007 History of colonic polyps 08/10/2022 Mixed hyperlipidemia 05/01/2018 Pectoralis minor syndrome (HCC) Uncomplicated alcohol dependence (HCC) 05/02/2018 PAST SURGICAL HISTORY Procedure Laterality Date COLONOSCOPY FLX DX W/COLLJ SPEC WHEN PFRMD 08/19/2018 repeat 3 years COLONOSCOPY SCREENING 08/21/2022 two small adenomatous polyps-repeat in 5 years EGD W/O BRSH SPEC VARICIES INJ 11/09/2021 HEART CATHETERIZATION 2017 WNL SHOULDER SURGERY HX 2021 [place] release FAMILY HISTORY Problem Relation Age of Onset Coronary Artery Disease Mother has stents Cancer Brother Lung: dx and initial surgery 2006. nonsmoker. other (dementia) Paternal Aunt Colon Cancer No Family History REVIEW OF SYSTEMS Review of Systems Respiratory: Positive for cough. Gastrointestinal: Positive for constipation. All other systems reviewed and are negative. PHYSICAL EXAM BP 106/72 Pulse 90 Ht 5' 10 (1.78m) Wt 160 lb (72.6kg) BMI 22.96 kg/(m2). Physical Exam (more content not included)... [facility] 06-06-2024 History of Presen t illness Narrative CHIEF COMPLAINT: Patient presents with: Recheck: IBS with constipation and SIBO HPI Jhonathan Byrnes is a 59 year old male here today for Recheck (IBS with constipation and SIBO) PMHx of JC, GERD, colon polyps, alcohol abuse, HTN Patient tells me that he is doing well today. Notes some minor R sided abdominal pain that has been significantly improved. Notes some minor constipation but does not always remember to take Miralax. No rectal bleeding. Denies heartburn, nausea, vomiting. Appetite is good. Weight is stable. 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 Irritable bowel syndrome with constipation -- Patient with suspected IBS-C. Notes IBSRELA is giving too much diarrhea. -- Recommend trying to get Miralax daily to see if this helps bowel movements. -- Patient agreeable to see Labor Gang Supervisor, referral placed. -- Keep Functional medicine appt - CONSULT TO NUTRITION THERAPY; Future 2. Congenital sucrose isomaltose malabsorption -- Patient taking CSID appropriately, getting his next prescription tomorrow -- Patient agreeable to see Labor Gang Supervisor, referral placed. -- Keep Functional medicine appt - CONSULT TO NUTRITION THERAPY; Future 3. Small intestinal bacterial overgrowth -- Patient agreeable to see Labor Gang Supervisor, referral placed. -- Keep Functional medicine appt - CONSULT TO NUTRITION THERAPY; Future Follow up in office PRN. Current Outpatient Medications Medication Sig Pregabalin (LYRICA) 200 mg capsule Take 1 capsule by mouth three times a day as needed for up to 20 days. polyethylene glycol 3350 (MIRALAX) 17 gram/dose powder Take by mouth once daily. Dissolve dose in 4 - 8 ounces of liquid and take as directed. atorvastatin (LIPITOR) 10 mg tablet Take 1 tablet by mouth once daily. lisinopril-hydroCHLOROthiazide (ZESTORETIC) 20-12.5 mg per tablet Take 1 tablet by mouth once daily. amitriptyline (ELAVIL) 10 mg tablet Take 1 tablet by mouth daily at bedtime. gabapentin (NEURONTIN) 300 mg capsule Take 1 capsule by mouth three times a day as needed for up to 20 days. Sacrosidase (SUCRAID) 8,500 unit/mL soln Take 2 mL with food and snacks daily cyanocobalamin (B-12 DOTS) 500 mcg tablet Take 1 tablet by mouth once daily. tamsulosin (FLOMAX) 0.4 mg Take 0.4 mg by mouth twice daily. Per Dr. Barbosa hydrOXYzine HCl (ATARAX) 25 mg tablet Take 0.5-1 tab every 8 hrs as needed for panic attacks. (Patient not taking: Reported on 06/06/2024) No current facility-administered medications for this visit. ALLERGIES No Known Allergies Social History Tobacco Use Smoking status: Former Current packs/day: 0.00 Average packs/day: 1 pack/day for 20.0 years (20.0 ttl pk-yrs) Types: Cigarettes Start date: 1987 Quit date: 2007 Years since quittin.1 Smokeless tobacco: Current Types: Chew Tobacco comments: Tobacco pouches Vaping Use Vaping status: Never Used Substance Use Topics Alcohol use: Yes Comment: 1-2 daily Drug use: Never PAST MEDICAL HISTORY Diagnosis Date Alcohol abuse 05/02/2018 Benign prostatic hyperplasia with urinary frequency 10/13/2023 Elevated hemoglobin A1c 07/11/2021 Essential hypertension 05/01/2018 Ex-smoker 05/01/2018 Started in his early 20's and quite around the age of 38. 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 Not aware or medication. GERD without esophagitis 05/02/2018 Herniation of intervertebral disc at C6-C7 level 05/03/2018 MRI 02/2018 History of anxiety 06/06/2007 History of colonic polyps 08/10/2022 Mixed hyperlipidemia 05/01/2018 Pectoralis minor syndrome (HCC) Uncomplicated alcohol dependence (HCC) 05/02/2018 PAST SURGICAL HISTORY Procedure Laterality Date COLONOSCOPY FLX DX W/COLLJ SPEC WHEN PFRMD 08/19/2018 repeat 3 years COLONOSCOPY SCREENING 08/21/2022 two small adenomatous polyps-repeat in 5 years EGD W/O BRSH SPEC VARICIES INJ 11/09/2021 HEART CATHETERIZATION 2017 WNL SHOULDER SURGERY HX 2021 [place] release FAMILY HISTORY Problem Relation Age of Onset Coronary Artery Disease Mother has stents Cancer Brother Lung: dx and initial surgery 2006. nonsmoker. other (dementia) Paternal Aunt Colon Cancer No Family History REVIEW OF SYSTEMS Review of Systems Respiratory: Positive for cough. Gastrointestinal: Positive for constipation. All other systems reviewed and are negative. PHYSICAL EXAM BP 106/72 Pulse 90 Ht 5' 10 (1.78m) Wt 160 lb (72.6kg) BMI 22.96 kg/(m^2). Physical Exam Constitutional: Appearance: Normal appearance. He is normal weight. HENT: Head: Normocephalic and atraumatic. Eyes: General: No scleral icterus. Extraocular Movements: Extraocular movements intact. Conjunctiva/sclera: Conjunctivae normal. Pupils: Pupils are equal, round, and reactive to light. Cardiovascular: Rate and Rhythm: Normal rate and regular rhythm. Pulses: Normal pulses. Heart sounds: Normal heart sounds. Pulmonary: Effort: Pulmonary effort is normal. Breath sounds: Normal breath sounds. Abdominal: General: Abdomen is flat. Bowel sounds are normal. Palpations: Abdomen is soft. Tenderness: There is no abdominal tenderness. Musculoskeletal: General: Normal range of motion. Cervical back: Normal range of motion and neck supple. Skin: General: Skin is warm and dry. Coloration: Skin is not jaundiced. Neurological: General: No focal deficit present. Mental Status: He is alert and oriented to person, place, and time. Psychiatric: Mood and Affect: Mood normal. Behavior: Behavior normal. Thought Content: Thought content normal. Judgment: Judgment normal. 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 Irritable bowel syndrome with constipation -- Patient overall doing well today. Notes that he has been great at taking the Miralax. Encouraged patient that if he takes it on a more regular basis in his morning coffee, will help regulate bowels. -- Refilled Elavil as this is working well - amitriptyline (ELAVIL) 10 mg tablet; Take 1 tablet by mouth daily at bedtime. Dispense: 30 tablet; Refill: 4 2. Congenital sucrose isomaltose malabsorption -- Doing so much better on Sucraid. Does not need refills today. Follow up in office 6 months/PRN. Recommended to please call office/go to ER if fever, chills, chest pain, SOB, diarrhea, nausea, emesis, worsening abdominal pain, dehydration occurs I spent a total of 15 minutes on the date of the service which included preparing to see the patient, [id number] patient care, completing clinical documentation, obtaining and/or reviewing separately obtained history, performing a medically appropriate examination, counseling and educating the patient/family/caregiver, and ordering medications, tests, or procedures. Keiry Fontana PA-C June 06, 2024 3:35 PM documented in this encounter [facility] 04-14-2024 Instructions Tracie Newman APRN.CNP - 04/14/2024 3:29 PM EDT Consult to Dr. De Luna at [facility] documented in this encounter [facility] 04-14-2024 Note HNO ID: [id number] Author: TRACIE NEWMAN APRN.KIRILL Service: ? Author Type: Nurse Practitioner Type: Progress Notes Filed: 04/14/2024 15:34 Note Text: Chief Complaint Patient presents with: 6 Month Exam HPI Jhonathan Byrnes is a 59 year old male who presents here today for Above Complaints.. Patient presents for routine follow up. Patient reports he had a issue with pain at his incision for pec major surgery and reports improvement with prednisone, gabapentin, and tramadol. Not taking tramadol often due to feeling loopy. Requesting consult to vascular surgery. Past medical history, appointments, medications, allergies reviewed. Previous Medical History PAST MEDICAL HISTORY 05/02/2018: Alcohol abuse 10/13/2023: Benign prostatic hyperplasia with urinary frequency 07/11/2021: Elevated hemoglobin A1c 05/01/2018: Essential hypertension 05/01/2018: Ex-smoker Comment: Started in his early 20's and quite around the age of 38. 1 PPD 05/03/2018: Foraminal stenosis of cervical region Comment: C6-C7 region 06/06/2007: JC (generalized anxiety disorder) Comment: Was on anxiety medication at one time and did not tolerate. Not aware or medication. 05/02/2018: GERD without esophagitis 05/03/2018: Herniation of intervertebral disc at C6-C7 level Comment: MRI 02/201806/06/2007: History of anxiety 08/10/2022: History of colonic polyps 05/01/2018: Mixed hyperlipidemia No date: Pectoralis minor syndrome (HCC) 05/02/2018: Uncomplicated alcohol dependence (HCC) Previous Surgical History PAST SURGICAL HISTORY 08/19/2018: COLONOSCOPY FLX DX W/COLLJ SPEC WHEN PFRMD Comment: repeat 3 years 08/21/2022: COLONOSCOPY SCREENING Comment: two small adenomatous polyps-repeat in 5 years 11/09/2021: EGD W/O BRSH SPEC VARICIES INJ 2016: HEART CATHETERIZATION Comment: WNL 2021: SHOULDER SURGERY HX Comment: [place] release Family History FAMILY HISTORY Problem Relation Age of Onset Coronary Artery Disease Mother has stents Cancer Brother Lung: dx and initial surgery 2006. nonsmoker. other (dementia) Paternal Aunt Colon Cancer No Family History Patient Allergies ALLERGIES No Known Allergies Current Medications Current Outpatient Medications on File Prior to Visit Medication Sig amitriptyline (ELAVIL) 10 mg tablet Take 1 tablet by mouth daily at bedtime. predniSONE (DELTASONE) 10 mg tablet Take 6 tabs by mouth for 3 days then 4 tabs a day for 3 days then 2 tabs a day for 3 days and then 1 tab a day for 3 days. gabapentin (NEURONTIN) 300 mg capsule Take 1 capsule by mouth three times a day as needed for up to 20 days. IBSRELA 50 mg tablet take one tablet by mouth twice daily with meals Sacrosidase (SUCRAID) 8,500 unit/mL soln Take 2 mL with food and snacks daily atorvastatin (LIPITOR) 10 mg tablet Take 1 tablet by mouth once daily. lisinopril-hydroCHLOROthiazide (ZESTORETIC) 20-12.5 mg per tablet Take 1 tablet by mouth once daily. hydrOXYzine HCl (ATARAX) 25 mg tablet Take 0.5-1 tab every 8 hrs as needed for panic attacks. cyanocobalamin (B-12 DOTS) 500 mcg tablet Take 1 tablet by mouth once daily. lansoprazole (PREVACID) 30 mg capsule Take 1 capsule by mouth two times a day. 1/2 hr before meal. (Patient not taking: Reported on 01/09/2024) tamsulosin (FLOMAX) 0.4 mg Take 0.4 mg by mouth twice daily. Per Dr. Barbosa No current facility-administered medications on file prior to visit. Social History Social History Tobacco Use Smoking status: Former Packs/day: 1.00 Years: 20.00 Additional pack years: 0.00 Total pack years: 20.00 Types: Cigarettes Quit date: 2007 Years since quittin.0 Smokeless tobacco: Current Types: Chew Tobacco comments: Tobacco pouches Vaping Use Vaping Use: Never used Substance Use Topics Alcohol use: Yes Comment: 1-2 daily Drug use: Never Review of Symptoms REVIEW OF SYSTEMS SEE HPI EXAM: BP 119/73 Pulse 99 Resp 14 Wt 72.1 kg (159 lb) BMI 22.81 kg/m? General Appearance: Well appearing, alert, in no acute distress, well-hydrated, well nourished. Lungs: Lungs clear to auscultation. No wheezing, rhonchi, rales.. Heart: RRR without murmur, gallop, or rubs. No ectopy. Peripheral Pulses: Normal. Health Maintenance List Depression Screening Never done BP Controlled (<130/80) due on 01/04/2023 RSV Vaccine(1 - 1-dose 60+ series) due on 10/13/2024 Shingrix Vaccine(1 of 2) due on 10/13/2024 Covid-19 Vaccine(2022- season) due on 10/13/2024 Pneumococcal Vaccine(1 of 2 - PCV) due on 12/02/2029 Annual PCP Team Chronic Disease Visit due on 03/27/2025 Diabetes Screening due on 10/13/2026 Colorectal Cancer Screening due on 08/21/2027 Prostate Cancer Screening Discussion due on 10/13/2028 Lipid Screening due on 01/25/2029 DTaP,Tdap,Td Vaccine(2 - Td or Tdap) due on 01/05/2032 Influenza Vaccine Discontinued Hepatitis C Screening Discontinued HIV Screening Discontinued ASSESSM (more content not included)... [facility] 04-14-2024 History of Presen t illness Narrative Chief Complaint Patient presents with: 6 Month Exam HPI Jhonathan Byrnes is a 59 year old male who presents here today for Above Complaints.. Patient presents for routine follow up. Patient reports he had a issue with pain at his incision for pec major surgery and reports improvement with prednisone, gabapentin, and tramadol. Not taking tramadol often due to feeling loopy. Requesting consult to vascular surgery. Past medical history, appointments, medications, allergies reviewed. Previous Medical History PAST MEDICAL HISTORY 05/02/2018: Alcohol abuse 10/13/2023: Benign prostatic hyperplasia with urinary frequency 07/11/2021: Elevated hemoglobin A1c 05/01/2018: Essential hypertension 05/01/2018: Ex-smoker Comment: Started in his early 20's and quite around the age of 38. 1 PPD 05/03/2018: Foraminal stenosis of cervical region Comment: C6-C7 region 06/06/2007: JC (generalized anxiety disorder) Comment: Was on anxiety medication at one time and did not tolerate. Not aware or medication. 05/02/2018: GERD without esophagitis 05/03/2018: Herniation of intervertebral disc at C6-C7 level Comment: MRI 02/201806/06/2007: History of anxiety 08/10/2022: History of colonic polyps 05/01/2018: Mixed hyperlipidemia No date: Pectoralis minor syndrome (HCC) 05/02/2018: Uncomplicated alcohol dependence (HCC) Previous Surgical History PAST SURGICAL HISTORY 08/19/2018: COLONOSCOPY FLX DX W/COLLJ SPEC WHEN PFRMD Comment: repeat 3 years 08/21/2022: COLONOSCOPY SCREENING Comment: two small adenomatous polyps-repeat in 5 years 11/09/2021: EGD W/O BRSH SPEC VARICIES INJ 2017: HEART CATHETERIZATION Comment: WNL 2021: SHOULDER SURGERY HX Comment: [place] release Family History FAMILY HISTORY Problem Relation Age of Onset Coronary Artery Disease Mother has stents Cancer Brother Lung: dx and initial surgery 2006. nonsmoker. other (dementia) Paternal Aunt Colon Cancer No Family History Patient Allergies ALLERGIES No Known Allergies Current Medications Current Outpatient Medications on File Prior to Visit Medication Sig amitriptyline (ELAVIL) 10 mg tablet Take 1 tablet by mouth daily at bedtime. predniSONE (DELTASONE) 10 mg tablet Take 6 tabs by mouth for 3 days then 4 tabs a day for 3 days then 2 tabs a day for 3 days and then 1 tab a day for 3 days. gabapentin (NEURONTIN) 300 mg capsule Take 1 capsule by mouth three times a day as needed for up to 20 days. IBSRELA 50 mg tablet take one tablet by mouth twice daily with meals Sacrosidase (SUCRAID) 8,500 unit/mL soln Take 2 mL with food and snacks daily atorvastatin (LIPITOR) 10 mg tablet Take 1 tablet by mouth once daily. lisinopril-hydroCHLOROthiazide (ZESTORETIC) 20-12.5 mg per tablet Take 1 tablet by mouth once daily. hydrOXYzine HCl (ATARAX) 25 mg tablet Take 0.5-1 tab every 8 hrs as needed for panic attacks. cyanocobalamin (B-12 DOTS) 500 mcg tablet Take 1 tablet by mouth once daily. lansoprazole (PREVACID) 30 mg capsule Take 1 capsule by mouth two times a day. 1/2 hr before meal. (Patient not taking: Reported on 01/09/2024) tamsulosin (FLOMAX) 0.4 mg Take 0.4 mg by mouth twice daily. Per Dr. Barbosa No current facility-administered medications on file prior to visit. Social History Social History Tobacco Use Smoking status: Former Packs/day: 1.00 Years: 20.00 Additional pack years: 0.00 Total pack years: 20.00 Types: Cigarettes Quit date: 2007 Years since quittin.0 Smokeless tobacco: Current Types: Chew Tobacco comments: Tobacco pouches Vaping Use Vaping Use: Never used Substance Use Topics Alcohol use: Yes Comment: 1-2 daily Drug use: Never Review of Symptoms REVIEW OF SYSTEMS SEE HPI EXAM: BP 119/73 Pulse 99 Resp 14 Wt 72.1 kg (159 lb) BMI 22.81 kg/m General Appearance: Well appearing, alert, in no acute distress, well-hydrated, well nourished. Lungs: Lungs clear to auscultation. No wheezing, rhonchi, rales.. Heart: RRR without murmur, gallop, or rubs. No ectopy. Peripheral Pulses: Normal. Health Maintenance List Depression Screening Never done BP Controlled (<130/80) due on 01/04/2023 RSV Vaccine(1 - 1-dose 60+ series) due on 10/13/2024 Shingrix Vaccine(1 of 2) due on 10/13/2024 Covid-19 Vaccine(6 - 2022- season) due on 10/13/2024 Pneumococcal Vaccine(1 of 2 - PCV) due on 12/02/2029 Annual PCP Team Chronic Disease Visit due on 03/27/2025 Diabetes Screening due on 10/13/2026 Colorectal Cancer Screening due on 08/21/2027 Prostate Cancer Screening Discussion due on 10/13/2028 Lipid Screening due on 01/25/2029 DTaP,Tdap,Td Vaccine(2 - Td or Tdap) due on 01/05/2032 Influenza Vaccine Discontinued Hepatitis C Screening Discontinued HIV Screening Discontinued ASSESSMENT/PLAN: 1. Pectoralis minor syndrome (HCC) - ICD9: 447.8, ICD10: I77.89 (primary diagnosis) - CONSULT TO VASCULAR SURGERY 2. Screening for depression - ICD9: V79.0, ICD10: Z13.31 - DEPRESSION SCREENING 3. Mixed hyperlipidemia - ICD9: 272.2, ICD10: E78.2 - Controlled - Continue current medications - Counseled on healthy diet and regular exercise - ATORVASTATIN 10 MG TABLET 4. GERD without esophagitis - ICD9: 530.81, ICD10: K21.9 - Discussed lifestyle modifications including losing weight, limiting caffeine, no meals three hours before sleep, and head of bed elevation 5. Essential hypertension - ICD9: 401.9, ICD10: I10 - Controlled - Continue current medications - Recommend home blood pressure monitoring, to bring results to next visit - Encouraged sodium restriction, DASH or Mediterranean diet - Recommend regular aerobic exercise - Discussed need for and benefit of weight loss. BMI 22.81 kg/(m^2) - LISINOPRIL 20 MG-HYDROCHLOROTHIAZIDE 12.5 MG TABLET 6. Thoracic outlet syndrome of left thoracic outlet - ICD9: 353.0, ICD10: G54.0 - CONSULT TO VASCULAR SURGERY Tracie Newman APRN.AUTO POLISHER documented in this encounter [facility] 04-02-2024 Telephone encounter Note Patient phones requesting refills as follows: Requested Prescriptions Pending Prescriptions Disp Refills amitriptyline (ELAVIL) 10 mg tablet 30 tablet 2 Sig: Take 1 tablet by mouth daily at bedtime. Please review and advise. Cortez Clark MA [facility] 04-02-2024 Miscellaneous Notes Patient phones requesting refills as follows: Requested Prescriptions Pending Prescriptions Disp Refills amitriptyline (ELAVIL) 10 mg tablet 30 tablet 2 Sig: Take 1 tablet by mouth daily at bedtime. Please review and advise. Cortez Clark MA documented in this encounter [facility] 04-02-2024 Telephone encounter Note [facility] has been trying to contact the patient for delivery of his Sucraid. Unable to reach pt. Pt needs to contact pharmacy at [phone]. [facility] Cortez Clark MA [facility] 04-02-2024 Miscellaneous Notes [facility] has been trying to contact the patient for delivery of his Sucraid. Unable to reach pt. Pt needs to contact pharmacy at [phone]. [facility] Cortez Clark MA documented in this encounter [facility] 03-27-2024 Telephone encounter Note Patient notified of results and provider's instructions. Patient verbalizes understanding. Lalita Andujar LPN [facility] 03-27-2024 Miscellaneous Notes Patient notified of results and provider's instructions. Patient verbalizes understanding. Lalita Andujar LPN We can try gabapentin in it's place. The following approved medication requests have been transmitted electronically. Requested Prescriptions Signed Prescriptions Disp Refills gabapentin (NEURONTIN) 300 mg capsule 60 capsule 0 Sig: Take 1 capsule by mouth three times a day as needed for up to 20 days. Authorizing Provider: SILVIO MOYER Ordering User: FABIÁN MARTINEZ APRN.AUTO POLISHER Electronic PA rec'd and completed for pregabalin. This was denied. We reviewed the information you provided in support of your patient s request to obtain Pregabalin 200 mg CAPSULE under his or her plan. We are unable to approve this request for the following reason(s): ? Coverage is provided in situations where the patient has tried and failed one of the preferred agents: generic gabapentin capsules, tablets, or oral solution. Coverage cannot be authorized at this time. We based this decision on the prior authorization criteria for: [id number] ST: [employer], pregabalin, pregabalin extended release, gabapentin extended release -*MMO* [Documentation] We are providing you with a copy of the Notice of Adverse Benefit Determination that we sent to your patient. The appeal rights and procedures are explained in the notice. documented in this encounter [facility] 03-27-2024 Telephone encounter Note We can try gabapentin in it's place. The following approved medication requests have been transmitted electronically. Requested Prescriptions Signed Prescriptions Disp Refills gabapentin (NEURONTIN) 300 mg capsule 60 capsule 0 Sig: Take 1 capsule by mouth three times a day as needed for up to 20 days. Authorizing Provider: SILVIO MOYER Ordering User: FABIÁN MARTINEZ APRN.AUTO POLISHER T [facility] 03-27-2024 Telephone encounter Note Electronic PA rec'd and completed for pregabalin. This was denied. We reviewed the information you provided in support of your patient s request to obtain Pregabalin 200 mg CAPSULE under his or her plan. We are unable to approve this request for the following reason(s): ? Coverage is provided in situations where the patient has tried and failed one of the preferred agents: generic gabapentin capsules, tablets, or oral solution. Coverage cannot be authorized at this time. We based this decision on the prior authorization criteria for: [id number] ST: [employer], pregabalin, pregabalin extended release, gabapentin extended release -*MMO* [Documentation] We are providing you with a copy of the Notice of Adverse Benefit Determination that we sent to your patient. The appeal rights and procedures are explained in the notice. T [facility] 03-27-2024 Note HNO ID: [id number] Author: FABIÁN MARTINEZ APRN.KIRILL Service: ? Author Type: Nurse Practitioner Type: Progress Notes Filed: 03/27/2024 13:05 Note Text: Chief Complaint Patient presents with: Pectoralis pain : Left shoulder X 7/8 days, burning pain today HPI Jhonathan Byrnes is a 58 year old male who presents here today for Above Complaints.. Pain to left shoulder for 9 days. Exact same pain, sx that he had prior to his pectoralis surgery 1.5 years ago. Neck stiffness, feels very tight and hurts into chest, down his left side. Is currently burning sensation today, slight stabbing, gnawing. OTC medications haven's touched it. 06/12. Vascular surgeon-Dr. Delarosa, who is no longer with [facility]. Past medical history, appointments, medications, allergies reviewed. Previous Medical History PAST MEDICAL HISTORY Diagnosis Date Alcohol abuse 05/02/2018 Benign prostatic hyperplasia with urinary frequency 10/13/2023 Elevated hemoglobin A1c 07/11/2021 Essential hypertension 05/01/2018 Ex-smoker 05/01/2018 Started in his early 20's and quite around the age of 38. 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 Not aware or medication. GERD without esophagitis 05/02/2018 Herniation of intervertebral disc at C6-C7 level 05/03/2018 MRI 02/2018 History of anxiety 06/06/2007 History of colonic polyps 08/10/2022 Mixed hyperlipidemia 05/01/2018 Pectoralis minor syndrome (HCC) Uncomplicated alcohol dependence (HCC) 05/02/2018 Previous Surgical History PAST SURGICAL HISTORY Procedure Laterality Date COLONOSCOPY FLX DX W/COLLJ SPEC WHEN PFRMD 08/19/2018 repeat 3 years COLONOSCOPY SCREENING 08/21/2022 two small adenomatous polyps-repeat in 5 years EGD W/O BRSH SPEC VARICIES INJ 11/09/2021 HEART CATHETERIZATION 2016 WNL SHOULDER SURGERY HX 2021 [place] release Family History FAMILY HISTORY Problem Relation Age of Onset Coronary Artery Disease Mother has stents Cancer Brother Lung: dx and initial surgery 2006. nonsmoker. other (dementia) Paternal Aunt Colon Cancer No Family History Patient Allergies ALLERGIES No Known Allergies Current Medications Current Outpatient Medications on File Prior to Visit Medication Sig IBSRELA 50 mg tablet take one tablet by mouth twice daily with meals Sacrosidase (SUCRAID) 8,500 unit/mL soln Take 2 mL with food and snacks daily atorvastatin (LIPITOR) 10 mg tablet Take 1 tablet by mouth once daily. lisinopril-hydroCHLOROthiazide (ZESTORETIC) 20-12.5 mg per tablet Take 1 tablet by mouth once daily. hydrOXYzine HCl (ATARAX) 25 mg tablet Take 0.5-1 tab every 8 hrs as needed for panic attacks. cyanocobalamin (B-12 DOTS) 500 mcg tablet Take 1 tablet by mouth once daily. tamsulosin (FLOMAX) 0.4 mg Take 0.4 mg by mouth twice daily. Per Dr. Barbosa amitriptyline (ELAVIL) 10 mg tablet Take 10 mg by mouth daily at bedtime. (Patient not taking: Reported on 01/09/2024) lansoprazole (PREVACID) 30 mg capsule Take 1 capsule by mouth two times a day. 1/2 hr before meal. (Patient not taking: Reported on 01/09/2024) No current facility-administered medications on file prior to visit. Social History Social History Tobacco Use Smoking status: Former Packs/day: 1.00 Years: 20.00 Additional pack years: 0.00 Total pack years: 20.00 Types: Cigarettes Quit date: 2007 Years since quittin.9 Smokeless tobacco: Current Types: Chew Tobacco comments: Tobacco pouches Vaping Use Vaping Use: Never used Substance Use Topics Alcohol use: Yes Comment: 1-2 daily Drug use: Never Review of Symptoms REVIEW OF SYSTEMS See HPI, otherwise negative EXAM: BP 122/84 (BP Site: Left Arm, BP Position: Sitting, BP Cuff Size: Regular Adult) Pulse 92 Resp 18 Wt 70.8 kg (156 lb) SpO2 99% BMI 22.38 kg/m? General Appearance: moderate distress, well-hydrated, well nourished. Musculoskeletal: difficult to assess d/t extreme pain. Peripheral Pulses: Normal. Psychiatric: pleasant, cooperative. Health Maintenance List Depression Screening Never done RSV Vaccine(1 - 1-dose 60+ series) due on 10/13/2024 Shingrix Vaccine(1 of 2) due on 10/13/2024 Covid-19 Vaccine(2022- season) due on 10/13/2024 Pneumococcal Vaccine(1 of 2 - PCV) due on 12/02/2029 Annual PCP Team Chronic Disease Visit due on 10/13/2024 BP Controlled (<130/80) due on 01/08/2025 Diabetes Screening due on 10/13/2026 Colorectal Cancer Screening due on 08/21/2027 Prostate Cancer Screening Discussion due on 10/13/2028 Lipid Screening due on 01/25/2029 DTaP,Tdap,Td Vaccine(2 - Td or Tdap) due on 01/05/2032 Influenza Vaccine Discontinued Hepatitis C Screening Discontinued HIV Screening Discontinued Data reviewed Previous records, office notes, [place] report PDMP website checked and validated. All prescriptions have be (more content not included)... [facility] 03-27-2024 History of Presen t illness Narrative Chief Complaint Patient presents with: Pectoralis pain : Left shoulder X 7/8 days, burning pain today HPI Jhonathan Byrnes is a 58 year old male who presents here today for Above Complaints.. Pain to left shoulder for 9 days. Exact same pain, sx that he had prior to his pectoralis surgery 1.5 years ago. Neck stiffness, feels very tight and hurts into chest, down his left side. Is currently burning sensation today, slight stabbing, gnawing. OTC medications haven's touched it. 06/12. Vascular surgeon-Dr. Delarosa, who is no longer with [facility]. Past medical history, appointments, medications, allergies reviewed. Previous Medical History PAST MEDICAL HISTORY Diagnosis Date Alcohol abuse 05/02/2018 Benign prostatic hyperplasia with urinary frequency 10/13/2023 Elevated hemoglobin A1c 07/11/2021 Essential hypertension 05/01/2018 Ex-smoker 05/01/2018 Started in his early 20's and quite around the age of 38. 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 Not aware or medication. GERD without esophagitis 05/02/2018 Herniation of intervertebral disc at C6-C7 level 05/03/2018 MRI 02/2018 History of anxiety 06/06/2007 History of colonic polyps 08/10/2022 Mixed hyperlipidemia 05/01/2018 Pectoralis minor syndrome (HCC) Uncomplicated alcohol dependence (HCC) 05/02/2018 Previous Surgical History PAST SURGICAL HISTORY Procedure Laterality Date COLONOSCOPY FLX DX W/COLLJ SPEC WHEN PFRMD 08/19/2018 repeat 3 years COLONOSCOPY SCREENING 08/21/2022 two small adenomatous polyps-repeat in 5 years EGD W/O BRS SPEC VARICIES INJ 11/09/2021 HEART CATHETERIZATION 2017 WNL SHOULDER SURGERY HX 2021 [place] release Family History FAMILY HISTORY Problem Relation Age of Onset Coronary Artery Disease Mother has stents Cancer Brother Lung: dx and initial surgery 2006. nonsmoker. other (dementia) Paternal Aunt Colon Cancer No Family History Patient Allergies ALLERGIES No Known Allergies Current Medications Current Outpatient Medications on File Prior to Visit Medication Sig IBSRELA 50 mg tablet take one tablet by mouth twice daily with meals Sacrosidase (SUCRAID) 8,500 unit/mL soln Take 2 mL with food and snacks daily atorvastatin (LIPITOR) 10 mg tablet Take 1 tablet by mouth once daily. lisinopril-hydroCHLOROthiazide (ZESTORETIC) 20-12.5 mg per tablet Take 1 tablet by mouth once daily. hydrOXYzine HCl (ATARAX) 25 mg tablet Take 0.5-1 tab every 8 hrs as needed for panic attacks. cyanocobalamin (B-12 DOTS) 500 mcg tablet Take 1 tablet by mouth once daily. tamsulosin (FLOMAX) 0.4 mg Take 0.4 mg by mouth twice daily. Per Dr. Barbosa amitriptyline (ELAVIL) 10 mg tablet Take 10 mg by mouth daily at bedtime. (Patient not taking: Reported on 01/09/2024) lansoprazole (PREVACID) 30 mg capsule Take 1 capsule by mouth two times a day. 1/2 hr before meal. (Patient not taking: Reported on 01/09/2024) No current facility-administered medications on file prior to visit. Social History Social History Tobacco Use Smoking status: Former Packs/day: 1.00 Years: 20.00 Additional pack years: 0.00 Total pack years: 20.00 Types: Cigarettes Quit date: 2007 Years since quittin.9 Smokeless tobacco: Current Types: Chew Tobacco comments: Tobacco pouches Vaping Use Vaping Use: Never used Substance Use Topics Alcohol use: Yes Comment: 1-2 daily Drug use: Never Review of Symptoms REVIEW OF SYSTEMS See HPI, otherwise negative EXAM: BP 122/84 (BP Site: Left Arm, BP Position: Sitting, BP Cuff Size: Regular Adult) Pulse 92 Resp 18 Wt 70.8 kg (156 lb) SpO2 99% BMI 22.38 kg/m General Appearance: moderate distress, well-hydrated, well nourished. Musculoskeletal: difficult to assess d/t extreme pain. Peripheral Pulses: Normal. Psychiatric: pleasant, cooperative. Health Maintenance List Depression Screening Never done RSV Vaccine(1 - 1-dose 60+ series) due on 10/13/2024 Shingrix Vaccine(1 of 2) due on 10/13/2024 Covid-19 Vaccine( - 2022- season) due on 10/13/2024 Pneumococcal Vaccine(1 of 2 - PCV) due on 12/02/2029 Annual PCP Team Chronic Disease Visit due on 10/13/2024 BP Controlled (<130/80) due on 01/08/2025 Diabetes Screening due on 10/13/2026 Colorectal Cancer Screening due on 08/21/2027 Prostate Cancer Screening Discussion due on 10/13/2028 Lipid Screening due on 01/25/2029 DTaP,Tdap,Td Vaccine(2 - Td or Tdap) due on 01/05/2032 Influenza Vaccine Discontinued Hepatitis C Screening Discontinued HIV Screening Discontinued Data reviewed Previous records, office notes, [place] report PDMP website checked and validated. All prescriptions have been APPROPRIATELY filled. No suspicious activity was identified. 03/27/2024 by Fabián Martinez CNP. ASSESSMENT/PLAN: 1. Pectoralis minor syndrome (HCC) - ICD9: 447.8, ICD10: I77.89 (primary diagnosis) These same medications have been prescribed by PCP Dr. Moyer in the past and patient states these did work well for him. I recommend seeing another vascular surgeon as his is no longer with [facility], but he would like to hold off on this for the time being. May also consider PT. - PREGABALIN 200 MG CAPSULE - PREDNISONE 10 MG TABLET - TRAMADOL 50 MG TABLET 2. Chronic left shoulder pain - ICD9: 719.41, 338.29, ICD10: M25.512, G89.29 These same medications have been prescribed by PCP Dr. Moyer in the past and patient states these did work well for him. I recommend seeing another vascular surgeon as his is no longer with [facility], but he would like to hold off on this for the time being. May also consider PT. - PREGABALIN 200 MG CAPSULE - PREDNISONE 10 MG TABLET - TRAMADOL 50 MG TABLET Fabián Martinez APRN.AUTO POLISHER documented in this encounter [facility] 03-27-2024 Telephone encounter Note Pt called in and reports about a year and a half ago he had surgery on his pectoral minor. He states 7-8 days ago he started having the same pain he had before he had the surgery in the same exact area. It pain is where the incision is ans will sometimes wrap around to the bottom of his left shoulder blade and sometimes to the outside of his left ribcage. Pt states the pain is a 10/10 intermittent burning, throbbing, stabbing. Pt reports when he rests the pain isn't there, but when he is up doing things it is back. He states it feels like a pinched nerve. Pt has tried Ibuprofen, Icy Hot, and heating pad and none of these things have helped. Pt scheduled to see Fabián Martinez NP today. [facility] 03-27-2024 Miscellaneous Notes Pt called in and reports about a year and a half ago he had surgery on his pectoral minor. He states 7-8 days ago he started having the same pain he had before he had the surgery in the same exact area. It pain is where the incision is ans will sometimes wrap around to the bottom of his left shoulder blade and sometimes to the outside of his left ribcage. Pt states the pain is a 10/10 intermittent burning, throbbing, stabbing. Pt reports when he rests the pain isn't there, but when he is up doing things it is back. He states it feels like a pinched nerve. Pt has tried Ibuprofen, Icy Hot, and heating pad and none of these things have helped. Pt scheduled to see Fabián Martinez NP today. documented in this encounter [facility] 01-29-2024 Telephone encounter Note Pt notified and verbalized understanding Kayy Lebron MA [facility] 01-29-2024 Miscellaneous Notes Pt notified and verbalized understanding Kayy Lebron MA Let patient know his lipid panel is much better. His Trigs are good at 48, His HDL is good at 54 and jesusita LDL is improved and good at 103. His liver functions were ok. Continue meds as is. documented in this encounter [facility] 01-29-2024 Telephone encounter Note Patient phones requesting refills as follows: Requested Prescriptions Pending Prescriptions Disp Refills IBSRELA 50 mg tablet [Pharmacy Med Name: Ibsrela 50 mg tablet] 30 tablet 5 Sig: take one tablet by mouth twice daily with meals Please review and advise. Cortez Clark MA [facility] 01-29-2024 Miscellaneous Notes Patient phones requesting refills as follows: Requested Prescriptions Pending Prescriptions Disp Refills IBSRELA 50 mg tablet [Pharmacy Med Name: Ibsrela 50 mg tablet] 30 tablet 5 Sig: take one tablet by mouth twice daily with meals Please review and advise. Cortez Clark MA documented in this encounter [facility] 01-28-2024 Telephone encounter Note Let patient know his lipid panel is much better. His Trigs are good at 48, His HDL is good at 54 and jesusita LDL is improved and good at 103. His liver functions were ok. Continue meds as is. [facility] 01-24-2024 Telephone encounter Note Great to hear! [facility] 01-24-2024 Miscellaneous Notes Great to hear! Pt called and stated the Sucraid is working great. Cortez Clark MA documented in this encounter [facility] 01-24-2024 Telephone encounter Note Pt called and stated the Sucraid is working great. Cortez Clark MA [facility] 01-09-2024 Instructions Keiry Fontana PA-C - 01/09/2024 2:58 PM EDT Recommended starting Miralax daily to induce bowel movement Miralax generally will help produce bowel movement in 1-3 days Fill to top of white section in cap which is marked to indicate the correct dose (17 g) Stir and dissolve in any 8 ounces of non-carbonated beverage (cold, hot or room temperature) then drink If diarrhea occurs, reduce usage to every other day documented in this encounter [facility] 01-09-2024 History of Presen t illness Narrative CHIEF COMPLAINT: Patient presents with: Recheck: Abdominal pain, constipation/diarrhea, bloating HPI Jhonathan Byrnes is a 58 year old male here today for Recheck (Abdominal pain, constipation/diarrhea, bloating ) PMHx of JC, GERD, colon polyps, alcohol abuse, HTN Patient tells me that he is doing okay today. Notes IBSRELA caused too much diarrhea. Taking this as needed. Notes some abdominal distension and discomfort with and after a BM. Taking Sucraid, starting to see some relief. Still with some constipation, going about every two days. Not compliant with Miralax. Trying to follow a more protein diet but having a hard time navigating the diet. Last OV with me 07/11/2023: Assessment/Plan (R10.9) Right sided abdominal pain (primary encounter diagnosis) (R19.8) Alternating constipation and diarrhea 1. Right sided abdominal pain -- Patient with R sided abdominal pain, seem to worsen with eating and slightly improves with a BM. -- Patient has had normal EGD/colon, CT, US, HIDA. Looking back on abdominal x-ray, showing stool throughout colon. -- He can continue on Bentyl 20 mg PRN TID -- Would like to get an updated abdominal x-ray r/o stool burden. May need total bowel clean out and bowel regimen. -- Can consider Xifaxan trial for IBS/SIBO due to excessive gas - XR ABDOMEN 2V ROUTINE SUPINE W UPRIGHT/DECUB/CTL; Future 2. Alternating constipation and diarrhea -- Patient with alternating bowel habits. Notes he is going numerous times a day but having incomplete bowel habits and straining. -- Patient has had normal EGD/colon, CT, US, HIDA. Looking back on abdominal x-ray, showing stool throughout colon. -- Would like to get an updated abdominal x-ray r/o stool burden. May need total bowel clean out and bowel regimen. -- Can consider Xifaxan trial for IBS/SIBO due to excessive gas -- I do think his anxiety, stress is playing a large role in his GI symptoms. - XR ABDOMEN 2V ROUTINE SUPINE W UPRIGHT/DECUB/CTL; Future Follow up in office 3 months/PRN. Current Outpatient Medications Medication Sig IBSRELA 50 mg tablet take one tablet by mouth twice daily with meals Sacrosidase (SUCRAID) 8,500 unit/mL soln Take 2 mL with food and snacks daily atorvastatin (LIPITOR) 10 mg tablet Take 1 tablet by mouth once daily. lisinopril-hydroCHLOROthiazide (ZESTORETIC) 20-12.5 mg per tablet Take 1 tablet by mouth once daily. hydrOXYzine HCl (ATARAX) 25 mg tablet Take 0.5-1 tab every 8 hrs as needed for panic attacks. cyanocobalamin (B-12 DOTS) 500 mcg tablet Take 1 tablet by mouth once daily. tamsulosin (FLOMAX) 0.4 mg Take 0.4 mg by mouth twice daily. Per Dr. Barbosa amitriptyline (ELAVIL) 10 mg tablet Take 10 mg by mouth daily at bedtime. (Patient not taking: Reported on 01/09/2024) lansoprazole (PREVACID) 30 mg capsule Take 1 capsule by mouth two times a day. 1/2 hr before meal. (Patient not taking: Reported on 01/09/2024) No current facility-administered medications for this visit. ALLERGIES No Known Allergies Social History Tobacco Use Smoking status: Former Packs/day: 1.00 Years: 20.00 Additional pack years: 0.00 Total pack years: 20.00 Types: Cigarettes Quit date: 2007 Years since quittin.7 Smokeless tobacco: Current Types: Chew Tobacco comments: Tobacco pouches Vaping Use Vaping Use: Never used Substance Use Topics Alcohol use: Yes Comment: 1-2 daily Drug use: Never PAST MEDICAL HISTORY Diagnosis Date Alcohol abuse 05/02/2018 Benign prostatic hyperplasia with urinary frequency 10/13/2023 Elevated hemoglobin A1c 07/11/2021 Essential hypertension 05/01/2018 Ex-smoker 05/01/2018 Started in his early 20's and quite around the age of 38. 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 Not aware or medication. GERD without esophagitis 05/02/2018 Herniation of intervertebral disc at C6-C7 level 05/03/2018 MRI 02/2018 History of anxiety 06/06/2007 History of colonic polyps 08/10/2022 Mixed hyperlipidemia 05/01/2018 Pectoralis minor syndrome (HCC) Uncomplicated alcohol dependence (HCC) 05/02/2018 PAST SURGICAL HISTORY Procedure Laterality Date COLONOSCOPY FLX DX W/COLLJ SPEC WHEN PFRMD 08/19/2018 repeat 3 years COLONOSCOPY SCREENING 08/21/2022 two small adenomatous polyps-repeat in 5 years EGD W/O BRSH SPEC VARICIES INJ 11/09/2021 HEART CATHETERIZATION 2017 WNL SHOULDER SURGERY HX 2021 [place] release FAMILY HISTORY Problem Relation Age of Onset Coronary Artery Disease Mother has stents Cancer Brother Lung: dx and initial surgery 2006. nonsmoker. other (dementia) Paternal Aunt Colon Cancer No Family History REVIEW OF SYSTEMS Review of Systems Constitutional: Positive for appetite change, fatigue and unexpected weight change. HENT: Positive for mouth sores. Gastrointestinal: Positive for abdominal distention, abdominal pain, constipation and diarrhea. Change in Bowel Habits, Gas All other systems reviewed and are negative. PHYSICAL EXAM BP 102/74 Pulse 92 Ht 5' 10 (1.78m) Wt 149 lb 6.4 oz (67.8kg) BMI 21.44 kg/(m^2). Physical Exam Constitutional: Appearance: Normal appearance. He is normal weight. HENT: Head: Normocephalic and atraumatic. Eyes: General: No scleral icterus. Extraocular Movements: Extraocular movements intact. Conjunctiva/sclera: Conjunctivae normal. Pupils: Pupils are equal, round, and reactive to light. Cardiovascular: Rate and Rhythm: Normal rate and regular rhythm. Pulses: Normal pulses. Heart sounds: Normal heart sounds. Pulmonary: Effort: Pulmonary effort is normal. Breath sounds: Normal breath sounds. Abdominal: General: Abdomen is flat. Bowel sounds are normal. Palpations: Abdomen is soft. Musculoskeletal: General: Normal range of motion. Cervical back: Normal range of motion and neck supple. Skin: General: Skin is warm and dry. Coloration: Skin is not jaundiced. Neurological: General: No focal deficit present. Mental Status: He is alert and oriented to person, place, and time. Psychiatric: Mood and Affect: Mood normal. Behavior: Behavior normal. Thought Content: Thought content normal. Judgment: Judgment normal. 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 Irritable bowel syndrome with constipation -- Patient with suspected IBS-C. Notes IBSRELA is giving too much diarrhea. -- Recommend trying to get Miralax daily to see if this helps bowel movements. -- Patient agreeable to see Labor Gang Supervisor, referral placed. -- Keep Functional medicine appt - CONSULT TO NUTRITION THERAPY; Future 2. Congenital sucrose isomaltose malabsorption -- Patient taking CSID appropriately, getting his next prescription tomorrow -- Patient agreeable to see Labor Gang Supervisor, referral placed. -- Keep Functional medicine appt - CONSULT TO NUTRITION THERAPY; Future 3. Small intestinal bacterial overgrowth -- Patient agreeable to see Labor Gang Supervisor, referral placed. -- Keep Functional medicine appt - CONSULT TO NUTRITION THERAPY; Future Follow up in office PRN. Recommended to please call office/go to ER if fever, chills, chest pain, SOB, diarrhea, nausea, emesis, worsening abdominal pain, dehydration occurs I spent a total of 20 minutes on the date of the service which included preparing to see the patient, [id number] patient care, completing clinical documentation, obtaining and/or reviewing separately obtained history, performing a medically appropriate examination, counseling and educating the patient/family/caregiver, and ordering medications, tests, or procedures. Keiry Fontana PA-C January 09, 2024 2:51 PM documented in this encounter [facility] 12-31-2023 Telephone encounter Note Patient phones requesting refills as follows: Requested Prescriptions Pending Prescriptions Disp Refills IBSRELA 50 mg tablet [Pharmacy Med Name: Ibsrela 50 mg tablet] 30 tablet 2 Sig: take one tablet by mouth twice daily with meals Please review and advise. Cortez Clark MA [facility] 12-31-2023 Miscellaneous Notes Patient phones requesting refills as follows: Requested Prescriptions Pending Prescriptions Disp Refills IBSRELA 50 mg tablet [Pharmacy Med Name: Ibsrela 50 mg tablet] 30 tablet 2 Sig: take one tablet by mouth twice daily with meals Please review and advise. Cortez Clark MA documented in this encounter [facility] 12-24-2023 Telephone encounter Note Pt aware Cortez Clark MA [facility] 12-24-2023 Miscellaneous Notes Pt aware Cortez Clark MA Agree with holding IBSRELA. Have him reach out in a few days with an update. Pt states he has had a bad 3-4 days with a lot of diarrhea. States he is very weak today, having a hard time at work. Having lower stomach pain when bending over. He's not sure if it's the Ibsrela or the Sucraid. Advised to stop the Ibsrela for now. Eat a bland diet and drink lots of fluids. If diarrhea or pain worsens or develops any vomiting he will need to go to the ER for evaluation. Cortez Clark MA documented in this encounter [facility] 12-24-2023 Telephone encounter Note Agree with holding IBSRELA. Have him reach out in a few days with an update. [facility] 12-24-2023 Telephone encounter Note Pt states he has had a bad 3-4 days with a lot of diarrhea. States he is very weak today, having a hard time at work. Having lower stomach pain when bending over. He's not sure if it's the Ibsrela or the Sucraid. Advised to stop the Ibsrela for now. Eat a bland diet and drink lots of fluids. If diarrhea or pain worsens or develops any vomiting he will need to go to the ER for evaluation. Cortez Clark MA [facility] 12-11-2023 Miscellaneous Notes PA approved for Sucraid Cortez Clark MA Pt notified. Will start authorization for Sucraid. Cortez Clark MA Please let patient know that his CSID testing was positive for low activity. Would like to start Sucraid digestive enzyme, 2 mL with meals and snacks. Script sent to specialty pharmacy. documented in this encounter [facility] 12-03-2023 Miscellaneous Notes Patient notified. Still has 90 supply available at pharmacy. Phyllis Omalley MA Patient has been identified by name and date of : Yes, Provider Dr. Moyer Date 12-03-23 Time 9:35 am Patient phones for refill(s): Requested Prescriptions Pending Prescriptions Disp Refills lisinopril-hydroCHLOROthiazide (ZESTORETIC) 20-12.5 mg per tablet 90 tablet 1 Sig: Take 1 tablet by mouth once daily. Date of last office visit in primary care: 10/13/2023 Date of next office visit in primary care: 04/14/2024 Please advise. Thank you. Ebony Simpson. documented in this encounter [facility] 10-30-2023 Miscellaneous Notes Pt notified and scheduling information given Cortez Clark Ma Addended by: KEIRY FONTANA on: 10/30/2023 11:44 AM Modules accepted: Orders Augmentin BID x10 days sent over to pharmacy. I did put the functional medicine referral in and recommend he call to at least be put on their wait list as they can be difficult to get into. Pt states he would like to try the Augmentin. If for some reason it doesn't work then he will take the referral to Functional Medicine. Cortez Clark Ma The Xifaxan is going to work the best for SIBO. If insurance won't cover it, we can try Augmentin if he is interested. I also think he would benefit from a Functional Medicine referral as well. Pt called in regards to the results from his breath test. States he will do the strict Low FODMAP diet. He would also like something else to kick this. He is losing sleep, having a hard time at work because he doesn't feel well. He stated it was mentioned to him before that he could possibly try a different antibiotic besides the Xifaxan since his insurance won't cover it. He would like to try whatever he can to try to help this. Cortez Clark Ma documented in this encounter [facility] 10-22-2023 History of Presen t illness Narrative LACTULOSE HYDROGEN BREATH TEST FOR SMALL BOWEL BACTERIAL OVERGROWTH Date: October 22, 2023 Referring Physician: Keiry Fontana PA-C Chief Complaint Right side abdominal pain, IBS w constipation & diarrhea Symptoms prior to start of study: none [] 4 week restrictions [] 72 hour restrictions [] 12 hour fasting [] Followed the special diet Baseline Hydrogen PPM: 1 Methane PPM: 0 Nikkiya Ann, CT Lactulose 15mL given at: 915am Start Time:920am 20 minutes Hydrogen PPM: 1 Methane PPM: 0 Nikkiya Ann, CT 40 minutes Hydrogen PPM: 22 Methane PPM: 6 Nikkiya Ann, CT 1 hour Hydrogen PPM: 38 Methane PPM: 8 Nikkiya Ann, CT 1 hour 20 minutes Hydrogen PPM: 43 Methane PPM: 9 Nikkiya Ann, CT 1 hour, 40 minutes Hydrogen PPM: 44 Methane PPM: 8 Jemal Juarez, CT 2 hours Hydrogen PPM: 59 Methane PPM: 11 Jemal Juarez, CT 2 hours, 20 minutes Hydrogen PPM: 49 Methane PPM: 9 Jemal Juarez, CT 2 hours, 40 minutes Hydrogen PPM: 35 Methane PPM: 8 Jemal Juarez, CT 3 hours Hydrogen PPM: 41 Methane PPM: 9 Jemal Juarez, CT Symptoms developed during the study period: none Patient Results Preliminary Test Results (not given to patient): pending [place]ivaspearl Juarez CT documented in this encounter [facility] 10-15-2023 Miscellaneous Notes Patient returned call and went over notes below from Dr Moyer with understanding. Aware rx sent to pharmacy. Left message for pt to contact office. Johnna Mobley LPN Let patient know Lipitor sent. I want to get a lipid panel and liver function labs on or after 01/14/2024 (3 months from know). Orders placed. Patient returned call and went over results, notes from Dr Moyer with understanding. Patient is willing to take the medication, he uses [facility] and 90 day rx, pending rx needs refills completed. Called and left a voicemail for the Patient to call back and ask for a nurse to receive the providers message. Carly Gabriel RN Let patient know lipid panel showed Trigs and HDL were good. His LDL is elevated at 153 (goal<130). His 10 year risk for a heart attack is 7%. This can be lowered with placing him on a medication such as atorvastatin 10 mg a day? His A1c is slightly elevated again but not as high as 2 years ago. This time is 5.8% and want to see it back below 5.6%. working on reduced sugars, sweets, carbs and starches in diet can help. The rest of his labs and UA were all ok. documented in this encounter [facility] 08-23-2023 Miscellaneous Notes Noted. Pt states he is doing much better with the second round of Xifaxan. He just wanted to let Keiry know. Cortez Clark Ma documented in this encounter [facility] 08-10-2023 Miscellaneous Notes PHIL started for pt in cover my meds Cortez Clark Ma documented in this encounter [facility] 08-10-2023 Miscellaneous Notes Pt notified Cortez Clark Ma [facility] Cortez Clark Ma Second round of Xifaxan 550 mg TID x14 days sent to pharmacy. Recommend a week between doses if it hasn't been. Pt states the antibiotic worked really well for him. But symptoms have started to slowly come back. Asking for another round. Cortez Clark Ma documented in this encounter [facility] 07-17-2023 Miscellaneous Notes Addended by: KEIRY FONTANA on: 07/17/2023 09:48 AM Modules accepted: Orders Noted. Elavil cancelled. Pt states he wants to pay the money. States money isn't an issue. He wants to try the antibiotic. Pharmacy notified. Cortez Clark Ma Addended by: KEIRY FONTANA on: 07/17/2023 09:11 AM Modules accepted: Orders I am going to try him on Elavil 10 mg at bedtime to see if this will help his abdominal pain. Script sent. Would like him to reach out in two weeks with an update, can increase dose if needed at that time. Got a paid claim at the pharmacy. Xifaxan is $459. Any other options? Cortez Clark Ma I would also recommend continuing with the Miralax as it is not an overnight fix. We can definitely try getting Xifaxan approved. Sent Xifaxan TID x14 days to pharmacy. Pt states his bowel are moving better. Having nasty discomfort under the right rib cage. Hurts when he takes a deep breath and is tender and sore to touch. Wondering if he should take the antibiotic. Cortez Clark Ma Pt states he did the Miralax and still having a lot of discomfort under the right rib cage. Wondering about the Xifaxan. LMTRC to get more details regarding his symptoms Cortez Clark Ma documented in this encounter [facility] 07-11-2023 History of Presen t illness Narrative Radiology Service Progress Note PATIENT NAME: Jhonathan Byrnes DATE OF SERVICE: July 11, 2023 TIME: 1:28 PM PATIENT IDENTITY VERIFICATION COMPLETED USING TWO (2) IDENTIFIERS: Name and Date of confirmed by patient verbally. FALL SCREENING: Has the patient had 2 falls in the last year or 1 fall with injury or currently using an Ambulatory Assistive Device (Walker, Cane, Wheelchair, Crutches, etc.)? No PATIENT GENDER DATA: Male PATIENT RELEVANT IMPLANT DATA REVIEWED: Not Applicable RADIOLOGY DEPARTMENT: General X-ray: Exam(s) Completed: Abdomen X-Ray: Abdomen with Upright PERIPHERAL IV DATA: Not applicable SIGNED BY: RT Beth(R) July 11, 2023 1:28 PM documented in this encounter [facility] 07-11-2023 History of Presen t illness Narrative CHIEF COMPLAINT: Patient presents with: Right side abdominal pain : Alternating constipation/diarrhea, decreased appetite This consult was requested by Silvio Moyer MD for an opinion regarding R sided abdominal pain. My final recommendations will be communicated to the requesting health care provider by way of the shared medical record for internal providers or letter via the [employer] Postal Service for external providers. HPI: Jhonathan Byrnes is a 58 year old male who presents for Right side abdominal pain (Alternating constipation/diarrhea, decreased appetite ). PMHx of JC, GERD, colon polyps, alcohol abuse, HTN Patient tells me that he has been dealing with GI issues for the last several years. Notes R sided abdominal pain that will radiate up under his ribcage. Notes that symptoms worsened in November, notes constipation. He is going numerous times a day but incomplete bowel movements and straining. This will help temporarily. Will get lower R groin pains. No rectal bleeding, black stools. Notes a lot of gas and belching. Getting bloated and noticing a lot of noise in his abdomen. Deep breaths hurt the upper abdomen. Getting mouth sores. Notes a lot of stress which seems to affect symptoms and focus. has Parkinson's. Getting some hip joint discomfort. Started on Probiotics, seems to help his symptoms. Has been on this since March. Tried IBGuard, didn't help. Taking Bentyl PRN but doesn't take this daily. Was on Protonix but developed mouth sores and tingling in feet. Stopped this. He was placed on Lansoprazole. 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 Stopped this about 6 months ago. HIDA 05/03/2023: IMPRESSION: 1. Gallbladder is visualized. Patent cystic and common bile ducts. No scintigraphic evidence of acute cholecystitis. 2. Normal gallbladder ejection fraction. RUQ US 04/27/2023: IMPRESSION: Normal sonographic appearance of the right upper quadrant. Colonoscopy 08/21/2022: Impression: - One small polyp in the transverse colon, removed with a jumbo cold forceps. Resected and retrieved. - One small polyp in the sigmoid colon, removed with a cold snare. Resected and retrieved. - Non-bleeding internal hemorrhoids. - The examination was otherwise normal. Recommendation: - Patient has a contact number available for emergencies. The signs and symptoms of potential delayed complications were discussed with the patient. Return to normal activities tomorrow. Written discharge instructions were provided to the patient. - Patient has a contact number available for emergencies. The signs and symptoms of potential delayed complications were discussed with the patient. Return to normal activities tomorrow. Written discharge instructions were provided to the patient. - Continue present medications. - Await pathology results. - Repeat colonoscopy date to be determined after pending pathology results are reviewed for surveillance. - Return to physician permit review assistant in 1 week. - Resume anticoagulant at prior dose. - Resume previous diet. Component Latest Ref Rng & Units 04/21/2023 Albumin 3.9 - 4.9 g/dL 4.8 Bilirubin, Total 0.2 - 1.3 mg/dL 0.7 Bilirubin, Conjug <0.2 mg/dL <0.2 Alkaline Phosphatase 38 - 113 U/L 62 AST 14 - 40 U/L 24 ALT 10 - 54 U/L 26 Protein, Total 6.3 - 8.0 g/dL 7.4 Amylase 30 - 104 U/L 46 Lipase 16 - 61 U/L 30 Record Review: [facility] / Outside records reviewed. PAST MEDICAL HISTORY Diagnosis Date Alcohol abuse 05/02/2018 Elevated hemoglobin A1c 07/11/2021 Essential hypertension 05/01/2018 Ex-smoker 05/01/2018 Started in his early 20's and quite around the age of 38. 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 Not aware or medication. GERD without esophagitis 05/02/2018 Herniation of intervertebral disc at C6-C7 level 05/03/2018 MRI 02/2018 History of anxiety 06/06/2007 History of colonic polyps 08/10/2022 Mixed hyperlipidemia 05/01/2018 Pectoralis minor syndrome (HCC) Uncomplicated alcohol dependence (HCC) 05/02/2018 PAST SURGICAL HISTORY Procedure Laterality Date COLONOSCOPY FLX DX W/COLLJ SPEC WHEN PFRMD 08/19/2018 repeat 3 years COLONOSCOPY SCREENING 08/21/2022 two small adenomatous polyps-repeat in 5 years EGD W/O BRSH SPEC VARICIES INJ 11/09/2021 HEART CATHETERIZATION 2017 WNL SHOULDER SURGERY HX [place] release Allergies: ALLERGIES No Known Allergies Medications: lansoprazole (PREVACID) 30 mg capsule Take 1 capsule by mouth two times a day. 1/2 hr before meal. lisinopril-hydroCHLOROthiazide (ZESTORETIC) 20-12.5 mg per tablet Take 1 tablet by mouth once daily. dicyclomine (BENTYL) 20 mg tablet Take 1 tablet by mouth before meals and at bedtime. hydrOXYzine HCl (ATARAX) 25 mg tablet Take 0.5-1 tab every 8 hrs as needed for panic attacks. tamsulosin (FLOMAX) 0.4 mg Take 0.4 mg by mouth twice daily. Per Dr. Barbosa FAMILY HISTORY Problem Relation Age of Onset Coronary Artery Disease Mother has stents Cancer Brother Lung: dx and initial surgery 2006. nonsmoker. other (dementia) Paternal Aunt Colon Cancer No Family History Employer And Job Title: [employer] Years Of Education Completed: Not specified Marital Status: Social History Tobacco Use Smoking status: Former Packs/day: 1.00 Years: 20.00 Additional pack years: 0.00 Total pack years: 20.00 Types: Cigarettes Quit date: 2007 Years since quittin.2 Smokeless tobacco: Current Types: Chew Tobacco comments: Tobacco pouches Vaping Use Vaping Use: Never used Substance Use Topics Alcohol use: Yes Comment: 1-2 daily Drug use: Never Review of Systems: Review of Systems Constitutional: Positive for activity change, appetite change and fatigue. Respiratory: Positive for cough. Gastrointestinal: Positive for abdominal pain, constipation and diarrhea. Change in Bowel Habits, Gas All other systems reviewed and are negative. Are you taking any blood thinners? No Physical Examination: BP 132/80 Pulse 84 Ht 5' 10 (1.78m) Wt 159 lb 6.4 oz (72.3kg) BMI 22.87 kg/(m^2). Physical Exam Constitutional: Appearance: Normal appearance. He is normal weight. HENT: Head: Normocephalic and atraumatic. Eyes: General: No scleral icterus. Extraocular Movements: Extraocular movements intact. Conjunctiva/sclera: Conjunctivae normal. Pupils: Pupils are equal, round, and reactive to light. Cardiovascular: Rate and Rhythm: Normal rate and regular rhythm. Pulses: Normal pulses. Heart sounds: Normal heart sounds. Pulmonary: Effort: Pulmonary effort is normal. Breath sounds: Normal breath sounds. Abdominal: General: Abdomen is flat. There is no distension. Palpations: Abdomen is soft. Tenderness: There is no abdominal tenderness. Comments: Hyperactive bowel sounds on exam Musculoskeletal: General: Normal range of motion. Cervical back: Normal range of motion and neck supple. Skin: General: Skin is warm and dry. Coloration: Skin is not jaundiced. Neurological: General: No focal deficit present. Mental Status: He is alert and oriented to person, place, and time. Psychiatric: Mood and Affect: Mood normal. Behavior: Behavior normal. Thought Content: Thought content normal. Judgment: Judgment normal. Assessment/Plan (R10.9) Right sided abdominal pain (primary encounter diagnosis) (R19.8) Alternating constipation and diarrhea 1. Right sided abdominal pain -- Patient with R sided abdominal pain, seem to worsen with eating and slightly improves with a BM. -- Patient has had normal EGD/colon, CT, US, HIDA. Looking back on abdominal x-ray, showing stool throughout colon. -- He can continue on Bentyl 20 mg PRN TID -- Would like to get an updated abdominal x-ray r/o stool burden. May need total bowel clean out and bowel regimen. -- Can consider Xifaxan trial for IBS/SIBO due to excessive gas - XR ABDOMEN 2V ROUTINE SUPINE W UPRIGHT/DECUB/CTL; Future 2. Alternating constipation and diarrhea -- Patient with alternating bowel habits. Notes he is going numerous times a day but having incomplete bowel habits and straining. -- Patient has had normal EGD/colon, CT, US, HIDA. Looking back on abdominal x-ray, showing stool throughout colon. -- Would like to get an updated abdominal x-ray r/o stool burden. May need total bowel clean out and bowel regimen. -- Can consider Xifaxan trial for IBS/SIBO due to excessive gas -- I do think his anxiety, stress is playing a large role in his GI symptoms. - XR ABDOMEN 2V ROUTINE SUPINE W UPRIGHT/DECUB/CTL; Future Follow up in office 3 months/PRN. Recommended to please call office/go to ER if fever, chills, chest pain, SOB, diarrhea, nausea, emesis, worsening abdominal pain, dehydration occurs I spent a total of 30 minutes on the date of the service which included preparing to see the patient, [id number] patient care, completing clinical documentation, obtaining and/or reviewing separately obtained history, performing a medically appropriate examination, counseling and educating the patient/family/caregiver, and ordering medications, tests, or procedures. Keiry Fontana PA-C July 11, 2023 11:41 AM documented in this encounter [facility] 07-04-2023 History of Presen t illness Narrative Radiology Service Progress Note PATIENT NAME: Jhonathan Byrnes DATE OF SERVICE: July 04, 2023 TIME: 10:58 AM PATIENT IDENTITY VERIFICATION COMPLETED USING TWO (2) IDENTIFIERS: Name and Date of confirmed by patient verbally. FALL SCREENING: Has the patient had 2 falls in the last year or 1 fall with injury or currently using an Ambulatory Assistive Device (Walker, Cane, Wheelchair, Crutches, etc.)? No PATIENT GENDER DATA: Male PATIENT RELEVANT IMPLANT DATA REVIEWED: Yes RADIOLOGY DEPARTMENT: General X-ray: Exam(s) Completed: Chest X-Ray PERIPHERAL IV DATA: Not applicable SIGNED BY: RT Florina(R) July 04, 2023 10:58 AM documented in this encounter [facility] 07-04-2023 History of Presen t illness Narrative CC: Patient presents with: Cough: Cough, congestion, fatigue, ST and LEBRON x 1 week HPI: Jhonathan Byrnes is a 58 year old male who presents to the office with complaint of head congestion, cough, nonproductive, and sore throat for 5 days. Symptoms are worsening Associated symptoms includes headache. Denies fever, nausea, vomiting , and diarrhea. Treatments tried include nothing so far. with no relief of symptoms. Sick contacts: unknown. History of asthma, frequent episodes of bronchitis, chronic bronchitis, bronchiectasis or COPD: No Smoker: No Seasonal/environmental allergies: No The ROS is otherwise negative. The patient's pmh, medications, allergies, and past visits are reviewed. PHYSICAL EXAM: BP 138/86 Pulse 96 Temp 36.3 C (97.3 F) (Tympanic) Resp 18 Wt 74.1 kg (163 lb 6.4 oz) SpO2 99% BMI 23.45 kg/m General appearance: alert, cooperative, pleasant, in no acute distress Head: Normocephalic Eyes: EOM's intact, conjunctiva pink and moist, no icterus, sclera white, non-injected Ears: Right ear: External ear/canal- Normal, TM - clear with good landmarks. Left ear: External ear/canal- Normal, TM - clear with good landmarks Heart: Negative. RRR without obvious murmur, gallop, or rubs. No ectopy. Lungs: clear to auscultation, without rales or wheeze, good air exchange PAST MEDICAL HISTORY Diagnosis Date Alcohol abuse 05/02/2018 Elevated hemoglobin A1c 07/11/2021 Essential hypertension 05/01/2018 Ex-smoker 05/01/2018 Started in his early 20's and quite around the age of 38. 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 Not aware or medication. GERD without esophagitis 05/02/2018 Herniation of intervertebral disc at C6-C7 level 05/03/2018 MRI 02/2018 History of anxiety 06/06/2007 History of colonic polyps 08/10/2022 Mixed hyperlipidemia 05/01/2018 Pectoralis minor syndrome (HCC) Uncomplicated alcohol dependence (HCC) 05/02/2018 PAST SURGICAL HISTORY Procedure Laterality Date COLONOSCOPY FLX DX W/COLLJ SPEC WHEN PFRMD 08/19/2018 repeat 3 years COLONOSCOPY SCREENING 08/21/2022 two small adenomatous polyps-repeat in 5 years EGD W/O [facility] SPEC VARICIES INJ 11/09/2021 HEART CATHETERIZATION 2017 WNL ALLERGIES Patient has no known allergies. MEDICATIONS lansoprazole (PREVACID) 30 mg capsule Take 1 capsule by mouth two times a day. 1/2 hr before meal. lisinopril-hydroCHLOROthiazide (ZESTORETIC) 20-12.5 mg per tablet Take 1 tablet by mouth once daily. dicyclomine (BENTYL) 20 mg tablet Take 1 tablet by mouth before meals and at bedtime. hydrOXYzine HCl (ATARAX) 25 mg tablet Take 0.5-1 tab every 8 hrs as needed for panic attacks. tamsulosin (FLOMAX) 0.4 mg Take 0.4 mg by mouth twice daily. Per Dr. Barbosa FAMILY HISTORY Problem Relation Age of Onset Coronary Artery Disease Mother has stents Cancer Brother Lung: dx and initial surgery 2006. nonsmoker. other (dementia) Paternal Aunt Social History Tobacco Use Smoking status: Former Packs/day: 1.00 Years: 20.00 Additional pack years: 0.00 Total pack years: 20.00 Types: Cigarettes Quit date: 2007 Years since quittin.2 Smokeless tobacco: Current Types: Snuff Tobacco comments: some Vaping Use Vaping Use: Never used Substance Use Topics Alcohol use: Yes Comment: 3-4 daily Drug use: Never ASSESSMENT/PLAN: 1. Acute cough - ICD9: 786.2, ICD10: R05.1 (primary diagnosis) - XR CHEST 2V FRONTAL/LAT * * * * Physician Interpretation * * * * EXAMINATION: CHEST RADIOGRAPH (2 VIEW FRONTAL & LATERAL) CLINICAL HISTORY: Acute cough MQ: [id number] EXAM DATE/TIME: 07/04/2023 11:04 AM COMPARISON: Correlation made to CT chest dated June 15, 2022 RESULT: Lines, tubes, and devices: None. Lungs and pleura: No consolidation. No lung mass. No pleural effusion. No pneumothorax. Cardiomediastinal silhouette: Normal cardiomediastinal silhouette. Bones and soft tissues: Degenerative changes are present within the thoracic spine. Age indeterminant overlapping mid left clavicular fracture. IMPRESSION IMPRESSION: 1. No radiographic evidence of acute cardiopulmonary process. 2. Overlapping age indeterminate mid left clavicular fracture. National Sales Trainer: SHELLY Transcribe Date/Time: Jul 04 2023 11:04A Dictated by : EMY GOEL MD - ALBUTEROL SULFATE HFA 90 MCG/ACTUATION AEROSOL INHALER 2. URI, acute - ICD9: 465.9, ICD10: J06.9 - COVID & INFLUENZA A/B & RSV NAAT, ROUTINE OTC medication for symptoms management. Potential red flag symptoms discussed with the patient. Reviewed appropriate action plan to take if red flag symptoms occur. Patient agreeable to treatment plan. Ledy Omalley APRN.CNP documented in this encounter [facility] 06-04-2023 Miscellaneous Notes Last Appt: 04/21/23 Patient has been identified by name and date of : Yes Requested Prescriptions Pending Prescriptions Disp Refills lisinopril-hydroCHLOROthiazide (ZESTORETIC) 20-12.5 mg per tablet 90 tablet 1 Sig: Take 1 tablet by mouth once daily. RX INSTRUCTIONS: Patient aware RX will be sent to pharmacy. No need to notify patient. Noelle Doyle LPN documented in this encounter [facility] 05-12-2023 Miscellaneous Notes Pt notified of rx. Pt verbalizes understanding. Johnna Mobley LPN Let patient know a script for bentyl at 20 mg instead of 10 mg was sent to pharmacy. The following approved medication requests have been transmitted electronically. Requested Prescriptions Signed Prescriptions Disp Refills dicyclomine (BENTYL) 20 mg tablet 120 tablet 0 Sig: Take 1 tablet by mouth before meals and at bedtime. Authorizing Provider: SILVIO MOYER MD Spoke with pt and advised of message below. Pt ok with canceling appointment on 05/21/23 and will schedule with Gastro. Pt was transferred to schedule. F/u canceled at this time. Pt states he doubled up on the Bentyl that Juliet had given him and this took the edge off of his pain but did not resolve it. States he is out of this medication and questions if he could bet a refill or something stronger to help until he sees gastro. Pt uses [facility]. Advised pt he would be contacted after Dr Moyer addresses. Johnna Mobley LPN Patient stopped in to inform office his RUQ pain was not improving and would like to get the referral to see gastro. Order placed. Please assist with setting up. See if he wants to cancel the appt with me on 05/21/2023 for f/u on the RUQ pain then? ----- Message from Hermila Valentine sent at 05/12/2023 11:09 AM EDT ----- Regarding: Consult to Gastro Good morning! This patient had stopped in to say that his symptoms are not getting any better and would like to have that consult to Gastro placed. Are you able to place this please? We can call him to schedule. Thank you! Hermila. documented in this encounter [facility] 05-04-2023 Miscellaneous Notes Spoke with pt and information listed below given. Pt verbalizes understanding. Pt is going to wait till apt and discuss with Dr. Moyer. Will let us know if this changes. Laurel Grimes LPN Message left for pt to call back. Christina Roca Ma Let patient know the next step would be to see gastro for possible scoping of stomach and maybe the colon. If wanting to proceed I can place the consult or wait and see how he is doing at his f/u with me? Contacted patient and he indicated no improvement on the pain. Phyllis Omalley MA Find out if symptoms of the RUQ pain have improved any with increasing the pantoprazole to 40 mg twice a day? Spoke with pt and information listed below given. Pt verbalizes understanding. Pt would like to know where to go from here. Please advise pt. Laurel Grimes LPN Left message for pt to contact office. Johnna Mobley LPN Let patient know gal bladder function is normal. documented in this encounter [facility] 05-03-2023 History of Presen t illness Narrative RADIOLOGY SERVICE PROGRESS NOTE SERVICE DATE: 05/03/2023 SERVICE TIME: 7:40 AM PATIENT IDENTITY VERIFICATION COMPLETED USING TWO (2) STANDARD IDENTIFIERS: Name and Date of confirmed by patient verbally FALL SCREENING: Has the patient had 2 falls in the last year or 1 fall with injury or currently using an Ambulatory Assistive Device (Walker, Cane, Wheelchair, Crutches, etc.)? No PATIENT GENDER DATA: .male : No ALLERGIES: Reviewed and unchanged MEDICATIONS REVIEWED: No PATIENT RELEVANT IMPLANT DATA REVIEWED: Not Applicable CREATININE: Creatinine Date Value Ref Range Status 10/25/2022 1.04 0.73 - 1.22 mg/dL Final 08/15/2022 0.86 0.73 - 1.22 mg/dL Final 07/29/2022 0.85 0.73 - 1.22 mg/dL Final Estimated Glomerular Filtration Rate Date Value Ref Range Status 10/25/2022 83 >=60 mL/min/1.73m Final Comment: Estimated Glomerular Filtration Rate (eGFR) is calculated using the 2020 CKD-EPI creatinine equation. This equation utilizes serum creatinine, sex, and age as parameters. The creatinine assay has traceable calibration to isotope dilution-mass spectrometry. Refer to KDIGO guidelines for clinical interpretation. In patients with unstable renal function, e.g. those with acute kidney injury, the eGFR may not accurately reflect actual GFR. eGFR- Date Value Ref Range Status 12/17/2020 >60 Final P.O.C.T. RESULTS: N/A May 03, [address] PERFORMED: No IV SITE: Ambulatory: A peripheral IV was started in the Left forearm with a Angio cath: 22 gauge. POST EXAM PIV STATUS: Discontinued PROCEDURE TYPE: NM INJECT: HIDA. 5.2 mCi Tc99m CHOLETEC. CCK 1.5 micrograms intravenous at 0832. ADMINISTRATION TIME: 0732 PATIENT DISCHARGED TO: Ambulatory patient, left [place] department area. A Diagnostic radioactive procedure has taken place, with no further precautions necessary other than routine body substance precautions. More information regarding radiation safety can be found using this link: [email or web address] SIGNATURE: RT Clemencia(Hortensia) PATIENT NAME: Jhonathan Byrnes DATE: May 03, 2023 TIME: 7:40 AM PAGER/CONTACT #: documented in this encounter [facility] 05-01-2023 Miscellaneous Notes Pt was notified of results & voiced understanding. Karen Weiss LPN Left message for patient to return call to office Kayy Lebron Cma Let patient know that his urine was normal. documented in this encounter [facility] 04-30-2023 Miscellaneous Notes Patient notified and voiced understanding. Coming to this lab this morning. Phyllis Omalley MA Addended by: SILVIO MOYER on: 04/30/2023 10:12 AM Modules accepted: Orders Patient needs to come to lab to give a urine sample. If positive for blood he may eleazar a CT to look for a kidney stone. Spoke with patient and he voiced understanding. Patient also indicated over the weekend the pain spread to his lower back and around the front on the right in groin area. I asked patient any issues with urination he said he has burning with urination now and frequency. He indicated that he has this before. Patient also indicated that he had a HIDA scan a few years back. Patient indicated that still is not feeling well. He also mentioned that he has a $7000 deductible but will do what test Dr. Moyer wants done. He just wants to feel better. Phyllis Omalley MA Let patient know US of RUQ was normal. Order to check gal bladder function (HIDA scan) has been placed. documented in this encounter [facility] 04-30-2023 Miscellaneous Notes Left message for pt to contact office. .Johnna Mobley LPN Let patient know US of RUQ was normal. Order to check gal bladder function (HIDA scan) has been placed. documented in this encounter [facility] 04-27-2023 History of Presen t illness Narrative Radiology Service Progress Note PATIENT NAME: Jhonathan Byrnes DATE OF SERVICE: April 27, 2023 TIME: 11:33 AM PATIENT IDENTITY VERIFICATION COMPLETED USING TWO (2) IDENTIFIERS: Name and Date of confirmed by patient verbally. FALL SCREENING: Has the patient had 2 falls in the last year or 1 fall with injury or currently using an Ambulatory Assistive Device (Walker, Cane, Wheelchair, Crutches, etc.)? No PATIENT GENDER DATA: Male PATIENT RELEVANT IMPLANT DATA REVIEWED: Not Applicable RADIOLOGY DEPARTMENT: Ultrasound PERIPHERAL IV DATA: Not applicable SIGNED BY: Desi Jacobsen RDMS April 27, 2023 11:33 AM documented in this encounter [facility] 04-23-2023 Miscellaneous Notes Spoke with patient. Given message from provider's office. Patient verbalizes understanding. Livia Hsu RN TC to patient with no answer. Left VM to return call to office for update. JIM Henley Let patient know other then the diet changes and tylenol as needed can only suggest prn Tums or Rolaids. Spoke with patient and gave results. Patient voiced understanding. Patient is scheduled 04/27/2023 For US. Patient indicated that he has been taking tylenol but that doesn't seem to be helping the gnawing pain. Patient was wanting to know what else he can take for the pain. Patient indicated that he has changed up his diet hoping that would help. Phyllis Omalley MA Let patient know his liver and pancreatic functions were normal. documented in this encounter [facility] 04-21-2023 History of Presen t illness Narrative Chief Complaint Patient presents with: Abdominal Pain HPI Jhonathan Byrnes is a 58 year old male who presents here today for Acute onset of abdominal pain. Office visit - continued abdomen pain. Patient was seen by Juliet and given Zenaida which worked for a while. Patient has D/C'd the medication as it was no longer working. Patient indicated pain on right upper quad for several months. Seems to get worse after eating but No N/V. Some changes in bowels with stools being looser at times. Some bloating. No blood in stool or melena. Less appetitie. Patient has been trying to eat healthy. The pantoprazole does not seem to improve this. Drinking seltzer beverages like white claw 2-3 a night. Has stopped drinking beer and cut back from the 4-5 a night like he used to drink. More anxiety at work. When patient was seen in the office and UC back in Oct the pain was in the RLQ. CT of abdomen done 11/10/2022 was normal. CMP and CBC from 10/25/2022 were normal. Past medical history, appointments, medications, allergies reviewed. Previous Medical History PAST MEDICAL HISTORY Diagnosis Date Alcohol abuse 05/02/2018 Elevated hemoglobin A1c 07/11/2021 Essential hypertension 05/01/2018 Ex-smoker 05/01/2018 Started in his early 20's and quite around the age of 38. 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 Not aware or medication. GERD without esophagitis 05/02/2018 Herniation of intervertebral disc at C6-C7 level 05/03/2018 MRI 02/2018 History of anxiety 06/06/2007 History of colonic polyps 08/10/2022 Mixed hyperlipidemia 05/01/2018 Pectoralis minor syndrome (HCC) Uncomplicated alcohol dependence (HCC) 05/02/2018 Previous Surgical History PAST SURGICAL HISTORY Procedure Laterality Date COLONOSCOPY FLX DX W/COLLJ SPEC WHEN PFRMD 08/19/2018 repeat 3 years COLONOSCOPY SCREENING 08/21/2022 two small adenomatous polyps-repeat in 5 years EGD W/O [facility] SPEC VARICIES INJ 11/09/2021 HEART CATHETERIZATION 2017 WNL Family History FAMILY HISTORY Problem Relation Age of Onset Coronary Artery Disease Mother has stents Cancer Brother Lung: dx and initial surgery 2006. nonsmoker. other (dementia) Paternal Aunt Patient Allergies ALLERGIES No Known Allergies Current Medications Current Outpatient Medications on File Prior to Visit Medication Sig pantoprazole DR (PROTONIX) 40 mg tablet Take 1 tablet by mouth once daily. lisinopril-hydroCHLOROthiazide (ZESTORETIC) 20-12.5 mg per tablet Take 1 tablet by mouth once daily. tamsulosin (FLOMAX) 0.4 mg Take 0.4 mg by mouth twice daily. Per Dr. Barbosa dicyclomine (BENTYL) 10 mg capsule Take 1 capsule by mouth before meals and at bedtime. (Patient not taking: Reported on 04/21/2023) LYRICA 25 mg capsule 25 mg three times daily with increase up to 75 mg three times daily. Increase by 25 mg every 7 days as tolerated. (Patient not taking: Reported on 04/21/2023) hydrOXYzine HCl (ATARAX) 25 mg tablet Take 0.5-1 tab every 8 hrs as needed for panic attacks. (Patient not taking: Reported on 10/25/2022) No current facility-administered medications on file prior to visit. Social History Social History Tobacco Use Smoking status: Former Packs/day: 1.00 Years: 20.00 Additional pack years: 0.00 Total pack years: 20.00 Types: Cigarettes Quit date: 2007 Years since quittin.0 Smokeless tobacco: Current Types: Snuff Tobacco comments: some Vaping Use Vaping Use: Never used Substance Use Topics Alcohol use: Yes Comment: 3-4 daily Drug use: Never Review of Symptoms REVIEW OF SYSTEMS See HPI EXAM: BP 130/92 (BP Site: Right Arm, BP Position: Sitting, BP Cuff Size: Regular Adult) Pulse 76 Temp 36.1 C (97 F) Resp 16 Wt 73 kg (161 lb) BMI 23.10 kg/m General Appearance: Well appearing, alert, in no acute distress, well-hydrated, well nourished.. Back:no right flank pain to percussion Abdomen: Abdomen soft, non-distended. Mild RUQ tenderness with no guarding or rebound pain. McMurphy test was negative.. Bowel sounds normal. No masses, organomegaly. Health Maintenance List SHINGRIX VACCINE(1 of 2) due on 08/10/2023 PNEUMOCOCCAL(1 - PCV) due on 12/02/2029 ANNUAL PCP TEAM CHRONIC DISEASE VISIT due on 10/27/2023 BP CONTROLLED (<130/80) due on 10/27/2023 DIABETES SCREEN due on 10/25/2025 LIPID SCREEN due on 07/29/2027 PROSTATE CANCER SCREENING DISCUSSION due on 07/29/2027 COLORECTAL CANCER SCREENING due on 08/21/2027 DTAP,TDAP,TD(2 - Td or Tdap) due on 01/05/2032 DEPRESSION ASSESSMENT Completed COVID-19 VACCINE Completed INFLUENZA Discontinued HEPATITIS C SCREENING Discontinued HIV SCREENING Discontinued Data reviewed A/P ASSESSMENT/PLAN: 1. RUQ pain - ICD9: 789.01, ICD10: R10.11 - Increase treatment with Protonix 40 mg BID Check - HEPATIC FUNCTION PNL - AMYLASE BLD - LIPASE BLD - US ABD RIGHT UPPER QUADRANT: if normal will get HIDA scan. If HIDA scan is normal will proceed with gastro consult. Will also consider zolft for anxiety related to new stress. Requested Prescriptions Signed Prescriptions Disp Refills pantoprazole DR (PROTONIX) 40 mg tablet 60 tablet 5 Sig: Take 1 tablet by mouth twice daily. F/u in 4 weeks routine Silvio Moyer MD documented in this encounter [facility] 03-05-2023 Miscellaneous Notes The following approved medication requests have been transmitted electronically. Requested Prescriptions Signed Prescriptions Disp Refills pantoprazole DR (PROTONIX) 40 mg tablet 30 tablet 0 Sig: Take 1 tablet by mouth once daily. Authorizing Provider: SILVIO MOYER MD Patient has been identified by name and date of : Yes Requested Prescriptions Pending Prescriptions Disp Refills pantoprazole DR (PROTONIX) 40 mg tablet 90 tablet 1 Sig: Take 1 tablet by mouth once daily. RX INSTRUCTIONS: Patient aware RX will be sent to pharmacy. No need to notify patient. Phyllis Omalley MA Judy 08/2022 Nov l/m patient needs rescheduled for 6 month follow up Last refill; 08/2022 Patient has been identified by name and date of : Yes Last office visit in this department: 10/27/2022 RX INSTRUCTIONS: Patient aware RX will be sent to pharmacy. No need to notify patient. Patient phones requesting refills as follows: Requested Prescriptions Pending Prescriptions Disp Refills pantoprazole DR (PROTONIX) 40 mg tablet 90 tablet 1 Sig: Take 1 tablet by mouth once daily. Please review and advise. Diane Marc documented in this encounter [facility] 12-04-2022 Miscellaneous Notes Patient has been identified by name and date of : Patient phones for refill(s): Requested Prescriptions Pending Prescriptions Disp Refills dicyclomine (BENTYL) 10 mg capsule 30 capsule 0 Sig: Take 1 capsule by mouth before meals and at bedtime. Date of last office visit in primary care: 10/27/2022, has appt 02/08/2023 Last 2 Encounter Wt Readings: Date: Wt: 10/27/2022 74.4 kg (164 lb) 10/25/2022 76.7 kg (169 lb) Previous labs/tests for medication: Not applicable Please advise. Thank you. Sully Mallory LPN Patient has 2 left documented in this encounter [facility] 12-04-2022 Miscellaneous Notes Last refill 05/25/22 Qty: 90 with 1 refill JUDY 10/27/22 NOV 02/08/23 Johnna Mobley LPN documented in this encounter [facility] 11-10-2022 Miscellaneous Notes Noted. Pt notified of results. Pt reports he is still having pain especially when he bends over to tie shoes. Anne scheduled with Dr Moyer 11/13/22. Karen Weiss LPN Let patient know that his CT was negative. Nothing found to explain his pain. How is he feeling? Juliet Millan PA-C documented in this encounter [facility] 11-02-2022 Miscellaneous Notes Pt informed, verbalized understanding Anne Norman Go back to a very light diet. And if pain worsens, he should go to ER. Patient calls to report on RLQ abdominal pain that radiates to groin at times. Patient reports that for the first 2-3 days of taking Bentyl the pain subsided. Patient reports that now the pain has returned and medication isn't helping. Patient asking if provider has any other recommendations or medications he can try. Patient scheduled for CT scan on 11/10/2022. Please review and advise, Gisella Dill RN documented in this encounter [facility] 10-27-2022 Miscellaneous Notes Pt was notified of all information & voiced understanding. Pt was transferred to cotton ginner helper to schedule CT scan. Karen Weiss LPN Let patient know that xray only shows a non-obstructing bowel gas pattern. Which is nonspecific. I would like him to do a liquid diet over the weekend. And i've placed a order for CT scan to further evaluate this pain. I'm also sending in a medication for him to try and see if it helps with abdominal cramping. As discussed, don't hesitate to go to ER if worsening. I'm still waiting on lab results and will let him know if my recommendations change after I receive those results. Juliet Millan PA-C documented in this encounter [facility] 10-27-2022 History of Presen t illness Narrative Radiology Service Progress Note PATIENT NAME: Jhonathan Byrnes DATE OF SERVICE: October 27, 2022 TIME: 11:15 AM PATIENT IDENTITY VERIFICATION COMPLETED USING TWO (2) IDENTIFIERS: Name and Date of confirmed by patient verbally. FALL SCREENING: Has the patient had 2 falls in the last year or 1 fall with injury or currently using an Ambulatory Assistive Device (Walker, Cane, Wheelchair, Crutches, etc.)? No PATIENT GENDER DATA: Male PATIENT RELEVANT IMPLANT DATA REVIEWED: Yes RADIOLOGY DEPARTMENT: General X-ray: Exam(s) Completed: Abdomen X-Ray: Abdomen with upright PERIPHERAL IV DATA: Not applicable SIGNED BY: RT Florina(Hortensia) October 27, 2022 11:15 AM documented in this encounter [facility] 10-27-2022 History of Presen t illness Narrative Chief Complaint Patient presents with: Follow Up: UC 10/25/22. Lower right abd pain, urge to have BM. HPI Jhonathan Byrnes is a 57 year old male who presents here today for Above Complaints.. Patient reports that that since 10/22/2022 he has had RLQ abdominal pain. The pain radiates to groin at time. Was seen in [facility]. Labs and UA were benign. Negative for inguinal hernia Patient states that he feels more bloated and has had some changes in bowels. Not as normal in frequency. Has been having some loose stools. Decreased appetite. Some nausea. No vomiting. No blood or mucus in stool. Patient just had a colonoscopy in aug. Past medical history, appointments, medications, allergies reviewed. Previous Medical History PAST MEDICAL HISTORY Diagnosis Date Alcohol abuse 05/02/2018 Elevated hemoglobin A1c 07/11/2021 Essential hypertension 05/01/2018 Ex-smoker 05/01/2018 Started in his early 20's and quite around the age of 38. 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 Not aware or medication. GERD without esophagitis 05/02/2018 Herniation of intervertebral disc at C6-C7 level 05/03/2018 MRI 02/2018 History of anxiety 06/06/2007 History of colonic polyps 08/10/2022 Mixed hyperlipidemia 05/01/2018 Pectoralis minor syndrome (HCC) Uncomplicated alcohol dependence (HCC) 05/02/2018 Previous Surgical History PAST SURGICAL HISTORY Procedure Laterality Date COLONOSCOPY FLX DX W/COLLJ SPEC WHEN PFRMD 08/19/2018 repeat 3 years COLONOSCOPY SCREENING 08/21/2022 two small adenomatous polyps-repeat in 5 years EGD W/O [facility] SPEC VARICIES INJ 11/09/2021 HEART CATHETERIZATION 2017 WNL Family History FAMILY HISTORY Problem Relation Age of Onset Coronary Artery Disease Mother has stents Cancer Brother Lung: dx and initial surgery 2006. nonsmoker. other (dementia) Paternal Aunt Patient Allergies ALLERGIES No Known Allergies Current Medications Current Outpatient Medications on File Prior to Visit Medication Sig pantoprazole DR (PROTONIX) 40 mg tablet Take 1 tablet by mouth once daily. LYRICA 25 mg capsule 25 mg three times daily with increase up to 75 mg three times daily. Increase by 25 mg every 7 days as tolerated. lisinopril-hydroCHLOROthiazide (PRINZIDE,ZESTORETIC) 20-12.5 mg per tablet Take 1 tablet by mouth once daily. hydrOXYzine HCl (ATARAX) 25 mg tablet Take 0.5-1 tab every 8 hrs as needed for panic attacks. (Patient not taking: Reported on 10/25/2022) tamsulosin (FLOMAX) 0.4 mg Take 0.4 mg by mouth twice daily. Per Dr. Barbosa (Patient not taking: Reported on 10/25/2022) flavoxATE (URISPAS) 100 mg tablet Take 1 tablet by mouth three times daily. No current facility-administered medications on file prior to visit. Social History Social History Tobacco Use Smoking status: Former Packs/day: 1.00 Years: 20.00 Pack years: 20.00 Types: Cigarettes Quit date: 2007 Years since quittin.5 Smokeless tobacco: Current Types: Snuff Tobacco comments: some Vaping Use Vaping Use: Never used Substance Use Topics Alcohol use: Yes Comment: 3-4 daily Drug use: Never Review of Symptoms REVIEW OF SYSTEMS See hpi EXAM: BP 122/76 (BP Site: Left Arm, BP Position: Sitting, BP Cuff Size: Small Adult) Pulse 93 Resp 16 Wt 74.4 kg (164 lb) SpO2 95% BMI 23.53 kg/m General Appearance: Well appearing, alert, in no acute distress, well-hydrated, well nourished.. Lungs: Lungs clear to auscultation. No wheezing, rhonchi, rales.. Heart: RRR without murmur, gallop, or rubs. No ectopy. Abdomen: BS hyperactive. Generalized tenderness to RLQ. Unable to find a point tenderness. No rebound. No increased pain with flexion of legs or with half sit up. No guarding. No cva tenderness. Health Maintenance List DEPRESSION ASSESSMENT due on 09/03/2022 SHINGRIX VACCINE(1 of 2) due on 08/10/2023 PNEUMOCOCCAL(1 - PCV) due on 12/02/2029 ANNUAL PCP TEAM CHRONIC DISEASE VISIT due on 08/10/2023 BP CONTROLLED (<130/80) due on 10/25/2023 DIABETES SCREEN due on 10/25/2025 LIPID SCREEN due on 07/29/2027 PROSTATE CANCER SCREENING DISCUSSION due on 07/29/2027 COLORECTAL CANCER SCREENING due on 08/21/2027 DTAP,TDAP,TD(2 - Td or Tdap) due on 01/05/2032 COVID-19 VACCINE Completed INFLUENZA Discontinued HEPATITIS C SCREENING Discontinued HIV SCREENING Discontinued Data reviewed Component Latest Ref Rng & Units 10/25/2022 WBC 3.70 - 11.00 k/uL 7.43 RBC 4.20 - 6.00 m/uL 4.66 Hemoglobin 13.0 - 17.0 g/dL 14.5 Hematocrit 39.0 - 51.0 % 44.4 MCV 80.0 - 100.0 fL 95.3 MCH 26.0 - 34.0 pg 31.1 MCHC 30.5 - 36.0 g/dL 32.7 RDW-CV 11.5 - 15.0 % 12.7 Platelet Count 150 - 400 k/uL 210 MPV 9.0 - 12.7 fL 10.6 Neut% % 57.6 Abs Neut (ANC) 1.45 - 7.50 k/uL 4.28 Lymph% % 29.5 Abs Lymph 1.00 - 4.00 k/uL 2.19 Tunica% % 8.5 Abs Tunica <0.87 k/uL 0.63 Eosin% % 3.2 Abs Eosin <0.46 k/uL 0.24 Baso% % 0.8 Abs Baso <0.11 k/uL 0.06 Immature Gran % % 0.4 IMMATURE GRANS (ABS) <0.10 k/uL 0.03 NRBC /100 WBC 0.0 Absolute nRBC <0.01 k/uL <0.01 DTYPE Auto Protein, Total 6.3 - 8.0 g/dL 7.1 Albumin 3.9 - 4.9 g/dL 4.5 Calcium 8.5 - 10.2 mg/dL 9.7 Bilirubin, Total 0.2 - 1.3 mg/dL 0.6 Alkaline Phosphatase 38 - 113 U/L 67 AST 14 - 40 U/L 28 ALT 10 - 54 U/L 25 Glucose 74 - 99 mg/dL 115 (H) BUN 9 - 24 mg/dL 12 Creatinine 0.73 - 1.22 mg/dL 1.04 Sodium 136 - 144 mmol/L 139 Potassium 3.7 - 5.1 mmol/L 4.3 Chloride 97 - 105 mmol/L 101 CO2 22 - 30 mmol/L 27 Anion Gap 9 - 18 mmol/L 11 eGFR >=60 mL/min/1.73m 83 GLUCOSE UA (POCT) Negative mg/dL Negative BILIRUBIN UA (POCT) Negative Negative KETONE UA (POCT) Negative mg/dL Negative SPECIFIC GRAVITY UA (POCT) 1.005 - 1.030 1.010 HEMOGLOBIN/BLOOD UA (POCT) Negative Negative PH UA (POCT) 4.5 - 8.0 7.0 PROTEIN UA (POCT) Negative mg/dL Negative UROBILINOGEN UA (POCT) Normal E.U./dL 0.2 NITRITE UA (POCT) Negative Negative LEUKOCYTES UA (POCT) Negative Negative COLOR UA (POCT) Yellow CLARITY UA (POCT) Clear ASSESSMENT/PLAN: 1. RLQ abdominal pain - ICD9: 789.03, ICD10: R10.31 - unclear etiology. Will get stat xray and sed rate today. May need CT scan. I'm considering possible tx for colitis vs constipation. ER if worsening. - XR ABDOMEN 2V ROUTINE SUPINE W UPRIGHT/DECUB/CTL - SED RATE ROSENDO Discussed possible red flags and when to seek medical attention. Juliet Millan PA-C documented in this encounter [facility] 10-25-2022 History of Presen t illness Narrative Patient presents with: Urinary Frequency: burning with urination x 4-5 days HPI: Abdominal pain: Duration: 4-5 days Location: right lower abdomen Character: cramping and pressure Radiation: right lower back and right testicle Aggravating: no change with moving bowels bending, twisting, or bumping Relieving: maybe some with voiding bladder Pain relievers: Motrin and Tylenol Associated: slight constipation Pertinent negatives: Denies diarrhea, blood in stool Dysuria: Yes, slight the last few days Frequency: Yes, improved since starting flowmax a while ago. Denies incomplete emptying. Hematuria: No Nausea: No Fever or chills: No Abdominal pain: Yes, right lower abdomen radiating to the groin Prior UTI: Yes Personal history of kidney stones: No Family history of kidney stones: Yes, father, brother Had colonoscopy in August with tubular adenomas polyps resected. PAST MEDICAL HISTORY Diagnosis Date Alcohol abuse 05/02/2018 Elevated hemoglobin A1c 07/11/2021 Essential hypertension 05/01/2018 Ex-smoker 05/01/2018 Started in his early 20's and quite around the age of 38. 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 Not aware or medication. GERD without esophagitis 05/02/2018 Herniation of intervertebral disc at C6-C7 level 05/03/2018 MRI 02/2018 History of anxiety 06/06/2007 History of colonic polyps 08/10/2022 Mixed hyperlipidemia 05/01/2018 Pectoralis minor syndrome (HCC) Uncomplicated alcohol dependence (HCC) 05/02/2018 PAST SURGICAL HISTORY Procedure Laterality Date COLONOSCOPY FLX DX W/COLLJ SPEC WHEN PFRMD 08/19/2018 repeat 3 years COLONOSCOPY SCREENING 08/21/2022 two small adenomatous polyps-repeat in 5 years EGD W/O [facility] SPEC VARICIES INJ 11/09/2021 HEART CATHETERIZATION 2017 WNL MEDICATIONS: Current Outpatient Medications Medication Sig pantoprazole DR (PROTONIX) 40 mg tablet Take 1 tablet by mouth once daily. LYRICA 25 mg capsule 25 mg three times daily with increase up to 75 mg three times daily. Increase by 25 mg every 7 days as tolerated. lisinopril-hydroCHLOROthiazide (PRINZIDE,ZESTORETIC) 20-12.5 mg per tablet Take 1 tablet by mouth once daily. hydrOXYzine HCl (ATARAX) 25 mg tablet Take 0.5-1 tab every 8 hrs as needed for panic attacks. (Patient not taking: Reported on 10/25/2022) tamsulosin (FLOMAX) 0.4 mg Take 0.4 mg by mouth twice daily. Per Dr. Barbosa (Patient not taking: Reported on 10/25/2022) flavoxATE (URISPAS) 100 mg tablet Take 1 tablet by mouth three times daily. No current facility-administered medications for this visit. ALLERGIES: ALLERGIES No Known Allergies VITALS: BP 128/74 Pulse 88 Temp 36.2 C (97.1 F) Resp 16 Wt 76.7 kg (169 lb) SpO2 99% BMI 24.25 kg/m PHYSICAL EXAM: GEN: NAD HEENT: EOMI, conjunctiva clear, moist mucous membranes HEART: regular rate and rhythm, no murmurs LUNGS: clear to auscultation, no wheezes or crackles, no increased WOB ABDOMEN: Soft, nondistended, no masses, no tenderness with palpation BACK: No CVA tenderness : Normal external male genitalia. No inguinal hernias. Bilaterally distended testes without mass. Component Latest Ref Rng & Units 12/17/2020 01/27/2022 07/29/2022 PSA <2.60 ng/mL 1.20 0.70 1.01 ASSESSMENT/PLAN: 1. Abdominal pain, right lower quadrant - ICD9: 789.03, ICD10: R10.31 (primary diagnosis) 2. Urinary frequency - ICD9: 788.41, ICD10: R35.0 3. Family history of kidney stone - ICD9: V18.69, ICD10: Z84.1 - UA DIP, URINE (POC) - negative. Differential reviewed with patient: Constipation, appendicitis, diverticulitis, colitis. Imaging would be necessary to differentiate among these. His exam is benign, vitals are normal, and urinalysis is normal. We discussed treatment options which include emergency room evaluation or close follow-up. He will have labs drawn and follow-up with primary care in the next day or 2. - CBC + DIFF - COMP METABOLIC PANEL Follow up in the ER with nausea, vomiting, increasing abdominal pain, fever, inability to void, melena, or hematochezia. Rober Diaz MD documented in this encounter [facility] 10-16-2022 Miscellaneous Notes Pt calls to request recent PSA results be faxed to [facility]-Dr. Squires. Pt reports he has an appt 01/15/[address] Squires. Results faxed to: [phone]. Noelle Doyle LPN documented in this encounter [facility] 09-08-2022 History of Presen t illness Narrative In lieu of an in-person visit due to COVID-19 concerns, a telephone visit was performed on the patient. Patient is aware that I am not fully able to assess symptoms and do a full physical examination including vital signs assessment at this time. Patient consents to this encounter. No video was used in the evaluation of this patient, as the patient preferred a telephone call. I personally called patient by telephone. FOLLOW UP VISIT - ENDOSCOPY NAME: Jhonathan Lacey Byrnes [facility] NO.: [id number] DATE OF SERVICE: 08/31/2022 : 1965 REFERRING PHYSICIAN: Silvio Moyer MD Jhonathan is a patient I am following for personal history of colon polyps and need for surveillance endoscopy. Dr. Dennis performed lower endoscopy on 08/21/22. Findings from procedure showed: A small polyp was found in the transverse colon. The polyp was sessile. The polyp was removed with a jumbo cold forceps. Resection and retrieval were complete. A small polyp was found in the sigmoid colon. The polyp was sessile. The polyp was removed with a cold snare. Resection and retrieval were complete. Non-bleeding internal hemorrhoids were found during retroflexion. The hemorrhoids were mild and small. The exam was otherwise without abnormality. Pathology demonstrated: FINAL DIAGNOSIS A. Colon, transverse polyp, biopsy: - Tubular adenoma. B. Colon, sigmoid polyp, biopsy: - Tubular adenoma. The patient notes no complaints since the procedure. Assessment IMPRESSION: s/p colonoscopy with polypectomy-two small tubular adenomas PLAN: The operative findings and pathology report were reviewed with the patient, and the patient has had the opportunity to ask questions and have questions answered. If the patient notes any problems or changes in bowel function, the patient should contact me immediately. Otherwise I recommend follow up endoscopy in 5 years for surveillance. HM updated and recall letter generated. Patient verbalized understanding of all above and agreed with the plan Diagnoses: (D12.6) Tubular adenoma of colon (primary encounter diagnosis) I spent a total of 22 minutes on the date of the service which included preparing to see the patient, completing clinical documentation, counseling and educating the patient/family/caregiver, independently interpreting results (not separately reported), and communicating results to the patient/family/caregiver. Carly Grande PA-C documented in this encounter [facility] 08-23-2022 History of Presen t illness Narrative PHYSICAL THERAPY REFERRAL FORM Pectoral Minor SYNDROME I 77.89 Date: August 23, 2022 Name: Jhonathan Byrnes Left Pec Minor syndrome: Please follow instructions below. - Muscle energy technique/mobilization to pelvis, lumbar, thoracic, cervical spine - Upper quarter stretching (pectoralis major, minor, scalenes, sternocleidomastoid, upper trapezius) - Soft tissue mobilization to upper quarter (pectoralis major, minor, upper trapezius, sternocleidomastoid) - Dural stretching (median, ulnar, radial) - Please instruct in home stretching program, proper posture (sitting, standing, and sleeping) and body mechanics - No strengthening at this time Frequency: 2-3 x per week Duration: 8 weeks or until goals have been met ____ Paddy Toscano APRN.[employer]ISHER (Signature) documented in this encounter [facility] 08-22-2022 Miscellaneous Notes Spoke with Ruby advising of surgery arrival times after leaving for Jhonathan on Cell phone..Shamika Hay documented in this encounter [facility] 08-21-2022 History and physical note HISTORY AND PHYSICAL Jhonathan Byrnes 1965 REFERRING PHYSICIAN: Silvio Moyer MD CHIEF COMPLAINT: Consult (colonoscopy) HPI: The patient is a 57 year old male referred for endoscopy. Jhonathan notes no history of colon complaints. The patient notes no history of upper GI complaints. Jhonathan has undergone prior endoscopy. 2018 Positive for polyps The patient is being seen by me today at the request of Dr. Silvio Moyer MD for my opinion and advice regarding History of colonic polyps (primary encounter diagnosis). PAST MEDICAL HISTORY PAST MEDICAL HISTORY Diagnosis Date Alcohol abuse 05/02/2018 Elevated hemoglobin A1c 07/11/2021 Essential hypertension 05/01/2018 Ex-smoker 05/01/2018 Started in his early 20's and quite around the age of 38. 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 Not aware or medication. GERD without esophagitis 05/02/2018 Herniation of intervertebral disc at C6-C7 level 05/03/2018 MRI 02/2018 History of anxiety 06/06/2007 History of colonic polyps 08/10/2022 Mixed hyperlipidemia 05/01/2018 Pectoralis minor syndrome (HCC) Uncomplicated alcohol dependence (HCC) 05/02/2018 PAST SURGICAL HISTORY PAST SURGICAL HISTORY Procedure Laterality Date COLONOSCOPY FLX DX W/COLLJ SPEC WHEN PFRMD 08/19/2018 repeat 3 years EGD W/O [facility] SPEC VARICIES INJ 11/09/2021 HEART CATHETERIZATION 2017 WNL CURRENT MEDICATIONS Current Outpatient Medications Medication Sig traMADol (ULTRAM) 50 mg tablet Take 1 tablet by mouth every 8 hours as needed for pain for up to [address] (PROTONIX) 40 mg tablet Take 1 tablet by mouth once daily. pregabalin (LYRICA) 75 mg capsule Take 1 capsule by mouth three times daily for 30 days. LYRICA 25 mg capsule 25 mg three times daily with increase up to 75 mg three times daily. Increase by 25 mg every 7 days as tolerated. lisinopril-hydroCHLOROthiazide (PRINZIDE,ZESTORETIC) 20-12.5 mg per tablet Take 1 tablet by mouth once daily. hydrOXYzine HCl (ATARAX) 25 mg tablet Take 0.5-1 tab every 8 hrs as needed for panic attacks. tamsulosin (FLOMAX) 0.4 mg Take 0.4 mg by mouth twice daily. Per Dr. Barbosa flavoxATE (URISPAS) 100 mg tablet Take 1 tablet by mouth three times daily. peg 3350-Electrolytes (GOLYTELY) 236-22.74-6.74 -5.86 gram suspension Take 4,000 mL by mouth one time only for 1 dose. Refer to printed prep instructions from your provider. No current facility-administered medications for this visit. ALLERGIES: Patient has no known allergies. PERSONAL HISTORY: SOCIAL HISTORY Social History Tobacco Use Smoking status: Former Packs/day: 1.00 Years: 20.00 Pack years: 20.00 Types: Cigarettes Quit date: 2007 Years since quittin.3 Smokeless tobacco: Current Types: Snuff Tobacco comments: some Vaping Use Vaping Use: Never used Substance Use Topics Alcohol use: Yes Comment: 3-4 daily Drug use: Never FAMILY HISTORY: FAMILY HISTORY FAMILY HISTORY Problem Relation Age of Onset Coronary Artery Disease Mother has stents Cancer Brother Lung: dx and initial surgery 2006. nonsmoker. other (dementia) Paternal Aunt REVIEW OF SYMPTOMS: The review of systems data was entered by the nurse and reviewed by me Nursing Notes: Paddy Bolivar LPN 08/17/2022 2:23 PM Signed REVIEW OF SYSTEMS: General: The patient denies fatigue, denies weight loss, denies weight gain, denies feeling hot, and denies feelings of cold. Eyes: The patient denies glaucoma, denies eye injury/surgery, wears glasses or contacts. Ear/Nose/Throat: The patient denies allergies, denies hayfever, denies ear infections, and denies bloody noses. Cardiovascular: The patient notes chest pain, denies heart disease, denies high blood pressure,denies cardiac stent, denies prior heart attack, denies irregular heart beat, denies high cholesterol, denies poor circulation, denies heart failure, other cardiac issues, denies claudication, denies cold feet, denies peripheral arterial stent. Respiratory: The patient denies tuberculosis, denies pneumonia, denies frequent cough, denies pulmonary embolism, denies shortness of breath, and denies coughing up blood. Gastrointestinal: The patient denies difficulty swallowing, denies acid reflux, denies ulcers, denies vomiting, denies jaundice/hepatitis, denies gallbladder problems, denies black or tarry stools, denies hemorrhoids, denies bleeding from rectum, denies diverticulitis, denies constipation, denies diarrhea, denies loss of stool control, and denies hernias. Kidney/Bladder: The patient denies kidney stones, denies urine infections, and denies bloody urine. Skin: The patient denies a history of skin cancer, denies bleeding/changing moles, and denies a history of skin rash. Neurologic: The patient denies a history of epilepsy/convulsions, denies headaches, denies head/spinal injuries, and denies stroke/TIA. Psychiatric: The patient denies psychiatric medications, denies depression, and denies voices, denies substance abuse. Endocrine: The patient denies thyroid disorders, denies diabetes, and denies hormonal problems. Hematologic: The patient denies a history of bruising, denies bleeding, and denies anemia, denies blood clots. Infections: The patient denies a history of measles and mumps, denies rheumatic fever, and denies sexually transmitted diseases. Musculoskeletal: The patient denies back pain/injury, denies back problems, denies sciatica, denies knee/foot trouble, denies arthritis, or denies gout. When was patient's last Mammogram screening? N/A Last Colonoscopy: 2017 Paddy Bolivar LPN PHYSICAL EXAMINATION: General: The patient is 57 year old male, well nourished, well hydrated in no acute distress. The patient is oriented to time, place, and person. VITALS: Blood pressure 128/70, pulse 95, temperature 36.4 C (97.5 F), height 177.8 cm (5' 10), weight 76.2 kg (168 lb), SpO2 97 %. Body mass index is 24.11 kg/m . HEENT: Normal cephalic, ataumatic, pupils are equally round, sclera are anicteric, mucous membranes are moist, oropharynx is clear. Neck has no masses, asymmetry or lymphadenopathy. Thyroid is unremarkable. Respiratory: Clear to auscultation and percussion. Normal respiratory excursion and pattern. Cardiac: Examination is regular rate and rhythm. Abdominal exam: Soft, nontender, with no palpable masses. No hepatosplenomegaly. No palpable hernias. Rectal exam: exam deferred Extremities: no clubbing, cyanosis or edema. No adenopathy. Other: LABORATORY VALUES: As Noted RADIOLOGIC STUDIES: As Noted Assessment IMPRESSION: History of colonic polyps (primary encounter diagnosis) PLAN: I plan to perform lower endoscopy. We discussed the risks and benefits of the planned endoscopy. I have informed the patient that complications can occur including failure to complete the endoscopy and perforation. The patient had the opportunity to ask questions concerning the planned endoscopy. My staff has also explained the procedure to the patient in understandable terms and has given the patient printed material concerning the procedure. The patient freely consents to surgery. I plan to use golytely bowel preparation for endoscopy Diagnoses: (Z86.010) History of colonic polyps (primary encounter diagnosis) My findings have been communicated to Dr. Silvio Moyer MD via shared medical record. This note will be forwarded to Dr. Silvio Moyer MD. Return to Clinic: The patient is instructed to follow-up with me 1 week post operatively. Zac Dennis III, MD UPDATED HISTORY AND PHYSICAL EXAMINATION SERVICE DATE: 08/21/2022 SERVICE TIME: 11:16 AM PHYSICAL EXAM MUST BE COMPLETED ON ADMISSION The History and Physical (completed in the past 30 days) has been reviewed and the patient has been examined. The contents accurately reflect the patient's condition with the following additions or revisions since the H&P was completed. Examination indicates no changes. This H&P can be found in the attached. SIGNATURE: Zac Dennis III, MD PATIENT NAME: Jhonathan Byrnes DATE: August 21, 2022 TIME: 11:16 AM documented in this encounter [facility] 08-21-2022 Nurse Note Arrived in phase II via cart left lateral position, eyes open, alert to event and self, skin warm and dry, respirations regular and unlabored, abdomen flat and non distended. Denies pain or nausea. Resting comfortably. documented in this encounter [facility] 08-15-2022 History of Presen t illness Narrative Images from the original note were not included. Cardiothoracic Anesthesiology Preoperative Assessment Service Date: 08/15/2022 Service Time: 11:47 AM Primary Care Physician: Silvio Moyer MD Subjective Scheduled procedure: Left pec minor release Surgeon: Ricardo Delarosa Scheduled date: 08/23/2022 HPI: 57 year old M with PMH notable for: - HTN, former smoker, ETOH abuse, cervical herniated disc, traumatic left clavicle fracture (no surgery), JC, GERD, HLD. Pt with symptoms consistent with pec minor syndrome. Underwent PT with recurrence of symptoms and is now s/p pec minor block with short-term relief- scheduled for left pec minor release with Dr. Delarosa on 08/23/22 for which he presents for preoperative evaluation. Pt is currently asymptomatic without any chest pain, shortness of breath, recent weight loss, fever, chills, nausea/vomiting, diarrhea He denies any problems with prior anesthetics. He has good functional status. Today we discussed the anesthetic plan, what to expect, and any questions or concerns the patient may have had. We additionally discussed perioperative medications and recommended holding lisinopril-HCTZ prior to surgery but otherwise continue their medications as prescribed. Review no known heparin intolerance not taking anticoagulant/antiplatelet medication no non-cardiac IEDs present no known esophageal disorders blood transfusion consented - COVID-19 Immunization Status COVID-19 VACCINE (Series Information) Completed 08/04/2022 Imm Admin: COVID-19 booster vaccine, age 12+ yr, bivalent (PFIZER-BIONTECH) 12/08/2020 Imm Admin: COVID-19 original vaccine, age 12+ yr, monovalent (PFIZER-BIONTECH - PURPLE TOP) 11/17/2020 Imm Admin: COVID-19 original vaccine, age 12+ yr, monovalent (PFIZER-BIONTECH - PURPLE TOP) The patient has the following: ACTIVE PROBLEM LIST Jc (Generalized Anxiety Disorder) Essential Hypertension Mixed Hyperlipidemia Ex-Smoker Gerd Without Esophagitis Uncomplicated Alcohol Dependence (Hcc) Alcohol Abuse Herniation of Intervertebral Disc At C6-C7 Level Foraminal Stenosis of Cervical Region Screening for Prostate Cancer Encounter for Screening for Diabetes Mellitus Well Adult Exam Elevated Hemoglobin A1c Medication Management Pectoralis Minor Syndrome (Hcc) History of Colonic Polyps Screening for Colon Cancer PAST MEDICAL HISTORY Diagnosis Date Alcohol abuse 05/02/2018 Elevated hemoglobin A1c 07/11/2021 Essential hypertension 05/01/2018 Ex-smoker 05/01/2018 Started in his early 20's and quite around the age of 38. 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 Not aware or medication. GERD without esophagitis 05/02/2018 Herniation of intervertebral disc at C6-C7 level 05/03/2018 MRI 02/2018 History of anxiety 06/06/2007 History of colonic polyps 08/10/2022 Mixed hyperlipidemia 05/01/2018 Pectoralis minor syndrome (HCC) Uncomplicated alcohol dependence (HCC) 05/02/2018 PAST SURGICAL HISTORY Procedure Laterality Date COLONOSCOPY FLX DX W/COLLJ SPEC WHEN PFRMD 08/19/2018 repeat 3 years EGD W/O BRSH SPEC VARICIES INJ 11/09/2021 HEART CATHETERIZATION 2017 WNL FAMILY HISTORY Problem Relation Age of Onset Coronary Artery Disease Mother has stents Cancer Brother Lung: dx and initial surgery 2006. nonsmoker. other (dementia) Paternal Aunt Social History Tobacco Use Smoking status: Former Packs/day: 1.00 Years: 20.00 Pack years: 20.00 Types: Cigarettes Quit date: 2007 Years since quittin.3 Smokeless tobacco: Current Types: Snuff Tobacco comments: some Vaping Use Vaping Use: Never used Substance Use Topics Alcohol use: Yes Comment: 3-4 daily Drug use: Never Prior to Admission medications as of 08/15/22 1110 Medication Sig Last Dose Taking traMADol (ULTRAM) 50 mg tablet Take 1 tablet by mouth every 8 hours as needed for pain for up to [address] (PROTONIX) 40 mg tablet Take 1 tablet by mouth once daily. pregabalin (LYRICA) 75 mg capsule Take 1 capsule by mouth three times daily for 30 days. LYRICA 25 mg capsule 25 mg three times daily with increase up to 75 mg three times daily. Increase by 25 mg every 7 days as tolerated. lisinopril-hydroCHLOROthiazide (PRINZIDE,ZESTORETIC) 20-12.5 mg per tablet Take 1 tablet by mouth once daily. hydrOXYzine HCl (ATARAX) 25 mg tablet Take 0.5-1 tab every 8 hrs as needed for panic attacks. tamsulosin (FLOMAX) 0.4 mg Take 0.4 mg by mouth twice daily. Per [place] flavoxATE (URISPAS) 100 mg tablet Take 1 tablet by mouth three times daily. No medication comments found. ALLERGIES No Known Allergies Objective Pain Assessment: Vitals: There were no vitals taken for this visit. Diagnostic tests reviewed for today's visit: Lab Value Units Date High Low HB 15.9 g/dL 07/29/2022 17.0 13.0 HCT 48.6 % 07/29/2022 51.0 39.0 WBC 6.69 k/uL 07/29/2022 11.00 3.70 PLT 236 k/uL 07/29/2022 400 150 NA 140 mmol/L 07/29/2022 144 136 K 4.8 mmol/L 07/29/2022 5.1 3.7 GLUC 126 mg/dL 07/29/2022 99 74 BUN 9 mg/dL 07/29/2022 24 9 CREAT 0.85 mg/dL 07/29/2022 1.22 0.73 PTSEC No results within date range. INR No results within date range. APTT No results within date range. ALT 20 U/L 07/29/2022 54 10 AST 24 U/L 07/29/2022 40 14 TBILI 0.6 mg/dL 07/29/2022 1.3 0.2 TSH No results within date range. Lab Value Units Date High Low HCGQT No results within date range. UHCG No results within date range. HCG, BODY* No results within date range. Lab Value Units Date High Low ABORHD No results within date range. ABSCREEN No results within date range. Hemoglobin A1C (%) Date Value 07/29/2022 5.5 12/30/2021 5.6 12/17/2020 6.1 11/04/2018 5.4 05/09/2018 5.6 No results found for this or any previous visit (from the past 8760 hour(s)). Assessment No problem-specific Assessment & Plan notes found for this encounter. ANESTHESIA FINDINGS: Intubation History: No history of difficult intubation. No abnormal airway history Significant Anesthesia Considerations: none Airway History: No history of difficult airway No abnormal airway history Prepared for Surgery: optimally prepared for surgery. The Following Tests/Procedures Have Been Initiated: No orders of the defined types were placed in this encounter. ASA Class: 4 Planned Anesthetic: general I - PHYSICAL EVALUATION AIRWAY Patient intubated: No. Tracheostomy tube not present Mallampati: II. TM distance: >3 FB. Neck ROM: limited extension. Mouth opening: adequate. Short neck: no. Thick neck: no Heredia present: no DENTAL Additional comments: Partial upper plate. II - ANESTHESIA PLAN ASA Score: 4 Anesthetic Plan: general Airway type: ETT Beta [place] Monitoring Plan Post Procedure Analgesic Plan Informed Consent Anesthetic risks, benefits, alternatives, personnel and consent discussed: yes. Patient / Responsible Democrat agrees to proceed: yes Patient / Surrogate agrees to blood products: Yes Instructions Given to Patient: Instructions located in the after visit summary. Patient given verbal and written preop instructions and voices comprehension and compliance. Signature: Reece Carter MD Patient Name: Jhonathan Byrnes Date: August 15, 2022 Time: 11:47 AM Pager/Contact #: documented in this encounter [facility] 08-15-2022 History of Presen t illness Narrative Informed consent obtained for left pec minor tendon release. Ricardo Delarosa MD documented in this encounter [facility] 08-15-2022 History and physical note VASCULAR SURGERY PREOPERATIVE H&P SERVICE DATE: 08/15/22 SERVICE TIME: 1100 PRIMARY CARE PHYSICIAN: Silvio Moyer MD REFERRING PROVIDER: Ricardo Delarosa [address] [place] [address] Consult requested for an opinion regarding the evaluation and treatment of the above. My final impression and recommendations will be communicated back to the requesting physician by way of the shared medical record or letter via US mail. CHIEF COMPLAINT/HISTORY OF PRESENT ILLNESS: Chief Complaint: Left shoulder pain History of Present Illness: Jhonathan Byrnes is a 57 year old male presenting for preoperative H&P. History includes HTN, former smoker, ETOH abuse, cervical herniated disc, traumatic left clavicle fracture (no surgery), JC, GERD, HLD. Previously endorsed left shoulder pain with movement of his left arm or raising the arm. Pain radiates to the left neck, left axillary area, and occasionally to the anterior chest. He also notes associated numbness/tingling radiating to the left arm. Episodes are relieved with resting his arm down at his side. Symptoms consistent with pec minor syndrome. Underwent PT with recurrence of symptoms. Underwent pec minor block with short-term relief. Scheduled for left pec minor release with Dr. Delarosa. Hand dominance: right Latex allergy: No Contrast dye allergy: No Patient is on following blood thinners: None Pacemaker: No Insulin pump: No Tests: 06/15/22: CTA C PAST MEDICAL/SURGICAL/FAMILY/SOCIAL HISTORY PAST MEDICAL HISTORY Diagnosis Date Alcohol abuse 05/02/2018 Elevated hemoglobin A1c 07/11/2021 Essential hypertension 05/01/2018 Ex-smoker 05/01/2018 Started in his early 20's and quite around the age of 38. 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 Not aware or medication. GERD without esophagitis 05/02/2018 Herniation of intervertebral disc at C6-C7 level 05/03/2018 MRI 02/2018 History of anxiety 06/06/2007 History of colonic polyps 08/10/2022 Mixed hyperlipidemia 05/01/2018 Pectoralis minor syndrome (HCC) Uncomplicated alcohol dependence (HCC) 05/02/2018 PAST SURGICAL HISTORY Procedure Laterality Date COLONOSCOPY FLX DX W/COLLJ SPEC WHEN PFRMD 08/19/2018 repeat 3 years EGD W/O BRSH SPEC VARICIES INJ 11/09/2021 HEART CATHETERIZATION 2017 WNL FAMILY HISTORY Problem Relation Age of Onset Coronary Artery Disease Mother has stents Cancer Brother Lung: dx and initial surgery 2006. nonsmoker. other (dementia) Paternal Aunt SOCIAL HISTORY Social History Tobacco Use Smoking status: Former Packs/day: 1.00 Years: 20.00 Pack years: 20.00 Types: Cigarettes Quit date: 2007 Years since quittin.3 Smokeless tobacco: Current Types: Snuff Tobacco comments: some Vaping Use Vaping Use: Never used Substance Use Topics Alcohol use: Yes Comment: 3-4 daily Drug use: Never MEDICATIONS/ALLERGIES Current Outpatient Medications Medication Sig Dispense Refill traMADol (ULTRAM) 50 mg tablet Take 1 tablet by mouth every 8 hours as needed for pain for up to 7 days. [address] (PROTONIX) 40 mg tablet Take 1 tablet by mouth once daily. 90 tablet 1 pregabalin (LYRICA) 75 mg capsule Take 1 capsule by mouth three times daily for 30 days. 90 capsule 0 LYRICA 25 mg capsule 25 mg three times daily with increase up to 75 mg three times daily. Increase by 25 mg every 7 days as tolerated. 125 capsule 0 lisinopril-hydroCHLOROthiazide (PRINZIDE,ZESTORETIC) 20-12.5 mg per tablet Take 1 tablet by mouth once daily. 90 tablet 1 hydrOXYzine HCl (ATARAX) 25 mg tablet Take 0.5-1 tab every 8 hrs as needed for panic attacks. 30 tablet 1 tamsulosin (FLOMAX) 0.4 mg Take 0.4 mg by mouth twice daily. Per Dr. Barbosa flavoxATE (URISPAS) 100 mg tablet Take 1 tablet by mouth three times daily. 9 tablet 0 No current facility-administered medications for this visit. ALLERGIES No Known Allergies REVIEW OF SYSTEMS Constitutional: No weight loss, malaise or fevers. Respiratory: Negative for cough, wheezing, or shortness of breath Cardiovascular: Negative for chest pain, leg swelling or palpitations Gatrointestinal: Negative for abdominal discomfort, blood in stools or black stools or change in bowel habits Genitourinary: No history of dysuria, frequency, or incontinence Musculoskeletal: Left shoulder chest/pain see HPI Neurologic: No syncope, paralysis, seizures or tremors Integumentary: Negative for lesions, rash, and itching. PHYSICAL EXAM VITALS: BP 133/89 Pulse 97 Temp (Src) 97.8 (Oral) Resp 14 Ht 5' 10.75 (1.80m) Wt 155 lb 9.6 oz (70.6kg) SpO2 98% BMI 21.86 kg/(m^2). General: Alert and oriented, No acute distress Integumentary: Normal color, no rash, no lesions. HEENT: EOM intact. Cardiovascular: Pulse regular., S1S2 Lungs: Normal breath sounds, no wheezes or crackles. Abdomen:Soft, non-tender, no rigidity. Extremities: No deformity, no edema or tenderness, no joint swelling or clubbing. Neurological: Normal cognition and motor skills. Gait normal. No weakness or sensory deficit. Vascular: Radial Pulse Right: Normal - Left: Normal ASSESSMENT Jhonathan Byrnes is a 57 year old male with pec minor syndrome. Scheduled for left pec minor release with Dr. Delarosa. PLAN/RECOMMENDATIONS Scheduled for left pec minor release with Dr. Delarosa on 08/23/22. Ready for surgery pending Labs, ECG, Anesthesia clearance, COVID test Pre-op POC reviewed with patient who verbalized understanding/compliance. Medication list reviewed, updated, and verified with patient. Consent: Pending SIGNATURE: Nga Cohen APRN.CNP PATIENT NAME: Jhonathan Byrnes DATE: 08/15/22 TIME: 1120 documented in this encounter [facility] 08-15-2022 History of Presen t illness Narrative AMBULATORY PATIENT EDUCATION READINESS TO LEARN COGNITIVE ABILITY: Alert and oriented MOTIVATION TO LEARN: Eager FAMILY SUPPORT: Unable to assess - Family not present INSTRUCTION PROVIDED TO: Patient PATIENT LEARNS BEST BY: Individual Instruction Written Instruction - Hand-outs Verbal Instruction FACTORS AFFECTING LEARNING: None PHYSICAL LIMITATIONS AFFECTING LEARNING: None LEARNING RESPONSE METHOD OF INSTRUCTION: Individual instruction Written instruction - handouts Verbal instruction PATIENT / FAMILY RESPONSE: Verbalizes understanding of: PRE-OPERATIVE INSTRUCTIONS-Correct action to take to follow pre-operative instructions FOLLOW-UP PLAN: Office contact information provided. SUPPLEMENTAL MATERIAL: Vascular Surgery Preparation Handout, Bactroban Nasal Ointment Instructions REFERRAL (RECOMMENDATION): None Electronically Signed By: Nga Cohen APRN.CNP In Department: VASCULAR SURG DEPT documented in this encounter [facility] 08-14-2022 Instructions Nga Cohen APRN.CNP - 08/14/2022 10:18 AM EST VASCULAR SURGERY PREOPERATIVE INSTRUCTIONS The following instructions were given in oral and written form: Do not take NSAIDs such as ibuprofen (Motrin, Advil) and naproxen (Aleve), or Excedrin for a week before surgery. It is OK to take Tylenol. - Hold vitamins and supplements for a week before surgery. Hibiclens (body wash) and Listerine (mouth wash) were given as well as instructions on how to use them. Do not eat or drink after midnight on the night before surgery. DO NOT TAKE Lisinopril (ZESTRIL, PRINIVIL)/Hydrochlorothiazide (HCTZ), torsemide (Demadex) on the morning of surgery. On the morning of surgery- take the rest of your morning medications with small sips of water. Follow anesthesia instructions regarding your other medications before surgery and on the morning of surgery. You will be called and notified if you are MRSA positive and need to fill a prescription. If positive, you need to fill the prescription and begin using it on the day before surgery. Please call us and inform us about any significant health updates or new medications added to your regimen before surgery. Signed: Nga Cohen APRN.KIRILL documented in this encounter [facility] 08-10-2022 Instructions Silvio Moyer MD - 08/10/2022 10:13 AM EST Please get labs test done on or after 01/26/2023 prior to your next visit. documented in this encounter [facility] 08-10-2022 History of Presen t illness Narrative Chief Complaint Patient presents with: Physical HPI Jhonathan Byrnes is a 57 year old male who presents here today for Physical. Patient with Hx of hyperlipidemia, GERD, JC, HTN, elevated A1c, alcohol abuse, Pectoralis minor syndrome as well as those reviewed and addressed below and in ROS. Patient will be undergoing Pec minor syndrome corrective surgery on 08/23/2022 at [facility]. Drinking 4-5 beers a day. Can walk a flight of stairs and push a piece of furniture. Past medical history, appointments, medications, allergies reviewed. Previous Medical History PAST MEDICAL HISTORY Diagnosis Date Alcohol abuse 05/02/2018 Elevated hemoglobin A1c 07/11/2021 Essential hypertension 05/01/2018 Ex-smoker 05/01/2018 Started in his early 20's and quite around the age of 38. 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 Not aware or medication. GERD without esophagitis 05/02/2018 Herniation of intervertebral disc at C6-C7 level 05/03/2018 MRI 02/2018 History of anxiety 06/06/2007 Mixed hyperlipidemia 05/01/2018 Uncomplicated alcohol dependence (HCC) 05/02/2018 Previous Surgical History PAST SURGICAL HISTORY Procedure Laterality Date COLONOSCOPY FLX DX W/COLLJ SPEC WHEN PFRMD 08/19/2018 repeat 3 years EGD W/O BRSH SPEC VARICIES INJ 11/09/2021 HEART CATHETERIZATION 2017 WNL Family History FAMILY HISTORY Problem Relation Age of Onset Coronary Artery Disease Mother has stents Cancer Brother Lung: dx and initial surgery 2006. nonsmoker. other (dementia) Paternal Aunt Patient Allergies ALLERGIES No Known Allergies Current Medications Current Outpatient Medications on File Prior to Visit Medication Sig pantoprazole DR (PROTONIX) 40 mg tablet Take 1 tablet by mouth once daily. pregabalin (LYRICA) 75 mg capsule Take 1 capsule by mouth three times daily for 30 days. lisinopril-hydroCHLOROthiazide (PRINZIDE,ZESTORETIC) 20-12.5 mg per tablet Take 1 tablet by mouth once daily. hydrOXYzine HCl (ATARAX) 25 mg tablet Take 0.5-1 tab every 8 hrs as needed for panic attacks. tamsulosin (FLOMAX) 0.4 mg Take 0.4 mg by mouth twice daily. Per Dr. Barbosa LYRICA 25 mg capsule 25 mg three times daily with increase up to 75 mg three times daily. Increase by 25 mg every 7 days as tolerated. sucralfate (CARAFATE) 1 gram tablet Take one tab at lunch and one before bed. (Patient not taking: Reported on 08/04/2022) flavoxATE (URISPAS) 100 mg tablet Take 1 tablet by mouth three times daily. No current facility-administered medications on file prior to visit. Social History Social History Tobacco Use Smoking status: Former Packs/day: 1.00 Years: 20.00 Pack years: 20.00 Types: Cigarettes Quit date: 2007 Years since quittin.3 Smokeless tobacco: Current Types: Snuff Tobacco comments: some Vaping Use Vaping Use: Never used Substance Use Topics Alcohol use: Yes Comment: 1-2 daily Drug use: Never Review of Symptoms REVIEW OF SYSTEMS GENERAL: No weight loss, malaise or fevers HEENT: having some headaches up the back of the head on the left. No changes in hearing or vision, no nose bleeds or other nasal problems NECK: Negative for lumps, goiter, pain and significant neck swelling RESPIRATORY: Negative for cough, hemoptysis, wheezing, COPD, dyspnea or shortness of breath CARDIOVASCULAR: Negative for chest pain, leg swelling, hypertension, CHF or palpitations GI: No nausea, vomiting, or diarrhea, No heartburn or reflux symptoms, and no blood : No history of dysuria,blood MUSCULOSKELETAL: left shoulder neck region and plan is future surgery SKIN: Negative for lesions, rash, and itching PSYCH: Negative for sleep disturbance, mood disorder and recent psychosocial stressors HEMATOLOGY/LYMPHOLOGY: Negative for prolonged bleeding, bruising easily or swollen nodes ENDOCRINE: Negative for cold or heat intolerance, polyuria, polydipsia and goiter NEURO: No history of headaches, syncope, paralysis, seizures or tremors EXAM: BP 122/80 Pulse 78 Resp 14 Ht 177 cm (5' 9.69) Wt 72.6 kg (160 lb) BMI 23.17 kg/m General Appearance: Well appearing, alert, in no acute distress, well-hydrated, well nourished.. Skin: Skin color, texture, turgor normal, no suspicious rashes or lesions. Head: Normocephalic, no masses, lesions, tenderness or abnormalities. Eyes: Anicteric sclera. Pupils are equally round and reactive to light. Extraocular movements are intact. . Ears: External ears, TM's normal, canals clear. Neck: Supple, no adenopathy; thyroid symmetric, normal size, no bruits. Lungs: Lungs clear to auscultation. No wheezing, rhonchi, rales.. Heart: RRR without murmur, gallop, or rubs. No ectopy. Abdomen: Normal abdominal exam, Abdomen soft, non-tender. Bowel sounds normal. No masses, organomegaly. Extremities: No deformities, edema, skin discoloration, Good capillary refill. . Musculoskeletal: Spine range of motion normal. Muscular strength intact, No joint swelling, deformity, or tenderness. Peripheral Pulses: Normal. Neurologic: Gait normal. Reflexes normal and symmetric. Sensation to light touch and crainal nerves 2-12 intact.. Genitalia: Normal, Penis normal. No urethral discharge. Scrotum normal to palpation. No hernia.. Rectal: Normal exam. Health Maintenance List SHINGRIX VACCINE(1 of 2) Never done COLORECTAL CANCER SCREENING due on 08/19/2021 DEPRESSION ASSESSMENT Never done PNEUMOCOCCAL(1 - PCV) due on 12/02/2029 BP CONTROLLED (<130/80) due on 01/04/2023 ANNUAL PCP TEAM CHRONIC DISEASE VISIT due on 08/04/2023 DIABETES SCREEN due on 07/29/2025 LIPID SCREEN due on 07/29/2027 PROSTATE CANCER SCREENING DISCUSSION due on 07/29/2027 DTAP,TDAP,TD(2 - Td or Tdap) due on 01/05/2032 COVID-19 VACCINE Completed INFLUENZA Discontinued HEPATITIS C SCREENING Discontinued HIV SCREENING Discontinued Data reviewed Component Latest Ref Rng & Units 12/17/2020 12/30/2021 01/27/2022 07/29/2022 WBC 3.70 - 11.00 k/uL 6.78 6.69 RBC 4.20 - 6.00 m/uL 5.00 5.08 Hemoglobin 13.0 - 17.0 g/dL 15.5 15.9 Hematocrit 39.0 - 51.0 % 46.5 48.6 MCV 80.0 - 100.0 fL 93.0 95.7 MCH 26.0 - 34.0 pg 31.0 31.3 MCHC 30.5 - 36.0 g/dL 33.3 32.7 RDW-CV 11.5 - 15.0 % 12.1 12.8 Platelet Count 150 - 400 k/uL 245 236 MPV 9.0 - 12.7 fL 10.8 10.7 Neut% % 52.6 58.6 Abs Neut (ANC) 1.45 - 7.50 k/uL 3.55 3.92 Lymph% % 34.8 27.2 Abs Lymph 1.00 - 4.00 k/uL 2.36 1.82 [place]% % 7.2 9.0 Abs [place] <0.87 k/uL 0.49 0.60 Eosin% % 4.1 3.4 Abs Eosin <0.46 k/uL 0.28 0.23 Baso% % 1.3 0.9 Abs Baso <0.11 k/uL 0.09 0.06 Immature Gran % % 0.9 IMMATURE GRANS (ABS) <0.10 k/uL 0.06 NRBC /100 WBC 0.0 Absolute nRBC <0.01 k/uL <0.01 <0.01 DTYPE Auto Nucleated Reds 0 /100 WBC 0.0 Diff Type Auto Diff Protein, Total 6.3 - 8.0 g/dL 7.3 7.3 Albumin 3.9 - 4.9 g/dL 4.6 4.7 Calcium 8.5 - 10.2 mg/dL 9.9 10.0 Bilirubin, Total 0.2 - 1.3 mg/dL 0.5 0.6 Alkaline Phosphatase 38 - 113 U/L 62 88 AST 14 - 40 U/L 25 24 Glucose 74 - 99 mg/dL 88 126 (H) BUN 9 - 24 mg/dL 9 9 Creatinine 0.73 - 1.22 mg/dL 0.76 0.85 Sodium 136 - 144 mmol/L 143 140 Potassium 3.7 - 5.1 mmol/L 4.3 4.8 Chloride 97 - 105 mmol/L 102 99 CO2 22 - 30 mmol/L 26 31 (H) Anion Gap 9 - 18 mmol/L 15 10 ALT 10 - 54 U/L 16 20 eGFR- >60 eGFR-All Other Races . >60 eGFR >=60 mL/min/1.73m 100 Color Yellow Colorless Clarity Clear Clear Glucose, Urine Negative Negative Bilirubin, Urine Negative Negative Ketones, Urine Negative Negative Specific [address], Ur 1.005 - 1.030 1.008 Hemoglobin/Blood,Ur Negative Negative pH, Urine 5.0 - 8.0 7.0 Protein, Urine Negative Negative Urobilinogen Negative Negative Nitrites Negative Negative Leukest Negative Negative WBC, Urine 0-5 /HPF 0-5 /HPF RBC, Urine 0-3 /HPF 0-3 /HPF Total Cholesterol, Nonfasting <200 mg/dL 206 (H) 235 (H) Triglycerides, Nonfasting <150 mg/dL 58 52 HDL Cholesterol, Nonfasting >39 mg/dL 71 74 LDL Cholesterol, Nonfasting <100 mg/dL 123 (H) 151 (H) Non HDL Cholesterol, Nonfasting <130 mg/dL 135 (H) 161 (H) VLDL Cholesterol, Nonfasting <30 mg/dL 12 10 Total Chol/HDL Ratio, Nonfasting <5.10 mg/dL 2.90 3.18 LDL/HDL Ratio, Nonfasting <2.54 mg/dL 1.73 2.04 Hemoglobin A1C 4.3 - 5.6 % 5.6 5.5 Estimated Average Glucose mg/dL 114 111 PSA <2.60 ng/mL 0.70 1.01 PSA, Percent Free % 26 Vitamin B12 232 - 1,245 pg/mL 444 Magnesium 1.7 - 2.3 mg/dL 2.2 A/P ASSESSMENT/PLAN: 1. Well adult exam - ICD9: V70.0, ICD10: Z00.00 (primary diagnosis) - Counseled on healthy diet and regular exercise - Follow up for annual exam in one year Patient's upcoming surgery is a moderate risk surgery based on the ACC/AHA Classification of surgical procedures. Per Seth Simple Cardiac Risk index patient is at 0.4% cardiac Risk. He has Moderate to excellent functional capacity. As long as his Pre-op EKG is normal then no other pre-op cardiac w/u is needed and ok to proceed with surgical from a general medical stand point. 2. Essential hypertension - ICD9: 401.9, ICD10: I10 - good control - Continue current medication(s) - Recommended regular aerobic exercise. - Recommend home blood pressure monitoring, to bring results in on next visit - Goal of BP <130/80 3. Elevated hemoglobin A1c - ICD9: 790.29, ICD10: R73.09 - improved with life style changes. 4. JC (generalized anxiety disorder) - ICD9: 300.02, ICD10: F41.1 - stable no changes. 5. GERD without esophagitis - ICD9: 530.81, ICD10: K21.9 - Continue treatment with protonix 40 mg QD 6. Mixed hyperlipidemia - ICD9: 272.2, ICD10: E78.2 - suboptimal control - Encouraged following a low fat, low cholesterol diet. - Discussed the benefits of regular aerobic exercise and weight loss. - Encouraged following a low carbohydrate, healthy oil intake diet. - Continue current therapy. 7. Uncomplicated alcohol dependence (HCC) - ICD9: 303.90, ICD10: F10.20 - discussed reducing consumption. 8. Alcohol abuse - ICD9: 305.00, ICD10: F10.10 - as per #8 9. Pectoralis minor syndrome (HCC) - ICD9: 447.8, ICD10: I77.89 - schedule to have surgery 08/23/2022 - refill tramadol for another 7 days. 10. History of colonic polyps - ICD9: V12.72, ICD10: Z86.010 - CONSULT TO GENERAL SURGERY 11. Screening for colon cancer - ICD9: V76.51, ICD10: Z12.11 - CONSULT TO GENERAL SURGERY F/u 6 months routine sooner if issues. Check lipid and A1c prior. Silvio Moyer MD documented in this encounter [facility] 08-07-2022 Miscellaneous Notes Mr. Byrnes called about his Pec Minor block that he had on 08/03/22. He said it helped at first but was in pain again by Ayala. Call back number: [phone] Hermila Cope Staffing Consultant documented in this encounter [facility] 08-04-2022 History of Past i llness Narrative Problem Noted Date Diagnosed Date Resolved Date Pectoralis minor syndrome 08/04/2022 documented as of this encounter (statuses as of 10/15/2023) [facility]12-02-[facility] History of Past illness Narrative* Problem Noted Date Diagnosed Date Resolved Date Pectoralis minor syndrome 08/04/2022 documented as of this encounter (statuses as of 10/22/2023) [facility] History of Past illness Narrative* Problem Noted Date Diagnosed Date Resolved Date Pectoralis minor syndrome 08/04/2022 documented as of this encounter (statuses as of 10/30/2023) [facility] History of Past illness Narrative* Problem Noted Date Diagnosed Date Resolved Date Pectoralis minor syndrome 08/04/2022 documented as of this encounter (statuses as of 12/03/2023) [facility] History of Past illness Narrative* Problem Noted Date Diagnosed Date Resolved Date Pectoralis minor syndrome 08/04/2022 documented as of this encounter (statuses as of 12/11/2023) [facility]12-02-[facility] Instructions* Patient Instructions* Silvio Moyer MD - 08/04/2022 9:43 AM EST Let Ortho know if your to have surgery on 08/14/2022 your labs are already done in regards to CBC and CMP and Dr. Moyer can do a EKG in the office 08/10/2022 if clearing for surgery. documented in [facility] History of Present illness Narrative* Silvio Moyer MD - 08/04/2022 9:00 AM EST Chief Complaint Patient presents with: Pain: Patient is here for left shoulder continued. Has questions HPI Jhonathan Byrnes is a 57 year old male who presents here today for continued left shoulder pain. Has questions. Patient still having pain in the left shoulder. Had PHYSICAL THERAPY in the past seeing pain management . Was told in 2017 it was cervical. Patient saw Dr. Smart who did a MRI of neck and told that was ok. Told suspected thoracic outlet syndrome. Patient saw a Vascular surgeon, Dr. Delarosa and he suspects pec minor syndrome. Patient was referred to pain management . He saw Pain management Yesterday and had a steroid injection with anesthesia. Initially had immediate relief but then gradually pain has returned. Past medical history, appointments, medications, allergies reviewed. Previous Medical History PAST MEDICAL HISTORY Diagnosis Date Alcohol abuse 05/02/2018 Elevated hemoglobin A1c 07/11/2021 Essential hypertension 05/01/2018 Ex-smoker 05/01/2018 Started in his early 20's and quite around the age of 38. 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 Not aware or medication. GERD without esophagitis 05/02/2018 Herniation of intervertebral disc at C6-C7 level 05/03/2018 MRI 02/2018 History of anxiety 06/06/2007 Mixed hyperlipidemia 05/01/2018 Uncomplicated alcohol dependence (HCC) 05/02/2018 Previous Surgical History PAST SURGICAL HISTORY Procedure Laterality Date COLONOSCOPY FLX DX W/COLLJ SPEC WHEN PFRMD 08/19/2018 repeat 3 years EGD W/O BRSH SPEC VARICIES INJ 11/09/2021 HEART CATHETERIZATION 2017 WNL Family History FAMILY HISTORY Problem Relation Age of Onset Coronary Artery Disease Mother has stents Cancer Brother Lung: dx and initial surgery 2006. nonsmoker. other (dementia) Paternal Aunt Patient Allergies ALLERGIES No Known Allergies Current Medications Current Outpatient Medications on File Prior to Visit Medication Sig LYRICA 25 mg capsule 25 mg three times daily with increase up to 75 mg three times daily. Increase by 25 mg every 7 days as tolerated. tiZANidine (ZANAFLEX) 2 mg tablet Take 1 tablet by mouth every 8 hours as needed for up to 30 doses. lisinopril-hydroCHLOROthiazide (PRINZIDE,ZESTORETIC) 20-12.5 mg per tablet Take 1 tablet by mouth once daily. pantoprazole DR (PROTONIX) 40 mg tablet Take 1 tablet by mouth once daily. meloxicam (MOBIC) 15 mg tablet Take 1 tablet by mouth once daily. predniSONE (DELTASONE) 10 mg tablet Take 6 tabs by mouth for 3 days then 4 tabs a day for 3 days then 2 tabs a day for 3 days and then 1 tab a day for 3 days. hydrOXYzine HCl (ATARAX) 25 mg tablet Take 0.5-1 tab every 8 hrs as needed for panic attacks. sucralfate (CARAFATE) 1 gram tablet Take one tab at lunch and one before bed. tamsulosin (FLOMAX) 0.4 mg Take 0.4 mg by mouth twice daily. Per Prameenaa flavoxATE (URISPAS) 100 mg tablet Take 1 tablet by mouth three times daily. No current facility-administered medications on file prior to visit. Social History Social History Tobacco Use Smoking status: Former Packs/day: 1.00 Years: 20.00 Pack years: 20.00 Types: Cigarettes Quit date: 2007 Years since quittin.3 Smokeless tobacco: Current Types: Snuff Tobacco comments: some Vaping Use Vaping Use: Never used Substance Use Topics Alcohol use: Yes Comment: 1-2 daily Drug use: Never Review of Symptoms REVIEW OF SYSTEMS See HPI EXAM: BP 158/94 (BP Site: Left Arm, BP Position: Sitting, BP Cuff Size: Regular Adult) Pulse 80 Resp 18 Ht 178.4 cm (5' 10.25) Wt 73.9 kg (163 lb) BMI 23.22 kg/m General Appearance: Musculoskeletal: pain with movement of arm.. Health Maintenance List SHINGRIX VACCINE(1 of 2) Never done COVID-19 VACCINE(3 - Booster for Pfizer series) due on 02/02/2021 COLORECTAL CANCER SCREENING due on 08/19/2021 DEPRESSION ASSESSMENT Never done PNEUMOCOCCAL(1 - PCV) due on 12/02/2029 ANNUAL PCP TEAM CHRONIC DISEASE VISIT due on 05/25/2023 BP CONTROLLED (<130/80) due on 07/04/2023 DIABETES SCREEN due on 07/29/2025 LIPID SCREEN due on 07/29/2027 PROSTATE CANCER SCREENING DISCUSSION due on 07/29/2027 DTAP,TDAP,TD(2 - Td or Tdap) due on 01/05/2032 INFLUENZA Discontinued HEPATITIS C SCREENING Discontinued HIV SCREENING Discontinued Data reviewed Office visit with Ortho 06/15/2022 and pain management procedure on 08/03/2022 A/P ASSESSMENT/PLAN: 1. Pectoralis minor syndrome (HCC) - ICD9: 447.8, ICD10: I77.89 (primary diagnosis) - advised patient that some of the initial pain may be steroid induced and that he may not have improvement in the pain from the steroid for the next 24-48 hrs. 2. Encounter for immunization - ICD9: V03.89, ICD10: Z23 - PFIZER-BIONTECH COVID-19 BIVALENT BOOSTER VACCINE, AGE 12+ YR: given Patient to return 08/10/2022 for WAE and possible surgical clearance. Silvio Moyer MD [facility] Nurse Note* Vianney Barker RN - 08/03/2022 3:16 PM EST Bromage is zero. * Paddy Rebollar RN - 08/01/2022 12:30 PM ESTSummary: Pre Procedure Telephone Instructions Pre- Procedure Telephone Instructions Patient called to remind them of the date and time of their appointment. Procedure Date 08/03/2022 Arrival to Pain Management Time: 2:20 pm Message left: Yes Instructions given: 1. Do not eat or drink for 8 hours, however, you may have clear liquids (water, black coffee, applejuice, clear broth, clear gelatin, clear juices) up to 2 hours before the appointment. 2. A feeder driver must be present who can drive you home. If you are coming by medical transport, you must have a responsible person other than the transportdriver with you. 3. If you take any Blood Thinners or Insulin, please contact your prescribing physician for instructions on when to stop taking these medications. When was Blood Thinner Last Taken: N/A, no documented blood thinners in patient's medical record. 4. Take routine medications, including heart, blood pressure, or seizure medications with water. 5. Are you currently taking Antibiotics: No current antibiotics documented in patient's medical record. 6. Please reschedule if you are ill, have an infection, a fever, or cannot make the appointment by calling [phone] (Option 2). [facility] Surgical operation note* Brief Op Note - Vern Ocampo MD - 08/03/2022 3:15 PM EST BRIEF OPERATIVE / PROCEDURE NOTE LOG ID: [id number] SURGERY/PROCEDURE DATE: 08/03/2022 PROCEDURE START TIME: 1501 PROCEDURE END TIME: 1505 PRE-OP/PRE-PROCEDURE DIAGNOSIS: 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] POST-OP/POST-PROCEDURE DIAGNOSIS: 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] SURGEON(S)/PROCEDURALIST(S) AND BUSINESS LOAN PROCESSOR(S): Surgeon(s) and Role: * Grupo Lombardo MD - Primary * Vern Ocampo MD-Fellow SURGERY/PROCEDURE(S): Left Pectoral Minor Block ANESTHESIA: Local and anxiolysis FINDINGS: None ESTIMATED BLOOD LOSS: None SPECIMENS: None COMPLICATIONS: None Vern Ocampo MD Pain Medicine Fellow August 03, 2022 * Operative Report - Vern Ocampo MD - 08/03/2022 2:32 PM EST OPERATIVE/PROCEDURE REPORT : LOG ID: [id number] SURGERY/PROCEDURE DATE: 08/03/2022 INCISION/PROCEDURE START TIME: 1501 INCISION CLOSE/PROCEDURE END TIME: 1505 PRE-OP/PRE-PROCEDURE DIAGNOSIS: 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] POST-OP/POST-PROCEDURE DIAGNOSIS: 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] SURGERY/PROCEDURE(S): Pectoral Minor Block under ultrasound SURGEON(S)/PROCEDURALIST(S) AND BUSINESS LOAN PROCESSOR(S): Surgeon(s) and Role: * Grupo Lombardo MD - Primary * Vern Ocampo MD- Fellow The attending was present for the reyes portions of the procedure. ANESTHESIA: Local and Anxiolysis SURGERY/PROCEDURE DESCRIPTION: LEFT PECTORALIS MINOR MUSCLE INSERTION INJECTION Under Ultrasound guidance IV was started prior to the procedure.. Mr. Byrnes was transported to the fluoroscopy suite and wasplaced in a supine position on the fluoroscopy table. The patient was monitored using pulse oximetry, intermittent blood pressure reading, and 5-lead EKG. Using sterile technique, the skin over the injection site was prepped with povidone-iodine and draped. An ultrasound probe with a sterile probe cover was placed on the patient's lateral left chest inferior to the clavicle and medial to the axilla and the Pectoralis Major and Pectoralis Minor were identified under ultrasound. Local Anesthesia was achieved with 4 cc of Lidocaine 1%. A 80 mm x 24 gauge echogenic Pajunk needle was advanced with ultrasound guidance in an in-plane approach through the skin and subcutaneous tissues and entered into the Pectoralis Major muscle. Aspiration for blood and air was negative. 1 cc of 0.25% Bupivacaine was injected. The needle was then advanced further into the Pectoralis Minor under ultrasound guidance. Aspiration for blood and air was negative. A total of 3 cc of 0.25% Bupivacaine was injected. The needle was removed and bleeding was nil. No complications were evident. The patient was taken to the post-block recovery area for further observation. FINDINGS: None COMPLICATIONS: None ESTIMATED BLOOD LOSS: minimal SPECIMENS: None POST-PROCEDURE A&P: ASSESSMENT: Purposeful response to verbal or tactile stimulation: yes Neurological Status: Alert and oriented x 3 Awake, moving all extremities Post Procedure Pain Level: 1 on a scale of 0-10. Postoperative Nausea/Vomiting (PONV): absent PLAN: 1) s/p Left Pectoral Minor block under ultrasound. 2) Lyrica 75 mg TID refilled 2) RTC with Dr. Delarosa with results of diagnostic block of the pectoral minor. 3) The treatment plan was discussed with Mr. Byrnes. Post procedure instructions were reviewed and he voiced understanding. Vern Ocampo MD Pain Medicine Fellow August 03, 2022 Associated attestation - Grupo Lombardo MD - 08/03/2022 9:55 PM EST I saw and evaluated the patient. Discussed with the fellow and agree with findings and plan as documented in the note. I was present for the entire procedure Grupo Lombardo MD [facility] Hospital Discharge instructions* Discharge Instr - Other Orders* Vern Ocampo MD - 08/03/2022 3:14 PM EST Pain Management Post Procedure Instructions Keep a pain diary for 12 hrs with pain and function(moving your left shoulder and neck etc) and Intercomt message Dr. Delarosa after to report the results with him and follow-up with him The following instructions will help you know what to expect in the days following your procedure. Do not, however, hesitate to call if you have questions or concerns. Do not drive or operate machinery today. Rest today, drink plenty of fluids. Tomorrow you may resume your normal activities to the level that your pain will tolerate with the exception of no lifting over 30 lbs for 36 hours. You may experience an increase of pain in approximately 4 hours when the anesthesia wears off. You may experience a temporary increase in pain. Take your prescription as directed. Always exercise caution when taking pain medication. Do not take any medications other than what has been prescribed for you. You may take off the bandage tonight. You may shower but avoid submerging the injection site in water for 48 hours. (No tub baths, whirlpools, pools, etc..) Use Ice/Cold compress on your injection site for the next 24-48 hours after the injection if the area is sore. Apply 20 minutes on and 20 minutes off. You may resume your normal medications today. IF you were advised to stop a blood thinner such as Coumadin, Plavix, Eliquis, you may resume taking these medications in 24 hours or as directed by your physician. If You Received Sedation: DO NOT drive for 24 hours or operate machinery or power tools. DO NOT consume Alcoholic beverages, take sleeping pills, or psychotropic (nerve) medications. DO NOT make important decisions or sign legal documents. We suggest that you have a responsible adult stay with you after your procedure. I Pectoral Minor BLOCK: 1. Local Anesthetic will give you an immediate relief that will last from 40 minutes to 2 hours. 2. Please keep your Pain Diary for 48 hours and please call the office to report your pain diary results after 48 hours FOLLOW THESE INSTRUCTION INDICATED: Observe operative area for signs of excessive bleeding. Keep the operative area clean and dry. Contact your doctor if increased pain, swelling, redness or foul discharge is present at the operative area. IF YOU ARE IN SEVERE PAIN, YOU NEED TO CALL THE OFFICE. ACTIVITY LEVEL: Restricted as follows. Light activity for today, Usual activity tomorrow. Steroids: Steroids are a anti-inflammatory medication, not a direct pain killer. The full benefit of the steroid takes about 5-7 days to take effect. Potential side effects of steroids: Facial flushing Elevated Blood Sugar. Diabetic patients should carefully monitor their blood sugars. What You may experience after an injection: 1. Mild Headache-Drink plenty of fluids, rest. 2. Slight dizziness-Change of positions from lying to sitting or sitting to standing slowly and carefully. 3. Weakness and numbness in extremities. This will last for several hours. You may need someone to assist you to walk if numbness occurs. Diet Resume a normal diet as tolerated. Go to Urgent Care/Emergency Department for any of the following symptoms: 1. Shortness of breath. 2. Severe pain at the injection site (tightness or aching is normal) 3. Redness, pus or drainage from the injection site. 4. Prolonged numbness after a block (14 hours). 5. Fever over 101.4 degrees and /or chills. 6. Excessive bruising, bleeding or swelling a the injection site. 7. Loss of bowel or bladder control. 8. Inability to speak, facial droop or limb paralysis. 9. Chest Pain. Phone Numbers to call: Pain Management Department: [phone] After Hours: [facility] Education Managers: [phone] ask for the Pain Fellow supervisor conditioning yard. The Pain Management Nursing Staff will call you in 3-7 days to inquire: 1. What percentage of pain relief did you receive after your procedure? 2. What activity has improved since your procedure? Examples: * Walk farther * Stand longer * Move better * Sleep better * Able to change positions easier * Perform message broker developer, hobbies, activities If we are unable to reach you, we will leave you a message and ask that you call our Voicemail box at [phone] and answer the above questions. Please leave your Full Name and date of when leaving the message. Your answers will be documented in your medical record. Your insurance company may require documentation to approve your future procedures. documented in this encounter[facility]12[facility] History and physical note * Vern Ocampo MD - 08/03/2022 2:01 PM EST PROCEDURE EVALUATION & HISTORY AND PHYSICAL EXAM SUBJECTIVE: Jhonathan Byrnes is a 57 year old man who presents to [facility] for Pectoral Minor . This is his first (1) procedure.. The patient has had this pain for years (since 2018). The pain is located in the left shoulder blade down into the anterior chest and axilla area and radiates some to the neck. The pain is described as a constant pain that is a feeling of tightness, worse with bringing arm above shoulder height. Current pain intensity is 10. Mr. Byrnes denies any contraindications to the procedure including coagulopathy, infection, recent cerebral/myocardial infarct, and hemodynamic instability. 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 Relevant medications in the EMR reviewed: Yes ALLERGIES No Known Allergies PAST ANESTHESIA HISTORY: No history of adverse event PAST MEDICAL HISTORY Diagnosis Date Alcohol abuse 05/02/2018 Elevated hemoglobin A1c 07/11/2021 Essential hypertension 05/01/2018 Ex-smoker 05/01/2018 Started in his early 20's and quite around the age of 38. 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 Not aware or medication. GERD without esophagitis 05/02/2018 Herniation of intervertebral disc at C6-C7 level 05/03/2018 MRI 02/2018 History of anxiety 06/06/2007 Mixed hyperlipidemia 05/01/2018 Uncomplicated alcohol dependence (HCC) 05/02/2018 PAST SURGICAL HISTORY Procedure Laterality Date COLONOSCOPY FLX DX W/COLLJ SPEC WHEN PFRMD 08/19/2018 repeat 3 years EGD W/O BRSH SPEC VARICIES INJ 11/09/2021 HEART CATHETERIZATION 2017 WNL OBJECTIVE: BP 139/83 Temp 36.5 C (97.7 F) (Temporal) Resp 16 Wt 66.2 kg (146 lb) SpO2 98% BMI 22.20 kg/m Physical Exam: AIRWAY: Airway Visualization of Uvula: Yes Mouth opening greater than 2 fingerbreadths: Yes Neck Full Range of Motion: Yes LUNGS: unlabored on room air CARDIAC: bilateral radial pulses 3+ Significant changes in the patient's condition since the last [facility] visit: No Provisional Diagnosis: 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] Planned Procedure: Pectoral Minor Block under Ultrasound Vern Ocampo MD Pain Medicine Fellow August 03, 2022 documented in this encounter[facility]11[facility] Miscellaneous Notes* Telephone Encounter - Hermila Cope - 07/17/2022 1:03 PM EST Ruby called for her . They want to know if they can book is surgery now prior to having the injection. They want to get his surgery scheduled before the end of the year because the have already me their deductible. documented in this encounterSam[facility]11[facility]22 Miscellaneous Notes* Telephone Encounter - Hortencia Donnelly - 07/06/2022 11:42 AM EDT Spoke with phlebotomy services representative of insurance who states patient is not covered. Spoke with pharmacy who states that patient paid for medication. Informed pharmacist that they have the wrong information on file for insurance. Hortencia Donnelly * Telephone Encounter - Hortencia Deepthi Donnelly - 07/04/2022 11:52 AM EDT Prior authorization for Jimbo sent to [facility] via cover my meds. Hortencia Donnelly documented in this encounterSam[facility]11[facility]22 Instructions* Patient Instructions* Zacarias Grullon DO - 07/04/2022 10:38 AM EDT - We will plan for a pectoralis minor block - Please observe for the next 12 hours after the block for symptom relief and report symptoms back to us and vascular surgery within 24 hours to guide further intervention. documented in this encounterSam[facility] History of Present illness Narrative* Grupo Lombardo MD - 07/04/2022 10:00 AM EDT Images from the original note were not included. Chronic Pain Consult Note Date: July 04, 2022 - 9:05 AM Referring physician: Ricardo Delarosa This consult was requested by Dr. Ricardo Delarosa (vascular surgery) for my medical opinion. My final recommendations will be communicated to the referring physician by way of the shared medical record for internal providers or by letter via the [place] Postal [employer] for external providers. Chief Complaint: Left shoulder pain History of Present Illness: Jhonathan Byrnes is a 57 year old male who presents to [facility] with a chief complaint of left shoulder pain with radiation to shoulder blade, axilla and onto chest and neck. Patient was seen by vascular surgery (06/15/2022) who felt symptoms were most likely from pec minor syndrome and would like to trial a pec minor block to see if symptoms improve for possible surgical intervention. The patient has had this pain for years (since 2018). The pain is located in the left shoulder blade down into the anterior chest and axilla area and radiates some to the neck. The pain is described as a constant pain that is a feeling of tightness, worse with bringing arm above shoulder height. Today, the pain intensity is rated as a 8 on a scale of 0-10. The pain intensity is rated 5 on the BEST day and a 10+ on the WORST day. Symptoms interfere with his work. 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 The pain is alleviated some by medications, rest, heat. The patient reports 9.5 hours of sleep with multiple interrupts with due to pain each night. He was previously worked up back home in [place] and was told he likely had TOS based on MRI. He visited [facility] vascular surgery for further evaluation who reviewed UE PVR and felt that TOSwas less likely and symtoms were most consistent with pec minor syndrome as as he exhibited minimalscalene tenderness, with significant tenderness at pec minor tendon insertion and pain distribution. The patient also reports some decreased strength of the left upper extremity and intermittent numbness/tingling from shoulder area to posterior elbow. Previous pain treatments: - Neck injections (no relief) Physical Therapy/Home Exercise: Yes - becoming less effective Pain Medications: - Opioids: none - NSAIDs: previously tried meloxicam 15 mg - stopped - Anti-Depressants: none - Anti-Convulsants: none - Others: Tizanidine 2 mg q8 hrs prn - some relief - Tried tylenol without relief OARRS Report: Reviewed: The patient's OARRS report was reviewed and is consistent with the reportedmedication use. Pain medications reviewed: Yes Past Medical History: PAST MEDICAL HISTORY Diagnosis Date Alcohol abuse 05/02/2018 Elevated hemoglobin A1c 07/11/2021 Essential hypertension 05/01/2018 Ex-smoker 05/01/2018 Started in his early 20's and quite around the age of 38. 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 Not aware or medication. GERD without esophagitis 05/02/2018 Herniation of intervertebral disc at C6-C7 level 05/03/2018 MRI 02/2018 History of anxiety 06/06/2007 Mixed hyperlipidemia 05/01/2018 Uncomplicated alcohol dependence (HCC) 05/02/2018 Past Surgical History: PAST SURGICAL HISTORY Procedure Laterality Date COLONOSCOPY FLX DX W/COLLJ SPEC WHEN PFRMD 08/19/2018 repeat 3 years EGD W/O BRSH SPEC VARICIES INJ 11/09/2021 HEART CATHETERIZATION 2017 WNL Family History: FAMILY HISTORY Problem Relation Age of Onset Coronary Artery Disease Mother has stents Cancer Brother Lung: dx and initial surgery 2006. nonsmoker. other (dementia) Paternal Aunt Social History: Alcohol Use: Yes (1-2 daily) Tobacco Use: 1 packs/day, for 20 years. Quit 2007. 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 lisinopril-hydroCHLOROthiazide (PRINZIDE,ZESTORETIC) 20-12.5 mg per tablet Take 1 tablet by mouth once daily. pantoprazole DR (PROTONIX) 40 mg tablet Take 1 tablet by mouth once daily. meloxicam (MOBIC) 15 mg tablet Take 1 tablet by mouth once daily. (Patient not taking: Reported on 05/25/2022) predniSONE (DELTASONE) 10 mg tablet Take 6 tabs by mouth for 3 days then 4 tabs a day for 3 days then 2 tabs a day for 3 days and then 1 tab a day for 3 days. (Patient not taking: Reported on 06/15/2022) hydrOXYzine HCl (ATARAX) 25 mg tablet Take 0.5-1 tab every 8 hrs as needed for panic attacks. sucralfate (CARAFATE) 1 gram tablet Take one tab at lunch and one before bed. (Patient not taking: Reported on 05/25/2022) tamsulosin (FLOMAX) 0.4 mg Take 0.4 mg by mouth twice daily. Per [employer] flavoxATE (URISPAS) 100 mg tablet Take 1 tablet by mouth three times daily. (Patient not taking: Reported on 06/15/2022) No current facility-administered medications for this visit. Review of Systems: Hx of left UE numbness and weakness. Hx of traumatic clavicular fracture 30 years piror. The remainder of the ROS was negative other than outlined in the HPI. Physical Examination: BP 125/78 (BP Site: Left Arm) Pulse 92 Temp 36.2 C (97.1 F) Ht 172.7 cm (5' 8) Wt 70.3 kg (155 lb) SpO2 99% BMI 23.57 kg/m General:in no acute distress Skin: skin color, texture, turgor normal, no rashes or lesions HEENT: normocephalic, atraumatic, sclera non-icteric CV: RRR Resp: Breathing comfortably on RA Musculoskeletal: Neck: Supple; good ROM. Extremities: Exquisite TTP over left pec minor insertion , Extremities normal. No deformities, edema, or skin discoloration Neurological: Mental Status: alert Motor Strength: Motor strength and tone are 5/5 all throughout bilateral upper extremities Sensory: Sensation was intact to light touch all throughout bilateral upper extremities Gait: Normal Postive lef Adson test Recent Imagin05/16/2022 Cervical Spine MRI: CTA Chest (06/15/2022): IMPRESSION: MODERATE COMPRESSION OF THE LEFT SUBCLAVIAN ARTERY AT THE SCALENE TRIANGLE WITH THE ARMS UP CONSISTENT WITH THORACIC OUTLET SYNDROME. Recent Labs: N/A EMG/NCV: N/A Assessment: Jhonathan Byrnes is a 57 year old male with left shoulder pain with radiation to shoulder blade, axilla and onto chest and neck. Patient was seen by vascular surgery (06/15/2022) who felt symptoms were most likely from pec minor syndrome and would like to trial a pec minor block to see if symptoms improve for possible surgical intervention. CT imagining shows concern for TOS, but clinical symptoms more suggestive of pec minor syndrome. Proceeding with pec minor block is a reasonable next step in diagnostic work-up. No diagnosis found. Plan: We will plan for pec minor block under ultrasound guidance in procedure room 2. We will start lyrica 25 mg TID with an increase of 25 mg every week for for a maximum of 75 mg TID pending ability to tolerate to help with pain 3. Patient to follow up with us and vascular surgery after block to assess symptom relief. Zacarias Grullon DO July 04, 2022 Teaching Statement I have interviewed and examined the patient and confirm the pertinent findings. I have discussed the case with the resident/fellow and agree with the findings and plan as documented. I saw and evaluated the patient. Discussed with the fellow and agree with findings and plan as documented in the note. Grupo Lombardo MD documented in this encounterSam[facility]10-13-2022 History of Present illness Narrative* Amira Leonardo RN - 06/15/2022 11:00 AM EDT Radiology Service Progress Note DATE OF SERVICE: June 15, 2022 TIME: 11:02 AM PATIENT WEIGHT: 155LBS PATIENT IDENTITY VERIFICATION COMPLETED USING TWO (2) STANDARD IDENTIFIERS: Name and Date of confirmed by patient verbally. FALL SCREENING: Has the patient had 2 falls in the last year or 1 fall with injury or currently using an Ambulatory Assistive Device (Walker, Cane, Wheelchair, Crutches, etc.)? No PATIENT GENDER DATA: Male ALLERGIES: Reviewed and unchanged CONTRAST ALLERGY: No EXAM: CT -CONTRAST INDUCED NEPHROPATHY RISK FACTORS: Not applicable CREATININE: Creatinine Date Value Ref Range Status 12/17/2020 0.76 0.73 - 1.22 mg/dL Final 11/04/2018 1.03 0.73 - 1.22 mg/dL Final 05/09/2018 1.02 0.73 - 1.22 mg/dL Final eGFR-All Other Races Date Value Ref Range Status 12/17/2020 >60 . Final Comment: eGFR (Estimated GFR) Units of measure: mL/min/1.73 meters squared eGFR is derived from the reexpressed MDRD Study equation using the following parameters: serum creatinine, age, gender and race. The creatinine assay has been calibrated to be traceable to IDMS. An eGFR <60 mL/min/1.73m2 for >3 months is consistent with chronic kidney disease. Refer to KDOQI guidelines for clinical interpretation. In patients with unstable renal function, e.g. those with acute kidney injury, the eGFR may not accurately reflect actual GFR. eGFR- Date Value Ref Range Status 12/17/2020 >60 Final P.O.C.T. RESULTS: N/A June 15, 2022 TREATMENT: N/A IV SITE: Ambulatory: A peripheral IV was started in the Right forearm with a Angio cath: 20 gauge. IV SITE APPEARANCE: Clean,Dry and Intact SIGNATURE: Amira Leonardo RN PATIENT NAME: Jhonathan Byrnes DATE: June 15, 2022 TIME: 11:02 AM * RT Millicent(R) - 06/15/2022 11:00 AM EDT Radiology Service Progress Note PATIENT NAME: Jhonathan Byrnes DATE OF SERVICE: June 15, 2022 TIME: 11:32 AM PATIENT IDENTITY VERIFICATION COMPLETED USING TWO (2) IDENTIFIERS: Name and Date of confirmedby patient verbally and Name and Date of confirmed by identification band. FALL SCREENING: Has the patient had 2 falls in the last year or 1 fall with injury or currently using an Ambulatory Assistive Device (Walker, Cane, Wheelchair, Crutches, etc.)? No PATIENT GENDER DATA: Male PATIENT RELEVANT IMPLANT DATA REVIEWED: Yes RADIOLOGY DEPARTMENT: CT; Exam(s) Completed: CTA chest PERIPHERAL IV DATA: Site assessment: Clean,Dry and Intact, Site disposition Discontinued SIGNED BY: FARHAT Ricks) June 15, 2022 11:32 AM documented in this encounterSam[facility]10-13-2022 History of Present illness Narrative* Ricardo Delarosa MD - 06/15/2022 10:07 AM EDT Images from the original note were not included. Heart , Vascular and Thoracic [place] DEPARTMENT OF VASCULAR SURGERY OUTPATIENT VISIT DATE June 15, 2022 OUTPATIENT VISIT TYPE CONSULTATION SERVICE DATE: 06/15/2022 SERVICE TIME: 10:07 AM PRIMARY CARE PHYSICIAN: Silvio Moyer MD REFERRING PROVIDER: Silvio Moyer [id number] [facility] [address] Consult requested for an opinion regarding the evaluation and treatment of the above. My final impression and recommendations will be communicated back to the requesting physician by way of the shared medical record or letter via [place] mail. CHIEF COMPLAINT: Left shoulder pain HISTORY OF PRESENT ILLNESS: Vascular consultation at the request of Dr. Silvio Moyer. A copy of this consultation note willbe provided to the requesting physician by way of shared Medical record or letter to requesting physician via US mail. Mr. Byrnes is a 57 year old male who is seen today for left shoulder pain and numbness. Patient states that in 2018, he began noting left shoulder pain with movement of his left arm or raising the arm. Pain radiates to the left neck, left axillary area, and occasionally to the anterior chest. He also notes associated numbness/tingling radiating to the left arm. Episodes are relieved with resting his arm down at his side. He denies any right-sided symptoms. Patient previously had an MRI with a spine surgeon and was told that symptoms may be due to TOS. Patient began PT shortly after, which he states would relieve symptoms for several months, but symptoms would then recur. He notes that duration of relief after PT has gradually been decreasing. He has received neck injections, without symptom relief. He denies any history of acute arm edema, erythema, or pain. 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 PAST MEDICAL HISTORY Diagnosis Date Alcohol abuse 05/02/2018 Elevated hemoglobin A1c 07/11/2021 Essential hypertension 05/01/2018 Ex-smoker 05/01/2018 Started in his early 20's and quite around the age of 38. 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 Not aware or medication. GERD without esophagitis 05/02/2018 Herniation of intervertebral disc at C6-C7 level 05/03/2018 MRI 02/2018 History of anxiety 06/06/2007 Mixed hyperlipidemia 05/01/2018 Uncomplicated alcohol dependence (HCC) 05/02/2018 History of traumatic left clavicle fracture 30 years ago; received splint and did not require surgery. No history of LUE DVT PAST SURGICAL HISTORY Procedure Laterality Date COLONOSCOPY FLX DX W/COLLJ SPEC WHEN PFRMD 08/19/2018 repeat 3 years EGD W/O BRSH SPEC VARICIES INJ 11/09/2021 HEART CATHETERIZATION 2017 WNL SOCIAL HISTORY: Social History Tobacco Use Smoking status: Former Packs/day: 1.00 Years: 20.00 Pack years: 20.00 Types: Cigarettes Quit date: 2007 Years since quittin.2 Smokeless tobacco: Current Types: Snuff Tobacco comments: some Vaping Use Vaping Use: Never used Substance Use Topics Alcohol use: Yes Comment: 1-2 daily Drug use: Never FAMILY HISTORY Problem Relation Age of Onset Coronary Artery Disease Mother has stents Cancer Brother Lung: dx and initial surgery 2006. nonsmoker. other (dementia) Paternal Aunt No family history of aneurysm MEDICATIONS: lisinopril-hydroCHLOROthiazide (PRINZIDE,ZESTORETIC) 20-12.5 mg per tablet Take 1 tablet by mouth once daily. pantoprazole DR (PROTONIX) 40 mg tablet Take 1 tablet by mouth once daily. hydrOXYzine HCl (ATARAX) 25 mg tablet Take 0.5-1 tab every 8 hrs as needed for panic attacks. tamsulosin (FLOMAX) 0.4 mg Take 0.4 mg by mouth twice daily. Per Dr. Barbosa meloxicam (MOBIC) 15 mg tablet Take 1 tablet by mouth once daily. (Patient not taking: Reported on 05/25/2022) predniSONE (DELTASONE) 10 mg tablet Take 6 tabs by mouth for 3 days then 4 tabs a day for 3 days then 2 tabs a day for 3 days and then 1 tab a day for 3 days. (Patient not taking: Reported on 06/15/2022) sucralfate (CARAFATE) 1 gram tablet Take one tab at lunch and one before bed. (Patient not taking: Reported on 05/25/2022) flavoxATE (URISPAS) 100 mg tablet Take 1 tablet by mouth three times daily. (Patient not taking: Reported on 06/15/2022) ALLERGIES: ALLERGIES No Known Allergies REVIEW OF SYSTEM: Constitutional: No weight loss, malaise or fevers. HEENT: Negative for frequent or significant headaches Respiratory: Negative for shortness of breath Cardiovascular: Negative for chest pain or leg swelling Gatrointestinal: Negative for abdominal discomfort, blood in stools or black stools Musculoskeletal: Positive for left neck/shoulder pain, no pain in other joints Endocrine: Negative for cold or heat intolerance Hematology/Lymphatic: Negative for prolonged bleeding or bruising easily Neurologic: Positive for left arm numbness and positional lightheadedness Integumentary: Negative for lesions, rash, and itching. PHYSICAL EXAM: VITALS: BP 140/81 Pulse 100 Temp (Src) 97.6 (Oral) Resp 12 Ht 5' 10 (1.78m) Wt 155 lb 12.8 oz (70.7kg) SpO2 98% BMI 22.35 kg/(m^2). General: Alert and oriented Integumentary: Normal color, no rash, no lesions. Anterior left shoulder tenderness HEENT: EOMs grossly intact, no lesions Cardiovascular: Normal S1/S2, pulse regular Lungs: Clear, normal respiratory effort Abdomen: Soft, non-tender, no rigidity. Extremities: No deformity, no edema or tenderness, no joint swelling or clubbing. Neurological: Normal cognition and motor skills. Vascular: Radial Pulse Right: Normal - Left: Normal Posterior Tibial Right: Normal - Left: Normal Dorsalis Pedal Right: Normal - Left: Normal Elevated Arm Stress Test - left arm fatigue with 20-30 seconds Positive Adson test, left arm Diagnostic tests reviewed for today's visit: Most recent imaging IMPRESSION: Mr. Byrnes is a 57 year old right-handed male who presents with pain and numbness of the left shoulder with radiation to the neck, left arm, and anterior left chest. Given predominance of pain in theshoulder, symptoms could be due to pec minor syndrome. Patient has been receiving PT, which he notes has been increasingly ineffective. PLAN and RECOMMENDATIONS: -- Will refer to pain management for pec minor block; if patient has significant symptom relief, may consider surgical therapy -- Will provide prescription for tizanidine Santiago Alcocer, MS4 [facility] STAFF PHYSICIAN NOTE OF PERSONAL INVOLVEMENT IN CARE IMPRESSION: 57 year old male with left shoulder pain with radiation to shoulder blade, axilla and onto chest and neck. No significant symptoms described in relation to supraclavicular area. +EAST. UEPVR reviewed. Minimal scalene tenderness. Significant tenderness at pec minor tendon insertion. This is most consistent with pectoralis minor syndrome. PLAN: Referral to pain management for pec minor block, if provides relief then would proceed with pec minor tendon release. I have reviewed the documentation obtained and documented by the Medical student. I have personallyperformed a face to face assessment of the patient and have personally participated on the reyes components of the history, exam and medical decision making. SIGNATURE: Ricardo Delarosa MD PATIENT NAME: Jhonathan Byrnes DATE: June 15, 2022 TIME: 10:07 AM documented in this encounterSamar[facility]10-12-2022 Miscellaneous Notes* Telephone Encounter - Gisella Dill RN - 06/14/2022 12:52 PM EDT Patient returns call and provider message below reviewed. Patient verbalizes understanding. Gisella Dill RN * Telephone Encounter - Kayy Hook MA - 06/14/2022 12:30 PM EDT Already received results from Arterial study. Records scanned into chart. Vas Surgeon made aware. Unable to reach patient. Left VM to return call to office. Please advise. Kayy Hook MA * Telephone Encounter - Kailey Wolff RN - 06/13/2022 3:09 PM EDT Patient asking if PCP office can access his record from [facility] of a recent BP ultrasound that was ordered by Dr. Smart (Ortho)? Patient requesting PCP office to fax that test result to Dr. Delarosa in [facility]. Surgery at [facility] at FAX #: [phone]. Explained to patient that he should contact Dr. Smart's office for this request. Patient states heis overwhelmed and asking if PCP office can access this result and fax it for him? He states he thought his PCP had access to all of his records. Please advise patient with update. Thank you. documented in this encounterSamaritan [facility]10-12-2022 History of Present illness Narrative* Amairani Govea - 06/14/2022 8:00 AM EDT pvr documented in this encounterSamaritan [facility] Center10-11-2022 Miscellaneous Notes* Addendum Note - Alecia Wood - 06/13/2022 1:15 PM EDTAddended by: ALECIA WOOD on: 06/13/2022 01:15 PM Modules accepted: Orders documented in this encounterSamaritan [facility] Center10-10-2022 Miscellaneous Notes* Telephone Encounter - Lynette Howe RN - 06/12/2022 5:10 PM EDT received order for TOS review, plan to refer to Dr Dee in VASCULAR who handles TOS Lynette Howe RN * Telephone Encounter - Nela Perales - 06/12/2022 2:14 PM EDT Referral under other procedure tab To Cardio Thoracic Surgery Dx: Thoracic outlet syndrome of left thoracic outlet [G54.0 (ICD-10-CM)] documented in this encounterSamaritan [facility] Center10-10-2022 Miscellaneous Notes* Telephone Encounter - Nela Perales - 06/12/2022 2:11 PM EDT Patient has been contacted and a message has been routed to Thoracic Surgery to call patient. Nela Perales * Telephone Encounter - Phyllis Omalley MA - 06/09/2022 4:12 PM EDT Spoke with patient and gave instructions. PLEASE CONTACT PATIENT TO SCHEDULE. Phyllis Omalley MA * Telephone Encounter - Silvio Moyer MD - 06/09/2022 3:32 PM EDT Let patient know I do not have a specific surgeon I can recommend but I did place a referral to seeif he can get in with one with [facility] sooner. * Telephone Encounter - Maru Whelan RN - 06/09/2022 11:36 AM EDT Patient asking if pcp could suggest a thoracic surgeon for him? Reports he has been having pain in left arm, armpit, chest, shoulder and neck, since about 2017. Dr. Smart (Ortho) did an MRI of neck because patient thought the pain originated in neck. MRI showed nothing wrong with his neck. Dr. Smart suspected patient had Thoracic outlet syndrome, and ordered BP US on both sides. Right side was ok. Left side is the issue and test confirmed doctor's diagnoses. Patient reports he has an old clavicle fracture that didn't heal correctly (in mid 20's). This injury is now impeding blood flow on his left side. Thoracic surgeon would go in and shave the 1st rib off. Patient tried to get into [facility], but the first available is 08-23. Asking if pcp could recommend a surgeon that could see him sooner? Please advise patient. documented in this encounterSamaritan [facility] Center09-22-2022 Instructions* Patient Instructions* Tali Azevedo APRN.CNP - 05/25/2022 11:20 AM EDT 1.) Keep scheduled appointment with Dr. Mason 2.) Continue with Nsaids and may use Tramadol for severe pain. Be mindful not to drive or operate machinery while taking. 3.) Check with insurance about ultrasound approval. 4.) Follow up as needed. documented in this encounterSamaritan [facility] Center09-22-2022 History of Present illness Narrative* Tali Azevedo APRN.CNP - 05/25/2022 11:06 AM EDT This is a 57 year old male who presents today with: Patient presents with: Acute Visit: neck and shoulder left side HISTORY OF PRESENT ILLNESS: Jhonathan Byrnes is a 57 year old male. Patient presents with: Acute Visit: neck and shoulder left side Patient of Dr. Moyer here in the office for ongoing shoulder pain. Left shoulder pain since 2018, concerns initially believed to be neck related. Had PT completed which was helpful initially. Pain seemed to progress. Dr. Smart with [facility] ordered an ultrasound to further evaluate. Waiting for insurance to approve. Concerns that left clavicle fracture never healed approprately about [address] Smart is concerned for possible Thoracic outlet syndrome. Appointment with Dr. Mason Sunday. Pain is sharp and stabbing at times and constant. Tried meloxicam which was not helpful. Has been using Ibuprofen/tylenol. Having difficulty sleeping. PAST MEDICAL HISTORY: PAST MEDICAL HISTORY Diagnosis Date Alcohol abuse 05/02/2018 Elevated hemoglobin A1c 07/11/2021 Essential hypertension 05/01/2018 Ex-smoker 05/01/2018 Started in his early 20's and quite around the age of 38. 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 Not aware or medication. GERD without esophagitis 05/02/2018 Herniation of intervertebral disc at C6-C7 level 05/03/2018 MRI 02/2018 History of anxiety 06/06/2007 Mixed hyperlipidemia 05/01/2018 Uncomplicated alcohol dependence (HCC) 05/02/2018 PAST SURGICAL HISTORY Procedure Laterality Date COLONOSCOPY FLX DX W/COLLJ SPEC WHEN PFRMD 08/19/2018 repeat 3 years EGD W/O [facility] SPEC VARICIES INJ 11/09/2021 HEART CATHETERIZATION 2017 WNL ALLERGIES Patient has no known allergies. MEDICATIONS Current Outpatient Medications Medication Sig hydrOXYzine HCl (ATARAX) 25 mg tablet Take 0.5-1 tab every 8 hrs as needed for panic attacks. tamsulosin (FLOMAX) 0.4 mg Take 0.4 mg by mouth twice daily. Per Dr. Barboas lisinopril-hydroCHLOROthiazide (PRINZIDE,ZESTORETIC) 20-12.5 mg per tablet Take 1 tablet by mouth once daily. pantoprazole DR (PROTONIX) 40 mg tablet Take 1 tablet by mouth once daily. meloxicam (MOBIC) 15 mg tablet Take 1 tablet by mouth once daily. (Patient not taking: Reported on 05/25/2022) predniSONE (DELTASONE) 10 mg tablet Take 6 tabs by mouth for 3 days then 4 tabs a day for 3 days then 2 tabs a day for 3 days and then 1 tab a day for 3 days. sucralfate (CARAFATE) 1 gram tablet Take one tab at lunch and one before bed. (Patient not taking: Reported on 05/25/2022) flavoxATE (URISPAS) 100 mg tablet Take 1 tablet by mouth three times daily. No current facility-administered medications for this visit. FAMILY HISTORY Problem Relation Age of Onset Coronary Artery Disease Mother has stents Cancer Brother Lung: dx and initial surgery 2006. nonsmoker. other (dementia) Paternal Aunt Social History Tobacco Use Smoking status: Former Packs/day: 1.00 Years: 20.00 Pack years: 20.00 Types: Cigarettes Quit date: 2007 Years since quittin.1 Smokeless tobacco: Current Types: Snuff Tobacco comments: some Vaping Use Vaping Use: Never used Substance Use Topics Alcohol use: Yes Comment: 1-2 daily Drug use: Never REVIEW OF SYSTEMS GENERAL: No weight loss, malaise or fevers/chills HEENT: Negative for frequent or significant headaches, No changes in hearing or vision. NECK: Negative for lumps, goiter, pain and significant neck swelling RESPIRATORY: Negative for cough, hemoptysis, wheezing, dyspnea or shortness of breath CARDIOVASCULAR: Negative for chest pain, leg swelling, orthopnea, or palpitations GI: No nausea, vomiting, or diarrhea/constipation. No hematochezia/melena. No heartburn or reflux symptoms. : No history of dysuria, frequency or incontinence MUSCULOSKELETAL: + Left shoulder pain SKIN: Negative for lesions, rash, and itching ENDOCRINE: Negative for cold or heat intolerance, polyuria, polydipsia and goiter NEURO: No history of headaches, syncope, paralysis, seizures or tremors MOOD: Negative for depression, anxiety, or suicidal ideation. EXAM: BP 118/82 Pulse 110 Resp 20 Wt 73.5 kg (162 lb) SpO2 98% BMI 23.24 kg/m PHYSICAL EXAM: General Appearance: Well appearing, alert, in no acute distress, well-hydrated, well nourished.. Skin: Skin color, texture, turgor normal, no suspicious rashes or lesions. Head: Normocephalic, no masses, lesions, tenderness or abnormalities. Eyes: Anicteric sclera. Pupils are equally round and reactive to light. Extraocular movements are intact. . Lungs: Lungs clear to auscultation. No wheezing, rhonchi, rales.. Heart: RRR without murmur, gallop, or rubs. No ectopy. Extremities: No deformities, edema, skin discoloration, clubbing or cyanosis. Good capillary refill. . Musculoskeletal: + Left shoulder tender on medial aspect of scapula, trapezius, and tricep. Full ROM. Negative empty can and Apley's test. Peripheral Pulses: Normal, Capillary refill <2secs, strong peripheral pulses, Pulses palpable. Neurologic: Gait normal. Sensation grossly intact.. ASSESSMENT/PLAN: 1. Chronic left shoulder pain - ICD9: 719.41, 338.29, ICD10: M25.512, G89.29 (primary diagnosis) - Give short course of Tramadol to help with pain. - May continue with NSAIDS, ice, heat, and stretching. - Complete ultrasound ordered by Ortho. - TRAMADOL 50 MG TABLET 2. Essential hypertension - ICD9: 401.9, ICD10: I10 - good control - Continue current medication(s) - Recommended regular aerobic exercise. - Goal of BP <130/80 - LISINOPRIL 20 MG-HYDROCHLOROTHIAZIDE 12.5 MG TABLET 3. GERD without esophagitis - ICD9: 530.81, ICD10: K21.9 - Refill provided. - PANTOPRAZOLE 40 MG TABLET,DELAYED RELEASE Follow up as needed. Discussed treatment plan and patient voices understanding. Patient's questions answered appropriately. Medications and potential side effects were discussed and patient voices understanding. Tali Azevedo APRN.KIRILL The patient indicates understanding of these issues and agrees with the plan. documented in this encounterSam[facility] Center09-21-2022 Miscellaneous Notes* Telephone Encounter - Silvio Moyer MD - 05/24/2022 5:25 PM EDT Noted. * Telephone Encounter - Sully Mallory LPN - 05/24/2022 3:21 PM EDT Patient calling wanted a note sent to PCP to let him know what is going on with patient. Patient said he has seen Dr Berry Mcclellan for his neck, shoulder, shoulder blade and axilla pain. Dr had patient do an MRI of his neck and was not as bad as expected. Dr also did some testing in office and thinks he has thoracic outlet syndrome. Dr is trying to get ultrasound approved, appt is not scheduled yet. He is scheduled to see Dr Mason for pain management on Tuesday 05/29 not sure what he is going to do. Patient said he had taken meloxicam for pain and not helping at all. Advised needs seen before can get pain medication rx. Scheduled patient for appt 05/25 with Tali Azevedo NP. documented in this encounterSamar[facility] Center08-23-2022 Miscellaneous Notes* Telephone Encounter - Noemi De La Fuente Ma - 04/25/2022 11:18 AM EDT Patient was notified Noemi De La Fuente Ma * Telephone Encounter - Juliet Millan PA-C - 04/25/2022 11:02 AM EDT I will send in mobic. He cannot take ibuprofen with it. Only tylenol for break through pain. * Telephone Encounter - Sully Malloyr LPN - 04/25/2022 10:20 AM EDT Patient calling said Sunday when prednisone rx ran out he can tell his neck pain has returned. He is taking ibuprofen OTC and spoke to physical therapist. She had told him to ask for stronger anti-inflammatory medication rx Meloxicam. Patient uses [facility] for his pharmacy. Pending rx if wanted can decide which dose is wanted. Please advise documented in this encounterSamaritan [facility] Center05-05-2022 Miscellaneous Notes* Telephone Encounter - Silvio Moyer MD - 01/05/2022 4:31 PM EDT Talked with patient and this Dr. Gonzalez is the head of PHYSICAL THERAPY and can not proscribe meds. Will send in prednisone taper but advised patient if not improving I would like him to see one of the ortho providers at [facility]. The following approved medication requests have been transmitted electronically. Signed Prescriptions Disp Refills predniSONE (DELTASONE) 10 mg tablet 39 tablet 0 Sig: Take 6 tabs by mouth for 3 days then 4 tabs a day for 3 days then 2 tabs a day for 3 days and then 1 tab a day for 3 days. Authorizing Provider: SILVIO MOYER MD * Telephone Encounter - ZAYRA Henley - 01/05/2022 4:17 PM EDT TC to patient who was given providers message below. Patient says that Dr. Gonzalez said he is not able to prescribe this medication. Patient states he will set up an appointment with an Orthopedic Surgeon in order to get this prescription filled. ZAYRA Henley * Telephone Encounter - Silvio Moyer MD - 01/05/2022 4:07 PM EDT Advise patient he needs to contact Dr. Gonzalez and ask if he will send in the script for the prednisone. Jhonathan has been seeing him for this issue and medication should come from him not me just becauseI the PCP when he has not even seen me for this. patient informed me yesterday of seeing [facility] and asked if I would provide a referral if needed so I did. He also asked if anything beside the PHYSICAL THERAPY may help and I advised he should discuss getting a script of prednisone from the orthopedist he was seeing. I was not planing to send one in. Just provided advise. * Telephone Encounter - ZAYRA Henley - 01/05/2022 3:52 PM EDT TC to patient who says that he has not been seeing anyone for his neck/arm pain to order PT. Patient says he called on his own and has been seeing Dr. Delroy Gonzalez at [facility] for PT. Patient states his last appointment was today 01/05/2022. TC to [facility] who verifies that Dr. Gonzalez has been seeing the patient for PT and last appointment was today. When asking office who set up the appointments they said the referral was from Dr. Moyer's office but the patient called to set up appointments on his own recently. There is nothing in the providers office visit notes from today's PT appointment about starting thepatient on Prednisone. Please advise. Thank you. ZAYRA Henley * Telephone Encounter - Silvio Moyer MD - 01/05/2022 3:42 PM EDT Let patient know we contacted [facility] and were told he has not been seen there since 2018 so who is he seeing the the neck and arm pain that ordered his PHYSICAL THERAPY. * Telephone Encounter - Christina Roca Ma - 01/05/2022 3:40 PM EDT Spoke with Tiffanie at [facility], she states pt has not been seen there since 2018. Christina Roca Ma * Telephone Encounter - Silvio Moyer MD - 01/05/2022 3:32 PM EDT Please contact [facility] and ask if patient contacted them to today about being started on steroids for the neck and arm pain they have been seeing him for. Patient is asking me to send in a script and I'm not managing this.?? * Telephone Encounter - Lynn Malloy Ma - 01/05/2022 3:27 PM EDT Call to pt and notified him of PCP's message below. Pt notes he drinks a lot of water. Pt asking if PCP had sent this in for him to [facility]. After review nothing is in Epic. Asked pt if [facility] was sending this in and he said no. Please advise, if you are okay with sending this in. I made pt aware that if there is a problem we will call him. If he doesn't hear from us then that means you are okay with sending in the Rx for him. Lynn Malloy Ma * Telephone Encounter - Silvio Moyer MD - 01/05/2022 3:23 PM EDT I'm ok with him starting prednisone. Advise him to drink more water because the prednisone will raise his blood sugars and probably led to some sugar spillage in his urine and therefore water loss. * Telephone Encounter - Joanne Mclaughlin Pss - 01/05/2022 11:45 AM EDT Patient said he saw Dr. Moyer yesterday. He went to PT today for his neck. Said [facility] advised patient he should start prednisone. Wants to know if Dr. Moyer agrees. Please advise at [phone]. documented in this encounterSamaritan [facility] Center05-04-2022 Instructions* Patient Instructions* Silvio Moyer MD - 01/04/2022 1:53 PM EDT Please get labs and urine test done on or after 06/23/2022 prior to your next visit. documented in this encounterSamaritan North [facility] Center05-04-2022 History of Present illness Narrative* Silvio Moyer MD - 01/04/2022 1:32 PM EDT Chief Complaint Patient presents with: Follow Up: patient is here for 6 month follow up HPI Jhonathan Byrnes is a 56 year old male who presents here today for Chronic Medical Conditions.. Concerns: Is having issues with neck; but is seeing PT. Patient has been seeing [facility] and not sure if needs referrals. Past medical history, appointments, medications, allergies reviewed. Previous Medical History PAST MEDICAL HISTORY Diagnosis Date Alcohol abuse 05/02/2018 Elevated hemoglobin A1c 07/11/2021 Essential hypertension 05/01/2018 Ex-smoker 05/01/2018 Started in his early 20's and quite around the age of 38. 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 Not aware or medication. GERD without esophagitis 05/02/2018 Herniation of intervertebral disc at C6-C7 level 05/03/2018 MRI 02/2018 History of anxiety 06/06/2007 Mixed hyperlipidemia 05/01/2018 Uncomplicated alcohol dependence (HCC) 05/02/2018 Previous Surgical History PAST SURGICAL HISTORY Procedure Laterality Date COLONOSCOPY FLX DX W/COLLJ SPEC WHEN PFRMD 08/19/2018 repeat 3 years EGD W/O [facility] SPEC VARICIES INJ 11/09/2021 HEART CATHETERIZATION 2017 WNL Family History FAMILY HISTORY Problem Relation Age of Onset Coronary Artery Disease Mother has stents Cancer Brother Lung: dx and initial surgery 2006. nonsmoker. other (dementia) Paternal Aunt Patient Allergies ALLERGIES No Known Allergies Current Medications Current Outpatient Medications on File Prior to Visit Medication Sig sucralfate (CARAFATE) 1 gram tablet Take one tab at lunch and one before bed. tamsulosin (FLOMAX) 0.4 mg Take 0.4 mg by mouth twice daily. Per Dr. Barbosa lisinopril-hydroCHLOROthiazide (PRINZIDE,ZESTORETIC) 20-12.5 mg per tablet Take 1 tablet by mouth once daily. hydrOXYzine HCl (ATARAX) 25 mg tablet Take 0.5-1 tab every 8 hrs as needed for panic attacks. pantoprazole DR (PROTONIX) 40 mg tablet Take 1 tablet by mouth once daily. flavoxATE (URISPAS) 100 mg tablet Take 1 tablet by mouth three times daily. No current facility-administered medications on file prior to visit. Social History Social History Tobacco Use Smoking status: Former Smoker Packs/day: 1.00 Years: 20.00 Pack years: 20.00 Types: Cigarettes Quit date: 2007 Years since quittin.7 Smokeless tobacco: Current User Types: Snuff Tobacco comment: some Vaping Use Vaping Use: Never used Substance Use Topics Alcohol use: Yes Comment: 1-2 daily Drug use: Never Review of Symptoms REVIEW OF SYSTEMS GENERAL: No weight loss, malaise or fevers NECK: Negative for lumps, goiter, significant neck swelling RESPIRATORY: Negative for cough, hemoptysis, wheezing, COPD, dyspnea or shortness of breath CARDIOVASCULAR: Negative for chest pain, leg swelling, hypertension, CHF or palpitations GI: No nausea, vomiting, or diarrhea and No heartburn or reflux symptoms PSYCH: anxiety has been high today. Continues to use the atarax as needed with benefit. ENDOCRINE: Negative for cold or heat intolerance, polyuria, polydipsia and goiter NEURO: No history of headaches, syncope, paralysis, seizures or tremors EXAM: BP 138/76 (BP Site: Right Arm, BP Position: Sitting, BP Cuff Size: Regular Adult) Pulse 106 Resp 16 Wt 72.6 kg (160 lb) BMI 22.96 kg/m Last 5 Encounter Wt Readings: Date: Wt: 01/04/2022 72.6 kg (160 lb) 11/07/2021 71.8 kg (158 lb 3.2 oz) 10/24/2021 71.7 kg (158 lb) 10/14/2021 71.2 kg (157 lb) 10/03/2021 71.7 kg (158 lb) General Appearance: Well appearing, alert, in no acute distress, well-hydrated, well nourished.. Neck: Supple, no adenopathy; thyroid symmetric, normal size, no bruits. Lungs: Lungs clear to auscultation. No wheezing, rhonchi, rales.. Heart: RRR without murmur, gallop, or rubs. No ectopy. Abdomen: Normal abdominal exam, Abdomen soft, non-tender. Bowel sounds normal. No masses, organomegaly. Extremities: No deformities, edema, skin discoloration, Peripheral Pulses: Normal. Neurologic: Gait normal. Sensation to light touch intact.. Health Maintenance List DTAP,TDAP,TD(1 - Tdap) Never done SHINGRIX VACCINE(1 of 2) Never done COVID-19 VACCINE(3 - Booster for Pfizer series) due on 05/10/2021 COLORECTAL CANCER SCREENING due on 08/19/2021 BP CONTROLLED (<130/80) due on 12/22/2021 ONE PNEUMOVAX PRIOR TO AGE 65 due on 12/02/2029 ANNUAL PCP TEAM CHRONIC DISEASE VISIT due on 10/24/2022 DIABETES SCREEN due on 12/30/2024 PROSTATE CANCER SCREENING DISCUSSION due on 12/17/2025 LIPID SCREEN due on 12/30/2026 MENINGOCOCCAL CONJUGATE Aged Out INFLUENZA Discontinued HEPATITIS C SCREENING Discontinued HIV SCREENING Discontinued DEPRESSION SCREENING Discontinued Data reviewed Component Latest Ref Rng & Units 12/17/2020 12/30/2021 WBC 3.70 - 11.00 k/uL 6.78 RBC 4.20 - 6.00 m/uL 5.00 Hemoglobin 13.0 - 17.0 g/dL 15.5 Hematocrit 39.0 - 51.0 % 46.5 MCV 80.0 - 100.0 fL 93.0 MCH 26.0 - 34.0 pG 31.0 MCHC 30.5 - 36.0 g/dL 33.3 RDW-CV 11.5 - 15.0 % 12.1 Platelet Count 150 - 400 k/uL 245 MPV 9.0 - 12.7 fL 10.8 Neut% % 52.6 Abs Neut (ANC) 1.45 - 7.50 k/uL 3.55 Lymph% % 34.8 Abs Lymph 1.00 - 4.00 k/uL 2.36 Tunica% % 7.2 Abs Tunica <0.87 k/uL 0.49 Eosin% % 4.1 Abs Eosin <0.46 k/uL 0.28 Baso% % 1.3 Abs Baso <0.11 k/uL 0.09 Nucleated Reds 0 /100 WBC 0.0 Absolute nRBC <0.01 k/uL <0.01 Diff Type Auto Diff Total Cholesterol, Nonfasting <200 mg/dL 209 (H) 206 (H) Triglycerides, Nonfasting <150 mg/dL 55 58 HDL Cholesterol, Nonfasting >39 mg/dL 74 71 LDL Cholesterol, Nonfasting <100 mg/dL 124 (H) 123 (H) Non HDL Cholesterol, Nonfasting <130 mg/dL 135 (H) 135 (H) VLDL Cholesterol, Nonfasting <30 mg/dL 11 12 Total Chol/HDL Ratio, Nonfasting <5.10 mg/dL 2.82 2.90 LDL/HDL Ratio, Nonfasting <2.54 mg/dL 1.68 1.73 Hemoglobin A1C 4.3 - 5.6 % 6.1 (H) 5.6 Estimated Average Glucose mg/dL 128 114 ASSESSMENT/PLAN: 1. Essential hypertension - ICD9: 401.9, ICD10: I10 (primary diagnosis) - good control - Continue current medication(s) - Recommended regular aerobic exercise. - Recommend home blood pressure monitoring, to bring results in on next visit - Goal of BP <130/80 2. Mixed hyperlipidemia - ICD9: 272.2, ICD10: E78.2 - good control - Encouraged following a low fat, low cholesterol diet. - Discussed the benefits of regular aerobic exercise and weight loss. - Encouraged following a low carbohydrate, healthy oil intake diet. - Continue current therapy. 3. GERD without esophagitis - ICD9: 530.81, ICD10: K21.9 - Continue treatment with protonix 40 mg QD 4. JC (generalized anxiety disorder) - ICD9: 300.02, ICD10: F41.1 - Stable wit current Tx. 5. Elevated hemoglobin A1c - ICD9: 790.29, ICD10: R73.09 - Improved with life style changes. 6. Uncomplicated alcohol dependence (HCC) - ICD9: 303.90, ICD10: F10.20 - Patient has reduced intake. 7. Alcohol abuse - ICD9: 305.00, ICD10: F10.10 - As per #6 8. Neck pain - ICD9: 723.1, ICD10: M54.2 _ Consult ortho: Patient seeing [facility] 9. Herniation of intervertebral disc at C6-C7 level - ICD9: 722.0, ICD10: M50.223 - As per #8 10. Foraminal stenosis of cervical region - ICD9: 723.0, ICD10: M48.02 - As per #8 11. Need for vaccination - ICD9: V05.9, ICD10: Z23 - TDAP VACCINE AGE 7+ IM: given Advised on some HEP for his neck Signed Prescriptions Disp Refills lisinopril-hydroCHLOROthiazide (PRINZIDE,ZESTORETIC) 20-12.5 mg per tablet 90 tablet 1 Sig: Take 1 tablet by mouth once daily. WILLIE: No pantoprazole DR (PROTONIX) 40 mg tablet 90 tablet 1 Sig: Take 1 tablet by mouth once daily. WILLIE: No hydrOXYzine HCl (ATARAX) 25 mg tablet 30 tablet 1 Sig: Take 0.5-1 tab every 8 hrs as needed for panic attacks. WILLIE: No F/u 6 months WAE check CMP, Lipid, UA, A1c, B12, Mg and PSA prior Silvio Moyer MD documented in this encounterSam[facility] Center2022 Miscellaneous Notes* Telephone Encounter - Johnna Mobley LPN - 12/05/2021 2:53 PM EDT Pt notified of same. Johnna Mboley LPN * Telephone Encounter - Silvio Moyer MD - 12/05/2021 1:51 PM EDT Let patient know script sent in and should get him to his f/u appt in January. The following approved medication requests have been transmitted electronically. Signed Prescriptions Disp Refills pantoprazole DR (PROTONIX) 40 mg tablet 30 tablet 0 Sig: Take 1 tablet by mouth once daily. WILLIE: No Authorizing Provider: SILVIO MOYER MD * Telephone Encounter - Carly Gabriel RN - 12/05/2021 1:29 PM EDT Pt called in and reports that Dr Jackson did an EGD on him and only found some minor bacteria and stomach irritation. They did a nuclear test on his gallbladder and did not find anything either. Pt reports Dr Jackson had put him on Protonix and after about a week it had gotten rid of his stomach pain. Peter had told him he would need to go through his PCP to have this renewed. Pt asking if provider would be willing to order medication for him. Please call if willing to order. Patient has been identified by name and date of : Yes Patient phones for refill(s): Pending Prescriptions Disp Refills PANTOPRAZOLE 40 MG TABLET,DELAYED RELEASE Sig: Take 1 tablet by mouth once daily. WILLIE: No Date of last office visit in primary care: 10/24/21 Future visit: 01/04/22 Last 2 Encounter Wt Readings: Date: Wt: 11/07/2021 71.8 kg (158 lb 3.2 oz) 10/24/2021 71.7 kg (158 lb) Previous labs/tests for medication: Blood Pressure: BUN (mg/dL) Date Value 12/17/2020 9 Sodium (mmol/L) Date Value 12/17/2020 143 Last 1 Encounter BP Readings: Date: BP: 11/09/2021 120/72 Liver Function: ALT (U/L) Date Value 12/17/2020 16 AST (U/L) Date Value 12/17/2020 25 Please advise. Thank you. Caryl Gabriel RN documented in this encounterSam[facility]itan [facility] CenterEvaluation note* Diagnosis Essential hypertension- Primary Unspecified essential hypertension Mixed hyperlipidemia GERD without esophagitis Esophageal reflux JC (generalized anxiety disorder) Generalized anxiety disorder Elevated hemoglobin A1c Other abnormal blood chemistry Uncomplicated alcohol dependence (HCC) Other and unspecified alcohol dependence, unspecified drinking behavior Alcohol abuse Alcohol abuse, unspecified Neck pain Cervicalgia Herniation of intervertebral disc at C6-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 Spinal stenosis in cervical region Screening for prostate cancer Special screening for malignant neoplasm of prostate Medication management Encounter for long-term (current) use of other medications Need for vaccination Need for prophylactic vaccination and inoculation against unspecified single disease documented in this encounter [facility]* Diagnosis Onset Date Resolution Status Cervical pain acute Foraminal stenosis of cervical region acute Levator scapula syndrome acu te Thoracic outlet syndrome of left thoracic outlet acute [facility] Work Phone: Evaluation note* Diagnosis Chronic left shoulder pain- Primary Pain in joint, shoulder region Essential hypertension Unspecified essential hypertension GERD without esophagitis Esophageal reflux [facility] this [facility]* Diagnosis Peripheral arterial disease (HCC)- Primary Peripheral vascular disease, unspecified [facility] Diagnosis Thoracic outlet syndrome- Primary Brachial plexus lesions [facility] Diagnosis Thoracic outlet syndrome- Primary Brachial plexus lesions [facility] Diagnosis Pectoralis minor syndrome (HCC)- Primary Other specified disorders of arteries and arterioles documented in this [facility]* Diagnosis TOS (thoracic outlet syndrome) Brachial plexus lesions [facility] Diagnosis Pectoralis minor syndrome (HCC)- Primary Other specified disorders of arteries and arterioles Chronic left shoulder pain Pain in joint, shoulder region [facility] Diagnosis Pectoralis minor syndrome (HCC) Other specified disorders of arteries and arterioles Pectoralis minor syndrome (HCC) Other specified disorders of arteries and arterioles documented [facility] this [facility]* Diagnosis Pectoralis minor syndrome (HCC)- Primary Other specified disorders of arteries and arterioles Foraminal stenosis of cervical region Spinal stenosis in cervical region Encounter for immunization- Primary Need for other specified prophylactic vaccination against single bacterial disease documented [facility] this [facility]* Diagnosis Foraminal stenosis of cervical region- Primary Spinal stenosis in cervical region Encounter for immunization- Primary Need for other specified prophylactic vaccination against single bacterial disease [facility] Diagnosis Pectoralis minor syndrome (HCC)- Primary Other specified disorders of arteries and arterioles Encounter for immunization Need for other specified prophylactic vaccination against single bacterial disease [facility]* Diagnosis Well adult exam- Primary Routine general medical examination at a health care facility Essential hypertension Unspecified essential hypertension Elevated hemoglobin A1c Other abnormal blood chemistry JC (generalized anxiety disorder) Generalized anxiety disorder GERD without esophagitis Esophageal reflux Mixed hyperlipidemia Uncomplicated alcohol dependence (HCC) Other and unspecified alcohol dependence, unspecified drinking behavior Alcohol abuse Alcohol abuse, unspecified Pectoralis minor syndrome (HCC) Other specified disorders of arteries and arterioles History of colonic polyps Personal history of colonic polyps Screening for colon cancer Special screening for malignant neoplasms, colon Chronic left shoulder pain Pain in joint, shoulder region Pectoralis minor syndrome (HCC) Other specified disorders of arteries and arterioles [facility] Diagnosis Pectoralis minor syndrome (HCC)- Primary Other specified disorders of arteries and arterioles Preop testing Preoperative examination, unspecified Preop examination Preoperative examination, unspecified Pectoralis minor syndrome (HCC) Other specified disorders of arteries and arterioles [facility] Diagnosis Pectoralis minor syndrome (HCC)- Primary Other specified disorders of arteries and arterioles Chronic left shoulder pain Pain in joint, shoulder region Pectoralis minor syndrome (HCC) Other specified disorders of arteries and arterioles documented in this encounter [facility] note* Diagnosis Encounter for preoperative anesthesiology assessment for vascular surgery- Primary Pectoralis minor syndrome (HCC) Other specified disorders of arteries and arterioles [facility] Diagnosis Pectoralis minor syndrome (HCC)- Primary Other specified disorders of arteries and arterioles [facility]* Diagnosis Tubular adenoma of colon- Primary Benign neoplasm of colon [facility]* Diagnosis Abdominal pain, right lower quadrant- Primary Urinary frequency Family history of kidney stone Family history of other kidney diseases documented in this encounter [facility] note* Diagnosis RLQ abdominal pain- Primary Abdominal pain, right lower quadrant documented in this encounter [facility] note* Diagnosis Right lower quadrant abdominal pain- Primary Abdominal pain, right lower quadrant documented in this encounter [facility] noteNo assessment information availableWTogus [facility] Work Phone: Evaluation note* Diagnosis Essential hypertension Unspecified essential hypertension [facility]* Diagnosis Thoracic outlet syndrome of left thoracic outlet- Primary [facility]* Diagnosis RUQ pain- Primary Abdominal pain, right upper quadrant [facility] Diagnosis RUQ pain- Primary Abdominal pain, right upper quadrant Dysuria Urine frequency Urinary frequency [facility]* Diagnosis RUQ pain- Primary Abdominal pain, right upper quadrant documented in this encounter [facility] note* Diagnosis Essential hypertension Unspecified essential hypertension documented in this encounter [facility] note* Diagnosis Acute cough- Primary URI, acute Acute upper respiratory infections of unspecified site [facility] Diagnosis RUQ pain Abdominal pain, right upper quadrant documented in this encounter [facility]* Diagnosis Screening for colon cancer- Primary Special screening for malignant neoplasms, colon History of colonic polyps Personal history of colonic polyps [facility]* Diagnosis Right sided abdominal pain- Primary Abdominal pain, unspecified site Alternating constipation and diarrhea Other symptoms involving digestive system [facility]* Diagnosis Right sided abdominal pain Abdominal pain, unspecified site Alternating constipation and diarrhea Other symptoms involving digestive system [facility]* Diagnosis Right sided abdominal pain- Primary Abdominal pain, unspecified site Irritable bowel syndrome with both constipation and diarrhea [facility] Diagnosis Irritable bowel syndrome with both constipation and diarrhea- Primary Right sided abdominal pain Abdominal pain, unspecified site [facility] Diagnosis Mixed hyperlipidemia- Primary [facility] Diagnosis Irritable bowel syndrome with both constipation and diarrhea Right sided abdominal pain Abdominal pain, unspecified site [facility] Diagnosis Small intestinal bacterial overgrowth- Primary Other specified disorder of intestines [facility] Diagnosis Essential hypertension Unspecified essential hypertension [facility] Diagnosis 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 [facility] Diagnosis Irritable bowel syndrome with constipation Irritable bowel syndrome [facility] Diagnosis Irritable bowel syndrome with constipation- Primary Irritable bowel syndrome 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 Small intestinal bacterial overgrowth Other specified disorder of intestines [facility] Diagnosis Pectoralis minor syndrome (HCC)- Primary Other specified disorders of arteries and arterioles Chronic left shoulder pain Pain in joint, shoulder region [facility] Diagnosis Foraminal stenosis of cervical region- Primary Spinal stenosis in cervical region [facility] Diagnosis Pectoralis minor syndrome (HCC)- Primary Other specified disorders of arteries and arterioles Screening for depression Mixed hyperlipidemia GERD without esophagitis Esophageal reflux Essential hypertension Unspecified essential hypertension Thoracic outlet syndrome of left thoracic outlet [facility] Diagnosis Acute cough [facility] Diagnosis RLQ abdominal pain Abdominal pain, right lower quadrant [facility] Diagnosis Irritable bowel syndrome with constipation- Primary Irritable bowel syndrome 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 [facility] Diagnosis Herpes zoster without complication- Primary Herpes zoster without mention of complication [facility] 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 [facility] Diagnosis Pectoralis minor syndrome (HCC)- Primary Other specified disorders of arteries and arterioles Foraminal stenosis of cervical region Spinal stenosis in cervical region Chronic left shoulder pain Pain in joint, shoulder region Thoracic outlet syndrome of left thoracic outlet [facility] Diagnosis Mixed hyperlipidemia Foraminal stenosis of cervical region Spinal stenosis in cervical region Pectoralis minor syndrome (HCC) Other specified disorders of arteries and arterioles Chronic left shoulder pain Pain in joint, shoulder region [facility] Diagnosis Left arm pain- Primary Pain in limb Neck pain Cervicalgia Herniation of intervertebral disc at C6-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 Spinal stenosis in cervical region Elevated hemoglobin A1c Other abnormal blood chemistry Essential hypertension Unspecified essential hypertension JC (generalized anxiety disorder) Generalized anxiety disorder Mixed hyperlipidemia Screening for prostate cancer Special screening for malignant neoplasm of prostate Medication management Encounter for long-term (current) use of other medications Spinal stenosis of cervical region Spinal stenosis in cervical region Weakness of left upper extremity Other musculoskeletal symptoms referable to limbs Pectoralis minor syndrome (HCC) Other specified disorders of arteries and arterioles Chronic left shoulder pain Pain in joint, shoulder region [facility] Diagnosis Left arm pain Pain in limb Neck pain Cervicalgia Herniation of intervertebral disc at C6-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 Spinal stenosis in cervical region [facility] Diagnosis Left arm pain Pain in limb Neck pain Cervicalgia Herniation of intervertebral disc at C6-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 Spinal stenosis in cervical region Spinal stenosis of cervical region Spinal stenosis in cervical region Weakness of left upper extremity Other musculoskeletal symptoms referable to limbs [facility] Diagnosis Acute pain of left shoulder- Primary [facility] Diagnosis Acute pain of left shoulder [facility] Diagnosis Well adult exam- Primary Routine general medical examination at a health care facility Essential hypertension Unspecified essential hypertension Mixed hyperlipidemia Elevated hemoglobin A1c Other abnormal blood chemistry GERD without esophagitis Esophageal reflux JC (generalized anxiety disorder) Generalized anxiety disorder Alcohol abuse Alcohol abuse, unspecified Benign prostatic hyperplasia with urinary frequency Chronic left shoulder pain Pain in joint, shoulder region Screening for depression Foraminal stenosis of cervical region Spinal stenosis in cervical region Acute pain of left shoulder [facility] Diagnosis Irritable bowel syndrome with constipation Irritable bowel syndrome [facility] Diagnosis Excessive cerumen in ear canal, left- Primary Dysfunction of left eustachian tube Dysfunction of Eustachian tube documented in this encounter [facility] Discharge instructionsAmbulatory Orders* Pain Management Location: None Selected [facility] Work Phone: Reason for referral (narrative)* Outpatient Procedure (Routine) - Pending Review Specialty Diagnoses / Procedures Referred By Jessenia sosa Referred To Contact [facility] [place] Diagnoses Thoracic outlet syndrome Procedures PVR ARM CYNTHIA VAS LAB NON-INVASIVE PHYSIOLOGIC STUDY EXTREMITY 3 Ricardo Heaton MD [address] [place] [address] [facility] [address] [address] Referral ID Status Reason Start Date Expiration Date Visits Requested Visits Authorized [id number] Pending Review Auto-Generat ed Referral 2 06/13/2023 1 1 [facility] for referral (narrative)* Outpatient Procedure (Routine) - Pending Review Specialty Diagnoses / Procedures Referred By Jessenia sosa Referred To Contact [facility] [place] Diagnoses Thoracic outlet syndrome Procedures PVR THORACIC OUTLET CYNTHIA VAS LAB NON-INVASIVE PHYSIOLOGIC STUDY EXTREMITY 3 Ricardo Heaton MD [address] [facility] [place] [address] [facility] [place] [id number] [place] [address] Referral ID Status Reason Start Date Expiration Date Visits Requested Visits Authorized [id number] Pending Review Auto-Generat ed Referral 06/14/2023 1 1 [facility] for referral (narrative)* Diagnostic Procedure Only (Urgent) - Closed Specialty Diagnoses / Procedures Referred By Contac t Referred To Contact XR IMAGING Diagnoses RLQ abdominal pain Procedures XR ABDOMEN 2V ROUTINE SUPINE W UPRIGHT/DECUB/CTL RADIOLOGIC EXAM ABDOMEN 2 VIEWS Juliet Millan PA-C [facility] [place] [phone] Xr Imaging Referral ID Status Reason Start Date Expiration Date V isits Requested Visits Authorized [id number] Closed Auto-Generate d Referral 10/27/2022 11/26/2023 1 1 [facility] for referral (narrative)* Diagnostic Procedure Only (Routine) - Authorized Specialty Diagnoses / Procedures Referred By Contac t Referred To Contact US IMAGING Diagnoses RUQ pain Procedures US ABD RIGHT UPPER QUADRANT US ABDOMINAL REAL TIME W/IMAGE LIMITED Silvio Moyer MD [address] [place] [address] Us Imaging [facility] Referral ID Status Reason Start Date Expiration Date Visits Requested Visits Authorized [id number] Authorized Auto-Generat ed Referral 04/21/2023 05/20/2024 1 1 [facility] for referral (narrative)* Diagnostic Procedure Only (Routine) - Authorized Specialty Diagnoses / Procedures Referred By Contac t Referred To Contact MOLECULAR & FUNCTIONAL IMAGING Diagnoses RUQ pain Procedures NM HEPATOBILIARY W EF AND/OR RX HEPATOBIL SYST IMAG INC GB W/PHARMA INTERVENJ Silvio Moyer MD [address] [place] [address] [facility] [address] [place] [address] Referral ID Status Reason Start Date Expiration Date Visits Requested Visits Authorized [id number] Authorized Auto-Generat ed Referral 04/30/2023 05/29/2024 1 1 [facility] for referral (narrative)* Diagnostic Procedure Only (Routine) - Closed Specialty Diagnoses / Procedures Referred By Аннаac t Referred To Contact US IMAGING Diagnoses RUQ pain Procedures US ABD RIGHT UPPER QUADRANT US ABDOMINAL REAL TIME W/IMAGE LIMITED Silvio Moyer MD [address] [place] [phone] [facility] Imaging [place] [address] Referral ID Status Reason Start Date Expiration Date V isits Requested Visits Authorized [id number] Closed Auto-Generate d Referral 04/21/2023 05/20/2024 1 1 T [facility] for referral (narrative)* Diagnostic Procedure Only (Routine) - Closed Specialty Diagnoses / Procedures Referred By Contac t Referred To Contact MOLECULAR & FUNCTIONAL IMAGING Diagnoses RUQ pain Procedures NM HEPATOBILIARY W EF AND/OR RX HEPATOBIL SYST IMAG INC GB W/PHARMA INTERVENJ Silvio Moyer MD [address] [place] [id number] [facility] [address] [place] [address] Referral ID Status Reason Start Date Expiration Date V isits Requested Visits Authorized [id number] Closed Auto-Generate d Referral 04/30/2023 05/29/2024 1 1 T [facility] for referral (narrative)* Outpatient Procedure (Routine) - Closed Specialty Diagnoses / Procedures Referred By Contac t Referred To Contact [facility] Diagnoses History of colonic polyps Procedures COLONOSCOPY DIAGNOSTIC COLONOSCOPY DIAGNOSTIC COLONOSCOPY FLX DX W/COLLJ SPEC WHEN PFZac Fraga MD [address] [facility] [place] [phone] [facility] [address] [place] [address] Referral ID Status Reason Start Date Expiration Date V isits Requested Visits Authorized [id number] Closed Auto-Generate d Referral 08/17/2022 08/17/2023 1 1 [facility] for referral (narrative)* Diagnostic Procedure Only (Routine) - Closed Specialty Diagnoses / Procedures Referred By Contac t Referred To Contact XR IMAGING Diagnoses Right sided abdominal pain Alternating constipation and diarrhea Procedures XR ABDOMEN 2V ROUTINE SUPINE W UPRIGHT/DECUB/CTL RADIOLOGIC EXAM ABDOMEN 2 VIEWS Keiry Fontana PA-C [address] [place] [address] [place] [address] Referral ID Status Reason Start Date Expiration Date V isits Requested Visits Authorized [id number] Closed Auto-Generate d Referral 07/11/2023 08/09/2024 1 1 [facility] for referral (narrative)* Diagnostic Procedure Only (Urgent) - Closed Specialty Diagnoses / Procedures Referred By Contac t Referred To Contact XR IMAGING Diagnoses RLQ abdominal pain Procedures XR ABDOMEN 2V ROUTINE SUPINE W UPRIGHT/DECUB/CTL RADIOLOGIC EXAM ABDOMEN 2 VIEWS Juliet Millan PA-C [address] [place] [address] [place] [address] Referral ID Status Reason Start Date Expiration Date V isits Requested Visits Authorized [id number] Closed Auto-Generate d Referral 10/27/2022 11/26/2023 1 1 [facility] for visit Narrative* Outpatient Procedure (Routine) - Closed Specialty Diagnoses / Procedures Referred By Contac t Referred To Contact [facility] Diagnoses History of colonic polyps Procedures COLONOSCOPY DIAGNOSTIC COLONOSCOPY DIAGNOSTIC COLONOSCOPY FLX DX W/COLLJ SPEC WHEN Zac Camarillo MD [address] [facility] [place] [address] [facility] [place] [address] [place] [address] Referral ID Status Reason Start Date Expiration Date V isits Requested Visits Authorized [id number] Closed Auto-Generate d Referral 08/17/2022 08/17/2023 1 1 [facility] for visit Narrative* Diagnostic Procedure Only (Routine) - Closed Specialty Diagnoses / Procedures Referred By Contac t Referred To Contact XR IMAGING Diagnoses Right sided abdominal pain Alternating constipation and diarrhea Procedures XR ABDOMEN 2V ROUTINE SUPINE W UPRIGHT/DECUB/CTL RADIOLOGIC EXAM ABDOMEN 2 VIEWS Keiry Fontana PA-C [address] [facility] [place] [address] [place] [address] Referral ID Status Reason Start Date Expiration Date V isits Requested Visits Authorized [id number] Closed Auto-Generate d Referral 07/11/2023 08/09/2024 1 1 [facility] for visit Narrative* Diagnostic Procedure Only (Urgent) - Closed Specialty Diagnoses / Procedures Referred By Contac t Referred To Contact XR IMAGING Diagnoses RLQ abdominal pain Procedures XR ABDOMEN 2V ROUTINE SUPINE W UPRIGHT/DECUB/CTL RADIOLOGIC EXAM ABDOMEN 2 VIEWS Juliet Millan PA-C [address] [place] [address] [place] [address] Referral ID Status Reason Start Date Expiration Date V isits Requested Visits Authorized [id number] Closed Auto-Generate d Referral 10/27/2022 11/26/2023 1 1 [facility] for visit Narrative* Diagnostic Procedure Only (Routine) - Closed Specialty Diagnoses / Procedures Referred By Contac t Referred To Contact XR IMAGING Diagnoses Left arm pain Neck pain Herniation of intervertebral disc at C6-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 Procedures XR CERV OTHER 4V AP/LAT/OBL RADEX SPINE CERVICAL 4 OR 5 VIEWS Silvio Moyer MD [address] [place] [address] Phone: tel: fax: [place] [address] Referral ID Status Reason Start Date Expiration Date V isits Requested Visits Authorized [id number] Closed Auto-Generate d Referral 11/04/2024 12/04/2025 1 1 [facility] for visit Narrative* MRI/CT (Routine) - Closed Specialty Diagnoses / Procedures Referred By Jessenia sosa Referred To Contact MR IMAGING Diagnoses Left arm pain Neck pain Herniation of intervertebral disc at C6-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 Spinal stenosis of cervical region Weakness of left upper extremity Procedures MRI CERVICAL SPINE WO IVCON MRI SPINAL CANAL CERVICAL W/O CONTRAST MATRL Silvio Moyer MD [address] [place] [address] Phone: tel: fax: [place] [address] Referral ID Status Reason Start Date Expiration Date V isits Requested Visits Authorized [id number] Closed Auto-Generate d Referral 11/04/2024 12/04/2025 1 1 [facility] Diagnostic Procedure Only (Routine) - Closed Specialty Diagnoses / Procedures Referred By Jessenia sosa Referred To Contact XR IMAGING Diagnoses Acute pain of left shoulder Procedures XR SHOULDER GENERAL 3V OR MORE AP/TRUE AP/OTHER LEFT RADEX SHOULDER COMPLETE MINIMUM 2 VIEWS Silvio Moyer MD [address] [place] [phone] Phone: tel: fax: [place] [address] Referral ID Status Reason Start Date Expiration Date V isits Requested Visits Authorized [id number] Closed Auto-Generate d Referral 11/19/2024 12/19/2025 1 1 [facility] Advance Directives No Advanced Directives Records FoundDocuments on File Type Date Recorded Patient Rn New Grad Expl anation Advance Directive(s) 11/09/2021 11:11 AM Advance Directive(s) 11/07/2021 2:58 PM Advance Directive(s) 08/19/2018 10:35 AM Documents on File Type Date Recorded Patient Rn New Grad Expl anation Advance Directive(s) 11/09/2021 11:11 AM Advance Directive(s) 11/07/2021 2:58 PM Advance Directive(s) 08/19/2018 10:35 AM Advance Directive Response Recorded Date/ Time Living Will No May 16, 2022 4:19pm Power of Signal Tester No May 4:19pm Advance Directive Response Recorded Date/ Time Living Will No May 16, 2022 3:19pm Power of Signal Tester No May 3:19pm Reason for Referral Specialty Diagnoses / Procedures Referred By Contac t Referred To Contact Orthopedics Diagnoses Neck pain Herniation of intervertebral disc at C6-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 Procedures CONSULT TO ORTHOPAEDICS OFFICE/OUTPATIENT [facility] 60-74 MINUTES Silvio Moyer MD [address] [place] [address] Referral ID Status Reason Start Date Expiration Date Visits Requested Visits Authorized [id number] Authorized PCP Requested Referral 01/04/2022 01/04/2023 1 1 Specialty Diagnoses / Procedures Referred By Contac t Referred To Contact Pain Management Diagnoses Pectoralis minor syndrome (HCC) Procedures CONSULT TO PAIN MGT OFFICE/OUTPATIENT [facility] 60-74 MINUTES Ricardo Delarosa MD [address] [place] [address] Referral ID Status Reason Start Date Expiration Date Visits Requested Visits Authorized [id number] Authorized PCP Requested Referral 06/15/2023 1 1 Specialty Diagnoses / Procedures Referred By Contac t Referred To Contact CT IMAGING Diagnoses TOS (thoracic outlet syndrome) Procedures CTA CHEST (NONGATED) W IVCON CT ANGIOGRAPHY CHEST W/CONTRAST/NONCONTRAST Ricardo Delarosa MD [address] [place] [address] Ct Imaging Referral ID Status Reason Start Date Expiration Date V isits Requested Visits Authorized [id number] Closed Auto-Generate d Referral 06/15/2022 07/30/2022 1 1 Specialty Diagnoses / Procedures Referred By Contac t Referred To Contact General Surgery Diagnoses History of colonic polyps Screening for colon cancer Procedures CONSULT TO GENERAL SURGERY OFFICE/OUTPATIENT [facility] 60-74 MINUTES Silvio Moyer MD [address] [place] [address] Referral ID Status Reason Start Date Expiration Date Visits Requested Visits Authorized [id number] Authorized PCP Requested Referral 08/10/2022 08/10/2023 1 1 Specialty Diagnoses / Procedures Referred By Contac t Referred To Contact [facility] Diagnoses Pectoralis minor syndrome (HCC) Procedures CONSULT TO PHYSICAL THERAPY PHYSICAL THERAPY EVALUATION HIGH COMPLEX 45 MINS Paddy Tsocano RECORDS OFFICER.AUTO POLISHER [address] [place] [address] [facility] [place] [address] [place] [address] Referral ID Status Reason Start Date Expiration Date Visits Requested Visits Authorized [id number] Pending Review Auto-Generat ed Referral 2 08/23/2023 1 1 Specialty Diagnoses / Procedures Referred By Contac t Referred To Contact CT IMAGING Diagnoses Right lower quadrant abdominal pain Procedures CT ABD/PEL W IVCON CT ABD & PELVIS W/CONTRAST Juliet Millan PA-C [address] [place] [address] Ct Imaging Referral ID Status Reason Start Date Expiration Date Visits Requested Visits Authorized [id number] Authorized Auto-Generat ed Referral 10/27/2022 12/11/2022 1 1 Specialty Diagnoses / Procedures Referred By Contac t Referred To Contact Cardiothoracic Surgery Diagnoses Thoracic outlet syndrome of left thoracic outlet Procedures CONSULT TO CARDIOTHORACIC SURGERY Silvio Moyer MD [address] [place] [address] Referral ID Status Reason Start Date Expiration Date Visits Requested Visits Authorized [id number] Ref Not Required PCP Requested Referral 06/09/2022 06/09/2023 1 1 Specialty Diagnoses / Procedures Referred By Contac t Referred To Contact Gastroenterology Diagnoses RUQ pain Procedures CONSULT TO GASTROENTEROLOGY OFFICE/OUTPATIENT [facility] 60-74 MINUTES Silvio Moyer MD [address] [place] [address] Referral ID Status Reason Start Date Expiration Date Visits Requested Visits Authorized [id number] Authorized PCP Requested Referral 05/12/2023 05/11/2024 1 1 Specialty Diagnoses / Procedures Referred By Contac t Referred To Contact Diagnoses Acute cough Ledy Omalley, RECORDS OFFICER.AUTO POLISHER [address] [place] [address] Referral ID Status Reason Start Date Expiration Date Visits Re quested Visits Authorized [id number] Closed 1 1 Specialty Diagnoses / Procedures Referred By Contac t Referred To Contact Diagnoses Small intestinal bacterial overgrowth Procedures CONSULT TO FUNCTIONAL MEDICINE OFFICE/OUTPATIENT [facility] 60 MINUTES Keiry Fontana PA-C [address] [place] [address] Referral ID Status Reason Start Date Expiration Date Visits Requested Visits Authorized [id number] Authorized PCP Requested Referral 10/30/2023 10/29/2024 1 1 Specialty Diagnoses / Procedures Referred By Contac t Referred To Contact Diagnoses Congenital sucrose isomaltose malabsorption Keiry Fontana PA-C [address] [place] [address] Referral ID Status Reason Start Date Expiration Date V isits Requested Visits Authorized [id number] Authorized 11/11/2023 12/10/2024 1 1 Specialty Diagnoses / Procedures Referred By Contac t Referred To Contact Nutrition Diagnoses Irritable bowel syndrome with constipation Congenital sucrose isomaltose malabsorption Small intestinal bacterial overgrowth Procedures CONSULT TO NUTRITION THERAPY MEDICAL NUTRITION ASSMT&IVNTJ INDIV EACH 15 [place] Keiry Fontana PA-C [address] [place] [address] Referral ID Status Reason Start Date Expiration Date Visits Requested Visits Authorized [id number] Authorized PCP Requested Referral 01/09/2024 01/08/2025 1 4 Specialty Diagnoses / Procedures Referred By Contac t Referred To Contact Vascular Surgery Diagnoses Pectoralis minor syndrome (HCC) Thoracic outlet syndrome of left thoracic outlet Procedures CONSULT TO VASCULAR SURGERY OFFICE/OUTPATIENT [facility] 60 MINUTES Tracie Newman APRN.AUTO POLISHER [address] [place] [address] Referral ID Status Reason Start Date Expiration Date Visits Requested Visits Authorized [id number] Authorized PCP Requested Referral 04/14/2024 04/14/2025 1 1 Specialty Diagnoses / Procedures Referred By Contac t Referred To Contact Vascular Surgery Diagnoses Pectoralis minor syndrome (HCC) Foraminal stenosis of cervical region Procedures CONSULT TO VASCULAR SURGERY OFFICE/OUTPATIENT [facility] 60 MINUTES Juliet Millan PA-C [address] [place] [address] Referral ID Status Reason Start Date Expiration Date Visits Requested Visits Authorized [id number] Authorized PCP Requested Referral 10/09/2024 10/09/2025 1 1 Specialty Diagnoses / Procedures Referred By Contac t Referred To Contact Vascular Medicine Diagnoses Pectoralis minor syndrome (HCC) Thoracic outlet syndrome of left thoracic outlet Procedures CONSULT TO VASCULAR MEDICINE OFFICE/OUTPATIENT [facility] 60 MINUTES Juliet Millan PA-C [address] [place] [address] Referral ID Status Reason Start Date Expiration Date Visits Requested Visits Authorized [id number] Authorized PCP Requested Referral 10/09/2024 10/09/2025 1 1 Chief Complaint and Reason for Visit Chief Complaint Cervical spine xray SPINAL STENOSIS CERVICAL SPINE Reason for Visit Cervical pain 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 Thoracic outlet syndrome of left thoracic outlet Family History No Family History Records Found Relationship Condition Age at Onset Recorded Date/T morgan Unknown Family History?COPD, Hypertension Unknown July 19, 2017 9:42am Family History?COPD, Hypertension Unknown May 16, 2022 4:19pm Family History?Heart Disease Unknown July 19, 2017 9:42am Relationship Condition Age at Onset Recorded Date/T morgan Unknown Family History?COPD, Hypertension Unknown July 19, 2017 8:42am Family History?COPD, Hypertension Unknown May 16, 2022 3:19pm Family History?Heart Disease Unknown July 19, 2017 8:42am Medications Administered Section Inactive Administered Medications - up to 3 most recent administrations Medication Order MAR Action Action Date Dose Rate Site lactated ringers iv infusion 30 mL/hr, INTRAVENOUS, CONTINUOUS, Starting on Maylin 08/03/22 at 1430, Until Sun08/04/22 at 0303, Preprocedure New Bag/Syringe/Bottle 08/03/2022 2:30 PM EST 30 mL/hr 30 mL/hr Inactive Administered Medications - up to 3 most recent administrations Medication Order MAR Action Action Date Dose Rate Site diphenhydrAMINE 12.5-50 mg injection (BENADRYL) 12.5-50 mg, INTRAVENOUS, DIRECTED, Starting on Sun08/21/22 at 1200, Until Sun08/21/22 at 1559, DOSING DIRECTED BY PHYSICIAN FOR PROCEDURAL SEDATION ONLY, Intraprocedure Given 08/21/2022 11:50 AM EST 50 mg fentaNYL 50 mcg/mL 25-100 mcg injection (SUBLIMAZE) 25-100 mcg, INTRAVENOUS, DIRECTED, Starting on Sun08/21/22 at 1200, Until Sun08/21/22 at 1559, DOSING DIRECTED BY PHYSICIAN FOR PROCEDURAL SEDATION ONLY, Intraprocedure Given 08/21/2022 11:48 AM EST 50 mcg lactated ringers iv infusion 30 mL/hr, INTRAVENOUS, CONTINUOUS, Starting on Sun08/21/22 at 1100, Until Sun08/21/22 at 1219, Preprocedure New Bag/Syringe/Bottle 08/21/2022 10:55 AM EST 30 mL/hr 30 mL/hr midazolam (PF) 1-5 mg injection (VERSED) 1-5 mg, INTRAVENOUS, DIRECTED, Starting on Sun08/21/22 at 1200, Until Sun08/21/22 at 1559, DOSING DIRECTED BY PHYSICIAN FOR PROCEDURAL SEDATION ONLY, Intraprocedure Given 08/21/2022 11:53 AM EST 2 mg Given 08/21/2022 11:48 AM EST 3 mg Health Concerns Infection Onset Date Last Indicated Resolved Time COVID-19 Rule-Out 07/04/2023 07/04/2023 Summary Purpose Additional Source Comments Source Comments (unrecognize d section and content) In the event this informatio n is protected by the Federal Confidentiality of Alcohol and Drug Abuse Patient Records regulations: The Federal rules restrict any use of the information to criminally investigate or prosecute any alcohol or drug abuse patient.[facility]In the event this information is protected by the Federal Confidentiality of Alcohol and Drug Abuse Patient Records regulations: The Federal rules restrict any use of the information to criminally investigate or prosecute any alcohol or drug abuse patient.[facility] CenterIn the event this information is protected by the Federal Confidentiality of Alcohol and Drug Abuse Patient Records regulations: The Federal rules restrict any use of the information to criminally investigate or prosecute any alcohol or drug abuse patient.[facility] CenterIn the event this information is protected by the Federal Confidentiality of Alcohol and Drug Abuse Patient Records regulations: The Federal rules restrict any use of the information to criminally investigate or prosecute any alcohol or drug abuse patient.[facility] CenterIn the event this information is protected by the Federal Confidentiality of Alcohol and Drug Abuse Patient Records regulations: The Federal rules restrict any use of the information to criminally investigate or prosecute any alcohol or drug abuse patient.[facility]In the event this information is protected by the Federal Confidentiality of Alcohol and Drug Abuse Patient Records regulations: The Federal rules restrict any use of the information to criminally investigate or prosecute any alcohol or drug abuse patient.[facility] CenterIn the event this information is protected by the Federal Confidentiality of Alcohol and Drug Abuse Patient Records regulations: The Federal rules restrict any use of the information to criminally investigate or prosecute any alcohol or drug abuse patient.[facility] CenterIn the event this information is protected by the Federal Confidentiality of Alcohol and Drug Abuse Patient Records regulations: The Federal rules restrict any use of the information to criminally investigate or prosecute any alcohol or drug abuse patient.[facility] CenterIn the event this information is protected by the Federal Confidentiality of Alcohol and Drug Abuse Patient Records regulations: The Federal rules restrict any use of the information to criminally investigate or prosecute any alcohol or drug abuse patient.[facility] CenterIn the event this information is protected by the Federal Confidentiality of Alcohol and Drug Abuse Patient Records regulations: The Federal rules restrict any use of the information to criminally investigate or prosecute any alcohol or drug abuse patient.[facility] CenterIn the event this information is protected by the Federal Confidentiality of Alcohol and Drug Abuse Patient Records regulations: The Federal rules restrict any use of the information to criminally investigate or prosecute any alcohol or drug abuse patient.[facility] CenterIn the event this information is protected by the Federal Confidentiality of Alcohol and Drug Abuse Patient Records regulations: The Federal rules restrict any use of the information to criminally investigate or prosecute any alcohol or drug abuse patient.[facility] CenterIn the event this information is protected by the Federal Confidentiality of Alcohol and Drug Abuse Patient Records regulations: The Federal rules restrict any use of the information to criminally investigate or prosecute any alcohol or drug abuse patient.[facility]In the event this information is protected by the Federal Confidentiality of Alcohol and Drug Abuse Patient Records regulations: The Federal rules restrict any use of the information to criminally investigate or prosecute any alcohol or drug abuse patient.[facility]In the event this information is protected by the Federal Confidentiality of Alcohol and Drug Abuse Patient Records regulations: The Federal rules restrict any use of the information to criminally investigate or prosecute any alcohol or drug abuse patient.[facility]In the event this information is protected by the Federal Confidentiality of Alcohol and Drug Abuse Patient Records regulations: The Federal rules restrict any use of the information to criminally investigate or prosecute any alcohol or drug abuse patient.[facility] CenterIn the event this information is protected by the Federal Confidentiality of Alcohol and Drug Abuse Patient Records regulations: The Federal rules restrict any use of the information to criminally investigate or prosecute any alcohol or drug abuse patient.[facility] CenterIn the event this information is protected by the Federal Confidentiality of Alcohol and Drug Abuse Patient Records regulations: The Federal rules restrict any use of the information to criminally investigate or prosecute any alcohol or drug abuse patient.[facility] CenterIn the event this information is protected by the Federal Confidentiality of Alcohol and Drug Abuse Patient Records regulations: The Federal rules restrict any use of the information to criminally investigate or prosecute any alcohol or drug abuse patient.[facility] CenterIn the event this information is protected by the Federal Confidentiality of Alcohol and Drug Abuse Patient Records regulations: The Federal rules restrict any use of the information to criminally investigate or prosecute any alcohol or drug abuse patient.[facility] CenterIn the event this information is protected by the Federal Confidentiality of Alcohol and Drug Abuse Patient Records regulations: The Federal rules restrict any use of the information to criminally investigate or prosecute any alcohol or drug abuse patient.[facility] CenterIn the event this information is protected by the Federal Confidentiality of Alcohol and Drug Abuse Patient Records regulations: The Federal rules restrict any use of the information to criminally investigate or prosecute any alcohol or drug abuse patient.[facility] CenterIn the event this information is protected by the Federal Confidentiality of Alcohol and Drug Abuse Patient Records regulations: The Federal rules restrict any use of the information to criminally investigate or prosecute any alcohol or drug abuse patient.[facility]In the event this information is protected by the Federal Confidentiality of Alcohol and Drug Abuse Patient Records regulations: The Federal rules restrict any use of the information to criminally investigate or prosecute any alcohol or drug abuse patient.[facility] CenterIn the event this information is protected by the Federal Confidentiality of Alcohol and Drug Abuse Patient Records regulations: The Federal rules restrict any use of the information to criminally investigate or prosecute any alcohol or drug abuse patient.[facility] CenterIn the event this information is protected by the Federal Confidentiality of Alcohol and Drug Abuse Patient Records regulations: The Federal rules restrict any use of the information to criminally investigate or prosecute any alcohol or drug abuse patient.[facility] CenterIn the event this information is protected by the Federal Confidentiality of Alcohol and Drug Abuse Patient Records regulations: The Federal rules restrict any use of the information to criminally investigate or prosecute any alcohol or drug abuse patient.[facility] CenterIn the event this information is protected by the Federal Confidentiality of Alcohol and Drug Abuse Patient Records regulations: The Federal rules restrict any use of the information to criminally investigate or prosecute any alcohol or drug abuse patient.[facility]In the event this information is protected by the Federal Confidentiality of Alcohol and Drug Abuse Patient Records regulations: The Federal rules restrict any use of the information to criminally investigate or prosecute any alcohol or drug abuse patient.[facility] CenterIn the event this information is protected by the Federal Confidentiality of Alcohol and Drug Abuse Patient Records regulations: The Federal rules restrict any use of the information to criminally investigate or prosecute any alcohol or drug abuse patient.[facility] CenterIn the event this information is protected by the Federal Confidentiality of Alcohol and Drug Abuse Patient Records regulations: The Federal rules restrict any use of the information to criminally investigate or prosecute any alcohol or drug abuse patient.[facility] CenterIn the event this information is protected by the Federal Confidentiality of Alcohol and Drug Abuse Patient Records regulations: The Federal rules restrict any use of the information to criminally investigate or prosecute any alcohol or drug abuse patient.[facility] CenterIn the event this information is protected by the Federal Confidentiality of Alcohol and Drug Abuse Patient Records regulations: The Federal rules restrict any use of the information to criminally investigate or prosecute any alcohol or drug abuse patient.[facility]In the event this information is protected by the Federal Confidentiality of Alcohol and Drug Abuse Patient Records regulations: The Federal rules restrict any use of the information to criminally investigate or prosecute any alcohol or drug abuse patient.[facility] CenterIn the event this information is protected by the Federal Confidentiality of Alcohol and Drug Abuse Patient Records regulations: The Federal rules restrict any use of the information to criminally investigate or prosecute any alcohol or drug abuse patient.[facility]In the event this information is protected by the Federal Confidentiality of Alcohol and Drug Abuse Patient Records regulations: The Federal rules restrict any use of the information to criminally investigate or prosecute any alcohol or drug abuse patient.[facility] CenterIn the event this information is protected by the Federal Confidentiality of Alcohol and Drug Abuse Patient Records regulations: The Federal rules restrict any use of the information to criminally investigate or prosecute any alcohol or drug abuse patient.[facility]In the event this information is protected by the Federal Confidentiality of Alcohol and Drug Abuse Patient Records regulations: The Federal rules restrict any use of the information to criminally investigate or prosecute any alcohol or drug abuse patient.[facility]In the event this information is protected by the Federal Confidentiality of Alcohol and Drug Abuse Patient Records regulations: The Federal rules restrict any use of the information to criminally investigate or prosecute any alcohol or drug abuse patient.[facility] CenterIn the event this information is protected by the Federal Confidentiality of Alcohol and Drug Abuse Patient Records regulations: The Federal rules restrict any use of the information to criminally investigate or prosecute any alcohol or drug abuse patient.[facility]In the event this information is protected by the Federal Confidentiality of Alcohol and Drug Abuse Patient Records regulations: The Federal rules restrict any use of the information to criminally investigate or prosecute any alcohol or drug abuse patient.[facility] CenterIn the event this information is protected by the Federal Confidentiality of Alcohol and Drug Abuse Patient Records regulations: The Federal rules restrict any use of the information to criminally investigate or prosecute any alcohol or drug abuse patient.[facility]In the event this information is protected by the Federal Confidentiality of Alcohol and Drug Abuse Patient Records regulations: The Federal rules restrict any use of the information to criminally investigate or prosecute any alcohol or drug abuse patient.[facility]In the event this information is protected by the Federal Confidentiality of Alcohol and Drug Abuse Patient Records regulations: The Federal rules restrict any use of the information to criminally investigate or prosecute any alcohol or drug abuse patient.[facility]In the event this information is protected by the Federal Confidentiality of Alcohol and Drug Abuse Patient Records regulations: The Federal rules restrict any use of the information to criminally investigate or prosecute any alcohol or drug abuse patient.[facility]In the event this information is protected by the Federal Confidentiality of Alcohol and Drug Abuse Patient Records regulations: The Federal rules restrict any use of the information to criminally investigate or prosecute any alcohol or drug abuse patient.[facility]In the event this information is protected by the Federal Confidentiality of Alcohol and Drug Abuse Patient Records regulations: The Federal rules restrict any use of the information to criminally investigate or prosecute any alcohol or drug abuse patient.[facility]In the event this information is protected by the Federal Confidentiality of Alcohol and Drug Abuse Patient Records regulations: The Federal rules restrict any use of the information to criminally investigate or prosecute any alcohol or drug abuse patient.[facility]In the event this information is protected by the Federal Confidentiality of Alcohol and Drug Abuse Patient Records regulations: The Federal rules restrict any use of the information to criminally investigate or prosecute any alcohol or drug abuse patient.[facility]In the event this information is protected by the Federal Confidentiality of Alcohol and Drug Abuse Patient Records regulations: The Federal rules restrict any use of the information to criminally investigate or prosecute any alcohol or drug abuse patient.[facility]In the event this information is protected by the Federal Confidentiality of Alcohol and Drug Abuse Patient Records regulations: The Federal rules restrict any use of the information to criminally investigate or prosecute any alcohol or drug abuse patient.[facility]In the event this information is protected by the Federal Confidentiality of Alcohol and Drug Abuse Patient Records regulations: The Federal rules restrict any use of the information to criminally investigate or prosecute any alcohol or drug abuse patient.[facility]In the event this information is protected by the Federal Confidentiality of Alcohol and Drug Abuse Patient Records regulations: The Federal rules restrict any use of the information to criminally investigate or prosecute any alcohol or drug abuse patient.[facility]In the event this information is protected by the Federal Confidentiality of Alcohol and Drug Abuse Patient Records regulations: The Federal rules restrict any use of the information to criminally investigate or prosecute any alcohol or drug abuse patient.[facility]In the event this information is protected by the Federal Confidentiality of Alcohol and Drug Abuse Patient Records regulations: The Federal rules restrict any use of the information to criminally investigate or prosecute any alcohol or drug abuse patient.[facility]In the event this information is protected by the Federal Confidentiality of Alcohol and Drug Abuse Patient Records regulations: The Federal rules restrict any use of the information to criminally investigate or prosecute any alcohol or drug abuse patient.[facility]In the event this information is protected by the Federal Confidentiality of Alcohol and Drug Abuse Patient Records regulations: The Federal rules restrict any use of the information to criminally investigate or prosecute any alcohol or drug abuse patient.[facility]In the event this information is protected by the Federal Confidentiality of Alcohol and Drug Abuse Patient Records regulations: The Federal rules restrict any use of the information to criminally investigate or prosecute any alcohol or drug abuse patient.[facility]In the event this information is protected by the Federal Confidentiality of Alcohol and Drug Abuse Patient Records regulations: The Federal rules restrict any use of the information to criminally investigate or prosecute any alcohol or drug abuse patient.[facility]In the event this information is protected by the Federal Confidentiality of Alcohol and Drug Abuse Patient Records regulations: The Federal rules restrict any use of the information to criminally investigate or prosecute any alcohol or drug abuse patient.[facility]In the event this information is protected by the Federal Confidentiality of Alcohol and Drug Abuse Patient Records regulations: The Federal rules restrict any use of the information to criminally investigate or prosecute any alcohol or drug abuse patient.[facility]In the event this information is protected by the Federal Confidentiality of Alcohol and Drug Abuse Patient Records regulations: The Federal rules restrict any use of the information to criminally investigate or prosecute any alcohol or drug abuse patient.[facility]In the event this information is protected by the Federal Confidentiality of Alcohol and Drug Abuse Patient Records regulations: The Federal rules restrict any use of the information to criminally investigate or prosecute any alcohol or drug abuse patient.[facility]In the event this information is protected by the Federal Confidentiality of Alcohol and Drug Abuse Patient Records regulations: The Federal rules restrict any use of the information to criminally investigate or prosecute any alcohol or drug abuse patient.[facility]In the event this information is protected by the Federal Confidentiality of Alcohol and Drug Abuse Patient Records regulations: The Federal rules restrict any use of the information to criminally investigate or prosecute any alcohol or drug abuse patient.[facility]In the event this information is protected by the Federal Confidentiality of Alcohol and Drug Abuse Patient Records regulations: The Federal rules restrict any use of the information to criminally investigate or prosecute any alcohol or drug abuse patient.[facility]In the event this information is protected by the Federal Confidentiality of Alcohol and Drug Abuse Patient Records regulations: The Federal rules restrict any use of the information to criminally investigate or prosecute any alcohol or drug abuse patient.[facility]In the event this information is protected by the Federal Confidentiality of Alcohol and Drug Abuse Patient Records regulations: The Federal rules restrict any use of the information to criminally investigate or prosecute any alcohol or drug abuse patient.[facility]In the event this information is protected by the Federal Confidentiality of Alcohol and Drug Abuse Patient Records regulations: The Federal rules restrict any use of the information to criminally investigate or prosecute any alcohol or drug abuse patient.[facility]In the event this information is protected by the Federal Confidentiality of Alcohol and Drug Abuse Patient Records regulations: The Federal rules restrict any use of the information to criminally investigate or prosecute any alcohol or drug abuse patient.[facility]In the event this information is protected by the Federal Confidentiality of Alcohol and Drug Abuse Patient Records regulations: The Federal rules restrict any use of the information to criminally investigate or prosecute any alcohol or drug abuse patient.[facility]In the event this information is protected by the Federal Confidentiality of Alcohol and Drug Abuse Patient Records regulations: The Federal rules restrict any use of the information to criminally investigate or prosecute any alcohol or drug abuse patient.[facility]In the event this information is protected by the Federal Confidentiality of Alcohol and Drug Abuse Patient Records regulations: The Federal rules restrict any use of the information to criminally investigate or prosecute any alcohol or drug abuse patient.[facility] CenterIn the event this information is protected by the Federal Confidentiality of Alcohol and Drug Abuse Patient Records regulations: The Federal rules restrict any use of the information to criminally investigate or prosecute any alcohol or drug abuse patient.[facility] CenterIn the event this information is protected by the Federal Confidentiality of Alcohol and Drug Abuse Patient Records regulations: The Federal rules restrict any use of the information to criminally investigate or prosecute any alcohol or drug abuse patient.[facility] CenterIn the event this information is protected by the Federal Confidentiality of Alcohol and Drug Abuse Patient Records regulations: The Federal rules restrict any use of the information to criminally investigate or prosecute any alcohol or drug abuse patient.[facility] CenterIn the event this information is protected by the Federal Confidentiality of Alcohol and Drug Abuse Patient Records regulations: The Federal rules restrict any use of the information to criminally investigate or prosecute any alcohol or drug abuse patient.[facility] CenterIn the event this information is protected by the Federal Confidentiality of Alcohol and Drug Abuse Patient Records regulations: The Federal rules restrict any use of the information to criminally investigate or prosecute any alcohol or drug abuse patient.[facility] CenterIn the event this information is protected by the Federal Confidentiality of Alcohol and Drug Abuse Patient Records regulations: The Federal rules restrict any use of the information to criminally investigate or prosecute any alcohol or drug abuse patient.[facility] CenterIn the event this information is protected by the Federal Confidentiality of Alcohol and Drug Abuse Patient Records regulations: The Federal rules restrict any use of the information to criminally investigate or prosecute any alcohol or drug abuse patient.[facility] CenterIn the event this information is protected by the Federal Confidentiality of Alcohol and Drug Abuse Patient Records regulations: The Federal rules restrict any use of the information to criminally investigate or prosecute any alcohol or drug abuse patient.[facility] CenterIn the event this information is protected by the Federal Confidentiality of Alcohol and Drug Abuse Patient Records regulations: The Federal rules restrict any use of the information to criminally investigate or prosecute any alcohol or drug abuse patient.[facility] CenterIn the event this information is protected by the Federal Confidentiality of Alcohol and Drug Abuse Patient Records regulations: The Federal rules restrict any use of the information to criminally investigate or prosecute any alcohol or drug abuse patient.[facility] CenterIn the event this information is protected by the Federal Confidentiality of Alcohol and Drug Abuse Patient Records regulations: The Federal rules restrict any use of the information to criminally investigate or prosecute any alcohol or drug abuse patient.[facility] CenterIn the event this information is protected by the Federal Confidentiality of Alcohol and Drug Abuse Patient Records regulations: The Federal rules restrict any use of the information to criminally investigate or prosecute any alcohol or drug abuse patient.[facility] CenterIn the event this information is protected by the Federal Confidentiality of Alcohol and Drug Abuse Patient Records regulations: The Federal rules restrict any use of the information to criminally investigate or prosecute any alcohol or drug abuse patient.[facility] CenterIn the event this information is protected by the Federal Confidentiality of Alcohol and Drug Abuse Patient Records regulations: The Federal rules restrict any use of the information to criminally investigate or prosecute any alcohol or drug abuse patient.[facility] CenterIn the event this information is protected by the Federal Confidentiality of Alcohol and Drug Abuse Patient Records regulations: The Federal rules restrict any use of the information to criminally investigate or prosecute any alcohol or drug abuse patient.[facility] CenterIn the event this information is protected by the Federal Confidentiality of Alcohol and Drug Abuse Patient Records regulations: The Federal rules restrict any use of the information to criminally investigate or prosecute any alcohol or drug abuse patient.[facility] CenterIn the event this information is protected by the Federal Confidentiality of Alcohol and Drug Abuse Patient Records regulations: The Federal rules restrict any use of the information to criminally investigate or prosecute any alcohol or drug abuse patient.[facility] CenterIn the event this information is protected by the Federal Confidentiality of Alcohol and Drug Abuse Patient Records regulations: The Federal rules restrict any use of the information to criminally investigate or prosecute any alcohol or drug abuse patient.[facility] CenterIn the event this information is protected by the Federal Confidentiality of Alcohol and Drug Abuse Patient Records regulations: The Federal rules restrict any use of the information to criminally investigate or prosecute any alcohol or drug abuse patient.[facility] CenterIn the event this information is protected by the Federal Confidentiality of Alcohol and Drug Abuse Patient Records regulations: The Federal rules restrict any use of the information to criminally investigate or prosecute any alcohol or drug abuse patient.[facility] CenterIn the event this information is protected by the Federal Confidentiality of Alcohol and Drug Abuse Patient Records regulations: The Federal rules restrict any use of the information to criminally investigate or prosecute any alcohol or drug abuse patient.[facility] CenterIn the event this information is protected by the Federal Confidentiality of Alcohol and Drug Abuse Patient Records regulations: The Federal rules restrict any use of the information to criminally investigate or prosecute any alcohol or drug abuse patient.[facility] CenterIn the event this information is protected by the Federal Confidentiality of Alcohol and Drug Abuse Patient Records regulations: The Federal rules restrict any use of the information to criminally investigate or prosecute any alcohol or drug abuse patient.[facility] CenterIn the event this information is protected by the Federal Confidentiality of Alcohol and Drug Abuse Patient Records regulations: The Federal rules restrict any use of the information to criminally investigate or prosecute any alcohol or drug abuse patient.[facility] CenterIn the event this information is protected by the Federal Confidentiality of Alcohol and Drug Abuse Patient Records regulations: The Federal rules restrict any use of the information to criminally investigate or prosecute any alcohol or drug abuse patient.[facility] CenterIn the event this information is protected by the Federal Confidentiality of Alcohol and Drug Abuse Patient Records regulations: The Federal rules restrict any use of the information to criminally investigate or prosecute any alcohol or drug abuse patient.[facility] CenterIn the event this information is protected by the Federal Confidentiality of Alcohol and Drug Abuse Patient Records regulations: The Federal rules restrict any use of the information to criminally investigate or prosecute any alcohol or drug abuse patient.[facility] CenterIn the event this information is protected by the Federal Confidentiality of Alcohol and Drug Abuse Patient Records regulations: The Federal rules restrict any use of the information to criminally investigate or prosecute any alcohol or drug abuse patient.[facility] CenterIn the event this information is protected by the Federal Confidentiality of Alcohol and Drug Abuse Patient Records regulations: The Federal rules restrict any use of the information to criminally investigate or prosecute any alcohol or drug abuse patient.[facility] Reason for Visit (unrecogniz ed section and content) Reason Comments Patient Update Refill Request Reason Comments Follow Up patient is here for 6 month follow up Reason Comments Patient Update Reason Comments Medication Request Reason Comments Acute Visit neck and shoulder le ft side Reason Comments Consult Dx: Thoracic outlet syndrome of left thoracic outlet [G54.0 (ICD-10-CM)] Reason Comments Patient Request Specialty Diagnoses / Procedures Referred By Contac t Referred To Contact CT IMAGING Diagnoses TOS (thoracic outlet syndrome) Procedures CTA CHEST (NONGATED) W IVCON CT ANGIOGRAPHY CHEST W/CONTRAST/NONCONTRAST Ricardo Delarosa MD [address] [place] [address] Ct Imaging Referral ID Status Reason Start Date Expiration Date V isits Requested Visits Authorized [id number] Closed Auto-Generate d Referral 06/15/2022 07/30/2022 [address] Specialty Diagnoses / Procedures Referred By Contac t Referred To Contact CT IMAGING Diagnoses TOS (thoracic outlet syndrome) Procedures CTA CHEST (NONGATED) W IVCON CT ANGIOGRAPHY CHEST W/CONTRAST/NONCONTRAST Ricardo Delarosa MD [address] [place] [address] Ct Imaging Reason Comments Consult Reason Comments Medication Update New Patient Evaluation Specialty Diagnoses / Procedures Referred By Contac t Referred To Contact Pain Management Diagnoses Pectoralis minor syndrome (HCC) Procedures CONSULT TO PAIN MGT OFFICE/OUTPATIENT NEW HIGH MDM 60-74 MINUTES Ricardo Delarosa MD [address] [place] [address] Referral ID Status Reason Start Date Expiration Date V isits Requested Visits Authorized [id number] Closed PCP Requested Referral 06/15/2022 06/15/2023 1 1 Reason Comments Insurance Authorization Lyrica Reason Comments Patient Question Specialty Diagnoses / Procedures Referred By Contac t Referred To Contact PAIN MANAGEMENT Diagnoses Pectoralis minor syndrome (HCC) 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] Procedures TRIGGER POINT INJECTION MULTI 1-2 MUSCLE GR INJECTION TRIGGER POINT ONE OR TWO MUSCLES Pain Management [address] [address] Referral ID Status Reason Start Date Expiration Date Visits Re quested Visits Authorized [id number] 1 1 Reason Comments Pain Patient is here for left shoulder continued. Has questions Reason Comments Physical Reason Comments Pre-Op Exam Reason Comments Appointment Reason Comments Follow Up Reason Comments Results Reason Comments Urinary Frequency burning with urinati on x 4-5 days Reason Comments Follow Up UC 10/25/22. Lower ri ght abd pain, urge to have BM. Reason Comments Results Reason Comments Refill Request Reason Onset Date Comments Refill Request 12/04/2022 Reason Comments Referral request Reason Onset Date Comments Refill Request 03/05/2023 Reason Comments Abdominal Pain Reason Onset Date Comments Refill Request 06/04/2023 Reason Comments Cough Cough, congestion, f atigue, ST and LEBRON x 1 week Reason Comments Radiology US Specialty Diagnoses / Procedures Referred By Contac t Referred To Contact US IMAGING Diagnoses RUQ pain Procedures US ABD RIGHT UPPER QUADRANT US ABDOMINAL REAL TIME W/IMAGE LIMITED Silvio Moyer MD [address] [place] [address] [place] [address] Referral ID Status Reason Start Date Expiration Date V isits Requested Visits Authorized [id number] Closed Auto-Generate d Referral 04/21/2023 05/20/2024 1 1 Specialty Diagnoses / Procedures Referred By Contac t Referred To Contact CT IMAGING Diagnoses Right lower quadrant abdominal pain Procedures CT ABD/PEL W IVCON CT ABD & PELVIS W/CONTRAST Juliet Millan PA-C [address] [place] [address] [place] [address] Referral ID Status Reason Start Date Expiration Date V isits Requested Visits Authorized [id number] Closed Auto-Generate d Referral 10/27/2022 12/11/2022 1 1 Reason Comments Radiology [place] Specialty Diagnoses / Procedures Referred By Contac t Referred To Contact MOLECULAR & FUNCTIONAL IMAGING Diagnoses RUQ pain Procedures NM HEPATOBILIARY W EF AND/OR RX HEPATOBIL SYST IMAG INC GB W/PHARMA INTERVENJ Silvio Moyer MD [address] [place] [address] Molecular & Functional Imaging [address] [place] [address] Referral ID Status Reason Start Date Expiration Date V isits Requested Visits Authorized [id number] Closed Auto-Generate d Referral 04/30/2023 05/29/2024 1 1 Reason Comments Right side abdominal pain Alternating co nstipation/diarrhea, decreased appetite Specialty Diagnoses / Procedures Referred By Contac t Referred To Contact Gastroenterology Diagnoses RUQ pain Procedures CONSULT TO GASTROENTEROLOGY OFFICE/OUTPATIENT [facility] 60-74 MINUTES Silvio Moyer MD [address] [place] [address] Referral ID Status Reason Start Date Expiration Date V isits Requested Visits Authorized [id number] Closed PCP Requested Referral 05/12/2023 05/11/2024 1 1 Reason Comments Medication Authorization Reason Comments Breath Hydrogen Test Reason Comments Recheck Abdominal pain, cons tipation/diarrhea, bloating Reason Comments Patient Update Appointment Reason Comments Pectoralis pain Left shoulder X 7/8 days, burning pain today Reason Comments Insurance Authorization Reason Comments Medication Problem Reason Onset Date Comments Refill Request 04/02/2024 Reason Comments 6 Month Exam Reason Comments Recheck IBS with constipatio n and SIBO Reason Comments Possible shingles. Reason Comments Rash Rash on right back x 3 days Reason Onset Date Comments Refill Request 09/11/2024 Reason Comments Appointment 12/05 Hritz Appointm ent Reschedule Reason Comments Pain (Shoulder Pain) Reason Onset Date Comments Refill Request 10/24/2024 Reason Comments Pain Reason Comments Results Reason Onset Date Comments Results 11/24/2024 Reason Comments Yearly Exam Reason Comments med PA Reason Comments Requesting lab results Reason Comments Abstract Urology Reason Comments Ear Problem L ear feels full, mu ffled hearing x6 days Care Teams (unrecognized sec tion and content) 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 Relationship Specialty Start Date End Date Silvio Moyer MD [address] [place] [address] PCP - General Family Practice 05/01/18 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 Relationship Specialty Start Date End Date Silvio Moyer MD [address] [facility] [place] [address] PCP - General Family Practice 05/01/18 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 Relationship Specialty Start Date End Date Silvio Moyer MD [address] [facility] [place] [address] PCP - General Family Practice 05/01/18 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 Relationship Specialty Start Date End Date Silvio Moyer MD [address] [facility] [place] [address] PCP - General Family Medicine 05/01/18 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 Relationship Specialty Start Date End Date Silvio Moyer MD [facility] [place] [address] PCP - General Family Medicine 05/01/18 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 Relationship Specialty Start Date End Date Silvio Moyer MD [facility] [place] [address] PCP - General Family Medicine 05/01/18 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 Relationship Specialty Start Date End Date Silvio Moyer MD [facility] [place] [address] PCP - General Family Medicine 05/01/18 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 Relationship Specialty Start Date End Date Silvio Moyer MD [facility] [place] [address] PCP - General Family Medicine 05/01/18 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 Relationship Specialty Start Date End Date Silvio Moyer MD [facility] [place] [address] PCP - General Family Medicine 05/01/18 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 Relationship Specialty Start Date End Date Silvio Moyer MD [facility] [place] [address] PCP - General Family Medicine 05/01/18 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 Relationship Specialty Start Date End Date Silvio Moyer MD [address] [facility] [place] [address] PCP - General Family Medicine 05/01/18 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 Relationship Specialty Start Date End Date Silvio Moyer MD [facility] [place] [address] PCP - General Family Medicine 05/01/18 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 Relationship Specialty Start Date End Date Silvio Moyer MD [address] [place] [address], [place] [address] PCP - General Family Medicine 05/01/18 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 Relationship Specialty Start Date End Date Silvio Moyer MD [address] [place] [address], [place] [address] PCP - General Family Medicine 05/01/18 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 Relationship Specialty Start Date End Date Silvio Moyer MD [address] [place] [address], [place] [address] PCP - General Family Medicine 05/01/18 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 Relationship Specialty Start Date End Date Silvio Moyer MD [address] [place] [address], [place] [address] PCP - General Family Medicine 05/01/18 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 Relationship Specialty Start Date End Date Silvio Moyer MD [facility] [place] [address] PCP - General Family Medicine 05/01/18 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 Relationship Specialty Start Date End Date Silvio Moyer MD [address] [place] [address], [place] [address] PCP - General Family Medicine 05/01/18 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 Relationship Specialty Start Date End Date Silvio Moyer MD [address] [place] [address], [place] [address] PCP - General Family Medicine 05/01/18 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 Relationship Specialty Start Date End Date Silvio Moyer MD [address] [facility] [place] [address] PCP - General Family Medicine 05/01/18 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 Relationship Specialty Start Date End Date Silvio Moyer MD [address] [facility] [place] [address] PCP - General Family Medicine 05/01/18 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 Relationship Specialty Start Date End Date Silvio Moyer MD [address] [facility] [place] [address] PCP - General Family Medicine 05/01/18 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 Relationship Specialty Start Date End Date Silvio Moyer MD [facility] [place] [address] PCP - General Family Medicine 05/01/18 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 Relationship Specialty Start Date End Date Silvio Moyer MD [address] [facility] [place] [address] PCP - General Family Medicine 05/01/18 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 Relationship Specialty Start Date End Date Silvio Moyer MD [facility] [place] [address] PCP - General Family Medicine 05/01/18 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 Relationship Specialty Start Date End Date Silvio Moyer MD [address] [facility] [place] [address] PCP - General Family Medicine 05/01/18 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 Relationship Specialty Start Date End Date Silvio Moyer MD [address] [facility] [place] [address] PCP - General Family Medicine 05/01/18 Team Status: Active Member Role Status Dates Dr. Suzette He MD Family Provider Active Dr. Silvio Moyer MD Primary Care Provider Active Team Status: Inactive Member Role Status Dates Dr. Silvio Moyer MD Primary Care Provider Active Juliet VILLARREAL, PA Attending Provider Active 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 Relationship Specialty Start Date End Date Silvio Moyer MD [address] [place] [address] PCP - General Family Medicine 05/01/18 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 Relationship Specialty Start Date End Date Silvio Moyer MD [address] [place] [address] PCP - General Family Medicine 05/01/18 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 Relationship Specialty Start Date End Date Silvio Moyer MD [address] [place] [address] PCP - General Family Medicine 05/01/18 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 Relationship Specialty Start Date End Date Silvio Moyer MD [address] [place] [address] PCP - General Family Medicine 05/01/18 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 Relationship Specialty Start Date End Date Silvio Moyer MD [address] [place] [address] PCP - General Family Medicine 05/01/18 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 Relationship Specialty Start Date End Date Silvio Moyer MD [address] [place] [address] PCP - General Family Medicine 05/01/18 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 Relationship Specialty Start Date End Date Silvio Moyer MD [address] [place] [address] PCP - General Family Medicine 05/01/18 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 Relationship Specialty Start Date End Date Silvio Moyer MD [address] [facility] [place] [address] PCP - General Family Medicine 05/01/18 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 Relationship Specialty Start Date End Date Silvio Moyer MD [address] [facility] [place] [address] PCP - General Family Medicine 05/01/18 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 Relationship Specialty Start Date End Date Silvio Moyer MD [address] [facility] [place] [address] PCP - General Family Medicine 05/01/18 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 Relationship Specialty Start Date End Date Silvio Moyer MD [address] [facility] [place] [address] PCP - General Family Medicine 05/01/18 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 Relationship Specialty Start Date End Date Silvio Moyer MD [address] [facility] [place] [address] PCP - General Family Medicine 05/01/18 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 Relationship Specialty Start Date End Date Silvio Moyer MD [address] [facility] [place] [address] PCP - General Family Medicine 05/01/18 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 Relationship Specialty Start Date End Date Silvio Moyer MD [address] [facility] [place] [address] PCP - General Family Medicine 05/01/18 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 Relationship Specialty Start Date End Date Silvio Moyer MD [address] [facility] [place] [address] PCP - General Family Medicine 05/01/18 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 Relationship Specialty Start Date End Date Silvio Moyer MD [address] [place] [address] PCP - General Family Medicine 05/01/18 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 Relationship Specialty Start Date End Date Silvio Moyer MD [address] [place] [address] PCP - General Family Medicine 05/01/18 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 Relationship Specialty Start Date End Date Silvio Moyer MD [address] [place] [address] PCP - General Family Medicine 05/01/18 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 Relationship Specialty Start Date End Date Silvio Moyer MD [address] [place] [address] PCP - General Family Medicine 05/01/18 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 Relationship Specialty Start Date End Date Silvio Moyer MD [address] [place] [address] PCP - General Family Medicine 05/01/18 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 Relationship Specialty Start Date End Date Silvio Moyer MD [address] [place] [address] PCP - General Family Medicine 05/01/18 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 Relationship Specialty Start Date End Date Silvio Moyer MD [address] [place] [address] PCP - General Family Medicine 05/01/18 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 Relationship Specialty Start Date End Date Silvio Moyer MD [address] [place] [address] PCP - General Family Medicine 05/01/18 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 Relationship Specialty Start Date End Date Silvio Moyer MD [address] [place] [address] PCP - General Family Medicine 05/01/18 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 Relationship Specialty Start Date End Date Silvio Moyer MD [address] [place] [address] PCP - General Family Medicine 05/01/18 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 Relationship Specialty Start Date End Date Silvio Moyer MD [address] [place] [address] PCP - General Family Medicine 05/01/18 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 Relationship Specialty Start Date End Date Silvio Moyer MD [address] [place] [address] PCP - General Family Medicine 05/01/18 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 Relationship Specialty Start Date End Date Silvio Moyer MD [address] [place] [address] PCP - General Family Medicine 05/01/18 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 Relationship Specialty Start Date End Date Silvio Moyer MD [address] [place] [address] PCP - General Family Medicine 05/01/18 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 Relationship Specialty Start Date End Date Silvio Moyer MD [address] [place] [address] PCP - General Family Medicine 05/01/18 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 Relationship Specialty Start Date End Date Silvio Moyer MD [address] [place] [address] PCP - General Family Medicine 05/01/18 Tracie Newman, TD.AUTO POLISHER [address] [place] [address] Rug Dyer Helper Family Medicine 08/09/24 Juliet Millan PA-C [address] [place] [address] Rug Dyer Helper [facility] 08/09/24 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 Relationship Specialty Start Date End Date Silvio Moyer MD [address] [place] [address] PCP - General Family Medicine 05/01/18 Tracie Newman, TD.AUTO POLISHER [address] [place] [address] Rug Dyer Helper [facility] 08/09/24 Juliet Millan PA-C [address] [place] [address] [facility] 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 Relationship Specialty Start Date End Date Silvio Moyer MD [address] [place] [address] PCP - General Family Medicine 05/01/18 Tracie Newman, RECORDS OFFICER.AUTO POLISHER [address] [place] [address] Rug Dyer Helper [facility] 08/09/24 Juliet Millan PA-C [address] [place] [address] [employer] Dyer Helper [facility] 08/09/24 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 Relationship Specialty Start Date End Date Silvio Moyer MD [address] [facility] [place] [address] PCP - General Family Medicine 05/01/18 Tracie Newman APRN.AUTO POLISHER [address] [place] [address] Rug Dyer Helper [facility] 08/09/24 Juliet Millan PA-C [address] [place] [address] Rug Dyer Helper [facility] 08/09/24 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 Relationship Specialty Start Date End Date Silvio Moyer MD [address] [place] [address] PCP - General Family Medicine 05/01/18 Tracie Newman APRN.AUTO POLISHER [address] [place] [address] Rug Dyer Helper [facility] 08/09/24 Juliet Millan PA-C [address] [place] [address] Rug Dyer Helper [facility] 08/09/24 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 Relationship Specialty Start Date End Date Silvio Moyer MD [address] [place] [address] PCP - General Family Medicine 05/01/18 Tracie Newman APRN.AUTO POLISHER [address] [place] [address] Rug Dyer Helper [facility] 08/09/24 Juliet Millan PA-C [address] [place] [address] Rug Dyer Helper [facility] 08/09/24 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 Relationship Specialty Start Date End Date Silvio Moyer MD [address] [place] [address] PCP - General Family Medicine 05/01/18 Tracie Newman APRN.AUTO POLISHER [address] [place] [address] Rug Dyer Helper [facility] 08/09/24 Juliet Millan PA-C [address] [place] [address] [employer] Dyer Helper [facility] 08/09/24 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 Relationship Specialty Start Date End Date Silvio Moyer MD [address] [place] [address] PCP - General Family Medicine 05/01/18 Tracie Newman APRN.AUTO POLISHER [address] [place] [address] Rug Dyer Helper [facility] 08/09/24 Juliet Millan PA-C [address] [place] [address] Rug Dyer Helper [facility] 08/09/24 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 Relationship Specialty Start Date End Date Silvio Moyer MD [address] [place] [address] PCP - General Family Medicine 05/01/18 Tracie Newman, TD.AUTO POLISHER [address] [place] [address] Rug Dyer Helper [facility] 08/09/24 Juliet Millan PA-C [address] [facility] [place] [address] Rug Dyer Helper [facility] 08/09/24 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 Relationship Specialty Start Date End Date Silvio Moyer MD [address] [facility] [place] [address] PCP - General Family Medicine 05/01/18 Tracie Newman APRN.AUTO POLISHER [address] [facility] [place] [address] Rug Dyer Helper Family Medicine 08/09/24 Juliet Millan PA-C [address] [facility] [place] [address] Rug Dyer Helper Family [facility] 08/09/24 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 [address] [place] [address] Rug Dyer Helper Family Medicine 08/09/24 Juliet Millan PA-C [address] [place] [address] Rug Dyer Helper Family Medicine 08/09/24 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 Relationship Specialty Start Date End Date Silvio Moyer MD [address] [place] [address] PCP - General Family Medicine 05/01/18 Juliet Millan PA-C [address] [place] [address] Rug Dyer Helper Family [facility] 08/09/24 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 Relationship Specialty Start Date End Date Silvio Moyer MD [address] [place] [address] PCP - General Family Medicine 05/01/18 Juliet Millan PA-C [address] [place] [address] Rug Dyer Helper [facility] 08/09/24 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 Relationship Specialty Start Date End Date Silvio Moyer MD [address] [place] [address] PCP - General Family Medicine 05/01/18 Tracie Newman APRN.AUTO POLISHER [address] [place] [address] Rug Dyer Helper Family Medicine 02/02/25 Juliet Millan PA-C [address] [place] [address] [facility] Medicine 02/02/25 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 Relationship Specialty Start Date End Date Silvio Moyer MD [address] [place] [address] PCP - General Family Medicine 05/01/18 Tracie Newman APRN.AUTO POLISHER [address] [place] [address] Rug Dyer Helper Family Medicine 02/02/25 Juliet Millan PA-C [address] [place] [address] Rug Dyer Helper Family Medicine 02/02/25 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 Relationship Specialty Start Date End Date Silvio Moyer MD [address] [place] [address] PCP - General Family Medicine 05/01/18 Tracie Newman APRN.AUTO POLISHER [address] [place] [address] Rug Dyer Helper Family Medicine 02/02/25 Juliet Millan PA-C [address] [place] [address] Rug Dyer Helper Family Medicine 02/02/25 Goals (unrecognized section and content) Goals may be documented in a n alternate sectionGoals may be documented in an alternate section Continuous Active and Recently Administ ered Medications (unrecognized section and content) Medication Order 08/01/2022 08/02/2022 08/03/2022 lactated ringers iv infusion 30 mL/hr, INTRAVENOUS, CONTINUOUS, Starting on Maylin 08/03/22 at 1430, Until Sun08/04/22 at 0303, Preprocedure 1430 (New Bag/Syring e/Bottle - Provider: Suzette Root, RN)1524 (Stopped - Provider: Vianney Barker RN) PRN Medication Order 08/01/2022 08/02/2022 08/03/2022 bupivacaine (PF) 0.25 % (2.5 mg/mL) injection (SENSORCAINE MPF) (CANCELED) X (OR/PROCEDURE) PRN, Starting on Maylin 08/03/22 at 1501, Until Maylin 08/03/22 at 1512, Intraprocedure 1501 (Given - Provid er: Grupo Lombardo MD - Comment: left upper chest N.Ocampo - fellow) lidocaine 10 mg/mL (1 %) injection (XYLOCAINE) (CANCELED) X (OR/PROCEDURE) PRN, Starting on Maylin 08/03/22 at 1501, Until Maylin 08/03/22 at 1512, Intraprocedure 1501 (Given - Provid er: Grupo Lombardo MD - Comment: left upper chesN. Ocampo - fellow) midazolam (PF) injection (VERSED) (CANCELED) X (OR/PROCEDURE) PRN, Starting on Maylin 08/03/22 at 1439, Until Maylin 08/03/22 at 1512, Intraprocedure 1439 (Given - Provid er: Paddy Christopher, WHITNEY)1453 (Given - Provider: Paddy Christopher RN) (unrecognized sect ion and content) No Status Records FoundNo Status Records Found INFORMATION SOURCE (unrecogn ized section and content) DATE CREATED AUTHOR 03/15/2025 [facility] DATE CREATED AUTHOR AUTHOR'S JULIÁN ALEXIS 03/16/2025 [facility] FOR RECORDS PERTAINING TO PATIENTS WHO ARE OR HAVE BEEN ENROLLED IN A CHEMICAL DEPENDENCY/SUBSTANCEABUSE PROGRAM, SOME INFORMATION MAY BE OMITTED. This clinical summary was aggregated from multiple sources. Caution should be exercised in using it in the provision of clinical care. This summary normalizes information from multiple sources, and as a consequence, information in this document may materially change the coding, format and clinical context of patient data. In addition, data may be omitted in some cases. CLINICAL DECISIONS SHOULD BE BASED ON THE PRIMARY CLINICAL RECORDS. [facility] [employer] [facility]. provides no warranty or guarantee of the accuracy or completeness of information in this document.
--- NOTE | 2025-03-20 07:01 | PCM.HP.STD ---
HPI - General General Date of Service: 03/20/25 Chief Complaint: BPH with obstruction HPI Narrative JACK DRAKE, is a 59 M who presents for a transurethral section of the prostate for obstruction and outlet obstruction plan to do a TURP [facility] Medical History (Updated 03/05/25 @ 10:01 by Breonna Goodwin) Wears glasses Wears partial dentures Prostate disease Gastric reflux Former smoker History of echocardiogram History of stress test Anxiety Hypertension Home Medications ?Medication ?Instructions ?Recorded ?Last Taken ?Type aspirin 81 mg tablet,delayed 81 mg PO DAILY@0800 #30 tabs 03/21/17 Unknown Rx release lisinopril 20 1 ea PO DAILY #30 tabs 03/21/17 Unknown Rx mg-hydrochlorothiazide 12.5 mg tablet (Zestoretic) hydroxyzine HCl 25 mg tablet 25 mg PO PRN PRN Anxiety 10/06/21 Unknown History tamsulosin 0.4 mg capsule (Flomax) 0.4 mg PO DAILY #14 caps 10/06/21 Unknown Rx amitriptyline 10 mg tablet 10 mg PO QHS 03/05/25 Unknown History atorvastatin 10 mg tablet 10 mg PO DAILY 03/05/25 Unknown History sacrosidase 8,500 unit/mL oral 2 ml PO .QD 03/05/25 Unknown History solution (Sucraid) Allergy/AdvReac Type Severity Reaction Status Date / Time No Known Allergies Allergy Verified 03/05/25 09:49 Family History (Updated 10/24/24 @ 11:02 by Karma Tenorio) Other Arthritis Cancer Hypertension Surgical History (Updated 03/05/25 @ 10:01 by Breonna Goodwin) Hx of colonoscopy Social History (Updated 10/24/24 @ 11:19 by Karma Tenorio) Smoking Status: Former smoker Tobacco: How many years used: 10
--- NOTE | 2025-03-20 07:25 | DCINST_ITS ---
Discharge Instructions DC O2, CPAP, BIPAP needs Home O2 Discharge instructions: No Dressing / Incision Discharge Activity: Return to Normal Activity, No Restrictions and May Drive May resume sexual activity in: 4-6 weeks Dressing / Incision Call your doctor if your incision/area has: Continuous Slow Oozing and Sudden Increased Bleeding Call your doctor if you observe: Fever of 101 or Higher and Uncontrolled pain Suture Line Care: Avoid Pulling/Pushing and Avoid Pinching/Bending Follow Up Care Please Follow Up With: Case Squires MD When: call for appt 2 weeks. Test Results: Test results from this visit will be discussed in further detail at your follow- up appointment, if applicable. Discharge Plan Admission Primary Reason for Your Visit: ERMELINDA Attending Provider: Case Squires Primary Care Provider: Silvio Moon Instructions Patient Instructions: ERMELINDA, ERMELINDA Home Recovery, TURP [facility] Print Language: Zimbabwean Discharge Orders/Prescriptions Prescriptions: New ciprofloxacin HCl [Cipro] 500 mg tablet 500 mg PO BID Qty: 10 0RF Continued hydroxyzine HCl 25 mg tablet 25 mg PO PRN PRN (Reason: Anxiety) Patient Comments: Take 0.5-1 tab every 8 hrs as needed for panic attacks. atorvastatin 10 mg tablet 10 mg PO QHS amitriptyline 10 mg tablet 10 mg PO QHS Sucraid 8,500 unit/mL solution 2 ml PO .QD Patient Comments: [NO ORIGINAL SIG] lisinopril-hydrochlorothiazide [Zestoretic] 1 EACH tablet 1 ea PO QHS tamsulosin [Flomax] 0.4 mg capsule 0.4 mg PO BID Referrals / Follow Up: Silvio Moon MD [Primary Care Provider] - Case Squires MD [Med Staff - Active Staff] - Disposition Disposition (needs filled in before D/C Order can be placed): Home, Self Care
[2025-03-20] MEDS: Lactated Ringers 1,000 ML 15 ML IV (07:39)
--- NOTE | 2025-03-20 08:01 | PCM.PRE.AN2 ---
ASA Classification* ASA Classification ASA Classification: 2 Assessment & Plan Anesthesia* Anesthesia Assessment Anesthesia Assessment: Discussed sedation and/or anesthesia options, risks, benefits, and alternatives with patient/parents/legal guardian/POA. Questions invited. The patient/parents/legal guardian/POA seems to understand and agrees to proceed with anesthesia plan. Reviewed the physical assessment, medical history, allergy history and patient home medications list prior to surgery/procedure/anesthetic and documented any changes. Performed airway and anesthesia risk assessments. Anesthesia Type Anesthesia Type: General History Source History Obtained from:: Patient and Chart Anesthesia Focused Assessment* Temperature: 97.7 F Pulse Rate: 82 Blood Pressure: 152/94 Respiratory Rate: 18 Pulse Ox: 98 Oxygen Delivery Method: Room Air Airway Assessment Mouth opens: >3 cm Mallampati Score: III Teeth Condition: Partial (Upper partials out. Rest of the teeth are tight.) Neck Range of motion (ROM): Full ROM Labs Anesthesia Preop lab: CBC WBC 7.8 K/mm3 (4.4-11.0) 10/06/21 13:49 10/06/21 RBC 5.00 M/mm3 (4.6-6.2) 10/06/21 13:49 10/06/21 Hgb 16.1 g/dL (13.0-16.5) 10/06/21 13:49 10/06/21 Hct 46.4 % (40-54) 10/06/21 13:49 10/06/21 Plt Count 229 K/mm3 (150-450) 10/06/21 13:49 10/06/21 CHEMISTRY Potassium 3.6 mmol/L (3.5-5.1) 10/06/21 13:49 10/06/21 Sodium 138 mmol/L (136-145) 10/06/21 13:49 10/06/21 Magnesium 2.1 mg/dL (1.6-2.6) 01/21/18 16:38 01/21/18 BUN 11 mg/dL (7-18) 10/06/21 13:49 10/06/21 Creatinine 1.00 mg/dL (0.70-1.30) 10/06/21 13:49 10/06/21 Glucose 129 mg/dL (74-106) H 10/06/21 13:49 10/06/21 TSH 1.06 uIU/mL (0.358-3.74) 01/21/18 16:38 01/21/18 COAG PT 13.5 SECONDS (11.7-14.9) 07/19/17 05:15 07/19/17 Pre-Assessment Diagnosis/Proposed Procedure Planned Operative Procedure(s): Cysto,Transurethral Resection Prostate Anesthesia History Anesthesia History - product 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 When Was Last Pacemaker Check QUESTION #4 FULL TEXT: You/Your Family Experience fever (hyperthermia) with Anesthesia Last Oral Intake Last Oral intake: Last Oral Intake NPO since 05:45 03/20/25 07:08 Meds taken in AM with sips of No 03/20/25 07:08 water? Meds patient instructed to take am of surgery Any additional information?: Yes NPO since: 05:45 (Patient had green tea at 5:45 AM.) Meds taken in AM with sips of water?: No PONV PONV - product line manager: PONV - product line manager Female No 03/05/25 10:01 HX of Motion Sickness No 03/05/25 10:01 HX of N/V After Surgery No 03/05/25 10:01 Non-Smoker Yes 03/05/25 10:01 Duration of Surgery greater Yes 03/05/25 10:01 than 60 minutes Number of Risk Factors 2 03/05/25 10:01 PONV Score Moderate Risk 03/05/25 10:01 Height & Weight Height & Weight: Anesthesia: Height & Weight Height 6 ft 1 in 03/20/25 07:08 Weight: 79.8 kg 03/20/25 07:08 Body Mass Index (BMI) 23.2 03/20/25 07:08 Respiratory Assessment Respiratory Assessment - product line manager: Respiratory Tract Infection Hx - product line manager Hx Respiratory Tract Infection No 03/05/25 10:01 STOP Sleep Apnea STOP Sleep Apnea - product line manager: STOP Sleep Apnea - product line manager Hx Hypertension Yes: ON MEDS 03/05/25 10:01 Hx Sleep Apnea No 03/05/25 10:01 CPAP BIPAP Do you snore loudly (louder No 03/05/25 10:01 than talking or can be heard Do you often feel tired/ No 03/05/25 10:01 fatigued/ sleepy during daytime? Has anyone observed you stop No 03/05/25 10:01 breathing during sleep? STOP Results Negative 03/05/25 10:01 QUESTION #5 FULL TEXT : Do you snore loudly (louder than talking or can be heard through closed doors)? 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 Specify any problems Hx of Preganancy in last 3 N/A 03/05/25 10:01 Months Nurse Filling Out Transfusion JZOLLINGE 03/05/25 10:01 & Questions: Date: 03/05/25 03/05/25 10:01 Time: 10:04 03/05/25 10:01 Patient unable to answer at this time (ie. confused, unrespo /Reproduction History /Reproductive History - product line manager: /Reproductive Hx- product line manager Hx Now No 03/05/25 10:01 Gestational Age (in weeks): EDC: Hx Hx Para Hx Section SAB No 03/05/25 10:01 Active Medications Active Medications: Current Medications Generic Name Dose Route Start Last Admin Trade Name Freq PRN Reason Stop Dose Admin Acetaminophen 650 mg 03/20/25 07:23 Acetaminophen 325 Mg Tablet PO Q6H PRN PRN Pain Score 1-10 Al Hydroxide/Mg Hydroxide 30 ml 03/20/25 07:23 Mag Hydrox/Al Hydrox/Simeth 30 Ml Udc PO Q4H PRN PRN [place] Amitriptyline HCl 10 mg 03/20/25 22:00 Amitriptyline 10 Mg Tablet PO QHS [facility] Atorvastatin Calcium 10 mg 03/20/25 22:00 Atorvastatin Calcium 10 Mg Tablet PO QHS [facility] Docusate Sodium 200 mg 03/20/25 10:00 Docusate Sodium 100 Mg Capsule PO BID [facility] Hydroxyzine Pamoate 25 mg 03/20/25 07:23 Hydroxyzine Shamika 25 Mg Capsule PO Q8H PRN PRN Anxiety Cefazolin Sodium 2 gm/ Sodium 110 mls @ 200 mls/hr 03/20/25 07:30 Chloride IV 03/20/25 08:02 INTRAOP ONE Sodium Chloride 1,000 mls @ 125 mls/hr 03/20/25 07:25 IV .Q8H [facility] Ciprofloxacin 400 mg in 200 mls @ 200 mls/hr 03/20/25 10:00 Cipro IV 03/20/25 22:59 Q12 [facility] Lactated Ringer's 1,000 mls @ 15 mls/hr 03/20/25 07:45 03/20/25 07:39 IV 15 mls/hr .Q48H [facility] Administration Ketorolac Tromethamine 15 mg 03/20/25 07:23 Ketorolac 15 Mg/Ml Vial IV 03/22/25 07:24 Q6H PRN PRN PAIN 1-10 Metoclopramide HCl 10 mg 03/20/25 07:23 Metoclopramide 10 Mg/2 Ml Vial IV Q8H PRN PRN Nausea/vomiting Non-Formulary Medication 1 each 03/20/25 22:00 Lisinopril-Hydrochlorothiazide [Zestoretic] PO QHS [facility] Ondansetron HCl 4 mg 03/20/25 07:23 Ondansetron 4 Mg/2 Ml Vial IV Q8H PRN NAUSEA/VOMITING Oxycodone HCl 5 - 10 mg 03/20/25 07:23 Oxycodone 5 Mg Tablet PO Q6H PRN PRN Pain Score 4-10 Tamsulosin HCl 0.4 mg 03/20/25 10:00 Tamsulosin Hcl 0.4 Mg Capsule PO BID [facility] Medical History Wears glasses Wears partial dentures Prostate disease Gastric reflux Former smoker History of echocardiogram History of stress test Anxiety Hypertension Home Medications ?Medication ?Instructions ?Recorded ?Last Taken ?Type hydroxyzine HCl 25 mg tablet 25 mg PO PRN PRN Anxiety 10/06/21 Unknown History amitriptyline 10 mg tablet 10 mg PO QHS 03/05/25 03/19/25 History atorvastatin 10 mg tablet 10 mg PO QHS 03/05/25 03/19/25 History sacrosidase 8,500 unit/mL oral 2 ml PO .QD 03/05/25 03/19/25 History solution (Sucraid) ciprofloxacin HCl 500 mg tablet 500 mg PO BID #10 tabs 03/20/25 Unknown Rx (Cipro) lisinopril 20 1 ea PO QHS 03/20/25 03/19/25 History mg-hydrochlorothiazide 12.5 mg tablet (Zestoretic) tamsulosin 0.4 mg capsule (Flomax) 0.4 mg PO BID 03/20/25 03/19/25 History Allergy/AdvReac Type Severity Reaction Status Date / Time No Known Allergies Allergy Verified 03/20/25 07:03 Family History Other Arthritis Cancer Hypertension Surgical History Hx of colonoscopy Social History Smoking Status: Former smoker Tobacco: How many years used: 10 Review of Systems (Anesthesia) ROS Narrative System reviewed and no additional complaints, except as documented.
--- NOTE | 2025-03-20 08:30 | PROS_PTH ---
PATIENT: JACK DRAKE LOC: MS3 U#:[id number] AGE/SX: 59/M ROOM: [facility] RE03/20/[address]: Dr. Case Squires MD : 1965 BED: 1 DIS: 03/21/2025 SPEC #: [id number] RECD: 03/20/25 10:10 STATUS: KAIDEN FENG #: [id number] JESSICA: 03/20/25 08:[address]: Case Squires DEPT: SURGICAL PATHOLOGY RECD BY: Khris Kebede ENTERED: 03/23/25 11:09 SP TYPE: TURP OTHR DR: Dr. Jack Moon MD Tissues: A - Prostate, NOS Procedures: Surgery Specimen Level IV HEADER OPERATION: Cystoscopy, transurethral resection, prostate PRE-OP DIAGNOSIS: Obstruction and outlet obstruction TISSUE SUBMITTED: A- Prostate chips MICROSCOPIC DIAGNOSIS A. Prostate, obstruction and outlet obstruction, transurethral resection: * Benign prostatic hyperplasia. MICROSCOPIC DESCRIPTION Slides are reviewed. GROSS DESCRIPTION A. A. Received in formalin labeled with the patient's name and date of . Designated as prostate tissue is a 6.0 g, 5.1 x 2.6 x 1.0 cm aggregate of irregular, reese, rubbery and cauterized tissue fragments. Entirely submitted in 3 cassettes. [place] 03/23/2025 CPT:08459
--- NOTE | 2025-03-20 08:59 | OP.PCM_ITS ---
Operative Report (Standard) Operative Information Date of Procedure: 03/20/25 Pre-Operative Diagnosis: BPH with obstruction Post-Operative Diagnosis: The same Surgery/Procedure Performed: Transurethral section of prostate heel emery buffer: No Type of Anesthesia: General RN Documented Start/Stop Times: Operation Date: 03/20/25 08:30 Case Time Into Pre-Op 03/20/25 06:30 Anesthesia Start 03/20/25 08:14 Into Room 03/20/25 08:14 Procedure Start 03/20/25 08:26 Out of Pre-Op 03/20/25 08:30 Procedure End 03/20/25 08:56 Procedure Start Time: 08:26 Procedure Stop Time: 08:56 Select all DRAINS/GRAFTS/IMPLANTS that apply: Drains Drain details: 22 [place] three-way Lee Estimated Blood Loss: 10 cc Specimen collected: Yes Description of specimen(s) removed: Prostate chips Description of surgery: In the preoperative setting I discussed with the patient how the surgery would be done with expect afterwards. We discussed how a prostate resection is done and we discussed the risk of the surgery including, bleeding, infection, retrograde ejaculation, changes with ejaculation or intercourse,. We discussed the possibility that the resection of the prostate may not alleviate his urinary symptoms. We discussed the small risk of developing scar tissue along the urethral channel and strictures. We also discussed the chance of the prostate could grow back and he may need further surgery or treatment in the future for prostate problems. Patient was taken back to the operating room, timeout procedure was performed, he was identified and marked and placed on the operating room table. He underwent general anesthesia. He was placed in dorsolithotomy position. Penis and testicles were prepped and draped in usual sterile fashion. Went into the bladder using the visual obturator with a resectoscope. Once inside the bladder identified the right and left ureteral orifice. I then identified the prostate and the anatomy of the prostate. I marked out the area of the sphincter and the verumontanum was identified. I then proceeded with the prostate resection first resected the median lobe. And then resected the right lobe of the prostate. Then to resect the left lobe of the prostate. I then resected the apical tissue of the prostate. This was a complete resection of all obstructive tissue to improve voiding and relieve obstruction. I then made sure that there was no injury to the sphincter or the verumontanum was still intact. At the end of the resection all the chips were Ellik out of the bladder. I then identified the left and right ureteral orifice and these were confirmed to be in good position and effluxing and not injured. The resectoscope was removed, a 22 [place] catheter was placed into the bladder on continuous irrigation. And the urine was fairly light pink color and draining normally. He was taken back to the PACU in good condition. Surgical Findings: Small obstructive prostate Complications Complications: No Admit VTE Documentation VTE Present on Admission: No VTE Mechan Device Prophylaxis: SCD's VTE Pharm Prophylaxis ordered?: No
--- NOTE | 2025-03-20 09:08 | PCM.POST.ANE ---
Anesthesia: Postop Eval I Current Vital Signs Temperature: 97.6 F Pulse Rate: 77 Blood Pressure: 106/68 Respiratory Rate: 16 Pulse Ox: 99 Oxygen Delivery Method: Room Air Assessment Airway patent: Yes Spontaneous unlabored respirations: Yes Mental status: Awake and Calm nausea: No Vomiting: No Anesthesia Complication: No Fluid Hydration Crystalloid volume administer (ml): 500 Total IV fluid infused: 500 Progress Note Anesthesia document: Postop Eval 1 completed: Yes
[2025-03-20] MEDS: 0.9% Normal Saline (1000mL) 1,000 ML 125 ML IV ×2 (10:30→20:00)
--- NOTE | 2025-03-20 14:22 | PCM.POSTANE2 ---
Anesthesia Postop Eval I Sum Postop Eval Completion status Anesthesia document: Postop Eval 1 completed: Yes Anesthesia Postop Eval I Summary Anesthesia Postop Eval I Summary: Anesthesia Postop Eval I: Assessment Summary Airway patent Yes 03/20/25 09:09 BEST Spontaneous unlabored Yes 03/20/25 09:09 BEST respirations Mental status Awake,Calm 03/20/25 09:09 [email or web address] nausea No 03/20/25 09:09 BEST Vomiting No 03/20/25 09:09 BEST Anesthesia Postop Eval I: Fluid Summary Crystalloid volume administer 500 03/20/25 09:09 BEST (ml) Colloids volume administered ( ml) Blood Product volume administered (ml) Total IV fluid infused 500 03/20/25 09:09 BEST Anesthesia Postop Eval I: Summary Notes Anesthesia Complication No 03/20/25 09:09 BEST Anesthesia Complication Comment: Post-operative progress note Anesthesia: Postop Eval II Evaluation Mental status: Awake and Calm Pain Level: 1 nausea: No Vomiting: No Complications Anesthesia Complication: No
[2025-03-21 02:26] VITALS: BP 137/73; PULSE 56; RESP 15; TEMP 36.7; O2SAT 94
[2025-03-21 05:15] VITALS: BP 144/80; PULSE 61; RESP 15; TEMP 36.6; O2SAT 95
[2025-03-21] MEDS: 0.9% Normal Saline (1000mL) 1,000 ML 125 ML IV (05:20)
[2025-03-21 05:50] LABS: Hematocrit 37.0 % (40-54); Hemoglobin 13.0 g/dL (13.0-16.5); Immature Granulocytes Count 0.040 X10^3/uL (0.0-0.0); Mean Corp Hgb Conc 35.1 g/dL (32-36); Mean Corpuscular Volume 92.7 fL (80-94); Mean Platelet Vol. 10.8 fl (6.2-12.0); NRBC Flagged by Analyzer 0.6 % (0-5); Platelet Count 190 K/mm3 (150-450); RBC Distribution Width CV 12.5 % (11.6-14.6); RBC Distribution Width SD 42.5 fl (35.1-43.9); Red Blood Count 3.99 M/mm3 (4.6-6.2); White Blood Count 10.4 K/mm3 (4.4-11.0)
[2025-03-21 06:18] LABS: Anion Gap 12 (5-15); BUN 11 mg/dL (4-19); BUN/Creat Ratio 13.2 RATIO (10-20); Calcium,Total 8.6 mg/dL (7.6-11.0); Carbon Dioxide 19.1 mmol/L (21.0-32.0); Chloride 107 mmol/L (98-108); Estimated Creatinine Clearance 108.10 ml/min (50-250); Glucose 119 mg/dL (70-99); Potassium 4.2 mmol/L (3.3-5.1)
[2025-03-21] MEDS: 0.9% Saline Lock 10 ML Syringe IV (08:44)
[2025-03-21 09:27] VITALS: BP 133/95; PULSE 65; RESP 16; TEMP 36.7; O2SAT 98
--- NOTE | 2025-03-21 09:27 | PCM.DC.SUM ---
Providers Date of Admission: 03/20/25 Date of Discharge: 03/21/25 Primary Care Physician: Dr. Silvio Moon MD Reason For Visit: Cysto,Transurethral Resection Prostate Medications at Discharge Home Medications hydroxyzine HCl 25 mg tablet 25 mg PO PRN PRN Anxiety 10/06/21 amitriptyline 10 mg tablet 10 mg PO QHS 03/05/25 atorvastatin 10 mg tablet 10 mg PO QHS 03/05/25 sacrosidase 8,500 unit/mL oral solution (Sucraid) 2 ml PO .QD 03/05/25 ciprofloxacin HCl 500 mg tablet (Cipro) 500 mg PO BID #10 tabs 03/20/25 lisinopril 20 mg-hydrochlorothiazide 12.5 mg tablet (Zestoretic) 1 ea PO QHS 03/20/25 tamsulosin 0.4 mg capsule (Flomax) 0.4 mg PO BID 03/20/25 Hospital Course Operations TURP Weight / BMI Weight Weight: 79.8 kg Body Mass Index (BMI) 23.2 ABG / Lab / Microbiology Data 03/21/25 04:48 03/21/25 04:48 Laboratory: Laboratory Results - last 24 hr 03/21/25 04:48: WBC 10.4, RBC 3.99 L, Hgb 13.0, Hct 37.0 L, MCV 92.7, MCH 32.6 H, MCHC 35.1, RDW Std Deviation 42.5, RDW Coeff of Nader 12.5, Plt Count 190, MPV 10.8, Immature Gran % (Auto) 0.400, Neut % (Auto) 74.9 H, Lymph % (Auto) 14.7 L, [place] % (Auto) 9.4, Eos % (Auto) 0.3, Baso % (Auto) 0.3, Absolute Neuts (auto) 7.8 H, Absolute Lymphs (auto) 1.53, Nucleated RBC % 0.6, Sodium 138, Potassium 4.2, Chloride 107, Carbon Dioxide 19.1 L, Anion Gap 12, BUN 11, Creatinine 0.81, Estim Creat Clear Calc 108.10, Est GFR (MDRD) Non-Af 100, BUN/Creatinine Ratio 13.2, Glucose 119 H, Calcium 8.6 D/C Instructions May resume sexual activity in: 4-6 weeks Call your doctor if your incision/area has: Continuous Slow Oozing and Sudden Increased Bleeding Call your doctor if you observe: Fever of 101 or Higher and Uncontrolled pain Suture Line Care: Avoid Pulling/Pushing and Avoid Pinching/Bending DC O2, CPAP, BIPAP Needs Home O2 Discharge instructions: No Please Follow Up With: Case Squires MD When: call for appt 2 weeks. Meaningful Use Info Meaningful Use Meaningful Use Diagnoses (Choose all that apply): None applicable Discharge Plan Admission Admit Date/Time: 03/20/25 07:22 Primary Reason for Your Visit: TURP Attending Provider: Case Squires Primary Care Provider: Silvio Moon Instructions Patient Instructions: TURP, TURP Home Recovery, TURP Hospital Recovery Discharge Orders/Prescriptions Prescriptions: New ciprofloxacin HCl [Cipro] 500 mg tablet 500 mg PO BID Qty: 10 0RF Continued hydroxyzine HCl 25 mg tablet 25 mg PO PRN PRN (Reason: Anxiety) Patient Comments: Take 0.5-1 tab every 8 hrs as needed for panic attacks. atorvastatin 10 mg tablet 10 mg PO QHS amitriptyline 10 mg tablet 10 mg PO QHS Sucraid 8,500 unit/mL solution 2 ml PO .QD Patient Comments: [NO ORIGINAL SIG] lisinopril-hydrochlorothiazide [Zestoretic] 1 EACH tablet 1 ea PO QHS tamsulosin [Flomax] 0.4 mg capsule 0.4 mg PO BID Referrals / Follow Up: Silvio Moon MD [Primary Care Provider] - Case Squires MD [Med Staff - Active Staff] -
== END 2025-03-21 11:26 | disposition home or self-care (01) ==
LOC: SDC 08:44 → MS3 08:44
PROVIDERS: Admitting Provider Urology; PCP Family Medicine; Referring Provider Urology; Visit Provider Urology
PROC: (CPT 52601; principal; 2025-03-20 08:15)
DX: N40.1 Benign prostatic hyperplasia with lower urinary tract symptoms (principal); Z79.899 Other long term (current) drug therapy; Z87.891 Personal history of nicotine dependence; I10 Essential (primary) hypertension; N13.8 Other obstructive and reflux uropathy; K21.9 Gastro-esophageal reflux disease without esophagitis; Z79.82 Long term (current) use of aspirin
CPT/HCPCS: 52601; 00914; 36415; 80048; 85025; 88305; 93005; 96361; 96365; 96366; 96375; 96376; 99221; A4216; G0378; J0744; J2405